=== PATIENT | female | born 1945 | race Caucasian/White ===

== ENCOUNTER 2020-01-04 08:30 | Emergency (ER) | payer OTHER, SELFPAY ==
[2020-01-04 08:44] VITALS: BP 137/70; PULSE 85; RESP 16; TEMP 36.2; O2SAT 97
--- NOTE | 2020-01-04 08:48 | ED.GENADULT ---
HPI - General Adult General Chief complaint: Allergic Reaction Stated complaint: redness ear/swollen jawline Time Seen by Provider: 01/04/20 08:50 Source: patient Mode of arrival: ambulatory Limitations: no limitations History of Present Illness HPI narrative: Jackie Arreola is a 74 yo female who comes to the [facility] with swelling of her mouth tongue and submandibular space as a result of salsa that she ate last night that came from [facility] she states that she had a reaction once before after eating food did not connect with this particular salsa discussed the fact that the allergic reaction will recur or get worse with subsequent exposure Related Data Home Medications Medication Instructions Recorded Confirmed duloxetine [Cymbalta] 30 mg PO DAILY 01/04/20 01/04/20 gemfibrozil [Lopid] 600 mg PO BID 01/04/20 01/04/20 hydrocodone-acetaminophen 01/04/20 levothyroxine 50 mcg PO DAILY 01/04/20 01/04/20 metformin 250 mg PO DAILY 01/04/20 01/04/20 Allergies Allergy/AdvReac Type Severity Reaction Status Date / Time No Known Allergies Allergy Verified 01/04/20 08:51 Review of Systems Review of Systems: Narrative: CONSTITUTIONAL: Denies fever, chills, sweats. EYES: Denies visual changes, redness, discharge. ENT: Denies rhinorrhea, congestion, sore throat, otalgia. Swelling of tongue and submandibular space, no respiratory distress CARDIOVASCULAR: Denies chest pain, palpitations, edema. RESPIRATORY: Denies dyspnea, wheezing, cough GASTROINTESTINAL: Denies abdominal pain, nausea, vomiting, diarrhea. GENITOURINARY: Denies dysuria, hematuria, abnormal discharge SKIN: Denies rash or itching. NEUROLOGIC: Denies numbness, or focal weakness. PSYCHIATRIC: Denies anxiety or depression. [facility] Family History Family History Father Acute myocardial infarction, Onset Age: 65 Patient's father is Mother Patient's mother is Social History Social History Smoking status: Never smoker Alcohol intake: never Gender identity (if verbalized by the patient): Female Comments At time of signature, I agree with nursing past medical, surgical, social and family history. There is no relevant family history pertinent to the presenting complaint. Exam Narrative: Exam Narrative: GENERAL: This is a well-nourished, well-developed patient, in mild distress. HEAD: normocephalic, atraumatic. EYES: Sclera clear/white. Vision is grossly intact. EARS: External ears normal. Hearing grossly intact. NOSE: External nose normal without nasal discharge, nares without redness, no rhinorrhea. THROAT: Mucous membranes moist, posterior pharynx claer but swelling of tongue and submandibular space. No respiratory distess- able to talk some, normal respiratory rate NECK: Neck supple,edema, non tender CARDIOVASCULAR: Regular rate and rhythm without murmurs, gallops, or rubs. RESPIRATORY: Clear to auscultation. Breath sounds equal bilaterally. No wheezes, rales, or rhonchi. GASTROINTESTINAL: Abdomen soft, SKIN: warm, intact with no suspicious lesions or rash, good texture and turgor. NEURO: awake, alert, and oriented to person, place and time. There were no obvious focal neurologic abnormalities. Steady gait EXTREMITIES: Normal range of motion. BACK: Nontender without deformity Course Course Emergency Course: Given Solu-Medrol 125 milligrams, Pepcid 20 mg, Benadryl 25 mg-patient observed for half hour Pt is improvong with meds- able to speak more cleraly. Will hold another half hour and then discharge Vital Signs Vital signs: Vital Signs Temperature 97.1 F L 01/04/20 08:44 Pulse Rate 85 01/04/20 08:44 Respiratory Rate 16 01/04/20 08:44 Blood Pressure 137/70 01/04/20 08:44 Pulse Oximetry 97 01/04/20 08:44 Temperature 97.1 F L 01/04/20 08:44 Pulse Rate 85 01/04/20 08:44 Respirat
--- NOTE | 2020-01-04 09:10 | PC.NURSE ---
0856- Pt was given Solu-Medrol 125 and Pepcid 20mg Verified by STAFF SOFTWARE ENGINEER Karne Would not scan said not ordered vivek though valid order existed.
--- NOTE | 2020-01-04 12:04 | PC.NURSE ---
0926- Checked in on patient, she stated she is started to feel better, speech is improving. No further complaints at this time.
--- NOTE | 2020-01-04 12:05 | PC.NURSE ---
0953- checked in on patient, pt stated she is feeling even better, again speech is improving, pt able to swallow benadryl without difficulty. Pt deny SOB or CP at this time.
== END 2020-01-04 10:16 | disposition home or self-care (01) ==
PROVIDERS: Emergency Provider Nurse Practitioner
DX: T78.40XA Allergy, unspecified, initial encounter (principal)
CPT/HCPCS: 96372; 99214; A9270; G0463; J2930

== ENCOUNTER 2020-03-05 14:19 | Emergency (ER) | payer OTHER, SELFPAY ==
[2020-03-05 14:29] VITALS: BP 98/63; PULSE 100; RESP 20; TEMP 36.7; O2SAT 95
--- NOTE | 2020-03-05 14:30 | ED.ALLEREA ---
HPI - Allergic Reaction General Chief complaint: Allergic Reaction Stated complaint: facial, tongue swelling Time Seen by Provider: 03/05/20 14:23 History of Present Illness HPI narrative: The patient presents with her daughter for facial swelling. She had just started a new medicine. Her PCP had given her Bentyl for her diarrhea 4 days. Both of her lower cheeks and her lip are swollen. It is mild but compared to her recent photo it is noticeable. She does not complain of any itching. She does have a little bit of a headache MD complaint: allergic reaction and facial swelling Onset (ago): minute(s) Exposure: medication Symptoms: facial swelling and lip swelling Severity: mild Treatment prior to arrival: none Previous Allergic Reaction History: angioedema Related Data Home Medications Medication Instructions Recorded Confirmed duloxetine [Cymbalta] 30 mg PO DAILY 01/04/20 01/04/20 gemfibrozil [Lopid] 600 mg PO BID 01/04/20 01/04/20 hydrocodone-acetaminophen 01/04/20 levothyroxine 50 mcg PO DAILY 01/04/20 01/04/20 metformin 250 mg PO DAILY 01/04/20 01/04/20 Allergies Allergy/AdvReac Type Severity Reaction Status Date / Time No Known Allergies Allergy Verified 01/04/20 08:51 Review of Systems Review of Systems: Narrative: CONSTITUTIONAL: Denies fever, chills, or sweats. EYES: Denies visual changes, redness, or discharge. ENT: Denies rhinorrhea, congestion, sore throat, or otalgia. CARDIOVASCULAR: Denies chest pain, palpitations, or edema. RESPIRATORY: Denies cough or dyspnea. GASTROINTESTINAL: Denies abdominal pain, nausea, vomiting, or diarrhea. GENITOURINARY: Denies dysuria or hematuria. SKIN: Denies rash or itching. MUSCULOSKELETAL: Denies back pain, joint pain, or myalgia. NEUROLOGIC: Denies headache, numbness, or weakness. [facility] Social History Social History Smoking status: Never smoker Alcohol intake: never Gender identity (if verbalized by the patient): Female Exam Narrative: Exam Narrative: GENERAL: Well-appearing, well-nourished, and in no acute distress. HEAD: Normocephalic, atraumatic. Mild swelling of the lower cheeks and lips. EYES: PERRLA and EOMI. ENT: Nares clear, no rhinorrhea or epistaxis. Mucous membranes moist. No swelling of the tongue NECK: Supple. CHEST: Clear to auscultation. No respiratory distress. HEART: Regular rate and rhythm. No murmur heard. Normal peripheral pulses. ABDOMEN: Soft, nontender, nondistended, normal active bowel sounds. EXTREMITIES: Normal range of motion. No edema. SKIN: Warm, dry, no rash. NEURO: No focal deficits. Alert and oriented x3. PSYCH: Anxious. Course Reevaluation(s) Reevaluation #1: Went into check on her at 3 PM and she is feeling better and the swelling has already decreased. She and her daughter are ready to leave. Date: 03/05/20 Time: 15:04 Vital Signs Vital signs: Vital Signs Temperature 98.0 F 03/05/20 14:29 Pulse Rate 100 03/05/20 14:29 Respiratory Rate 20 03/05/20 14:29 Blood Pressure 98/63 L 03/05/20 14:29 Pulse Oximetry 95 03/05/20 14:29 Temperature 98.0 F 03/05/20 14:29 Pulse Rate 100 03/05/20 14:29 Respiratory Rate 20 03/05/20 14:29 Blood Pressure 98/63 L 03/05/20 14:29 Pulse Oximetry 95 03/05/20 14:29 MDM - Allergic Reaction Differential Diagnosis Differential diagnosis: Likely allergic reaction and angioedema Medical Records Attestation: I reviewed the patient's medical records. Discharge Plan Discharge Clinical Impression: Angioedema Qualifiers: Encounter type: initial encounter Qualified Code(s): T78.3XXA - Angioneurotic edema, initial encounter Headache Qualifiers: Headache type: unspecified Headache chronicity pattern: unspecified pattern Intractability: not intractable Qualified Code(s): R51 - Headache Patient Disposition: Home, Self-Care Condition: Improved Instructions: Angioedema (ED) Additiona
[2020-03-05] MEDS: FAMOTIDINE 20 MG/2 ML VIAL IV PUSH (14:36)
[2020-03-05] MEDS: methylPREDNISolone SOD SUCC 125 MG VIAL IV PUSH (14:36)
[2020-03-05] MEDS: diphenhydrAMINE HCl INJ 50 MG/ML VIAL 25 MG IV PUSH (14:36)
[2020-03-05] MEDS: SODIUM CHLORIDE 0.9% IV 50 ML 100 ML (14:37)
[2020-03-05 15:27] VITALS: BP 98/63; PULSE 74; RESP 14; O2SAT 97
--- NOTE | 2020-03-11 10:08 | PC.NURSE ---
LATE ENTRY This note is being entered to document information to the patient's record. The following information was omitted on [03/05/20], by [isabel cody]. ns start 1437 end 3839
== END 2020-03-05 16:00 | disposition home or self-care (01) ==
LOC: ANHED 14:41
PROVIDERS: Emergency Provider Emergency Medicine
DX: T78.3XXA Angioneurotic edema, initial encounter (principal); R51 Headache
CPT/HCPCS: 96374; 96375; 99284; J1200; J2930

== ENCOUNTER → 2020-06-08 13:23 | Outpatient (CLI) | payer OTHER, SELFPAY ==
--- NOTE | ~2020-06-08 | MM_ITS ---
EXAMINATION: MM screening [facility] BI w sergei HISTORY: Screening mammogram TECHNIQUE: Craniocaudal and mediolateral oblique 3-D tomosynthesis images were obtained and synthetic 2-D images were generated. CAD analysis was submitted and interpreted. COMPARISON: 11/15/2018, 06/09/2017, 05/12/2015 BREAST PARENCHYMAL COMPOSITION: The breasts are heterogeneously dense, which may obscure small masses . FINDINGS: Scattered benign-appearing calcifications are present. There is no evidence of suspicious m ass, calcification, or architectural distortion to suggest malignancy in either breast. There has bee n no suspicious interval change. IMPRESSION: 1. No mammographic evidence of malignancy. 2. Recommend routine screening mammography in one year. BI-RADS Category 2: Benign finding(s). Reviewed, dictated and finalized at location A.
== END ==
PROVIDERS: Visit Provider Nurse Practitioner Obstetrics & Gynecology
DX: Z12.31 Encounter for screening mammogram for malignant neoplasm of breast (principal)
CPT/HCPCS: 77063; 77067

== ENCOUNTER 2020-12-24 08:58 | Emergency (ER) | payer OTHER, SELFPAY ==
[2020-12-24] VITALS (15 sets, daily range): BP systolic 108–123; BP diastolic 56–82; PULSE 79–91; RESP 12–20; TEMP 36.7; O2SAT 95–100
--- NOTE | 2020-12-24 09:52 | ED.ALLEREA ---
HPI - Allergic Reaction General Chief complaint: Allergic Reaction Stated complaint: left facial swelling Time Seen by Provider: 12/24/20 09:10 Source: patient Mode of arrival: ambulatory Limitations: no limitations History of Present Illness HPI narrative: Patient is a 75 year old female who presents with swelling to left face and lower lip. She reports this has happened multiple times in the past. She reports having using Epi pen x 2 and Benadryl 50mg prior to arrival in the ED. Patient is maintaining secretions and denies difficulty breathing at this time. She reports swelling of tongue and airway in the past. She denies the use of new medications or new foods. Patient does take DEANDRA inhibitor. MD complaint: facial swelling Related Data Home Medications Medication Instructions Recorded Confirmed gemfibrozil [Lopid] 600 mg PO BID 01/04/20 01/04/20 hydrocodone-acetaminophen 01/04/20 levothyroxine 50 mcg PO DAILY 01/04/20 01/04/20 amlodipine-benazepril 1 cap PO DAILY 12/24/20 aspirin 81 mg PO DAILY 12/24/20 duloxetine 30 mg PO DAILY 12/24/20 hydrochlorothiazide 25 mg PO DAILY 12/24/20 oxybutynin chloride 15 mg PO DAILY 12/24/20 pantoprazole 40 mg PO QAM 12/24/20 Allergies Allergy/AdvReac Type Severity Reaction Status Date / Time No Known Allergies Allergy Verified 12/24/20 09:10 Review of Systems Review of Systems: Narrative: CONSTITUTIONAL: Denies fever, chills, or sweats. EYES: Denies visual changes, redness, or discharge. ENT: Denies rhinorrhea, congestion, sore throat, or otalgia. CARDIOVASCULAR: Denies chest pain, palpitations, or edema. RESPIRATORY: Denies cough or dyspnea. GASTROINTESTINAL: Denies abdominal pain, nausea, vomiting, or diarrhea. GENITOURINARY: Denies dysuria or hematuria. SKIN: Swelling of left face and lower lip MUSCULOSKELETAL: Denies back pain, joint pain, or myalgia. NEUROLOGIC: Denies headache, numbness, dizziness, or weakness. PSYCHIATRIC: Denies anxiety or depression. [facility] Past Medical History Medical History (Updated 12/24/20 @ 12:26 by KIRSTIE Milton) Angioedema Depression Diabetes High cholesterol Family History Family History Father Acute myocardial infarction, Onset Age: 65 Patient's father is Mother Patient's mother is Social History Social History (Updated 12/24/20 @ 09:56 by KIRSTIE Milton) Smoking status: Never smoker Alcohol intake: never Substance use: never Living arrangements: with family Gender identity (if verbalized by the patient): Female Comments At the time of signature, I have reviewed and agree with nursing past medical, surgical, social, and family history unless otherwise noted. Please see nursing chart for further information. There is no relevant family history pertinent to the presenting complaint. Exam Narrative: Exam Narrative: GENERAL: Well-appearing, well-nourished, and in no acute distress. HEAD: Normocephalic, atraumatic. EYES: EOMI. No redness or drainage. Conjunctiva are normal. ENT: Mucous membranes pink and moist. Nares clear. Throat normal. Uvula midline. NECK: AROM. Supple. No lymphadenopathy. CHEST: No respiratory distress. Clear to auscultation. HEART: Regular rate and rhythm. No murmur appreciated. Normal peripheral pulses. GI: Soft, nontender without rebound, or guarding. No distention. EXTREMITIES: Normal range of motion. SKIN: Angioedema to left face and lower lip. NEURO: No focal deficits. Alert and oriented x3. Gait steady. PSYCH: Normal affect. No signs of depression or anxiety. Course Vital Signs Vital signs: Vital Signs Temperature 36.7 C 12/24/20 09:04 Pulse Rate 85 12/24/20 09:04 Respiratory Rate 18 12/24/20 09:04 Blood Pressure 120/82 12/24/20 09:04 Pulse Oximetry 100 12/24/20 09:04 Temperature 36.7 C 12/24/20 09:04 Pulse Rate 81 12/24/20 12:
[2020-12-24] MEDS: methylPREDNISolone SOD SUCC 125 MG VIAL IV PUSH (10:01)
[2020-12-24] MEDS: SODIUM CHLORIDE 0.9% IV 1,000 ML 999 ML IV CONT (10:01)
[2020-12-24] MEDS: FAMOTIDINE 20 MG/2 ML VIAL IV PUSH (10:01)
[2020-12-24 10:16] LABS: Alanine Aminotransferase 9 U/L (4-35); Albumin Level 4.5 g/dL (3.5-5.1); Alkaline Phosphatase 69 U/L (38-126); Anion Gap 10 mmol/L (8-16); Aspartate Amino Transferase 22 U/L (14-36); Bilirubin,Total 0.3 mg/dL (0.2-1.3); Blood Urea Nitrogen 21 mg/dL (7-17); Calcium 11.9 mg/dL (8.4-10.2); Carbon Dioxide 25 mmol/L (22-30); Chloride 98 mmol/L (98-107); Estimated CRCL calculation 45 ml/min; Estimated Glomerular Filt Rate > 60; Glucose 106 mg/dL (65-105); Potassium 3.9 mmol/L (3.4-5.0); Sodium 133 mmol/L (137-145)
[2020-12-24 10:26] LABS: Basophils Percent Auto 0.3 % (0.2-1.2); Eosinophils Absolute Auto 0.4 K/mm3 (0-0.3); Eosinophils Percent Auto 3.1 % (0-4.4); Hematocrit 29.3 % (37.0-47.0); Hemoglobin 9.7 g/dL (12.0-15.0); Immature Granulocyte Absolute 0.04 K/mm3 (0.00-0.031); Immature Granulocyte Percent A 0.3 % (0-0.5); Lymphocytes Absolute Auto 3.26 K/mm3 (0.9-3.2); Lymphocytes Percent Auto 28.4 % (18.3-44.2); Mean Corpuscular HGB Conc 33.1 g/dl (32-36); Mean Corpuscular Hemoglobin 30.5 pg (26-34); Mean Corpuscular Volume 92.1 fl (80-100); Mean Platelet Volume 10.8 fl (7.4-10.4); Monocytes Absolute Auto 1.5 K/mm3 (0.1-0.6); Monocytes Percent Auto 13.2 % (2.6-8.5); Neutrophils Absolute Auto 6.3 K/mm3 (1.3-6.7); Neutrophils Percent Auto 54.7 % (45.5-73.1); Platelet Count Result 348 k/mm3 (150-375); Red Blood Count 3.18 M/mm3 (4.2-5.4); Red Cell Distribution Width 14.1 % (11.5-14.5); White Blood Count 11.5 K/mm3 (4.5-10.0)
== END 2020-12-24 12:41 | disposition home or self-care (01) ==
PROVIDERS: Emergency Provider Nurse Practitioner; PCP Family Medicine
DX: T78.3XXA Angioneurotic edema, initial encounter (principal); E11.9 Type 2 diabetes mellitus without complications; E78.00 Pure hypercholesterolemia, unspecified; Z79.82 Long term (current) use of aspirin
CPT/HCPCS: 36415; 80053; 85025; 96361; 96374; 96375; 99284; J2930; J7030

== ENCOUNTER → 2021-12-09 14:51 | Outpatient (CLI) | payer OTHER, SELFPAY ==
--- NOTE | ~2021-12-09 | DEXA_ITS ---
Bone Density Report Name: MARCIA RENDON Age: 76 Sex: Female Ethnicity: White Date of : 1945 Indication: postmenopausal; screening for osteoporosis; height loss; hysterectomy; Referring Provider: Ashley, Magdalene Thomas Study: Bone densitometry was performed. Exam Date: December 09, 2021 Accession number: [id number] Bone Density: Region BMD T-score Z-score Classification Femoral Neck (Left) 0.895 0.4 2.6 Normal Total Hip (Left) 1.048 0.9 2.7 Normal Femoral Neck (Right) 0.924 0.7 2.8 Normal Total Hip (Right) 1.057 0.9 2.8 Normal Total Hip Mean 1.053 0.9 2.8 Normal World Health Organization criteria for BMD impression classify patients as: Normal (T-score at or above -1.0), Osteopenia (T-score between -1.0 and -2.5), or Osteoporosis (T-score at or below -2.5). 10-year Fracture Risk: FRAX not reported because: All T-scores for Spine Total, Hip Total, Femoral Neck at or above -1.0 Previous Exams: Region Exam Age BMD T-score BMD Change BMD Change Date g/cm2 vs Baseline vs Previous Total Hip(Left) 12/09/2021 76 1.048 0.9 -0.047* -0.033* 07/08/2019 74 1.081 1.1 -0.014 -0.014 06/09/2017 72 1.095 1.3 Total Hip(Right) 12/09/2021 76 1.057 0.9 -0.035* 0.031* 07/08/2019 74 1.026 0.7 -0.065* -0.065* 06/09/2017 72 1.091 1.2 *Denotes significance at 95% confidence level, LSC for Total Hip = 0.027 g/cm2 Clinical Information Provided by Patient: Has used the following medications: Vitamin D, Calcium Has the following medical conditions: Hysterectomy Patient maximum height was 62 Menopause Age: 49 Does not regularly consume dairy products Drinks caffeinated beverages Onset of menses at age 12 Number of children 4 Impression: The patient has normal bone mass. The BMD for the Total Hip(Left) decreased, changing by -0.033 since the last DXA exam. Discussion: LOW RISK OF FRACTURE; BONE DENSITY IS WELL ABOVE THE MINIMUM DESIRABLE LEVEL AND ABOVE AVERAGE FOR AGE AND SEX AT ALL SKELETAL SITES TESTED. This person's bone density is above expected limits for age and sex. This is rarely clinically significant, but should be pursued if there are significant musculoskeletal complaints. The patient should follow a healthful lifestyle (good nutrition with adequate calcium and vitamin D, and appropriate weight-bearing exercise). Follow-Up: Consider repeating this study in 3 to 4 years to reassess this patient's status, or so
--- NOTE | ~2021-12-09 | MM_ITS ---
EXAMINATION: MM screening [facility] BI w sergei HISTORY: Screening TECHNIQUE: Craniocaudal and mediolateral oblique 3-D tomosynthesis images were obtained and synthetic 2-D images were generated. CAD analysis was submitted and interpreted. COMPARISON: No prior mammogram is available for comparison at this institution. BREAST PARENCHYMAL COMPOSITION: The breasts are heterogeneously dense, which may obscure small masses . FINDINGS: There is no evidence of suspicious mass, calcification, or architectural distortion to sugg est malignancy in either breast. There has been no suspicious interval change. IMPRESSION: 1. No mammographic evidence of malignancy. 2. Recommend routine screening mammography in one year. BI-RADS Category 1: Negative Reviewed, dictated and finalized at location A.
== END ==
PROVIDERS: PCP Family Medicine; Visit Provider Nurse Practitioner Obstetrics & Gynecology
DX: Z12.31 Encounter for screening mammogram for malignant neoplasm of breast (principal); Z78.0 Asymptomatic menopausal state
CPT/HCPCS: 77063; 77067; 77080

== ENCOUNTER → 2023-02-16 14:43 | Outpatient (CLI) | payer OTHER, SELFPAY ==
--- NOTE | ~2023-02-16 | MM_ITS ---
EXAMINATION: MM screening [facility] BI w sergei HISTORY: Screening mammogram TECHNIQUE: Craniocaudal and mediolateral oblique 3-D tomosynthesis images were obtained and synthetic 2-D images were generated. CAD analysis was submitted and interpreted. COMPARISON: 12/09/2021, 06/08/2020, 11/15/2018 BREAST PARENCHYMAL COMPOSITION: The breasts are heterogeneously dense, which may obscure small masses . FINDINGS: No suspicious mass, calcification, or architectural distortion are identified in either román ast to suggest malignancy. There has been no suspicious interval change. IMPRESSION: 1. No mammographic evidence of malignancy. 2. Recommend routine screening mammography in one year. BI-RADS Category 1: Negative Reviewed, dictated and finalized at location A.
== END ==
PROVIDERS: PCP Nurse Practitioner Obstetrics & Gynecology; Visit Provider Nurse Practitioner Obstetrics & Gynecology
DX: Z12.31 Encounter for screening mammogram for malignant neoplasm of breast (principal)
CPT/HCPCS: 77063; 77067

== ENCOUNTER 2023-12-24 12:55 | Emergency (ER) | payer OTHER, SELFPAY ==
--- NOTE | 2023-12-24 14:03 | ED.GENADULT ---
HPI - General Adult General Chief complaint: Urogenital-Female Stated complaint: uti symptoms Source: patient and family Mode of arrival: ambulatory Limitations: no limitations History of Present Illness HPI narrative: Patient presents for evaluation of several symptoms. She is here in the company of her who helps provide me with some of the history. Initially was told that patient came in today for urinary symptoms, specifically a dysuria and urinary frequency. states she has had symptoms on and off for about a month. She reports some suprapubic pressure and has chronic low back pain and is unable to differentiate whether she has any new low back pain outside of her chronic symptoms. She denies any fever, chills, nausea, vomiting. indicates she has been slurring her words for approximately 1 month and has fallen several times lately. He states last week she fell in the yard several times. Both the patient and her contradict himself several times throughout the course of my interview which makes obtaining a thorough an accurate history difficult. According the patient she has not have diabetes or hyperlipidemia. Upon review of medication list in her possession she takes medication for both conditions as well as for high blood pressure. states that patient has been acting more confused. Her baseline orientation status is oriented to person place and time. states she has been tripping over her feet and informed nursing staff here that her right side has been the problematic side when ambulating. Related Data Home Medications Medication Instructions Recorded Confirmed gemfibrozil 600 mg tablet (Lopid) 600 mg PO BID 01/04/20 12/24/23 hydrocodone 5 mg-acetaminophen 325 1 tablet PO TID 01/04/20 12/24/23 mg tablet levothyroxine 50 mcg tablet 50 mcg PO DAILY 01/04/20 12/24/23 amlodipine 10 mg-benazepril 20 mg 1 cap PO DAILY 12/24/20 12/24/23 capsule aspirin 81 mg tablet 81 mg PO DAILY 12/24/20 12/24/23 duloxetine 30 mg capsule,delayed 30 mg PO DAILY 12/24/20 12/24/23 release hydrochlorothiazide 25 mg tablet 25 mg PO DAILY 12/24/20 12/24/23 oxybutynin chloride 15 mg 15 mg PO DAILY 12/24/20 12/24/23 tablet,extended release 24 hr pantoprazole 40 mg tablet,delayed 40 mg PO QAM 12/24/20 12/24/23 release Allergies Allergy/AdvReac Type Severity Reaction Status Date / Time No Known Allergies Allergy Verified 12/24/23 13:02 Review of Systems Review of Systems: CONSTITUTIONAL: Denies fever, chills, or sweats. EYES: Denies visual changes, redness, or discharge. ENT: Denies rhinorrhea, congestion, sore throat, or otalgia. CARDIOVASCULAR: Denies chest pain, palpitations, or edema. RESPIRATORY: Denies cough or dyspnea. GASTROINTESTINAL: Denies abdominal pain outside of suprapubic pain. Denies nausea, vomiting, or diarrhea. GENITOURINARY: Reports suprapubic pain, urinary frequency and dysuria SKIN: Denies rash or itching. MUSCULOSKELETAL: Reports chronic low back pain NEUROLOGIC: Reports unsteady gait with several falls recently. Reports confusion and slurred speech. Denies headache, numbness, dizziness, or weakness. PSYCHIATRIC: Denies anxiety or depression. [facility] Past Medical History Medical History Angioedema Depression Diabetes High cholesterol Hypertension Surgical History Surgical History (Updated 12/24/23 @ 14:14 by KIRSTIE Conner, ) Surgical history unknown Family History Family History Father Acute myocardial infarction, Onset Age: 65 Patient's father is Mother Patient's mother is Social History Social History Smoking status: Never smoker Alcohol intake: never Substance use: never Living arrangements: with
== END 2023-12-24 13:50 | disposition short-term general hospital (02) ==
PROVIDERS: Emergency Provider Nurse Practitioner
DX: R41.0 Disorientation, unspecified (principal); R35.0 Frequency of micturition; E11.9 Type 2 diabetes mellitus without complications; E78.00 Pure hypercholesterolemia, unspecified; I10 Essential (primary) hypertension; E78.5 Hyperlipidemia, unspecified; Z79.82 Long term (current) use of aspirin
CPT/HCPCS: 81003; 99212; G0463

== ENCOUNTER 2023-12-24 14:08 | Inpatient (IN) | payer OTHER, SELFPAY ==
[2023-12-24] VITALS (9 sets, daily range): BP systolic 131–138; BP diastolic 61–82; PULSE 67–76; RESP 16–20; TEMP 36.3–36.6; O2SAT 97–100; BMI 24.7
--- NOTE | ~2023-12-24 | MR_ITS ---
EXAMINATION: MR brain/brain stem wo/w con DATE: 12/25/2023 13:51 INDICATION: Stroke symptoms. TECHNIQUE: Magnetic resonance imaging (MRI) of the brain and brainstem was performed without and with 12 mL MultiHance intravenous contrast. COMPARISON: Brain MRI 07/04/2012, head CT 12/24/2023 FINDINGS: There are scattered areas of nonspecific increased T2-weighted signal intensity in the cere bral white matter. There is an old infarct in the left basal ganglia. There is no intracranial hemorr tova, acute infarction, or abnormal intracranial mass lesion. The ventricles are normal in size. The paranasal sinuses are clear. There are likely changes of ocular lens replacement surgeries. The masto id air cells are normal. IMPRESSION: 1. 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 2. Moderate nonspecific cerebral white matter disease, which likely represents chronic small vessel i schemic disease. Reviewed, dictated and finalized at location A. IMPRESSION: 1. 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 2. Moderate nonspecific cerebral white matter disease, which likely represents chronic small vessel ischemic disease.
--- NOTE | ~2023-12-24 | XR_ITS ---
EXAMINATION: XR chest 2V Exam Date/Time: 12/25/2023 18:35 CDT HISTORY: confusion Comparison: 10/03/2017. RESULT: Lines, tubes, and devices: Partially visualized thoracolumbar fusion hardware. Vertebroplasty cement at multiple thoracic levels. Interbody devices at multiple thoracic/lumbar levels. Lungs and pleura: Lordotic positioning. Emphysematous/senescent change. No focal consolidation, pleu ral effusion, or pneumothorax. Cardiomediastinal silhouette: Stable. Likely small hiatal hernia. Other: No acute osseous or upper abdominal finding. IMPRESSION: No acute cardiopulmonary process. Reviewed, dictated and finalized at location K.
--- NOTE | ~2023-12-24 | CT_ITS ---
EXAMINATION: CT brain wo con DATE: 12/24/2023 15:26 INDICATION: Confusion. Frequent falls. TECHNIQUE: Computed tomography (CT) of the head was performed without intravenous contrast. The mA wa s adjusted according to patient size. Iterative reconstruction technique was employed. The dose-lengt h product was 605.33 mGy-cm. COMPARISON: Head CT 07/03/2012 FINDINGS: There are scattered areas of low attenuation in the cerebral white matter. There is no intr acranial hemorrhage, acute infarction, or abnormal intracranial mass lesion. There are old infarcts i n the left basal ganglia. The ventricles are normal in size. The paranasal sinuses are clear. There a re likely changes of ocular lens replacement surgeries. The mastoid air cells are normal. IMPRESSION: 1. 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 2. Moderate nonspecific cerebral white matter disease, which likely represents chronic small vessel i schemic disease. Reviewed, dictated and finalized at location E. IMPRESSION: 1. 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 2. Moderate nonspecific cerebral white matter disease, which likely represents chronic small vessel ischemic disease.
--- NOTE | ~2023-12-24 | CT_ITS ---
EXAMINATION: CTA brain carotid DATE: 12/24/2023 18:41 INDICATION: Seizure. TECHNIQUE: Computed tomographic angiography (CTA) of the head was performed with 100 mL Omnipaque-350 intravenous contrast. CTA of the neck was performed with intravenous contrast. Automated exposure co ntrol and iterative reconstruction technique were employed. The dose-length product was 956.90 mGy-cm . Maximum intensity projection and volume rendered 3D-reconstructions were created by the yoonew t on a separate workstation. COMPARISON: Head CT 12/24/2023 FINDINGS: HEAD CTA: There are scattered areas of low attenuation in the cerebral white matter. There is no intr acranial hemorrhage, acute infarction, or abnormal intracranial mass lesion. There are old infarcts i n the left basal ganglia. The ventricles are normal in size. The paranasal sinuses are clear. There a re likely changes of ocular lens replacement surgeries. The mastoid air cells are normal. The vertebr al arteries are codominant. There is no significant stenosis of basilar artery or the posterior cereb ral arteries. There is no significant stenosis of the intracranial internal carotid arteries or anter ior or middle cerebral arteries. Anterior communicating artery is normal. Posterior communicating art eries are not identified. There is no aneurysm. NECK CTA: There is mild scarring at the lung apices. Calcified mediastinal lymph nodes are consistent with old granulomatous disease. There is no significant stenosis of the vertebral arteries. There is mild plaque in the proximal internal carotid arteries. There is 0% stenosis of the proximal right in ternal carotid artery relative to normal distal artery lumen diameter (NASCET criteria). There is 0% stenosis of the proximal left internal carotid artery relative to normal distal artery lumen diameter . There is severe cervical spondylosis. IMPRESSION: 1. 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 2. Moderate nonspecific cerebral white matter disease, which likely represents chronic small vessel i schemic disease. 3. No aneurysm or significant intracranial arterial stenosis. 4. 0% stenosis of the proximal internal carotid arteries relative to normal distal artery lumen diame ters (NASCET criteria). Reviewed, dictated and finalized at location E. IMPRESSION: 1. 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 2. Moderate nonspecific cerebral white matter disease, which likely represents chronic small vessel ischemic disease. 3. No aneurysm or significant intracranial arterial stenosis. 4. 0% stenosis of the proximal internal carotid arteries relative to normal dis jewel artery lumen diameters (NASCET criteria).
--- NOTE | 2023-12-24 14:13 | ECG_ITS ---
SEE SCANNED COPY FOR CONFIRMED REPORT MTDD
--- NOTE | 2023-12-24 14:14 | ED.AMS ---
HPI - Altered Mental Status General Chief Complaint: Altered Mental Status Stated Complaint: AMS, frequent falls Time Seen by Provider: 12/24/23 14:12 History of Present Illness HPI narrative: Patient is a 78 year old female with history of depression, DM, HTN here with progressive symptoms over the last 1 month. Patient and are both poor historians and timeline is difficult to discern. notes that over the last 2-4 weeks he believes she has started having increasing episodes of confusion. She has also been experiencing increased frequency of falls. Patient's states falls have happened both in the house and outside, denies witnessing the falls. Patient is unsure of what causes the falls, unsure if she has had head trauma, does note she scraped her right forearm during one of the falls. Over the last 1 week, patient has had worsened difficulty walking due to weakness in her right leg. describes it as pain, patient describes it as weakness. She denies any numbness. She denies any weakness or numbness in her other extremities or face. She does however note that she seems to be more slumped over and feels like she is falling forward more often. No history of stroke. does note she has been getting up 4 + times a night recently and is concerned she may have a UTI. He does not believe she has started any new medications in the last month. Related Data Home Medications Medication Instructions Recorded Confirmed gemfibrozil 600 mg tablet (Lopid) 600 mg PO BID 01/04/20 12/24/23 hydrocodone 5 mg-acetaminophen 325 1 tablet PO TID 01/04/20 12/24/23 mg tablet levothyroxine 50 mcg tablet 50 mcg PO DAILY 01/04/20 12/24/23 amlodipine 10 mg-benazepril 20 mg 1 cap PO DAILY 12/24/20 12/24/23 capsule aspirin 81 mg tablet 81 mg PO DAILY 12/24/20 12/24/23 duloxetine 30 mg capsule,delayed 30 mg PO DAILY 12/24/20 12/24/23 release hydrochlorothiazide 25 mg tablet 25 mg PO DAILY 12/24/20 12/24/23 oxybutynin chloride 15 mg 15 mg PO DAILY 12/24/20 12/24/23 tablet,extended release 24 hr pantoprazole 40 mg tablet,delayed 40 mg PO QAM 12/24/20 12/24/23 release Allergies Allergy/AdvReac Type Severity Reaction Status Date / Time No Known Allergies Allergy Verified 12/24/23 13:02 Review of Systems Review of Systems: All systems reviewed & are unremarkable except as noted in HPI and below PMFSH Past Medical History Medical History Angioedema Depression Diabetes High cholesterol Hypertension Surgical History Surgical History (Updated 12/24/23 @ 14:14 by KIRSTIE Conner, ) Surgical history unknown Family History Family History Father Acute myocardial infarction, Onset Age: 65 Patient's father is Mother Patient's mother is Social History Social History Smoking status: Never smoker Alcohol intake: never Substance use: never Living arrangements: with family Gender identity (if verbalized by the patient): Female Exam Narrative: GENERAL: Well-appearing, well-nourished, and in no acute distress. HEAD: Normocephalic, atraumatic. EYES: PERRLA and EOMI. ENT: Nares clear. Mucous membranes moist. NECK: Supple. CHEST: Clear to auscultation. No respiratory distress. HEART: Regular rate and rhythm. Normal peripheral pulses. ABDOMEN: Soft, nontender, nondistended. EXTREMITIES: Normal range of motion. No edema. SKIN: Warm, dry, no rash. NEURO: Alert and oriented x3. No upper extremity drift or numbness bilaterally. No drift in LLE, mild drift in RLE. No facial droop. PSYCH: Normal mood and affect. Course Course Emergency Course: Chart review performed. Patient appears to have been at one of our affiliated urgent cares prior to presentation here. Their no
[2023-12-24 14:45] LABS: Basophils Percent Auto 0.4 % (0.2-1.2); Eosinophils Absolute Auto 0.1 K/mm3 (0-0.3); Hemoglobin 13.8 g/dL (12.0-15.0); Immature Granulocyte Absolute 0.01 K/mm3 (0.00-0.031); Immature Granulocyte Percent A 0.1 % (0-0.5); Lymphocytes Absolute Auto 2.07 K/mm3 (0.9-3.2); Mean Corpuscular HGB Conc 36.3 g/dl (32-36); Mean Corpuscular Hemoglobin 30.7 pg (26-34); Mean Corpuscular Volume 84.4 fl (80-100); Mean Platelet Volume 10.1 fl (7.4-10.4); Monocytes Percent Auto 13.9 % (2.6-8.5); Neutrophils Percent Auto 55.6 % (45.5-73.1); Platelet Count Result 383 k/mm3 (150-375); Red Cell Distribution Width 13.3 % (11.5-14.5); White Blood Count 7.1 K/mm3 (4.5-10.0)
[2023-12-24 14:55] LABS: Lactic Acid Reflex 1.2 mmol/L (0.7-2.0)
[2023-12-24 15:02] LABS: Alanine Aminotransferase 15 U/L (6-35); Albumin Level 5.2 g/dL (3.5-5.1); Alkaline Phosphatase 64 U/L (38-126); Anion Gap 16 mmol/L (4-12); Aspartate Amino Transferase 36 U/L (14-36); Bilirubin,Total 0.9 mg/dL (0.2-1.3); Blood Urea Nitrogen 15 mg/dL (7-17); CRP 0.5 mg/dL (<1.0); Calcium 11.5 mg/dL (8.4-10.2); Carbon Dioxide 22 mmol/L (22-30); Chloride 94 mmol/L (98-107); Estimated CRCL calculation 45 ml/min; Estimated Glomerular Filt Rate > 60; Glucose 106 mg/dL (65-110); Potassium 2.7 mmol/L (3.4-5.0); Sodium 132 mmol/L (137-145)
[2023-12-24 15:03] LABS: INR 1.1; Prothrombin Time 14.3 Seconds (11.1-14.7)
[2023-12-24 15:04] LABS: Partial Thromboplastin Time 32.1 Seconds (22.3-36.8)
[2023-12-24 15:09] LABS: Troponin I 0.041 ng/mL (0.000-0.034)
[2023-12-24 16:16] LABS: Appearance Urine Cloudy (Clear); Bacteria Urine None Seen /hpf; Bilirubin Urine Negative (Negative); Blood Urine Negative (Negative); Color Urine Yellow (Yellow); Glucose Urine UA Negative (Negative); Ketones Urine Negative (Negative); Leukocyte Esterase Ur Trace LEU/UL (Negative); Nitrate Urine Negative (Negative); Non Pathogenic Casts 0-2; Protein Urine 1+ mg/dL (Negative); RBC Urine 0-2 /hpf (0-2); Specific Grav Ur 1.015 (1.001-1.035); Squamous Epithelial Cell Urine Few /hpf (Few); WBC Urine 0-5 /hpf (0-3); pH Urine 6.5 (5.0-9.0)
[2023-12-24] MEDS: POTASSIUM BICARBONATE 25 MEQ TABEF 50 MEQ PO (16:23)
[2023-12-24 16:28] LABS: Add Urine Microscopic? YES
[2023-12-24 20:09] LABS: Troponin I 0.046 ng/mL (0.000-0.034)
--- NOTE | 2023-12-24 20:44 | PM.IMHP ---
H&P: HPI History of Present Illness Date/Time: 12/24/23 21:30 Chief Complaint: Confusion and falls. Narrative: This is a very pleasant 78-year-old female with hypertension, dyslipidemia, chronic back pain, peripheral neuropathy, hypothyroidism, and gastroesophageal reflux disease who presented to the emergency department from urgent care for evaluation of confusion and falls. The patient provides the following history. Her has been worried about her for several weeks. She has been a bit confused at times (no examples were provided however and she is noted to be on donepezil at home) and the last week or so she has been intermittently slurring her speech. She has had several falls as well and he encouraged her to go to Urgent Care today to get checked for urinary tract infection to see if that was perhaps the reason that she was acting differently. Her UA was reportedly unremarkable and she was encouraged to come to the emergency department for further evaluation. The patient herself has no current complaints but she does admit that her balance has not been great for several weeks. She has noticed that the right leg in particular has seemed to be giving her trouble however she cannot tell me exactly what that means and she denies overt weakness in that leg. Regarding the falls, she tells me that last week she was outside playing with her great grandson and the next thing she knew she was falling forward onto the concrete patio. She does not recall antecedent symptoms prior to that episode. She does not know and what caused her to fall however. Luckily she was able to catch herself by landing on her forearms and there was no head trauma or loss of consciousness. She denies current vertigo, headache, neck ache, visual changes, facial droop, difficulties swallowing, current speech disturbances, focal weakness, and paresthesias. She also denies chest pain, pleuritic pain, sensations of racing heart, palpitations, and shortness of breath. She has not had any recent cold or flu symptoms. She denies recent change in her current medications or addition of new medications. She denies alcohol and illicit drug abuse. In the ED: She was afebrile on arrival with stable vital signs. CBC was unremarkable. Labs were significant for a sodium of 132, potassium 2.7, chloride 94, BUN 15, creatinine 0.70, calcium 11.5, troponin 0.041. Brain CT showed old infarcts in the left basal ganglia. CTA of the head and neck did not show any significant stenosis or aneurysm. She was given 50 mEq potassium bicarbonate and she is being admitted in this setting for further evaluation. Review of Systems Review of Systems: 12 systems were reviewed and are negative except for as per HPI. FOR[facility], LATER [facility] Past Medical History Medical History (Updated 12/24/23 @ 23:20 by Dorina Barry PA-C) Angioedema Chronic pain syndrome Depression Diabetes No longer on medication. Dyslipidemia Hypertension Insomnia Peripheral neuropathy Surgical History Surgical History (Updated 12/24/23 @ 23:09 by Dorina Barry PA-C) History of cataract extraction History of spinal surgery For scoliosis Family History Family History Father Acute myocardial infarction, Onset Age: 65 Patient's father is Mother Patient's mother is Other Leukemia Social History Social History (Updated 12/24/23 @ 23:10 by Dorina Barry PA-C) Social History: Surrogate medical decision maker: Иван Arreola, spouse. Code status: Full code. Smoking status: Never smoker Alcohol intake: former Substance use: never Substance use type: does not use Do You Feel Safe in your Home?: Yes Lack of Transportation: No Lack of Food: Never True Current Housing: I Have Housing Concerned About Future Housing: No Difficulty Paying Gas/Electric Bills: No Difficulty Paying for Meds: No Current
[2023-12-24 20:45] LABS: Magnesium 1.8 mg/dL (1.6-2.3)
[2023-12-24 21:07] LABS: Anion Gap 14 mmol/L (4-12); Blood Urea Nitrogen 13 mg/dL (7-17); Calcium 10.9 mg/dL (8.4-10.2); Carbon Dioxide 24 mmol/L (22-30); Chloride 93 mmol/L (98-107); Estimated CRCL calculation 52 ml/min; Estimated Glomerular Filt Rate > 60; Glucose 98 mg/dL (65-110); Potassium 3.1 mmol/L (3.4-5.0); Sodium 131 mmol/L (137-145)
[2023-12-24] MEDS: DULoxetine HCL 30 MG CAPSULE.DR PO (21:59)
[2023-12-24] MEDS: DONEPEZIL HCL 10 MG TABLET PO (21:59)
[2023-12-24] MEDS: busPIRone HCL 5 MG TABLET PO (21:59)
[2023-12-24] MEDS: GABAPENTIN 300 MG CAPSULE 900 MG PO (22:00)
[2023-12-24] MEDS: HYDROcodone/acetaminophen (*CRX) 5-325 MG TABLET 1 TAB PO (22:00)
[2023-12-24] MEDS: ZOLPIDEM TARTRATE (*CRX) 5 MG TABLET PO (22:20)
[2023-12-25] VITALS (17 sets, daily range): BP systolic 95–123; BP diastolic 54–63; PULSE 67–98; RESP 12–18; TEMP 36.3–37.1; O2SAT 95–100
[2023-12-25] MEDS: POTASSIUM CHLORIDE 20 MEQ ER TABLET 40 MEQ PO (01:22)
[2023-12-25] MEDS: SODIUM CHLORIDE 0.9% IV 1,000 ML 100 ML IV CONT (01:23)
[2023-12-25 04:55] LABS: Hematocrit 34.7 % (37.0-47.0); Hemoglobin 12.1 g/dL (12.0-15.0); Mean Corpuscular HGB Conc 34.9 g/dl (32-36); Mean Corpuscular Volume 86.1 fl (80-100); Mean Platelet Volume 10.5 fl (7.4-10.4); Platelet Count Result 373 k/mm3 (150-375); Red Blood Count 4.03 M/mm3 (4.2-5.4); Red Cell Distribution Width 13.3 % (11.5-14.5); White Blood Count 6.2 K/mm3 (4.5-10.0)
[2023-12-25 05:15] LABS: Anion Gap 10 mmol/L (4-12); Blood Urea Nitrogen 11 mg/dL (7-17); Carbon Dioxide 22 mmol/L (22-30); Chloride 100 mmol/L (98-107); Cholesterol 188 mg/dL (0-200); Estimated CRCL calculation 52 ml/min; Estimated Glomerular Filt Rate > 60; Glucose 94 mg/dL (65-110); HDL Direct 93 mg/dL; Magnesium 1.9 mg/dL (1.6-2.3); Potassium 2.7 mmol/L (3.4-5.0); Sodium 132 mmol/L (137-145); Triglycerides 78 mg/dL (<150)
[2023-12-25 05:22] LABS: LDL Cholesterol Direct 69 mg/dL
[2023-12-25 05:52] LABS: Thyroid Stimulating Hormone Reflex 0.045 uIU/mL (0.465-4.68)
[2023-12-25] MEDS: POTASSIUM CHLORIDE INJ 40 MEQ in SODIUM CHLORIDE 0.9% IV 500 ML 130 MEQ IVPB (05:59)
[2023-12-25] MEDS: LEVOTHYROXINE SODIUM 50 MCG TABLET PO (06:02)
[2023-12-25] MEDS: gemfibroziL 600 MG TABLET PO ×2 (06:02→17:31)
[2023-12-25 06:19] LABS: Free T4 Free Thyroxine Reflex 1.72 ng/dL (0.78-2.19)
--- NOTE | 2023-12-25 08:13 | PC.NURSE ---
This RN found the patients potassium infusion running into the floor. The IV line was never connected to the patient. Notified Dr. Morejon. Orders to give the rest of the bag, and order another 20mEq IV and check potassium level one hour after infusion.
[2023-12-25] MEDS: MAGNESIUM SULF 2 GM/WATER 50ML 2 GM/50 ML BAG IVPB (09:31)
[2023-12-25] MEDS: GABAPENTIN 300 MG CAPSULE 900 MG PO ×4 (09:39→20:44)
[2023-12-25] MEDS: PANTOPRAZOLE 40 MG TABLET PO (09:39)
[2023-12-25] MEDS: DULoxetine HCL 60 MG CAPSULE.DR PO (09:39)
[2023-12-25] MEDS: amLODIPine BESYLATE 5 MG TABLET PO (09:39)
[2023-12-25] MEDS: busPIRone HCL 5 MG TABLET PO ×3 (09:39→17:31)
[2023-12-25] MEDS: oxyBUTYnin CHLORIDE XL 5 MG TAB.ER.24 15 MG PO (09:40)
[2023-12-25] MEDS: KCL 20 MEQ/SW 100 ML 100 ML 50 MEQ IVPB (10:07)
--- NOTE | 2023-12-25 10:23 | PCPTNOTE ---
attempted PT eval, per RN and tech pt has low BP and very wobbly with standing up, last recorded BP with standing 95/55, per RN pt is getting potassium currently, will follow
--- NOTE | 2023-12-25 13:51 | PCPTNOTE ---
attempted PT eval, pt out of room at MRI, will follow
[2023-12-25 14:26] LABS: Potassium 3.7 mmol/L (3.4-5.0)
[2023-12-25 16:24] LABS: Total Triiodothyronine (T3) 0.87 NG/ML (0.97-1.69)
--- NOTE | 2023-12-25 17:17 | PM.IMPN ---
Progress Note: A&P Assessment and Plan (1) Elevated troponin: Code(s): R79.89 - Other specified abnormal findings of blood chemistry Status: Acute Assessment and Plan: The patient presented to the emergency department for evaluation of confusion and falls. Troponin elevated to 0.046 and flat. No complaints of chest pain. EKG showing normal sinus with moderate T wave changes in lateral leads. Echo showing LVH with hyperdynamic systolic fxn and Grade I diastolic dysfunction and moderate biatrial dilation. Etiology unclear. BP stable here but consider HoTN at home resulting in the fall that could explain mildly elevated Troponin Repeat Trop (3rd set) and check CXR (2) Neurological symptoms: Code(s): R29.90 - Unspecified symptoms and signs involving the nervous system Status: Acute Assessment and Plan: Patient with confusion and fall. She is having frequent falls and noted to be confused at times per family. 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 CTA head/Neck showing no acute findings or concerning stenosis. Brain MRI showing similar findings. Suspect she has underlying dementia (already on donepezil) made worse with chronic narcotic use, Ambien use and excessive free water fluid intake (that may be causing electrolyte changes and resulting in poor oral intake). Peripheral Neuropathy may be affecting her balance. Also on Butalbital with codeine that could be contributing to her symptoms. Also on a diet for unclear reasons She is also up voiding at night frequently due to the excessive water intake which can lead to poor sleep hygiene and more confusion during the day. TSH noted and only slightly low and with normal FT4. Continue levopthyroxine. Continue donepezil. Stop Ambien. Limit [place] and Butalbital use. Instructed patient and family to limit free water intake, no drinking fluids after 4pm and sleep in bed with quiet environment. Start PT/OT. Continue fall precautions. (3) Electrolyte abnormality: Code(s): E87.8 - Other disorders of electrolyte and fluid balance, not elsewhere classified Status: Acute Assessment and Plan: Patient with several electrolyte abnormalities including hyponatremia, hypokalemia, and hypercalcemia. May very well be related to HCTZ which was held. Consider related to excessive free water. Potassium low again this morning and replacement ordered. Sodium about the same. Calcium mildly elevated and felt related to HCTZ or hyperparathyroid disease. Better after IV fluids. (4) Frequent falls: Code(s): R29.6 - Repeated falls Status: Acute Assessment and Plan: As above (5) Chronic pain syndrome: Code(s): G89.4 - Chronic pain syndrome Status: Acute Assessment and Plan: As above. Limit narcotics (6) Insomnia: Code(s): G47.00 - Insomnia, unspecified Status: Acute Assessment and Plan: As above. Stop ambien. Use melatonin. (7) Peripheral neuropathy: Code(s): G62.9 - Polyneuropathy, unspecified Status: Acute Assessment and Plan: On an exceedingly high still of Gabapentin (3600mg) which could be potentiated by the narcotics and/or renal disease. CrCl 52 with recommendations of not to exceed 1800mg/day for CrCl 50-79. Contributing to her underlying problems with confusion, amnesia, depression and abnormal gait. Reduce Gabapentin to 900mg Q8hr then reduce further to 600mg Q8hr at discharge. (8) Hypertension: Code(s): I10 - Essential (primary) hypertension Status: Acute Assessment and Plan: Patient's blood pressure was reviewed on 12/24 Blood pressure low at times. Falls related to HoTN? Will hold Norvasc Plan DVT Prophylaxis - SCDs Code status - full Subjective Date/time seen: 12/25/23 17:17 Interval history: 78yo female with HTN, dyslipidemia, chronic back pain
--- NOTE | 2023-12-25 18:11 | WPDNEURCNPN ---
Assessment and Plan Assessment and plan (1) MCI (mild cognitive impairment): Code(s): G31.84 - Mild cognitive impairment of uncertain or unknown etiology Status: Acute (2) Peripheral neuropathy: Code(s): G62.9 - Polyneuropathy, unspecified Status: Acute (3) Ataxia: Code(s): R27.0 - Ataxia, unspecified Status: Acute (4) Chronic pain syndrome: Code(s): G89.4 - Chronic pain syndrome Status: Acute (5) Status post lumbar spine surgery for decompression of spinal cord: Code(s): Z98.890 - Other specified postprocedural states Status: Acute Plan The patient is being treated for possible urinary tract infection at this time. She has history of chronic lower back pain and has had a surgery on the same the past year. She will require further evaluation from neurology point of view with attention to the balance and memory since the single exam not considered conclusive and a for any definitive decision making. I spoke to the patient and his sister about it. Of the glad to see her in my office with the results of these. In the meanwhile take liberty to order serum B12 and folic acid level and thyroid function test and vitamin-D levels under summary done. Physical therapy can assist to help with gait strengthening. Consult date: 12/25/23 Time Seen: 10:30 Reason for consult: change in mental status and imbalance HPI: Jackie Arreola is a 78 year old female who presented emergency room with change in mental status and tendency to fall. According to her sister who was present at time of the evaluation as he has been having this problem on and off for while but to the of the change in mental status and also she appears somewhat confused and had a fall. She has history of chronic pain. She attributes this to having neuropathy. See has been diagnosed to have diabetes mellitus at 1 point but the patient has a labral explanation because she does not think that she has diabetes. Sees worried that she may have had a stroke since having difficulty with balance and CT scan of the brain and CT angiogram of the brain number performed did not show any large vessel occlusion. There is a old infarct in the left basal ganglia region. MRI of the brain was performed also shows moderate degree of white matter changes and old infarct in the left basal ganglia region. No additional new findings have been noted. Patient has not had any episodes of unresponsiveness while in the hospital. It was noted that she had some electrolyte abnormality tab being attended to by the hospitalist group. Review of Systems Review of Systems: All systems reviewed & are unremarkable except as noted in HPI and below Constitutional: Constitutional: Denies chills, Denies fever(s) and Denies weight loss Eyes: Eyes: Denies diplopia and Denies loss of vision ENT: Denies dizziness, Denies hearing loss and Denies tinnitus Cardiovascular: Cardiovascular: Denies chest pain, Denies syncope and Denies dyspnea Respiratory: Respiratory: Denies cough, Denies dyspnea and Denies wheezing Gastrointestinal: Gastrointestinal: Denies abdominal pain, Denies change in bowel habits and Denies vomiting Genitourinary: Genitourinary: Denies urinary incontinence Musculoskeletal: Comments: History of surgeon the lumbar spine. Patient has chronic pain in the lower back she also has pain in both feet the neuropathy. Integumentary/Breasts: Skin/Breast: Denies new lesions and Denies rash Neurologic: Reports as per HPI, Denies dizziness, Denies syncope and Denies loss of vision Comments: No history of vertigo Psychiatric: Psychiatric: Denies anxiety and Denies depression Comments: her sister think that she is having some issue with memory Hematologic/Lymphatic: Hematologic/Lymphatic: Denies easy bleeding and Denies easy bruising Allergic/Immunologic: Allergic/Immunologic: Denies no additional allergic/immunologic c
[2023-12-25] MEDS: DULoxetine HCL 30 MG CAPSULE.DR PO (20:43)
[2023-12-25] MEDS: MELATONIN 5 MG TABLET PO (20:44)
[2023-12-25] MEDS: ASPIRIN 81 MG ENTERIC TABLET PO (20:44)
[2023-12-25] MEDS: DONEPEZIL HCL 10 MG TABLET PO (20:47)
[2023-12-25 21:41] LABS: Vitamin D 25 Hydroxy 42.9 ng/mL
[2023-12-25 22:25] LABS: Folic Acid > 20.0 ng/mL (2.76->20)
--- NOTE | 2023-12-25 23:20 | ECHO_ITS ---
Patient Info Name: Jackie Arreola Age: 78 years : 1945 Gender: Female Ht: 62 in Wt: 135 lbs BSA: 1.65 m2 HR: 72 bpm BP: 112 / 56 mmHg Heart Rhythm: Sinus Rhythm Technical Quality: Fair Exam Date: 12/25/2023 8:40 AM Exam Location: Echo Lab Patient Status: Inpatient Admit Date: 12/24/2023 Staff Ordering Physician: Dorina Barry PA-C Senior Solutions Architect: Dominique Koenig RDCS Attending Provider: Tania Mcgee MD Referring Physician: Jhonny GALLEGOS; Exam Type: CA echo doppler color flow Study Info Indications - hypertension - elevated troponin Complete two-dimensional, color flow and Doppler transthoracic echocardiogram is performed. Summary 1. Complete two-dimensional, color flow and Doppler transthoracic echocardiogram is performed. 2. Left ventricular hypertrophy with hyperdynamic systolic function and grade 1 diastolic noncompliance. 3. Moderate biatrial dilation. 4. Calcified mitral valve annulus. 5. Trivial aortic, pulmonic and tricuspid regurgitation. Left Ventricle Left ventricular chamber dimension is normal. Left ventricular systolic function is hyperdynamic, estimated at >70%. The left ventricular diastolic function is grade I diastolic dysfunction. Right Ventricle Right ventricular chamber dimension is normal. Left Atria Left atrial chamber dimension is moderately enlarged. Right Atria Right atrial chamber dimension is moderately enlarged. Aortic Valve The aortic valve is trileaflet. There is trace aortic valve regurgitation. Pulmonic Valve The pulmonic valve is normal. There is trace pulmonic regurgitation. Mitral Valve The mitral valve has normal leaflets. The mitral valve annulus is severely calcified. Tricuspid Valve The tricuspid valve leaflets are normal. There is trace tricuspid valve regurgitation. Pericardium/Pleural The pericardium appears normal. Aorta The aortic root size at the sinus of Valsalva is normal. Report Signatures
[2023-12-26] VITALS (10 sets, daily range): BP systolic 109–127; BP diastolic 50–95; PULSE 62–83; RESP 16; TEMP 36.2–36.7; O2SAT 97–100
[2023-12-26 04:36] LABS: Basophils Absolute Auto 0.1 K/mm3 (0.0-0.1); Basophils Percent Auto 0.8 % (0.2-1.2); Eosinophils Absolute Auto 0.2 K/mm3 (0-0.3); Eosinophils Percent Auto 3.1 % (0-4.4); Hematocrit 34.7 % (37.0-47.0); Hemoglobin 12.4 g/dL (12.0-15.0); Immature Granulocyte Absolute 0.03 K/mm3 (0.00-0.031); Immature Granulocyte Percent A 0.5 % (0-0.5); Lymphocytes Absolute Auto 2.22 K/mm3 (0.9-3.2); Lymphocytes Percent Auto 34.6 % (18.3-44.2); Mean Corpuscular HGB Conc 35.7 g/dl (32-36); Mean Corpuscular Hemoglobin 30.9 pg (26-34); Mean Corpuscular Volume 86.5 fl (80-100); Monocytes Percent Auto 14.8 % (2.6-8.5); Neutrophils Percent Auto 46.2 % (45.5-73.1); Platelet Count Result 364 k/mm3 (150-375); Red Blood Count 4.01 M/mm3 (4.2-5.4); Red Cell Distribution Width 13.9 % (11.5-14.5); White Blood Count 6.4 K/mm3 (4.5-10.0)
[2023-12-26 04:51] LABS: Albumin Level 4.2 g/dL (3.5-5.1); Anion Gap 10 mmol/L (4-12); Blood Urea Nitrogen 7 mg/dL (7-17); Calcium 9.4 mg/dL (8.4-10.2); Carbon Dioxide 20 mmol/L (22-30); Chloride 105 mmol/L (98-107); Estimated CRCL calculation 74 ml/min; Estimated Glomerular Filt Rate > 60; Glucose 91 mg/dL (65-110); Magnesium 1.9 mg/dL (1.6-2.3); Phosphorus 2.1 mg/dL (2.5-4.5); Sodium 135 mmol/L (137-145)
[2023-12-26 05:00] LABS: Parathyroid Intact 12.5 pg/mL (7.5-53.5)
[2023-12-26 05:07] LABS: Troponin I 0.035 ng/mL (0.000-0.034)
[2023-12-26] MEDS: gemfibroziL 600 MG TABLET PO (06:00)
[2023-12-26] MEDS: LEVOTHYROXINE SODIUM 50 MCG TABLET PO (06:01)
[2023-12-26] MEDS: GABAPENTIN 300 MG CAPSULE 900 MG PO (06:01)
[2023-12-26] MEDS: PANTOPRAZOLE 40 MG TABLET PO (09:39)
[2023-12-26] MEDS: oxyBUTYnin CHLORIDE XL 5 MG TAB.ER.24 15 MG PO (09:39)
[2023-12-26] MEDS: busPIRone HCL 5 MG TABLET PO ×2 (09:39→12:43)
[2023-12-26] MEDS: DULoxetine HCL 60 MG CAPSULE.DR PO (09:40)
--- NOTE | 2023-12-26 12:39 | PM.DS ---
DS: Admitting Diagnosis Discharge Date 12/26/2023 Admitting Diagnosis Confusion and falls. DS: Discharge Diagnosis Discharge Diagnosis (1) Elevated troponin: Code(s): R79.89 - Other specified abnormal findings of blood chemistry Status: Acute Assessment and Plan: The patient presented to the emergency department for evaluation of confusion and falls. Troponin elevated to 0.046 and flat. No complaints of chest pain. EKG showing normal sinus with moderate T wave changes in lateral leads. Echo showing LVH with hyperdynamic systolic fxn and Grade I diastolic dysfunction and moderate biatrial dilation. Etiology unclear. BP stable here but consider HoTN at home resulting in the fall that could explain mildly elevated Troponin Pt ok for DC (2) Neurological symptoms: Code(s): R29.90 - Unspecified symptoms and signs involving the nervous system Status: Acute Assessment and Plan: Patient with confusion and fall. She is having frequent falls and noted to be confused at times per family. 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 CTA head/Neck showing no acute findings or concerning stenosis. Brain MRI showing similar findings. Suspect she has underlying dementia (already on donepezil) made worse with chronic narcotic use, Ambien use and excessive free water fluid intake (that may be causing electrolyte changes and resulting in poor oral intake). Peripheral Neuropathy may be affecting her balance. Also on Butalbital with codeine that could be contributing to her symptoms. Also on a diet for unclear reasons She is also up voiding at night frequently due to the excessive water intake which can lead to poor sleep hygiene and more confusion during the day. TSH noted and only slightly low and with normal FT4. Continue levopthyroxine. Continue donepezil. Stop Ambien. Limit [place] and Butalbital use. Instructed patient and family to limit free water intake, no drinking fluids after 4pm and sleep in bed with quiet environment. Start PT/OT. Continue fall precautions. (3) Electrolyte abnormality: Code(s): E87.8 - Other disorders of electrolyte and fluid balance, not elsewhere classified Status: Acute Assessment and Plan: Patient with several electrolyte abnormalities including hyponatremia, hypokalemia, and hypercalcemia. May very well be related to HCTZ which was held. Consider related to excessive free water. Potassium low again this morning and replacement ordered. Sodium about the same. Calcium mildly elevated and felt related to HCTZ or hyperparathyroid disease. Better after IV fluids. (4) Frequent falls: Code(s): R29.6 - Repeated falls Status: Acute Assessment and Plan: As above (5) Chronic pain syndrome: Code(s): G89.4 - Chronic pain syndrome Status: Acute Assessment and Plan: As above. Limit narcotics (6) Insomnia: Code(s): G47.00 - Insomnia, unspecified Status: Acute Assessment and Plan: As above. Stop ambien. Use melatonin. (7) Peripheral neuropathy: Code(s): G62.9 - Polyneuropathy, unspecified Status: Acute Assessment and Plan: On an exceedingly high still of Gabapentin (3600mg) which could be potentiated by the narcotics and/or renal disease. CrCl 52 with recommendations of not to exceed 1800mg/day for CrCl 50-79. Contributing to her underlying problems with confusion, amnesia, depression and abnormal gait. Reduce Gabapentin to 900mg Q8hr then reduce further to 600mg Q8hr at discharge. (8) Hypertension: Code(s): I10 - Essential (primary) hypertension Status: Acute Assessment and Plan: Patient's blood pressure was reviewed on 12/24 Blood pressure low at times. Falls related to HoTN? DS: Summary Hospital Course Hospital Course: 78-year-old female with hypertension, dyslipidemia, chronic back pa
== END 2023-12-26 14:25 | disposition home or self-care (01) | DRG 74 ==
LOC: ANHED 17:50 → ANHIMU 18:48
PROVIDERS: Internal Medicine; Physician Assistant; Psychiatry & Neurology Neurology; Admitting Provider General Practice; Emergency Provider Student in an Organized Health Care Education/Training Program; Visit Provider Family Medicine
DX: G62.9 Polyneuropathy, unspecified (principal); E87.1 Hypo-osmolality and hyponatremia; I95.9 Hypotension, unspecified; R41.0 Disorientation, unspecified; R47.81 Slurred speech; E87.6 Hypokalemia; E78.5 Hyperlipidemia, unspecified; E03.9 Hypothyroidism, unspecified; F32.A Depression, unspecified; G47.00 Insomnia, unspecified; G89.29 Other chronic pain; I10 Essential (primary) hypertension; K21.9 Gastro-esophageal reflux disease without esophagitis; M54.9 Dorsalgia, unspecified; R29.6 Repeated falls; R79.89 Other specified abnormal findings of blood chemistry; Z86.73 Personal history of transient ischemic attack (TIA), and cerebral infarction without residual deficits; Z98.49 Cataract extraction status, unspecified eye; Z79.82 Long term (current) use of aspirin
CPT/HCPCS: 36415; 70450; 70496; 70498; 70553; 71046; 80048; 80053; 80061; 80069; 81001; 81003; 82306; 82607; 82746; 83605; 83735; 83970; 84132; 84439; 84443; 84480; 84484; 85025; 85027; 85610; 85730; 86140; 87040; 93005; 93306; 97161; 97166; 99212; 99285; A9270; A9577; G0463; J3475; J3480; J7030; J7040; Q9967

== ENCOUNTER 2024-04-05 13:13 | Outpatient (CLI) | payer OTHER, SELFPAY ==
--- NOTE | ~2024-04-05 | MM_ITS ---
EXAMINATION: MM screening pilo BI w sergei HISTORY: Screening TECHNIQUE: Craniocaudal and mediolateral oblique 3-D tomosynthesis images were obtained and synthetic 2-D images were generated. CAD analysis was submitted and interpreted. COMPARISON: Comparison to multiple prior studies sequentially, with oldest reviewed study dated 05/12/2015. BREAST PARENCHYMAL COMPOSITION: Dense: The breasts are heterogeneously dense, which may obscure small masses FINDINGS: There is no evidence of suspicious mass, calcification, or architectural distortion to sugg est malignancy in either breast. There has been no suspicious interval change. IMPRESSION: 1. No mammographic evidence of malignancy. 2. Recommend routine screening mammography in one year. BI-RADS Category 1: Negative Reviewed, dictated and finalized at location B.
== END 2024-04-05 13:14 ==
PROVIDERS: PCP Family Medicine; Visit Provider Obstetrics & Gynecology
DX: Z12.31 Encounter for screening mammogram for malignant neoplasm of breast (principal)
CPT/HCPCS: 77063; 77067

== ENCOUNTER 2025-04-19 11:40 | Inpatient (IN) | payer OTHER, SELFPAY ==
--- OUTSIDE RECORDS SUMMARY | 2015-09-25 03:00 | XMS_ITS | Continuity of Care Document ---
Author Organization [facility] Address [address] [place] [address] [address] [place] [address] Phone Care Team Providers Care Small Business Sales Representative Name Role Phone Rajan MS, OTR/L, Richa GLASS Unavailable Unavailable Procedures Procedure Date OT EVALUATION THERAPEUTIC EXERCISES Forearm Advance Directives Directive Yes / No Effective Date File Name No Information Encounters Encounter Description Practice Location Reason(s) For Visit Diagnoses Date Provider Providers Copied on Encounter [facility], [address] [place], [place] [address], [place], [place], [id number], [place] tel:[phone] [place] Stiffness of left hand, not elsewhere classifiedStiff ness of left wrist, not elsewhere classifiedUnsp fx navicular bone of left wrist, subs for fx w nonunion [address] [address] [facility], [address], [place], [address], [place]. tel:[phone] Family History Family Member Type Diagnosis Age At Onset No Information Payers Payer name Insurance type Covered green party ID Authoriza tion(s) [employer] CI [id number] Social History Type Description Quantity Date Captured Comments Sex Female Smoking Status No Information Chief Complaint And Reason For Visit No Information Reason For Referral Reason For Referral No Information History Of Present Illness Encounter Date Complaint History Of Prese nt Illness No Information Functional Status Date Functional Assessmen t No Information Instructions Date Instruction Additional Infor mation No Information Assessments Type Assessment Date No Information Patient Care Teams Name Effective Dates (start - stop) Status Members No Information
--- OUTSIDE RECORDS SUMMARY | 2025-04-18 04:21 | XMS_ITS | Continuity of Care Document ---
Author Organization [facility] Address [address] [place] [address] Phone Care Team Providers Care Biological Sciences Professor Name Role Phone AkirabeataBryn Gallardo DO Unavailable Unava ilable Allergies, Adverse Reactions, Alerts Substance Reaction Status Criticality terbinafine Skin rash Active No Information DEANDRA Inhibitors Angioedema Active No Informatio n dicyclomine AnaphylaxisAngioedema Active No Inf ormation atorvastatin MSkel Active No Information Medications Medication Instructions Dosage Effective Dates (start - stop) Status Comments zolpidem 5 mg tablet take 1 tablet by oral route every day at bedtime 5 MG - Active g47.00, renew when eligible hydrocodone 7.5 mg-acetaminophen 325 mg tablet take 1 tablet by oral route every 6 hours as needed for pain 1.00 tablet - Active M54.50, refill when eligible hydrochlorothiazide 25 mg tablet TAKE 1 TABLET BY MOUTH EVERY DAY - Active OXYBUTYNIN CL ER 10 MG TABLET TAKE 1 TABLET BY MOUTH EVERY DAY - Active CELECOXIB 100 MG CAPSULE TAKE 1 CAPSULE BY MOUTH TWICE A DAY - Active BUSPIRONE HCL 10 MG TABLET TAKE 1 TABLET BY MOUTH THREE TIMES A DAY - Active GEMFIBROZIL 600 MG TABLET TAKE 1 TABLET BY MOUTH TWICE A DAY 30 MINUTES BEFORE MORNING AND EVENING MEAL - Active PANTOPRAZOLE SOD DR 40 MG TAB TAKE 1 TABLET BY MOUTH EVERY DAY - Active duloxetine 60 mg capsule,delayed release TAKE 1 CAPSULE BY MOUTH EVERY DAY - Active duloxetine 30 mg capsule,delayed release TAKE ONE CAPSULE BY MOUTH ONCE DAILY -- TAKE WITH 60MG DOSE FOR A TOTAL OF 90MG - Active DONEPEZIL HCL 10 MG TABLET TAKE 1 TABLET BY MOUTH EVERY DAY IN THE EVENING - Active FLUTICASONE PROP 50 MCG SPRAY SPRAY 2 SPRAYS INTO EACH NOSTRIL EVERY DAY - Active AMLODIPINE BESYLATE 5 MG TAB TAKE 1 TABLET BY MOUTH EVERY DAY - Active gabapentin 600 mg tablet take 1 tablet b y oral route 4 times every day 600 MG - Active LEVOTHYROXINE 50 MCG TABLET TAKE 1 TABLET BY MOUTH EVERY DAY - Active nystatin 100,000 unit/gram topical powder APPLY TO AFFECTED AREA TWICE A DAY - Active Calcium 500 500 mg calcium (1,250 mg) chewable tablet Take 1 tablet by oral route daily - Active butalbital-acetaminophen -caffeine 50 mg-325 mg-40 mg tablet take 1 tablet by oral route every 4 hours as needed not to exceed 6 tablets per 24hrs - Active EPINEPHRINE 0.3 MG AUTO-INJECT INJECT 0.3 ML INTRAMUSCULARLY ONCE NEEDED FOR ANAPHYLAXIS - Active iron 325 mg (65 mg iron) tablet take 1 tablet by oral route every day 325 MG - Active Os-Wilver 500 + D3 500 mg (1,250 mg)-600 unit tablet take as directed - Active Vitamin D3 1,000 unit tablet take 1 by Oral route QD 1 - Active Glucosamine Chondroitin Maximum Strength 500 mg-400 mg capsule taking equivalent of 3 per day. - Active ESTRACE 0.01% APPLICS 1 DIRECTE - A ctive ADULT LOW STRENGTH 81MG TABS 2 QD-daily - Active krill oil 500 mg capsule Take one capsul e daily - Active Procedures Procedure Date FALL RISK ASSESSMENT DOC'D PRES/ABSN URINE INCON ASSESS MED LIST DOCD IN RCRD ROUTINE VENIPUNCTURE [place] OFFICE [id number] BODY MASS INDEX DOCD SYST BP LT 130 MM HG DIAST BP < 80 MM HG COMPREHEN METABOLIC PANEL [facility] HEMOGLOBIN A1C HGA1C, GLYCO PARATHYROID HORMONE (PTH) THYROID STIMULATION HORMONE(TSH) 2024 VITAMIN D, 25-HYDROXY CBC, INC PLATELETS AND DIFFERENTIAL COMPREHEN METABOLIC PANEL CMP HEMOGLOBIN A1C HGA1C, GLYCO LIPID PANEL THYROID STIMULATION HORMONE(TSH) 2024 VITAMIN B12 (SERUM) ROUTINE VENIPUNCTURE IL OFFICE [id number] BODY MASS INDEX DOCD SYST BP LT 130 MM HG DIAST BP < 80 MM HG Removal Impacted Cerumen Irrigation/Lava ge, Unilateral CBC, INC PLATELETS AND DIFFERENTIAL COMPREHEN METABOLIC PANEL [facility] 4 THYROID STIMULATION HORMONE(TSH) 2023 Pt inelig neg scrn depres ROUTINE VENIPUNCTURE IL Admin influenza virus vac FLU VACC PRSV FREE INC ANTIG REMOVAL IMPACTED CERUMEN REQUIRING INSTR UMENTATION OFFICE [id number] BODY MASS INDEX DOCD SYST BP LT 130 MM HG DIAST BP < 80 MM HG CBC, INC PLATELETS AND DIFFERENTIAL COMPREHEN METABOLIC PANEL [facility] HEMOGLOBIN A1C HGA1C, GLYCO LIPID PANEL MICROALBUMIN, QN (URINE) CREATININE, (U-R) THYROID STIMULATION HORMONE(TSH) 2023 FREE T4 (FT4) ROUTINE VENIPUNCTURE [place] OFFICE [id number] Visit Complexity Inherent To E/M 2023 BODY MASS INDEX DOCD SYST BP LT 130 MM HG DIAST BP < 80 MM HG BASIC METABOLIC PANEL(BMP) ROUTINE VENIPUNCTURE IL BASIC METABOLIC PANEL(BMP) HEMOGLOBIN A1C HGA1C, GLYCO FALL RISK ASSESSMENT DOC'D PRES/ABSN URINE INCON ASSESS DSCHRG MED/CURRENT MED MERGE ROUTINE VENIPUNCTURE IL Transitional Care- First 7 Days Of Disch arge BODY MASS INDEX DOCD SYST BP LT 130 MM HG DIAST BP < 80 MM HG DSCHRG MED/CURRENT MED MERGE COMPREHEN METABOLIC PANEL CMP 4 ROUTINE VENIPUNCTURE IL CBC, INC PLATELETS AND DIFFERENTIAL COMPREHEN METABOLIC PANEL [facility] 3 PARATHYROID HORMONE (PTH) THYROID STIMULATION HORMONE(TSH) 2022 VITAMIN D, 25-HYDROXY PNEUMOVAX ADM MEDICARE Pneumococcal Conjugate Vaccine (PCV20) D ROUTINE VENIPUNCTURE [place] OFFICE [id number] BODY MASS INDEX DOCD SYST BP LT 130 MM HG DIAST BP < 80 MM HG DEPO-MEDROL 80MG THERAPEUTIC, PROPHYLACTIC OR DIAG INJ IN TRA-MUSCLR/SQ COVID-19, Amplified Probe Technique OFFICE [id number] BODY MASS INDEX DOCD SYST BP LT 130 MM HG DIAST BP < 80 MM HG FLU VACC PRSV FREE INC ANTIG Admin influenza virus vac CBC, INC PLATELETS AND DIFFERENTIAL COMPREHEN METABOLIC PANEL CMP 3 HEMOGLOBIN A1C HGA1C, GLYCO THYROID STIMULATION HORMONE(TSH) 2022 VITAMIN B12 (SERUM) Pt inelig neg scrn depres ROUTINE VENIPUNCTURE IL OFFICE [id number] BODY MASS INDEX DOCD SYST BP LT 130 MM HG DIAST BP < 80 MM HG CBC, INC PLATELETS AND DIFFERENTIAL COMPREHEN METABOLIC PANEL CMP 3 HEMOGLOBIN A1C HGA1C, GLYCO LIPID PANEL MICROALBUMIN, QN (URINE) CREATININE, (U-R) THYROID STIMULATION HORMONE(TSH) 2022 FALL RISK ASSESSMENT DOC'D PRES/ABSN URINE INCON ASSESS ROUTINE VENIPUNCTURE IL OFFICE [id number] BODY MASS INDEX DOCD SYST BP GE 130 - 139MM HG DIAST BP < 80 MM HG AMYLASE CBC, INC PLATELETS AND DIFFERENTIAL COMPREHEN METABOLIC PANEL CMP 2 HEMOGLOBIN A1C HGA1C, GLYCO LIPASE THYROID STIMULATION HORMONE(TSH) 2021 VITAMIN B12 (SERUM) ROUTINE VENIPUNCTURE OFFICE [id number] BODY MASS INDEX DOCD SYST BP LT 130 MM HG DIAST BP < 80 MM HG CBC, INC PLATELETS AND DIFFERENTIAL COMPREHEN METABOLIC PANEL CMP 2 FERRITIN LEVEL IRON (FE), TOTAL TIBC, & % SATURATION THYROID STIMULATION HORMONE(TSH) 2021 ROUTINE VENIPUNCTURE OFFICE [id number] BODY MASS INDEX DOCD SYST BP LT 130 MM HG DIAST BP < 80 MM HG Pt inelig neg scrn depres COMPREHEN METABOLIC PANEL CMP HEMOGLOBIN A1C HGA1C, GLYCO LIPID PANEL MICROALBUMIN, QN (URINE) CREATININE, (U-R) THYROID STIMULATION HORMONE(TSH) 2021 ROUTINE VENIPUNCTURE OFFICE [id number] BODY MASS INDEX DOCD SYST BP LT 130 MM HG DIAST BP < 80 MM HG FALL RISK ASSESSMENT DOC'D PRES/ABSN URINE INCON ASSESS C-REACTIVE PROTEIN (CRP) CBC, INC PLATELETS AND DIFFERENTIAL COMPREHEN METABOLIC PANEL CMP 1 HEMOGLOBIN A1C HGA1C, GLYCO ROUTINE VENIPUNCTURE OFFICE [id number]-[id number]-[id number] BODY MASS INDEX DOCD SYST BP GE 130 - 139MM HG DIAST BP < 80 MM HG CBC, INC PLATELETS AND DIFFERENTIAL FERRITIN LEVEL IRON (FE), TOTAL TIBC, & % SATURATION ROUTINE VENIPUNCTURE Admin influenza virus vac FLU VACC PRSV FREE INC ANTIG CBC, INC PLATELETS AND DIFFERENTIAL COMPREHEN METABOLIC PANEL CMP 1 FERRITIN LEVEL HEMOGLOBIN A1C HGA1C, GLYCO IRON (FE), TOTAL TIBC, & % SATURATION THYROID STIMULATION HORMONE(TSH) 2020 ROUTINE VENIPUNCTURE OFFICE [id number] BODY MASS INDEX DOCD SYST BP LT 130 MM HG DIAST BP < 80 MM HG OFFICE [id number] BODY MASS INDEX DOCD SYST BP LT 130 MM HG DIAST BP < 80 MM HG Pt inelig neg scrn depres COMPREHEN METABOLIC PANEL [facility] HEMOGLOBIN A1C HGA1C, GLYCO MICROALBUMIN, QN (URINE) CREATININE, (U-R) THYROID STIMULATION HORMONE(TSH) 2020 ROUTINE VENIPUNCTURE OFFICE [id number] BODY MASS INDEX DOCD SYST BP LT 130 MM HG DIAST BP < 80 MM HG BASIC METABOLIC PANEL(BMP) PARATHYROID HORMONE (PTH) VITAMIN D, 25-HYDROXY ROUTINE VENIPUNCTURE FALL RISK ASSESSMENT DOC'D PRES/ABSN URINE INCON ASSESS COMPREHEN METABOLIC PANEL [facility] 0 HEMOGLOBIN A1C HGA1C, GLYCO LIPID PANEL THYROID STIMULATION HORMONE(TSH) 2019 ROUTINE VENIPUNCTURE OFFICE [id number] BODY MASS INDEX DOCD SYST BP LT 130 MM HG DIAST BP < 80 MM HG CBC, INC PLATELETS AND DIFFERENTIAL ROUTINE VENIPUNCTURE CBC, INC PLATELETS AND DIFFERENTIAL COMPREHEN METABOLIC PANEL CMP 0 THYROID STIMULATION HORMONE(TSH) 2019 ROUTINE VENIPUNCTURE OFFICE [id number] Pt inelig neg scrn depres Brief Emotional/Behavioral A ssessment, With Scoring/Doct, Per Stndrd Instrument OFFICE [id number] BODY MASS INDEX DOCD SYST BP LT 130 MM HG DIAST BP < 80 MM HG CBC, INC PLATELETS AND DIFFERENTIAL COMPREHEN METABOLIC PANEL [facility] 9 HEMOGLOBIN A1C HGA1C, GLYCO THYROID STIMULATION HORMONE(TSH) 2018 URINALYSIS, REFLEX (UA) ROUTINE VENIPUNCTURE OFFICE [id number] BODY MASS INDEX DOCD SYST BP LT 130 MM HG DIAST BP < 80 MM HG Kept Appointment No Charge Encounter Apr URINALYSIS, REFLEX (UA) CBC, INC PLATELETS AND DIFFERENTIAL COMPREHEN METABOLIC PANEL [facility] 9 HEMOGLOBIN A1C HGA1C, GLYCO THYROID STIMULATION HORMONE(TSH) 2018 ROUTINE VENIPUNCTURE OFFICE [id number] BODY MASS INDEX DOCD SYST BP LT 130 MM HG DIAST BP < 80 MM HG IMMUN ADMIN (INC PERCUTANEOUS) SINGLE, F IRST INJ MMR IMMUNIZATION ROUTINE VENIPUNCTURE Advance Directives Directive Yes / No Effective Date File Name Life Support Not Answered N/A N/A Intubation Not Answered N/A N/A Antibiotics Not Answered N/A N/A IV Fluid Support Not Answered N/A N/A Tube Feed Not Answered N/A N/A Other Directive N/A N/A WARNING:The information contained in this section is historical and is provided for information only and does not constitute a legal document or any assurance that the information is still accurate. Please verify the information with the cano of the legal document before using it for clinical purposes. Encounters Encounter Description Practice Location Reason(s) For Visit Diagnoses Date Provider Providers Copied on Encounter [facility], [address], [place], [place], [id number] , [place] tel:[phone] [facility] No Information 0 5 Ernie amy Clemente. [facility] [place], [place], [id number], [place]. tel: [phone] [facility], [address], [place], [place], [address] , [place] tel: [phone] [facility] No Information 5 Ernie reyes Bryn. [address] [place], [place], [id number], [place]. tel: [phone] [facility], [address], [place], [place], [address] , [place] tel: [phone] [facility] No Information 5 Ernie reyes Bryn. [facility] [place], [id number], [place]. tel: [phone] [facility], [address], [place], [place], [address] , [place] tel: [phone] [facility] No Information 5 Ernie amy Clemente. [address] [place] [address], [id number], [place]. tel: [phone] [facility], [address], [place], [place], [address] , [place] tel: [phone] [facility] No Information 5 Sujit Herndon. [address] [place], [place], [id number], [place]. tel: [phone] [facility], [address], [place], [place], [address] , [place] tel: [phone] [facility] No Information 5 Ernie Clemente. [address] [place] [address], [id number], [place]. tel: [phone] [facility], [address], [place], [place], [address] , [place] tel: [phone] [facility] No Information Jan-3 0- 5 Merline Pang. [address] [place] [address], [address], [place]. tel:[phone] OFFICE VHNHE-WJZ-LRY JOSE [facility], [address], [place], [place], [address] , tel: [phone] [facility] 4 month F/U (chief complaint)Chr onic Conditions (chief complaint) Body mass index [BMI] 27.0-27.9, adultType 2 diabetes mellitus with diabetic polyneuropat hyHypothyroi dism, unspecifiedO ther intervertebr al disc displacement , lumbar regionEssent ial (primary) hypertension Pulmonary hypertension , unspecifiedA ge-related cognitive declineHyper calcemiaInso mnia, unspecified Gerard-0 9- 5 Ernie Clemente. [address] [place] [address], [id number], [place]. tel:[phone] Referring Provider: Bryn villafana, [address] [place] [address], [address] . tel:[phone] [facility], [address], [place], [place], [address] , [place] tel: [phone] [facility] No Information Jan-0 - 5 Michael Ortiz. [address] [address], [place], [place], [address], . tel:[phone] Referring Provider: Bryn villafana, [address] [place] [address], [address] . tel:[phone] [facility], [address], [place], [place], [address] , [place] tel: [phone] [facility] No Information Jan-0 2-202 5 Sujit Herndon. [address] [place] [address], [id number], [place]. tel:[phone] [facility], [address], [place], [place], [address] , [place] tel: [phone] [facility] No Information 0 8- 5 Ernie Clemente. [address] [place] [address], [id number], [place]. tel:[phone] [facility], [address], [place], [place], [address] , [place] tel: [phone] [facility] No Information Nov-0 8- 5 Sujit Herndon. [address] [place] [address], [id number], [place]. tel:[phone] [facility], [address], [place], [place], [address] , [place] tel: [phone] [facility] No Information 0- 5 Ernie Clemente. [address] [place] [address], [id number], [place]. tel:[phone] [facility], [address], [place], [place], [address] , [place] tel: [phone] [facility] No Information 0 - 5 Merline Pang. [address] [place] [address], [address], . tel: [phone] [facility], [address], [place], [place], [address] , [place] tel: [phone] [facility] No Information 0- 5 Michael Ortiz. [address], [id number], [place]. tel:[phone] Referring Provider: Bryn villafana, [address] [place] [address], [address] . tel:[phone] OFFICE GKQMR-NNW-TVN JOSE [facility], [address], [place], [place], [address] , [place] tel: [phone] [facility] 4 month F/U (chief complaint)Chr onic Conditions (chief complaint) Body mass index [BMI] 24.0-24.9, adultType 2 diabetes mellitus with diabetic polyneuropat hyHypothyroi dism, unspecifiedO ther intervertebr al disc displacement , lumbar regionHyperl ipidemia, unspecifiedE ssential (primary) hypertension Pulmonary hypertension , unspecifiedC erebrovascul ar disease, unspecifiedM yalgia, unspecified siteOther symptoms and signs involving cognitive functions and awareness 5 Ernie Clemente. [address] [place] [address], [id number], [place]. tel:[phone] Referring Provider: Bryn villafana, [address] [place] [address], [address] . tel:[phone] [facility], [address], [place], [place], [address] , tel: [phone] [facility] No Information 4 Ernie Clemente. [address] [place] [address], [id number], [place]. tel:[phone] [facility], [address], [place], [place], [address] , [place] tel: [phone] [facility] ear wash (chief complaint) Impacted cerumen, right ear 4 Ernie Clemente. [address] [place] [address], [id number], [place]. tel:[phone] Referring Provider: Bryn villafana, [address] [place] [address], [address] . tel:[phone] [facility], [address], [place], [place], [address] , [place] tel: [phone] [facility] No Information 4 Michael Ortiz. [address] [facility], [address], [id number], [place]. tel:[phone] Referring Provider: Bryn villafana, [address] [place] [address], [address] . tel:[phone] OFFICE [id number]-BHZ-MLD JOSE [facility], [address], [place], [place], [address] , [place] tel: [phone] [facility] 3 month F/U (chief complaint)Chr onic Conditions (chief complaint) Body mass index [BMI] 23.0-23.9, adultType 2 diabetes mellitus with diabetic polyneuropat hyHypothyroi dism, unspecifiedO ther intervertebr al disc displacement , lumbar regionHyperl ipidemia, unspecifiedE ssential (primary) hypertension Gastro-esoph ageal reflux disease without esophagitisE ncounter for immunization Impacted cerumen of right ear 4 Ernie Clemente. [address] [place] [address], [id number], [place]. tel:[phone] Referring Provider: Bryn villafana, [address] [place] [address], [address] . tel:[phone] [facility], [address], [place], [place], [address] , [place] tel: [phone] [facility] Encounter for screening mammogram for malignant neoplasm of breast 4 Ernie Clemente. [address] [place] [address], [id number], [place]. 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 [address] [facility], [address], [id number], . tel:[phone] Referring Provider: Bryn villafana, [address] [place] [address], [address] . tel:[phone] OFFICE LMSSH-HUB-LNG JOSE [facility], [address], [place], [place], [address] , tel: [phone] [facility] Brandi 2 month F/U (chief complaint)Chr onic Conditions (chief complaint)chr onic conditions (chief complaint) Body mass index [BMI] 24.0-24.9, adultType 2 diabetes mellitus with diabetic polyneuropat hyOther intervertebr al disc degeneration , lumbar regionHypoth yroidism, unspecifiedO ther symptoms and signs involving cognitive functions and awarenessEss ential (primary) hypertension Hyperlipidem ia, unspecifiedP ulmonary hypertension , unspecifiedM yalgia, unspecified siteEncounte r for immunization 4 Ernie Clemente. [address] [place] [address], [id number], [place]. [phone] Referring Provider: Bryn villafana, [address] [place] [address], [address] . tel:[phone] [facility], [address], [place], [place], [address] , [place] tel: [phone] [facility] No Information 4 Michael Ortiz. [address] [place] [address], [id number], . tel:[phone] Referring Provider: Bryn villafana, [address] [place] [address], [address] . tel:[phone] [facility], [address], [place], [place], [address] , [facility]: [phone] [facility] 4 Ernie Clemente. [address] [place] [address], [id number], [place]. tel:[phone] Referring Provider: Bryn villafana, [address] [place] [address], [address] . tel:[phone] [facility] [address], [place], [place], [address] , tel: [phone] [facility] No Information 4 Michael Gallegosn. [address] [address], [place], [place], [address], . tel:[phone] Referring Provider: Bird Rick, [address] [place] [address], [address]. tel:[phone] Transitional Care- First 7 Days Of Discharge [facility], [address], [place], [place], [address] , tel: [phone] [facility] Follow-Up (chief complaint)Chr onic Conditions (chief complaint)chr onic conditions (chief complaint) Other symptoms and signs involving cognitive functions and awarenessCer ebrovascular disease, unspecifiedP ersonal history of transient ischemic attack (TIA), and cerebral infarction without residual deficitsType 2 diabetes mellitus with diabetic polyneuropat hyEssential (primary) hypertension Other intervertebr al disc degeneration , lumbar regionHypoth yroidism, unspecifiedH istory of fallBody mass index [BMI] 25.0-25.9, adultHypokal emia 4 Merline Pang. [address] [place] [address], [address], [place]. tel:[phone] Referring Provider: Bryn villafana, [address] [place] [address], [address] . tel:[phone] [facility], [address], [place], [place], [address] , [place] tel: [phone] [facility] No Information 4 Ernie Clemente. [address] [place] [address], [id number], [place]. [phone] Referring Provider: Bryn villafana, [address] [place] [address], [place], [address] . [phone] [facility], [address], [place], [place], [address] , [place] tel: [phone] [facility] No Information 4 Michael Angel. [address] [place] [address], [id number], [place]. tel:[phone] Referring Provider: Bryn villafana, [address] [place] [address], [place], [address] . tel:[phone] [facility], [address], [place], [place], [address] , [place] tel: [phone] [facility] [place] Hypothyroidi sm, unspecifiedT ype 2 diabetes mellitus with diabetic polyneuropat hyRadiculopa thy, lumbar region 4 Ernie Clemente. [address] [place] [address], [id number], [place]. tel:[phone] Referring Provider: Bryn villafana, [address] [place] [address], [address] . [phone] [facility], [address], [place], [place], [address] , [place] tel: [phone] [facility] No Information 3 Michael Angel. [address], [id number], [place]. tel:[phone] Referring Provider: Bryn villafana, [address] [place] [address], [address] . tel:[phone] OFFICE AIVBO-NVU-SAL JOSE [facility], [address], [place], [place], [address] , [place] tel: [phone] [facility] 4 month F/U (chief complaint)Chr onic Conditions (chief complaint) Hypothyroidi sm, unspecifiedR adiculopathy , lumbar regionType 2 diabetes mellitus with diabetic polyneuropat hyPneumonia of right lower lobe due to infectious organismHype rcalcemiaBod y mass index [BMI] 26.0-26.9, adult 3 Ernie Clemente. [address] [place] [address], [id number], [place]. tel:[phone] Referring Provider: Bryn villafana, [address] [place] [address], [address] . tel:[phone] [facility], [address], [place], [place], [address] , tel: [phone] [facility] Cough, unspecified type 3 Ernie Clemente. [address] [place] [address], [id number], [place]. tel:[phone] OFFICE CKHEB-FXS-HMJ ANDED [facility], [address], [place], [place], [address] , tel:[phone] [facility] acute visit (chief complaint) Body mass index [BMI] 27.0-27.9, adultAcute bronchitis, unspecified organismAcut e URI 3 Ernie Clemente. [address] [place] [address], [id number], [place]. tel:[phone] Referring Provider: Bryn villafana, [address] [place] [address], [address] . tel:[phone] [facility], [address], [place], [place], [address] , tel:[phone] [facility] No Information 3 Ernie Clemente. [address] [place] [address], [id number], [place]. tel:[phone] [facility], [address], [place], [place], [address] , [place] tel: [phone] [facility] No Information 3 Ernie Clemente. [address] [place] [address], [id number], [place]. tel: [phone] [facility], [address], [place], [place], [address] , [place] tel: [phone] [facility] Encounter for immunization 3 Ernie Clemente. [address] [place] [address], [id number], [place]. tel: [phone] Referring Provider: Bryn villafana, [address] [place] [address], [address] . tel:[phone] [facility], [address], [place], [place], [address] , [place] tel: [phone] [facility] Onychomycosi s of toenail 3 Ernie Clemente. [address] [place] [address], [id number], [place]. tel: [phone] [facility], [address], [place], [place], [address] , [place] tel: [phone] [facility] No Information 3 Ernie Clemente. [address] [place] [address], [id number], [place]. tel: [phone] [facility], [address], [place], [place], [address] , [place] tel: [phone] [facility] No Information 3 Michael Ortiz. [address], [id number], [place]. [phone] Referring Provider: Bryn villafana, [address] [place] [address], [address] . tel:[phone] [facility], [address], [place], [place], [address] , [place] tel: [phone] [facility] Patient encounter (chief complaint)Chr onic Conditions (chief complaint) Body mass index [BMI] 27.0-27.9, adultType 2 diabetes mellitus with diabetic polyneuropat hyHypothyroi dism, unspecifiedG eneralized anxiety disorderEsse ntial (primary) hypertension Radiculopath y, lumbar regionOnycho mycosis of toenail 3 Ernie Clemente. [address] [place] [address], [id number], [place]. tel:[phone] Referring Provider: Bryn villafana, [address] [place] [address], [address] . tel:[phone] [facility], [address], [place], [place], [address] , [place] tel: [phone] [facility] No Information 3 Ernie Clemente. [address] [place] [address], [id number], [place]. tel:[phone] [facility], [address], [place], [place], [address] , [place] tel: [phone] [facility] No Information 3 Michael Angel. [address], [id number], [place]. tel:[phone] Referring Provider: Bryn villafana, [address] [place] [address], [address] . 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 [address] [place] [address], [id number], [place]. tel:[phone] Referring Provider: Bryn villafana, [address] [place] [address], [address] . tel:[phone] OFFICE CHMCP-YBE-TOJ JOSE [facility], [address], [place], [place], [address] , tel: [phone] [facility] Patient encounter (chief complaint)oth er (chief complaint)Chr onic Conditions (chief complaint) Body mass index [BMI] 25.0-25.9, adultHypothy roidism, unspecifiedO ther intervertebr al disc degeneration , lumbar regionEssent ial (primary) hypertension Type 2 diabetes mellitus with diabetic polyneuropat hyArthrodesi s statusExcess aman gasPruritus 2 Ernie Clemente. [address] [place] [address], [id number], [place]. tel:[phone] Referring Provider: Bryn villafana, [address] [place] [address], [address] . tel:[phone] [facility], [address], [place], [place], [address] , tel:[phone] [facility] No Information 2 Ernie Clemente. [address] [place] [address], [id number], [place]. tel:[phone] [facility], [address], [place], [place], [address] , tel:[phone] [facility] No Information 2 Ernie Clemente. [address] [place] [address], [id number], . tel:[phone] OFFICE QFVVI-FZH-DRH [facility], [address], [place], [place], [address] , [place] tel:[phone] [facility] 4 month F/U (chief complaint)oth er (chief complaint)Chr onic Conditions (chief complaint) Body mass index [BMI] 26.0-26.9, adultEssenti al (primary) hypertension Hypothyroidi sm, unspecifiedM igraine, unspecified, not intractable, without status migrainosusG bahman-esopha geal reflux disease without esophagitisP ulmonary hypertension , unspecifiedH istory of anemiaOther intervertebr al disc degeneration , lumbar region 2 Ernie Clemente. [address] [place] [address], [place], [place], [id number], [place]. tel:[phone] Referring Provider: Bryn villafana, [address] [place] [address], [place], [address] . tel:[phone] OFFICE THYWH-KUC-DKL [facility], [address], [place], [place], [address] , [place] tel:[phone] [facility] 4 month F/U (chief complaint)oth er (chief complaint)Chr onic Conditions (chief complaint) Body mass index [BMI] 26.0-26.9, adultOther intervertebr al disc degeneration , lumbar regionType 2 diabetes mellitus with diabetic polyneuropat hyHypothyroi dism, unspecifiedE ssential (primary) hypertension Scoliosis, unspecifiedP olyosteoarth ritis, unspecifiedH yperlipidemi a, unspecified Nov- 2 Ernie Clemente. [address] [place] [address], [id number], . tel:[phone] Referring Provider: Bryn villafana, [address] [place] [address], [address] . tel:[phone] OFFICE SKVPQ-LYJ-OFT JOSE [facility], [address], [place], [place], [address] , tel: [phone] [facility] Essential hypertension (chief complaint)Rad iculopathy, lumbar region (chief complaint)oth er (chief complaint)Chr onic Conditions (chief complaint) Body mass index [BMI] 25.0-25.9, adultType 2 diabetes mellitus with diabetic polyneuropat hyHypothyroi dism, unspecifiedE ssential (primary) hypertension Other intervertebr al disc degeneration , lumbar regionGenera lized anxiety disorderWeig ht loss, unintentiona lTremor Dec- 1 Ernie Clemente. [address] [place] [address], [id number], . tel:[phone] Referring Provider: Bryn villafana, [address] [place] [address], [place], [address] . tel:[phone] [facility], [address], [place], [place], [address] , [place] tel: [phone] [facility] Hypothyroidi sm, unspecifiedE ssential (primary) hypertension History of anemiaType 2 diabetes mellitus with diabetic polyneuropat hy Apr- 1 Ernie Clemente. [address] [place] [address], [id number], [place]. tel:[phone] Referring Provider: Bryn villafana, [address] [place] [address], [place], [address] . tel:[phone] OFFICE KGUIH-KBX-GVI [facility], [address], [place], [place], [address] , [place] tel: [phone] [facility] Essential hypertension (chief complaint)Ang ioedema (chief complaint)Typ e 2 diabetes (chief complaint)oth er (chief complaint)Chr onic Conditions (chief complaint) Body mass index (BMI) 27.0-27.9, adultEssenti al (primary) hypertension Type 2 diabetes mellitus with diabetic polyneuropat hyHypothyroi dism, unspecifiedP olyosteoarth ritis, unspecifiedR adiculopathy , lumbar regionHistor y of anemia 1 Ernie Clemente. [address] [place] [address], [id number], [place]. tel:[phone] Referring Provider: Bryn villafana, [address] [place] [address], [address] . tel:[phone] OFFICE OHPPZ-VSF-LKA JOSE [facility], [address], [place], [place], [address] , [place] tel: [phone] [facility] facial swelling (chief complaint)Chr onic Conditions (chief complaint) Type 2 diabetes mellitus with diabetic polyneuropat hyEssential (primary) hypertension Scoliosis, unspecifiedH istory of angioedemaBo dy mass index (BMI) 28.0-28.9, adultFacial swelling 1 Merline Pang. [address] [place] [address], [address], [place]. tel:[phone] Referring Provider: Bryn villafana, [address] [place] [address], [address] . tel:[phone] [facility], [address], [place], [place], [address] , [place] tel: [phone] [facility] No Information 1 Ernie Clemente. [address] [place] [address], [id number], [place]. tel:[phone] OFFICE WTMXA-VTN-XAP [facility], [address], [place], [place], [address] , tel: [phone] [facility] Essential hypertension (chief complaint)Int ervertebral disc degeneration, lumbar region (chief complaint)oth er (chief complaint)Chr onic Conditions (chief complaint) Body mass index (BMI) 28.0-28.9, adultType 2 diabetes mellitus with diabetic polyneuropat hyOther intervertebr al disc degeneration , lumbar regionHypoth yroidism, unspecifiedE ssential (primary) hypertension Scoliosis, unspecifiedH yperlipidemi a, unspecifiedG eneralized anxiety disorderOver active bladderGastr o-esophageal reflux disease without esophagitis Nov- 1 Ernie Clemente. [address] [place] [address], [id number], [place]. tel:[phone] Referring Provider: Bryn villafana, [address] [place] [address], [address] . tel:[phone] [facility], [address], [place], [place], [address] , tel: [phone] [facility] No Information 1 Ernie Clemente. [address] [place] [address], [id number], [place]. tel:[phone] [facility], [address], [place], [place], [address] , tel: [phone] [facility] Hypothyroidi sm, unspecifiedH yperlipidemi a, unspecifiedT ype 2 diabetes mellitus with diabetic polyneuropat hy Oct 0 Ernie Clemente. [address] [place] [address], [id number], [place]. tel:[phone] Referring Provider: Bryn villafana, [address] [place] [address], [address] . tel:[phone] OFFICE TLIVV-JGE-XKP JOSE [facility], [address], [place], [place], [address] , [place] tel: [phone] [facility] DM/HTN (chief complaint)Chr onic Conditions (chief complaint) Body mass index (BMI) 27.0-27.9, adultEssenti al (primary) hypertension Other intervertebr al disc degeneration , lumbar regionArthro desis statusType 2 diabetes mellitus with diabetic polyneuropat hyHyperlipid emia, unspecifiedH ypothyroidis m, unspecifiedM yalgia, unspecified siteGastro-e sophageal reflux disease without esophagitis 0 Ernie Clemente. [address] [place] [address], [place], [place], [id number], [place]. tel:[phone] Referring Provider: Bryn villafana, [address] [place] [address], [place], [address] . tel:[phone] [facility], [address], [place], [place], [address] , tel: [phone] [facility] Arthrodesis status 0 Ernie Clemente. [address] [place] [address], [place], [place], [id number], [place]. tel:[phone] Referring Provider: Bryn villafana, [address] [place] [address], [place], [address] . tel:[phone] [facility], [address], [place], [place], [address] , tel: [phone] [facility] Essential (primary) hypertension Type 2 diabetes mellitus with diabetic polyneuropat hyHypothyroi dism, unspecified 0 Ernie Clemente. [address] [place] [address], [id number], [place]. tel:[phone] Referring Provider: Bryn villafana, [address] [place] [address], [place], [address] . tel:[phone] [facility], [address], [place], [place], [address] , tel: [phone] [facility] Arthrodesis status 0 Ernie Clemente. [address] [place] [address], [id number], [place]. tel:[phone] OFFICE FSHXD-LRW-ZIS [facility], [address], [place], [place], [address] , tel: [phone] [facility] Telehealth (chief complaint)Chr onic Conditions (chief complaint) Scoliosis, unspecifiedO veractive bladderGener alized anxiety disorderEsse ntial (primary) hypertension Arthrodesis status 0 Ernie Clemente. [address] [place] [address], [id number], [place]. [phone] Referring Provider: Bryn villafana, [address] [place] [address], [address] . tel:[phone] [facility], [address], [place], [place], [address] , tel: [phone] [facility] Essential (primary) hypertension 0 Ernie Clemente. [address] [place] [address], [id number], [place]. tel:[phone] OFFICE UKVLA-VDH-AKG [facility], [address], [place], [place], [address] , tel: [phone] [facility] 5 week (chief complaint)Chr onic Conditions (chief complaint) Scoliosis, unspecifiedR adiculopathy , lumbar regionOther intervertebr al disc degeneration , lumbar regionOverac tive bladderGener alized anxiety disorderBody mass index (BMI) 22.0-22.9, adult Jp- 0 Ernie Clemente. [address] [place] [address], [id number], [place]. tel:[phone] Referring Provider: Bryn villafana, [address] [place] [address], [address] . tel:[phone] OFFICE NKFOD-RKU-JYL JOSE [facility], [address], [place], [place], [address] , tel: [phone] [facility] 4 month (chief complaint)Chr onic Conditions (chief complaint) Hyperlipidem ia, unspecifiedU nspecified abnormalitie s of gait and mobilityScol iosis, unspecifiedE ssential (primary) hypertension Hypothyroidi sm, unspecifiedT ype 2 diabetes mellitus with diabetic polyneuropat hyOther intervertebr al disc degeneration , lumbar regionGenera lized anxiety disorder Dec-0 4 9 Ernie Clemente. [address] [place] [address], [id number], . tel:[phone] Referring Provider: Bryn villafana, [address] [place] [address], [address] . tel:[phone] [facility], [address], [place], [place], [address] , tel: [phone] [facility] No Information Sep-3 0- 9 Ernie Clemente. [address] [place] [address], [id number], . [phone] Referring Provider: Bryn villafana, [address] [place] [address], [address] . tel:[phone] [facility], [address], [place], [place], [address] , tel: [phone] Administrati on Other intervertebr al disc degeneration , lumbar regionScolio sis, unspecified Sep-1 3- 9 Ernie Clemente. [address] [place] [address], [id number], [place]. tel:[phone] [facility], [address], [place], [place], [address] , tel: [phone] [facility] Overactive bladder Sep-0 4-201 9 Ernie Clemente. [address] [place] [address], [id number], [place]. tel:[phone] Referring Provider: Bryn villafana, [address] [place] [address], [address] . tel:[phone] OFFICE CZXFZ-HJL-MHJ JOSE [facility], [address], [place], [place], [address] , tel: [phone] [facility] 6 month (chief complaint)Chr onic Conditions (chief complaint) Body mass index (BMI) 21.0-21.9, adultEssenti al (primary) hypertension Gastro-esoph ageal reflux disease without esophagitisA rthrodesis statusOther intervertebr al disc degeneration , lumbar regionUnspec ified abnormalitie s of gait and mobilityScol iosis, unspecifiedH yperlipidemi a, unspecifiedH ypothyroidis m, unspecifiedO veractive bladder 9 Ernie Clemente. [address] [place] [address], [id number], [place]. tel:[phone] Referring Provider: Bryn villafana, [address] [place] [address], [address] . tel:[phone] [facility], [address], [place], [place], [address] , tel: [phone] [facility] Levoscoliosi s 9 Ernie Clemente. [address] [place] [address], [id number], [place]. tel:[phone] [facility], [address], [place], [place], [address] , [place] tel: [phone] [facility] Female climacteric state 9 Ernie Clemente. [address] [place] [address], [id number], [place]. tel:[phone] [facility], [address], [place], [place], [address] , tel: [phone] [facility] Injection (chief complaint) No Information 9 Priscila Cho. [address] [facility] [address], [place], [place], [id number], [place]. tel:[phone] Referring Provider: Marquis Francois, [address] [facility] [address], [place], [address] . tel:[phone] [facility], [address], [place], [place], [address] , [place] tel: [phone] [facility] Type 2 diabetes mellitus with diabetic polyneuropat hy 9 Ernie Clemente. [address] [place] [address], [id number], [place]. tel:[phone] [facility], [address], [place], [place], [address] , [place] tel: [phone] [facility] Measles, mumps, rubella (MMR) vaccination status unknown 9 Ernie Clemente. [address] [place] [address], [id number], [place]. tel:[phone] Referring Provider: Bryn villafana, [address] [place] [address], [address] . tel:[phone] [facility], [address], [place], [place], [address] , [place] tel: [phone] [facility] Levoscoliosi s 9 Ernie Clemente. [address] [place] [address], [id number], [place]. tel:[phone] [facility], [address], [place], [place], [address] , [place] tel: [phone] [facility] No Information 9 Ernie Clemente. [address] [place] [address], [id number], [place]. tel:[phone] Referring Provider: Bryn villafana, [address] [place] [address], [place], [address] . tel:[phone] [facility], [address], [place], [place], [address] , tel: [phone] [facility] Follow up (chief complaint) Levoscoliosi sArthrodesis statusMeasle s, mumps, rubella (MMR) vaccination status unknown 9 Ernie Clemente. [address] [place] [address], [id number], [place]. tel:[phone] Referring Provider: Bryn villafana, [address] [place] [address], [address] . tel:[phone] [facility], [address], [place], [place], [address] , tel: [phone] [facility] Levoscoliosi s Mar-0 9 Ernie Clemente. [address] [place] [address], [id number], [place]. tel: [phone] [facility], [address], [place], [place], [address] , tel: [phone] [facility] Hypothyroidi sm, unspecifiedP olyosteoarth ritis, unspecifiedG bahman-esopha geal reflux disease without esophagitisA rthrodesis statusEssent ial (primary) hypertension Type 2 diabetes mellitus with diabetic polyneuropat hyLevoscolio sisPelvis tilted 9 Ernie Clemente. [address] [place] [address], [id number], [place]. tel:[phone] Referring Provider: Bryn villafana, [address] [place] [address], [address] . tel:[phone] [facility], [address], [place], [place], [address] , [place] tel: [phone] [facility] Essential (primary) hypertension 9 Ernie Clemente. [address] [place], [id number], [place]. tel:[phone] [facility], [address], [place], [place], [address] , tel: [phone] [facility] Type 2 diabetes mellitus with diabetic neuropathy, unspecifiedH yperlipidemi a, unspecifiedE ssential (primary) hypertension History of migraineMyal giaChronic bilateral low back pain without sciaticaPrim cheli hypothyroidi smGastroesop hageal reflux disease without esophagitisC ognitive changesSecun dum ASDDizziness 8 Jonah Palacios. [address] [employer] , [address], [place], [place], [address]. tel:[phone] Referring Provider: Philip Mckenzie, [address], [place], [address] . tel:[phone] [facility] [address], [place], [place], [address] , tel: [phone] [facility] Dizziness 8 Jonah Palacios. [address] , [address], [place], [place], [address]. tel:[phone] Referring Provider: Philip Mckenzie, [address], [place], [address] . tel:[phone] [facility], [address], [place], [place], [address] , tel: [phone] [facility] Hyperlipidem ia, unspecifiedE ssential (primary) hypertension Type 2 diabetes mellitus with diabetic neuropathy, unspecifiedH istory of migraineChro ishaan bilateral low back pain without sciaticaPrim cheli hypothyroidi smSecundum ASDGastroeso phageal reflux disease without esophagitisC ognitive changesDizzi nessMyalgia 8 Jonah Palacios. [address], [address], [place], [place], [address]. tel:[phone] Referring Provider: Philip Mckenzie, [address], [place], [address] . tel:[phone] [facility], [address], [place], [place], [address] , tel: [phone] [facility] No Information Jonah Palacios. [address], [place], [place], [address]. tel:[phone] [facility], [address], [place], [place], [address] , tel: [phone] [facility] Diabetic polyneuropat hy associated with type 2 diabetes mellitusChro ishaan bilateral low back pain without sciaticaPrim cheli hypothyroidi smSecundum ASDSecondary pulmonary hypertension Gastroesopha geal reflux disease without esophagitisH yperlipidemi a, unspecifiedC ognitive changesEssen tial (primary) hypertension Jonah Palacios. [address], [place], [place], [address]. tel:[phone] Referring Provider: Philip Mckenzie, [address] [facility] [address], [place], [address] . tel:[phone] [facility] [address], [place], [place], [address] , tel: [phone] [facility] Hyperlipidem ia, unspecifiedT ype 2 diabetes mellitus with diabetic neuropathy, unspecifiedE ssential (primary) hypertension Primary hypothyroidi smSecundum ASDSecondary pulmonary hypertension Gastroesopha geal reflux disease without esophagitisC ognitive changesHisto ry of migraineChro ishaan right-sided low back pain with right-sided sciaticaOthe r chronic pain Jonah Palacios. [address], [place], [place], [address]. tel:[phone] Referring Provider: Philip Mckenzie, [address], [place], [address] . tel:[phone] [facility], [address], [place], [place], [address] , [place] tel: [phone] [facility] Cataracts, bilateralPul monary hypertension 6 Jonah Palacios. [address] [facility] [place], [address], [place], [place], [address]. tel:[phone] [facility], [address], [place], [place], [address] , [place] tel: [phone] [facility] No Information 6 Jonah Palacios. [address] [facility] [place], [address], [place], [place], [address]. tel:[phone] Referring Provider: Philip Mckenzie, [address] [facility] [place] [address], [place], [address] . tel:[phone] [facility], [address], [place], [place], [address] , [place] tel: [phone] [facility] Hyperlipidem ia, unspecifiedP rimary hypothyroidi smMigraine, unspecified, not intractable, without status migrainosusS ecundum ASDGastro-es ophageal reflux disease without esophagitisP ulmonary hypertension Other specified mental disorders due to known physiologica l conditionTyp e 2 diabetes mellitus with diabetic neuropathy, unspecifiedD iabetic polyneuropat hy associated with type 2 diabetes mellitusOver active bladderEssen tial (primary) hypertension Chronic bilateral low back pain without sciaticaOthe r chronic pain 6 Jonah Palacios. [address] [facility] [place], [address], [place], [place], [address]. tel:[phone] Referring Provider: Philip Mckenzie, [address] [facility] [place] [address], [place], [address] . 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 [address] , [address], [place], [place], [address]. 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 [address] [facility] [place] Health, [address], [place], [place], [address]. tel:[phone] [employer] [facility] [address], [place], [place], [address] , [place] tel: [phone] [facility] Hyperlipidem ia, unspecifiedT ype 2 diabetes mellitus with diabetic neuropathy, unspecifiedD iabetes mellitus due to underlying condition with diabetic neuropathy, unspecifiedO ther specified mental disorders due to known physiologica l conditionGas tro-esophage al reflux disease without esophagitisM igraine, unspecified, not intractable, without status migrainosusS ecundum ASDPulmonary hypertension 6 Mckenzie Philip. [address] , [address], [place], [place], [address]. tel:[phone] Referring Provider: Philip Mckenzie, [address] [facility] [address], [place], [address] . tel:[phone] [employer] [facility] [address], [place], [place], [address] , [place] tel: [phone] [facility] Encounter for immunization 5 Jonah Palacios. [address] [facility], [address], [place], [place], [address]. tel:[phone] Referring Provider: Philip Mckenzie, [address] [facility] [address], [place], [address] . tel:[phone] [employer] [facility] [address], [place], [address] , tel: [phone] [facility] No Information 5 Jonah Palacios. [address] [facility] [place], [address], [place], [place], [address]. tel:[phone] Referring Provider: Philip Mckenzie, [address] [facility] [place] [address], [place], [address] . tel:[phone] [facility], [address], [place], [place], [address] , tel: [phone] [facility] No Information May-0 4 Jonah Palacios. [address] [facility] [place], [address], [place], [address]. tel:[phone] Referring Provider: Philip Mckenzie, [address] [facility] [place] [address], [address] . tel:[phone] [facility] [address], [place], [place], [address] , tel: [phone] [facility] History of electrolyte imbalance Nov-0 3 4 Jonah Palacios. [address] [facility] [place], [address], [place], [address]. tel:[phone] Referring Provider: Philip Mckenzie, [address] [facility] [place] [address], [place], [address] . tel:[phone] [facility] [address], [place], [place], [address] , tel: [phone] [facility] History of fall/At Risk For Falling 4 Jonah Palacios. [address] [facility] [place], [address], [place], [address]. tel:[phone] Referring Provider: Philip Mckenzie, [address] [facility] [place] [address], [place], [address] . tel:[phone] [facility] [address], [place], [place], [address] , tel: [phone] [facility] No Information 3 Jonah Palacios. [address] [facility] [place], [address], [place], [place], [address]. tel:[phone] Referring Provider: Philip Mckenzie, [address] [facility] [address], [place], [address] . tel:[phone] [facility], [address], [place], [place], [address] , tel: [phone] [facility] Need for prophylactic vaccination and inoculation against streptococcu s pneumoniae [pneumococcu s] 3 Jonah Palacios. [address] [facility] [place], [address], [place], [place], [address]. tel:[phone] Referring Provider: Philip Mckenzie, [address] [facility] [place] [address] [place] [address], [address] . tel:[phone] [facility] [address], [place], [place], [address] , tel: [phone] [facility] Special screening for malignant neoplasm of colon 2 Jonah Palacios. [address] [facility] [place], [address], [place], [address]. tel:[phone] Referring Provider: Philip Mckenzie, [address] [facility] [place] [address], [address] . tel:[phone] [facility] [address], [place], [place], [address] , tel: [phone] [facility] NEED FOR PROPHYLACTIC VACCINATION AND INOCULATION, INFLUENZA 1 Jonah Palacios. [address] [facility] [place], [address], [place], [address]. tel:[phone] Referring Provider: Philip Mckenzie, [address] [facility] [place] [address], [place], [address] . tel:[phone] [facility], [address], [place], [place], [address] , tel: [phone] Conversion Department No Information 1 Conversion Doctor. [address] [facility], [place], [address], [place]. [facility], [address], [place], [place], [address] , tel: [phone] [facility] VACCINATION FOR DTP-DTAP 201 1 Mckenzie Philip. [address], [address], [place], [place], [address]. tel:[phone] [facility], [address], [place], [place], [address] , tel: [phone] [facility] LONG-TERM USE MEDS NEC 0 Mckenzie Philip. [address], [address], [place], [place], [address]. tel:[phone] [facility], [address], [place], [place], [address] , tel: [phone] [facility] No Information 5 Mckenzie Philip. [address], [address], [place], [place], [address]. tel:[phone] Family History Family Member Type Diagnosis Age At Onset Sister Problem (finding) Mother Problem (finding) Father Problem (finding) Sister Problem (finding) Over dose on Diltiazem (Cause Of ) Mother Problem (finding) TRUCK ACCIDENT (Cause O f ) Father Problem (finding) Myocardial infarction ( Cause Of ) Immunizations Vaccine Date Status Comments Fluzone High-Dose Trivalent, preservative free administered Source: New Immuniza tion Record Pneumococcal conjugate PCV20 administered Source: New Immunization Record respiratory syncytial virus immune globulin, intravenous administered Note: [facility] ; Source: Other Provider Fluzone High-Dose, high dose , preservative free administered Source: New Immuniza tion Record Fluzone Quad, split virus, 0.5mL dosage administered Note: [facility] ; Source: Other Provider Moderna (Bivalent Booster) COVID Vac, 50mgc/0.5 mL, 18+ years administered Note: [facility] ; Source: Other Provider J&J COVID/Adenovirus Vaccine [id number] viral particles/0.5mL administered Note: [employer] [facility] ; Source: Other Registry Fluzone High-Dose, high dose , preservative free administered Source: New Immuniza tion Record J&J COVID/Adenovirus Vaccine [id number] viral particles/0.5mL administered Note: [facility] ; Source: Other Registry Fluzone High-Dose, high dose , preservative free administered Note: [facility] ; Source: Other Provider MMR administered Source: New Imm unization Record MMR administered Source: New Imm unization Record SHINGRIX (Zoster vaccine recombinant, adjuvanted) administered [facility] [place] ; Source: Other Provider SHINGRIX (Zoster vaccine recombinant, adjuvanted) administered Source: Other P rovider Fluzone High-Dose, high dose , preservative free administered Source: Other Provid er Fluzone High-Dose , high dose, preservative free administered Note: Justin navarro ; Source: Other Provider influenza, injectable, quadrivalent, (3 years or older) administered Source: New Immuniza tion Record influenza, injectable, quadrivalent, (3 years or older) administered Source: New Immuniza tion Record Pneumococcal conjugate PCV 13 administere d Source: New Immunization Record Influenza, injectable, quadrivalent, preservative free, 3 yrs or older administered Source: New Immuniz ation Record Fluzone administered Source: New Imm unization Record Pneumo (2 yrs or older) (PPV23) administered Source: New Immuniza tion Record Flu (split) (3 yrs or older) administered Source: New Immunization Record 43321 - Tetanus_Diptheria_Pertussis_Td ap administered Source: Source Unspe cified 81084 - Influenza administered Source: So urce Unspecified INFLUENZA A (H1N1) VACCINE, ANY ROUTE OF ADMIN administered Source: Source Catarino torres 36375 - Influenza administered Source: So urce Unspecified Zoster administered Source: Other Martha cain 44639 - Influenza administered Source: So urce Unspecified 82095 - TD administered Source: Source Unspecified Payers Payer name Insurance type Covered alliance party ID Authoriza tion(s) [employer] MB [id number] [employer] MB [id number] [employer] MB [id number] [employer] MB [id number] [employer] MB [id number] [employer] MB [id number] [employer] MB [id number] [employer] MB [id number] [employer] MB [id number] [place] [id number] MED[employer] [place] [id number] [place] [id number] [employer] [facility]CR [facility] [id number] Social History Type Description Quantity Date Captured Comments Alcohol Use Details Unknown Caffeine Use Details Unknown Tobacco Use Status No Information Smoking Status No Information Sex Female Chief Complaint And Reason For Visit No Information Reason For Referral Reason For Referral No Information Plan Of Treatment Date Type Action Status Goal Dietary manageme nt education, guidance, and counseling completed Goal Dietary manageme nt education, guidance, and counseling completed Goal Dietary manageme nt education, guidance, and counseling completed Goal Dietary manageme nt education, guidance, and counseling completed Goal Dietary manageme nt education, guidance, and counseling completed Goal Dietary manageme nt education, guidance, and counseling completed Goal Dietary manageme nt education, guidance, and counseling completed Goal Dietary manageme nt education, guidance, and counseling completed Goal Dietary manageme nt education, guidance, and counseling completed Goal Dietary manageme nt education, guidance, and counseling completed Goal Dietary manageme nt education, guidance, and counseling completed Goal Dietary manageme nt education, guidance, and counseling completed Goal Dietary manageme nt education, guidance, and counseling completed Goal Dietary manageme nt education, guidance, and counseling completed Goal Dietary manageme nt education, guidance, and counseling completed Goal Dietary manageme nt education, guidance, and counseling completed Goal Dietary manageme nt education, guidance, and counseling completed Goal Dietary manageme nt education, guidance, and counseling completed Referral Referred To: [address] [place], [phone] Ordered: SCREENING MAMMOGRAM (CAD) Appointment date/timeframe: 07/05/2024 ordered Referral Referred To: Dr. Ashu Rosales Ordered: Referrals: Neurology. Dr. Ashu Rosales. Evaluation/diagnostic/treatment - Level 3 Appointment date/timeframe: 12/11/2024 ordered Referral Referred To: Physical Therapy Ordered: Referrals: Physical Therapy. Location: [facility]. Evaluation/diagnostic/treatment - Level 3 ordered Referral Referred To: [address] [place], [place], [phone] Ordered: Chest Xray, 2 Views ordered Referral Ordered: Chest x-ray, PA and lateral Bilateral chest ordered Referral Referred To: Santy Sepulveda DPM [address] [facility] [address] [place], [phone] Ordered: Referrals: Podiatry. Santy Sepulveda DPM Evaluation/diagnostic/treatment - Level 3 ordered Referral Referred To: Qasim Low [address] [place], [place], [phone] Ordered: Referrals: Pain Medicine. Hugh. Devante Evaluation/diagnostic/treatment - Level 3 ordered Referral Referred To: Qasim Low [address] [place], [place], [phone] Ordered: Referrals: Pain Management. Qasim Low. Evaluation/diagnostic/treatment - Level 3 ordered Referral Referred To: Jose Dunn MD Ordered: Referrals: Obstetrics/Gynecology. Jose Dunn MD. Evaluation/diagnostic/treatment - Level 3 ordered Referral Referred To: Kali Boyle [address] [place], [place], [phone] Ordered: Referrals: Neurosurgery. Kali Boyle. Evaluation/diagnostic/treatment - Level 3 ordered Referral Referred To: [address] [place] [address]
[address] [place], [phone] Ordered: MRI of lumbar spine without contrast ordered Appointment Jackie Arreola BOOKED Appointment Jackie Arreola BOOKED History Of Present Illness Encounter Date Complaint History Of Prese nt Illness 4 month F/U -Type 2 diabetes Neuropathy well controlled with gabapentinDenies side effects but would like to discuss the medication-Intervertebral disc displacement, lumbar regionRelief with hydrocodone/APAP-Pulmonary hypertensionHome BP well controlledDenies chest pain, shortness of breath, palpitationsIncreased fatigue -Left knee painInjured 3 days ago, unsure if she pulled a muscleSwelling Referral request:Ophthalmology, Dr. Veto Bateman - [place] [facility] 01/28/25Metrics:DEXA - Pt concerned she may not be able to have scan performed due to metal in backIf able to, prefers [facility] Past appt:Podiatry - 12/16/24Ophthalmology - Every 4 months Future appt:Ophthalmology - 01/28/25Mammogram - ardiology, Dr. Gennaro Juarez - 03/11/25Advance directive: Completed, will bring at next OV Chronic Conditions *See Chronic Conditions HPI 4 month F/U -Intervertebral disc displacement, lumbar regionControlled with hydrocodone/APAP-Medication managementPt was told by neurologist Dr. Rosales that duloxetine can cause cancer. Pt is still taking med. Prescribed venlafaxine 75mg, 1 capsule every morning by neuro. Pt has not started this med. Wants to discuss gabapentin and neuropathy of feet.Pt states she is on a new eye drop, does not recall name Past appt:Eye exam - 07/25/24Neurology, Dr. Rosales - 06/2024, faxed record requestGYN - 06/11/24Future appt:Podiatry, Dr. Blandon - 09/23/24 Pt unsure if referral is neededCardiology, Dr. Abdi - 12/04Addeana directive: Living will complete, will bring copy. Chronic Conditions *See Chronic Conditions HPI ear wash Assessed pt's ea rs.Lt ear canal was clear. No irritation, impacted cerumen, blood noticed.Rt ear canal had impacted cerumen and dry skin flaking. pt states she has been using ear wax softener drops since her last appt on her right ear.Cerumen impaction completely removed using irrigation technique. Patient reported significant improvement in hearing. patient tolerated procedure well Chronic Conditions *See Chronic Conditions HPI 3 month F/U -Intervertebral disc degenerationRelief with hydrocodone/APAP -Essential hypertensionHome BP well controlledDenies chest pain, shortness of breath, dizziness, lightheadedness, edema or palpitations -Difficulty hearing, right earRequests ears examined for impacted cerumen Past appt:Podiatry - 04/24/24Mammogram - 04/08/24Eye exam - February or [facility] - 12/01/23Future appt:Cardiology, Dr. Conrado Abdi - deana directive: Completed, will bring copy.Agreeable to high dose flu vaccine. Chronic Conditions *See Chronic Conditions HPI chronic conditions *See Chronic Conditions HPI 2 month F/U -Cerebrovascular diseaseTakes meds as directed and had appt. with neurohas been decreasing sedating medications with some improvement-Right foot pain x3 months Tenderness of heel Has treated with topical solutions with no relief received a gel insert from podiatry which has helped significantlyPast appt:Labs - 02/14/24Podiatry, Dr. Sepulveda - 02/14/24[facility] - 01/10/24Future appt:Podiatry - 05/2024Nemarcelino Rosales - dvance directive: Completed, will bring copy.Order management:Neuro, Dr. Rosales - ordered 01/02/24 for cerebrovascular disease. Had appt 2-3 weeks ago. Nerve conduction test ordered at [facility].[id number] administered 08/09/23. chronic conditions *See Chronic Conditions HPI Hospital Follow-Up The patient w as seen today for a hospital follow-up visit, after being discharged on 12/26/2023. Details regarding this most recent admission include: Patient is here with José Miguel. She was admitted to [facility] on December 23 presenting with confusion and falls. She was noted to have an elevated troponin however her EKG showed no normal sinus rhythm. [place] that hypotension at home resulting in the fall explained troponin. She had no chest pain during hospitalizationShe had imaging of her brain showing moderate nonspecific cerebral white matter disease as well as previous infarcts of the left basal ganglia. No acute process.She had electrolyte imbalances consisting of hyponatremia, hypercalcemia and hypokalemia. She was given a liter of normal saline which improved. They did hold her hydrochlorothiazide but did not discontinue it at discharge.Due to the frequent falls they adjusted medications. They recommended stopping Ambien which she takes for insomnia and suggested lowering her gabapentin from 3600 mg daily to 1800 mg a day. (900mg four times a day was still on DC paperwork)She does have chronic pain due to degenerative disc disease of the lumbar spine. They advised her limiting hydrocodone.Unclear whether she could have underlying dementia. She has been taking donepezil for over 10 years. Will follow with neurology outpatient. They did check serum B12, folic acid level and TSH which were normal. She is discharged home on December 26.Since going home she is doing ok. Mobility back to baseline but she does have BLE weakness and slow gait. They are agreeable to PT. No other home health needs identified. Chronic Conditions *See Chronic Conditions HPI 4 month F/U -Essential hyper tensionHome BP, oxygen saturation and pulse has been well controlled.Denies dizziness, lightheadedness, edema or palpitations.States she has some difficulty breathing still since diagnosed with pneumonia. Denies chills, fevers. Past appt: chest x-ray - 07/18/23Future appt:Cardiology, Dr. Shields - every 6 monthsAgreeable to [id number]. Chronic Conditions *See Chronic Conditions HPI acute visit Chief complaint: URI/viral illness. Symptoms started 4 days ago; occur constantly; are worsening. This is a new onset problem. Context notable for ill contact at home. Associated symptoms include cough, fatigue, hoarseness, chills, congestion and body aches. Pertinent negatives include fever.Pt states that hoarseness of voice started 07/06. SOB with O2 stats ranging in between 99-90 Noticed that she is spitting up some yellow film with difficulty breathing. Uses Nyquil and cold tablet Does not have at home covid test, unsure if she has been exposed to COVID.States that grandson had a viral infection and believes that he has passed it alongSpouse had same feeling about 1 month ago and believes that he is getting it back.COVID was negative today Patient encounter Chief complain t: 4 month F/U.-Essential hypertensionOccasionally checks BPDenies chest pain, shortness of breath, dizziness, lightheadedness, palpitations, edema Echo 02/02/23-AnxietyIncreases intermittently Denies changes in sleep habits or appetiteTakes buspirone TID Requests toenails examined for discolorationTreated with vinegar/water, Epson salt, peroxide With some improvementA friend recommended trying after benefit and, patient would like to try thisPatient denies any pain or acute infections, would like to start this due to appearanceFuture appt:Cardiology Dr. Shields - 11/27/23 Chronic Conditions *See Chronic Conditions HPI Patient encounter Chief complain t: 4 month F/U.-Essential hypertensionOV with flattening press operator Dr. Shields 11/16/22Echo scheduled02/02/23Home BP well controlledDenies chest pain, shortness of breath or edemaDizziness with standing too fast-Toenail fungus, bilateral x1 yearHas tried homeopathic remedies with no reliefsome nails getting thicker and more difficult to cut at home Chronic Conditions *See Chronic Conditions HPI Patient encounter Chief complain t: 4 month F/U chronic conditions.-Essential hypertensionHome BP well controlled.Denies chest pain, shortness of breath, dizziness, lightheadedness or edema.-GERDExcess gas. Stopped taking probiotics since there was no improvementno specific triggers, all foods cause this-Right shoulder pain radiating to neck x3 weeksMoved heavy boxes in basement. -Pruritis of right side of face x2 weeksDenies rash, blisters, or pain other Pt will make an appt. with Dr. Alatorre [facility]. Chronic Conditions *See Chronic Conditions HPI 4 month F/U -Essential hyper tensionHome BP well controlledDenies chest pain, SOBDizziness, light headedness with sudden position change States she stays well hydrated Denies falls Has been told by blood donation sites that her iron levels too low, would like to have these checked other Chronic Conditions *See Chronic Conditions HPI 4 month F/U -Type 2 diabetes Walking for exercise-Essential hypertensionHome BP well controlledDenies chest pain, dyspnea, dizziness, light headedness -Generalized anxiety disorderWell controlled with medication Back surgeon [place] Dr[facility] 1-2 years ago other Would like to kn ow if she is due for a colorectal screening. J&J 08/2021 [facility] Chronic Conditions *See Chronic Conditions [facility] Essential hypertension Home BP 1 30-140/70sDenies chest pain, shortness of breathPositive for dizziness, lightheadedness with standing Chronic Conditions *See Chronic Conditions [facility] other Cold intolerance , shakiness, increased anxiety x1 monthhaving some occasional mood swings, crying easilyTaking buspirone three times a day and does feel that this helps and can feel when it is wearing offOccasional decreased appetite and has lost weightdiscussed that this could be related to electrolytes2 falls in the past 12 monthsBruising Dizziness, light headedness with standing J&J booster 07/18/21 [facility] Dec-27-2021 Radiculopathy, lumbar region Wel l controlled with hydrocodone Chronic Conditions *See Chronic Conditions HPI Angioedema Swelling in lowe r extremitiesDenies shortness of breath Type 2 diabetes Walks on a regul ar basis for exerciseHas been eating more salads other Had blood drive at [facility] 2[facility]3 weeks ago and was notified her iron was lowOccasional increase in fatigueWill receive seasonal flu shot. Essential hypertension Home BP w jerman controlledDenies dizziness, light headedness Chronic Conditions *See Chronic Conditions HPI facial swelling patient is here with her José Miguel for emergency room follow-up. She woke up at 5:30 yesterday morning with lips and facial swelling. She went to [facility]. Her tongue did not swell. She has had angioedema before. She thinks 5 times.She did require 2 epi-pens and took benadryl prior to arrival to ER. The day prior she cannot recall eating anything out of the ordinary or any new exposure. She has no food allergies or any other kind of allergies.we do not have the emergency room records at this point but the patient states that she did receive IV steroids and has been taking Benadryl. She feels better today. She has been taking a medrol hua. her face still has residual swelling that it is getting better. Her lips are still slightly swollen but that too is also improving. he denies any difficulty breathing or wheezing. She was taken off of the benazepril and the deandra inhibitors were added to her allergy list. Essential hypertension Home BP w jerman controlledDenies dizziness or light headedness other J&J 3/8 [facility] [place]villeChills and vomiting after vaccine lasted for 20minShingrix x2, [place] 2 yrs agoFasting for labs. Intervertebral disc degeneration, lumbar region Improved, controlled with hydrocodoneNarcotic contract signed today Chronic Conditions *See Chronic Conditions HPI Chronic Conditions *See Chronic Conditions HPI DM/HTN Associated sympt oms include weight gain. Pertinent negatives include fatigue. Additional information: Last A1C: 5.3 (07/17/19). Monitors salt intake. Does not check BP.. Telehealth This visit was c ompleted via [facility] Telehealth visit due to the restrictions of the COVID-19 pandemic. All issues as below were discussed and addressed but no physical exam was performed. If it was felt that the patient should be evaluated in clinic then they were directed there. The patient verbally consented to visit.Spent 10 minutes with pt face to face and more that 50% of this time was spent in counseling and coordination of care.Spent 10 minutes in chart review. Chronic Conditions *See Chronic Conditions HPI Chronic Conditions *See Chronic Conditions [facility] 5 week Here for a follo w up from increasing anxiety medication. Patient wondering if she can get her oxybutynin increased. States the buspirone and cymbalta are working well. 4 month Anxiety increasi ng Emotional Neuropathy getting worst and back painAppetite decreasing Weight lossHusband states he sees a lot of changes in the past six months Chronic Conditions *See Chronic Conditions HPI Chronic Conditions *See Chronic Conditions HPI 6 month needs as signatu re for a parking permit Injection Pt came into the office today for a MMR Vaccine. L upper arm. Pt tolerated well. Follow up Discuss back sym ptomspt has a history of laminectomy and fusion in the past. over the last year she has had a grandchild that she was carrying a lot and states that this made her spine curve. we ordered Xr in the past which showed 15 deg thoracic levoscoliosis and 26 deg lumbar dextroscoliosis and advanced OA changes above and below the fusion at L4/5. there is also retrolisthesis above the fusion and anterolisthesis below. patient had seen Dr. Sharp in the past. Patient came in to discuss MRI as I wanted to know where to get MRI scan done. she has had worsening pain in the back with some leg weakness but no incontinence or saddle paraesthesias. Functional Status Date Functional Assessmen t No Information Instructions Date Instruction Additional Infor lola Please try to avoid television a t night Related to Insomnia, unspecified Please work on a hea rt healthy, balanced diet and regular physical activity Related to Body mass index [BMI] 27.0-27.9, adult Follow-up with [facility] as scheduled. Continue to monitor legs for swelling Related to Pulmonary hypertension, unspecified We will recheck labs today including A1c and kidney function. Continue all medications as prescribed.Follow-up in 4 months, sooner if needed Related to Type 2 diabetes mellitus with diabetic polyneuropathy Your blood pressure is well controlled. Please monitor your blood pressure at home at least once a week or anytime you are feeling dizzy or light headed. Continue the same medications at this time. Related to Essential (primary) hypertension Continue pain medications as pre scribed Related to Other intervertebral disc displacement, lumbar region At this time I will continue your current dose of levothyroxine and will check your thyroid levels. Related to Hypothyroidism, unspecified Will recheck labs today Related to Hypercalcemia Please continue curr ent medications.1. Healthy Lifestyle Choices: Please try to maintain a healthy lifestyle by engaging in regular physical exercise, following a balanced diet rich in fruits, vegetables, whole grains, and lean proteins, and getting an adequate amount of sleep.2. Mental Stimulation: Participate in mentally stimulating activities such as reading, puzzles, learning a new skill or hobby, or playing brain games to keep the brain active and challenged.3. Social Engagement: Please stay socially engaged by maintaining relationships with friends and family, participating in social activities, and joining community groups or clubs.4. Stay Mentally Active: Find activities that continue learning and challenging their brain by taking up new hobbies, learning new skills, or engaging in activities that require mental stimulation.5. Manage Stress: Find healthy ways to manage stress, such as mindfulness practices, meditation, yoga, or deep breathing exercises. Related to Age-related cognitive decline Dietary management e ducation, guidance, and counseling Related to Body mass index (BMI) 27.0-27.9, adult Giving encouragement to exercise Related to Body mass index (BMI) 27.0-27.9, adult Continue aspirin for secondary prevention Related to Cerebrovascular disease, unspecified At this time we will continue current medications Related to Other symptoms and signs involving cognitive functions and awareness Please continue curr ent medications.1. Healthy Lifestyle Choices: Please try to maintain a healthy lifestyle by engaging in regular physical exercise, following a balanced diet rich in fruits, vegetables, whole grains, and lean proteins, and getting an adequate amount of sleep.2. Mental Stimulation: Participate in mentally stimulating activities such as reading, puzzles, learning a new skill or hobby, or playing brain games to keep the brain active and challenged.3. Social Engagement: Please stay socially engaged by maintaining relationships with friends and family, participating in social activities, and joining community groups or clubs.4. Stay Mentally Active: Find activities that continue learning and challenging their brain by taking up new hobbies, learning new skills, or engaging in activities that require mental stimulation.5. Manage Stress: Find healthy ways to manage stress, such as mindfulness practices, meditation, yoga, or deep breathing exercises. Related to Body mass index [BMI] 24.0-24.9, adult Continue current med ications and follow-up with cardiology as scheduled Related to Pulmonary hypertension, unspecified Continue to avoid statin Related to Myalgia, unspecified site We will increase hyd rocodone to 7.5 mg 4 times a day Related to Other intervertebral disc displacement, lumbar region At this time I will continue your current dose of levothyroxine and will check your thyroid levels. Related to Hypothyroidism, unspecified Your blood pressure is well controlled. Please monitor your blood pressure at home at least once a week or anytime you are feeling dizzy or light headed. Continue the same medications at this time. Related to Essential (primary) hypertension Please take all medi cations as prescribed. We will check liver function & lipid panel today. Please call if you develop myalgias. Related to Hyperlipidemia, unspecified Will check labs toda y. I would like you to try taking gabapentin 600 mg 4 times a day to see if this helps your neuropathy. Will continue duloxetine and work on obtaining records from Dr. Nemani.Follow-up in 4 months, sooner if needed Related to Type 2 diabetes mellitus with diabetic polyneuropathy Urinary Incontinence Giving encouragement to exercise Related to Body mass index (BMI) 24.0-24.9, adult Fall Risk Prevention Dietary management e ducation, guidance, and counseling Related to Body mass index (BMI) 24.0-24.9, adult Continue pantoprazole Related to Gastro-esophageal reflux disease without esophagitis Your blood pressure is well controlled. Please monitor your blood pressure at home at least once a week or anytime you are feeling dizzy or light headed. Continue the same medications at this time. Related to Essential (primary) hypertension Will continue current pain medic ations Related to Other intervertebral disc displacement, lumbar region Please continue curr ent medications.1. Healthy Lifestyle Choices: Please try to maintain a healthy lifestyle by engaging in regular physical exercise, following a balanced diet rich in fruits, vegetables, whole grains, and lean proteins, and getting an adequate amount of sleep.2. Mental Stimulation: Participate in mentally stimulating activities such as reading, puzzles, learning a new skill or hobby, or playing brain games to keep the brain active and challenged.3. Social Engagement: Please stay socially engaged by maintaining relationships with friends and family, participating in social activities, and joining community groups or clubs.4. Stay Mentally Active: Find activities that continue learning and challenging their brain by taking up new hobbies, learning new skills, or engaging in activities that require mental stimulation.5. Manage Stress: Find healthy ways to manage stress, such as mindfulness practices, meditation, yoga, or deep breathing exercises. Related to Body mass index [BMI] 23.0-23.9, adult High-dose flu shot today Related to Encounter for immunization Cholesterols been we ll-controlled we will continue current medications and check liver function today Related to Hyperlipidemia, unspecified At this time, we dhruv l attempt and ear cleaning. If this is unsuccessful, we will likely have you start an ear wax softener and come back in one to two weeks. If we are unable to remove the wax at that time, we may have you see an ENT. Related to Impacted cerumen of right ear At this time I will continue your current dose of levothyroxine and will check your thyroid levels. Related to Hypothyroidism, unspecified Diabetes has been we ll-controlled we will continue current medications and check electrolytes and kidney function today.Follow-up in 4 months, sooner if needed Related to Type 2 diabetes mellitus with diabetic polyneuropathy Giving encouragement to exercise Related to Body mass index (BMI) 23.0-23.9, adult Dietary management e ducation, guidance, and counseling Related to Body mass index (BMI) 23.0-23.9, adult Will continue to alma delia id statins due to increased muscle pains Related to Myalgia, unspecified site Will continue gemfib rozil and check cholesterol and liver function Related to Hyperlipidemia, unspecified Please work on regul ar physical activity, well rounded diet, regular sleep schedules and routines and try to socialize as much as safely possible. Related to Body mass index [BMI] 24.0-24.9, adult Continue current med ications and follow-up with neurology as scheduled Related to Other symptoms and signs involving cognitive functions and awareness Your blood pressure is well controlled. Please monitor your blood pressure at home at least once a week or anytime you are feeling dizzy or light headed. Continue the same medications at this time. Related to Essential (primary) hypertension Your goal is to chec k your weight daily and to avoid salty, fried, or processed foods. If your weight increases by 1-2 lbs in 24 hours or 3-5 lbs in 5 days, call the office. Monitor your legs for swelling and keep an eye on your breathing, if there are changes call the office. Related to Pulmonary hypertension, unspecified At this time I will continue your current dose of levothyroxine and will check your thyroid levels. Related to Hypothyroidism, unspecified Continue current susan n medications as prescribed Related to Other intervertebral disc degeneration, lumbar region Will continue curren t medications and we will continue to work on slowly decreasing gabapentin. Follow-up with neurology as scheduled. Follow-up with podiatry as scheduled.Follow-up with me in approximately 2 months, sooner if needed Related to Type 2 diabetes mellitus with diabetic polyneuropathy [id number] today Related to Encou nter for immunization Dietary management e ducation, guidance, and counseling Related to Body mass index (BMI) 24.0-24.9, adult Fall Risk Prevention Urinary Incontinence Giving encouragement to exercise Related to Body mass index (BMI) 24.0-24.9, adult We will keep the hyd rocodone at the same dose at this time.I would like you to get some physical therapy to strengthen your legs. Related to Other intervertebral disc degeneration, lumbar region As above. I will ref er you to physical therapy to strengthen your legs and to help with your walking. Related to History of fall Your thyroid level w as normal in the hospital. Related to Hypothyroidism, unspecified We will check your p otassium level today.Call with any questions or concernsBMP A1c todayReturn in [address] Gallardo Related to Hypokalemia We will check A1c to day with your lab work. Related to Type 2 diabetes mellitus with diabetic polyneuropathy Blood pressure stabl e on current medication. Related to Essential (primary) hypertension As above Related to Perso nal history of transient ischemic attack (TIA), and cerebral infarction without residual deficits It appears that you have had a stroke.As above w e will send you to neurology. Continue on baby aspirin. Related to Cerebrovascular disease, unspecified We will send referra l for you to see a neurologist at [facility].Continue on the donepezil. we will lower the ambien. take 1/2 tablet to wean off. Related to Other symptoms and signs involving cognitive functions and awareness Disease process Urinary Incontinence Dietary management e ducation, guidance, and counseling Related to Body mass index (BMI) 25.0-25.9, adult Fall Risk Prevention Giving encouragement to exercise Related to Body mass index (BMI) 25.0-25.9, adult Since you still have some shortness of breath and right sided issues, we will repeat x ray at [facility]. No additional antibiotics at this time.Follow up in 3-4 months, sooner if needed Related to Pneumonia of right lower lobe due to infectious organism your diabetes has be en well controlled and we will continue the same medications at this time. We will check kidney function Related to Type 2 diabetes mellitus with diabetic polyneuropathy At this time I will continue your current dose of levothyroxine and will check your thyroid levels. Related to Hypothyroidism, unspecified You are tolerating m edications without any adverse effects. At this time we will continue current regimen. Related to Radiculopathy, lumbar region Please work on regul ar physical activity, well rounded diet, regular sleep schedules and routines and try to socialize as much as safely possible. Related to Body mass index [BMI] 26.0-26.9, adult We will recheck leve ls today along with blood counts, parathyroid and vitamin D levels Related to Hypercalcemia Please work on regul ar physical activity, well rounded diet, regular sleep schedules and routines and try to socialize as much as safely possible. Related to Body mass index [BMI] 27.0-27.9, adult As above, or sending in antibiotics and you are getting a shot of steroids today.Please let me know later this week how you feel Related to Acute URI Given your symptoms, exposure and negative COVID test I will send out cefdinir, this is a twice a day antibiotic for 7 days. Will also give you a shot of methylprednisolone, this is a steroid which should help your breathing. Continue DayQuil/NyQuil as needed for other symptoms. Related to Acute bronchitis, unspecified organism Giving encouragement to exercise Related to Body mass index (BMI) 27.0-27.9, adult Dietary management e ducation, guidance, and counseling Related to Body mass index (BMI) 27.0-27.9, adult I will send out a 3- month course of terbinafine to see if this helps, we will follow-up at next office visit Related to Onychomycosis of toenail We will check labs t ashlee including B12 level, thyroid function and A1c. Continue current medications and trying to stay active.Continue routine eye exams.Follow-up with me in 4 months, sooner if needed Related to Type 2 diabetes mellitus with diabetic polyneuropathy At this time I will continue your current dose of levothyroxine and will check your thyroid levels. Related to Hypothyroidism, unspecified Your blood pressure is well controlled. Please monitor your blood pressure at home at least once a week or anytime you are feeling dizzy or light headed. Continue the same medications at this time. Related to Essential (primary) hypertension At this time you are doing fairly well on current medications. I would recommend that you continue them as they are prescribed. If you would ever like to meet with a therapist or counselor please let me know, I believe that they would be able to help you better manage daily stressors Related to Generalized anxiety disorder At this time we will continue the same medications at this time. We will check labs for B12 deficiency or thyroid deficiency Related to Radiculopathy, lumbar region Please work on regul ar physical activity, well rounded diet, regular sleep schedules and routines and try to socialize as much as safely possible. Related to Body mass index [BMI] 27.0-27.9, adult Giving encouragement to exercise Related to Body mass index (BMI) 27.0-27.9, adult Dietary management e ducation, guidance, and counseling Related to Body mass index (BMI) 27.0-27.9, adult Fall Risk Prevention Urinary Incontinence Continue pantoprazole Related to Gastro-esophageal reflux disease without esophagitis At this time we will continue the same medications. Please let me know if you notice any worsening depression or anxiety and we could consider seeing a therapist Related to Generalized anxiety disorder Please work on regul ar physical activity, well rounded diet, regular sleep schedules and routines and try to socialize as much as safely possible. 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 You tell me that you are due for an echocardiogram coming up soon Related to Pulmonary hypertension, unspecified Please take all medi cations as prescribed. We will check liver function & lipid panel today. Please call if you develop myalgias. Related to Hyperlipidemia, unspecified At this time we will continue the same medications. I will refer you to a corporate development intern, hopefully closer to home for evaluation of your toes and toenails. We will continue the same medications at this time and today we will check A1c, urine for protein and kidney function.Follow-up in 4 months, sooner if needed Related to Type 2 diabetes mellitus with diabetic polyneuropathy At this time I will continue your current dose of levothyroxine and will check your thyroid levels. Related to Hypothyroidism, unspecified We will continue the same pain medications at this time. I recommend that she try to stay active is much as possible Related to Other intervertebral disc degeneration, lumbar region Your blood pressure is well controlled. Please monitor your blood pressure at home at least once a week or anytime you are feeling dizzy or light headed. Continue the same medications at this time. Related to Essential (primary) hypertension Giving encouragement to exercise Related to Body mass index (BMI) pediatric, less than 5th percentile for age Fall Risk Prevention Dietary management e ducation, guidance, and counseling Related to Body mass index (BMI) pediatric, less than 5th percentile for age Urinary Incontinence Continue using a armand sturizer daily. Dry skin can increase skin irritation and itching during the winter. I will give you some exercises for your shoulder Related to Pruritus Stomach to seeWe dhruv l check labs to assess your pancreas and your there is any abnormality Related to Excessive gas Your blood pressure is well controlled. Please monitor your blood pressure at home at least once a week or anytime you are feeling dizzy or light headed. Continue the same medications at this time. Related to Essential (primary) hypertension Please work on regul ar physical activity, well rounded diet, regular sleep schedules and routines and try to socialize as much as safely possible. Related to Body mass index [BMI] 25.0-25.9, adult Continue current medications for pain Related to Other intervertebral disc degeneration, lumbar region We will check labs f or any acute changes including A1c, kidney function, blood count and B12 levels Related to Type 2 diabetes mellitus with diabetic polyneuropathy Continue hydrocodone as needed R elated to Arthrodesis status At this time I will continue your current dose of levothyroxine and will check your thyroid levels.Follow up in 3-4 months, sooner if needed Related to Hypothyroidism, unspecified Dietary management e ducation, guidance, and counseling Related to Body mass index (BMI) 25.0-25.9, adult Giving encouragement to exercise Related to Body mass index (BMI) 25.0-25.9, adult Please work on regul ar physical activity, well rounded diet, regular sleep schedules and routines and try to socialize as much as safely possible. Related to Body mass index [BMI] 26.0-26.9, adult At this time we will continue current medications. Please follow-up with your flattening press operator as scheduled. Related to Pulmonary hypertension, unspecified We will check blood counts and iron studies Related to History of anemia Continue pantoprazole Related to Gastro-esophageal reflux disease without esophagitis Your blood pressure is well controlled. Please monitor your blood pressure at home at least once a week or anytime you are feeling dizzy or light headed. Continue the same medications at this time.Follow-up in 3-4 months, sooner if needed Related to Essential (primary) hypertension At this time I will continue your current dose of levothyroxine and will check your thyroid levels. Related to Hypothyroidism, unspecified At this time we will continue as needed medication Related to Migraine, unspecified, not intractable, without status migrainosus At this time we will continue as needed hydrocodone Related to Other intervertebral disc degeneration, lumbar region Giving encouragement to exercise Related to Body mass index (BMI) 26.0-26.9, adult Dietary management e ducation, guidance, and counseling Related to Body mass index (BMI) 26.0-26.9, adult Please work on regul ar physical activity, well rounded diet, regular sleep schedules and routines and try to socialize as much as safely possible. Related to Body mass index [BMI] 26.0-26.9, adult At this time, we dhruv l continue the same medications and we will check liver function and cholesterol Related to Hyperlipidemia, unspecified As above, continue s chris medications as prescribed. If you start to have worsening pain or more bad days, I would recommend that we change pain medication Related to Other intervertebral disc degeneration, lumbar region At this time we will continue duloxetine, gabapentin and hydrocodone as needed for pain. Follow-up with surgery as recommended Related to Scoliosis, unspecified Blood pressures well controlled we will continue same medication at this time. Related to Essential (primary) hypertension At this time we will continue levothyroxine 50 mcg. We will check thyroid levels today Related to Hypothyroidism, unspecified We will continue celecoxib Relat ed to Polyosteoarthritis, unspecified At this time we will continue same medications. We will check A1c, kidney function, urine for protein today.Follow-up in 3 to 4 months, sooner if neededStatus: Meeting treatment plan goals. Goals: Your goal is to work on healthy eating habits. Barriers: No barriers to goal achievement have been identified. Related to Type 2 diabetes mellitus with diabetic polyneuropathy Dietary management e ducation, guidance, and counseling Related to Body mass index (BMI) 26.0-26.9, adult Giving encouragement to exercise Related to Body mass index (BMI) 26.0-26.9, adult We will check electrolyte's Rela kait to Tremor At this time we will continue duloxetine and we will increase buspirone to 10mg three times a day. If your sodium comes back lower than usual, we will have to decrease duloxetine. Related to Generalized anxiety disorder Please work on regul ar physical activity, well rounded diet, regular sleep schedules and routines and try to socialize as much as safely possible. Related to Body mass index [BMI] 25.0-25.9, adult we will check labs a nd we will check for inflammation. Related to Weight loss, unintentional You are tolerating m edications without any adverse effects. At this time we will continue current regimen. Related to Other intervertebral disc degeneration, lumbar region Your blood pressure is well controlled. Please monitor your blood pressure at home at least once a week or anytime you are feeling dizzy or light headed. Continue the same medications at this time. Related to Essential (primary) hypertension At this time I will continue your current dose of levothyroxine and will check your thyroid levels. Related to Hypothyroidism, unspecified At this time we will continue medications and we will check A1c, kidney function and blood counts. Follow up in 4 months, sooner if neededStatus: Meeting treatment plan goals. Goals: Your goal is to work on healthy eating habits. Barriers: No barriers to goal achievement have been identified. Related to Type 2 diabetes mellitus with diabetic polyneuropathy Dietary management e ducation, guidance, and counseling Related to Body mass index (BMI) 25.0-25.9, adult Giving encouragement to exercise Related to Body mass index (BMI) 25.0-25.9, adult You can try CBD/THC products at your local dispensary. Related to Radiculopathy, lumbar region We will check labs today Related to History of anemia Please work on a hea rt healthy, balanced diet and regular physical activity Related to Body mass index (BMI) 27.0-27.9, adult Please try to check your sugars at least a few times a week, you may need to check it more if you are taking insulin. We will check A1c today as well as kidney function. Continue all medications at this time, please call if you have any hyper/hypoglycemiaStatus: Meeting treatment plan goals. Goals: Your goal is to manage your medicine. Barriers: No barriers to goal achievement have been identified. Related to Type 2 diabetes mellitus with diabetic polyneuropathy At this time we will continue the same medications. Related to Polyosteoarthritis, unspecified At this time I will continue your current dose of levothyroxine and will check your thyroid levels. Related to Hypothyroidism, unspecified Your blood pressure is well controlled. Please monitor your blood pressure at home at least once a week or anytime you are feeling dizzy or light headed. Continue the same medications at this time. 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 Related to History of angioedema Due to the reoccurre nce of the angioedema I will add that group of medications to your allergy list and will send out amlodipine 5mg.please monitor your blood pressure from home and call if it is running above 140/90 consistentlyalso, call us if it is running on the low end- below 100/50 and you are feeling tired, dizzy, or lightheaded. Related to Essential (primary) hypertension Continue current susan n medications and follow up with surgery as scheduled Related to Scoliosis, unspecified Please continue medi cations at this time Last A1c was 6.0you are on quite a large amount of medication for the neuropathy.At this time I would recommend looking into CBDThere is a place in [place] called [facility] [id number], [place], [place] [address]Ijwvfr: Meeting treatment plan goals. Goals: Your goal is to work on healthy eating habits. Barriers: No barriers to goal achievement have been identified. Related to Type 2 diabetes mellitus with diabetic polyneuropathy Dietary management e ducation, guidance, and counseling Related to Body mass index (BMI) 28.0-28.9, adult Disease process Giving encouragement to exercise Related to Body mass index (BMI) 28.0-28.9, adult At this time we will continue duloxetine at current dose Related to Generalized anxiety disorder Please work on a hea rt healthy, balanced diet and regular physical activity Related to Body mass index (BMI) 28.0-28.9, adult We will continue oxybutynin Rela kait to Overactive bladder Continue pantoprazole Related to Gastro-esophageal reflux disease without esophagitis At this time I will continue your current dose of levothyroxine and will check your thyroid levels. Related to Hypothyroidism, unspecified Continue current susan n medications and follow up with surgery as scheduled Related to Scoliosis, unspecified Please continue medi cations at th is time and we will check urine for protein, A1c and kidney function. Check your blood sugars as neededStatus: Meeting treatment plan goals. Goals: Your goal is to schedule and keep an eye appointment by your next follow-up visit. Barriers: No barriers to goal achievement have been identified.Follow up in 4 months, sooner if needed. Related to Type 2 diabetes mellitus with diabetic polyneuropathy Your blood pressure is well controlled. Please monitor your blood pressure at home at least once a week or anytime you are feeling dizzy or light headed. Continue the same medications at this time. Related to Essential (primary) hypertension We will continue to avoid statins due to muscle cramps Related to Hyperlipidemia, unspecified You are tolerating m edications without any adverse effects. At this time we will continue current regimen. Related to Other intervertebral disc degeneration, lumbar region Giving encouragement to exercise Related to Body mass index (BMI) 28.0-28.9, adult Dietary management e ducation, guidance, and counseling Related to Body mass index (BMI) 28.0-28.9, adult Continue pantoprazole Related to Gastro-esophageal reflux disease without esophagitis please work on heart healthy diet and exercise. Related to Body mass index (BMI) 27.0-27.9, adult as above. Follow up with surgery as needed Related to Arthrodesis status We will check kidney function and A1c. Continue the same medications at this timeStatus: Meeting treatment plan goals. Goals: Your goal is to work on healthy eating habits. Barriers: No barriers to goal achievement have been identified. Related to Type 2 diabetes mellitus with diabetic polyneuropathy Please take all medi cations as prescribed. We will check liver function & lipid panel today. Please call if you develop myalgias. Related to Hyperlipidemia, unspecified At this time I will continue your current dose of levothyroxine and will check your thyroid levels. Related to Hypothyroidism, unspecified At this time we will continue current pain medications. Continue to stay active Related to Other intervertebral disc degeneration, lumbar region we will avoid statins Related to Myalgia, unspecified site Your blood pressure is well controlled. Please monitor your blood pressure at home at least once a week or anytime you are feeling dizzy or light headed. Continue the same medications at this time. Follow up in 6 months, sooner if needed. Please continue to follow COVID precautions including: wearing a mask or face covering in public, washing your hands frequently and remaining socially distant when in public. Please do not go out unless you need to. Related to Essential (primary) hypertension Giving encouragement to exercise Related to Body mass index (BMI) 27.0-27.9, adult Dietary management e ducation, guidance, and counseling Related to Body mass index (BMI) 27.0-27.9, adult Please monitor your blood pressure at home at least once a week or anytime you are feeling dizzy or light headed. Continue the same medications at this time. Related to Essential (primary) hypertension Continue follow up w tito Boyle as scheduled. Related to Arthrodesis status Continue current medications. Re lated to Overactive bladder Continue buspirone and duloxetin e. Related to Generalized anxiety disorder Continue all medicat ions and follow up with Dr Boyle as scheduled. Related to Scoliosis, unspecified Continue working on [employer] y diet Related to Body mass index (BMI) 22.0-22.9, adult At this time we will continue duloxetine and buspirone. Related to Generalized anxiety disorder We will discontinue myrbetriq and will increase oxybutynin to 10mg extended release Related to Overactive bladder We will continue dul oxetine 90mg and gabapentin Related to Radiculopathy, lumbar region We will continue as needed pain medications and chronic pain medications as mentioned above Related to Other intervertebral disc degeneration, lumbar region At this time we will continue follow up with Dr. Boyle. I recommend you make an appointment with your flattening press operator about getting a cardiac clearance for surgery in case this happens next month Related to Scoliosis, unspecified Dietary management e ducation, guidance, and counseling Related to Body mass index (BMI) 22.0-22.9, adult At this time we will increase duloxetine to 90mg daily as well as starting buspirone 5mg 3 times a day and we ill follow up in ~1 month Related to Generalized anxiety disorder We will continue t control and duloxetine and gabapentin Related to Type 2 diabetes mellitus with diabetic polyneuropathy As above, continue f ollow up with neurosurgery Related to Other intervertebral disc degeneration, lumbar region Will continue workin g with pain management Related to Unspecified abnormalities of gait and mobility We will STOP hydrochlorothiazide Related to Essential (primary) hypertension At this time I will continue your current dose of levothyroxine and will check your thyroid levels. Related to Hypothyroidism, unspecified continue follow up w ith neurosurgery and pain management Related to Scoliosis, unspecified Continue gemfibrozil Related to Hyperlipidemia, unspecified Please continue to e at a well rounded cardiac diet Related to Body mass index (BMI) 21.0-21.9, adult at this time we will continue gemfibrozil and check liver function. Related to Hyperlipidemia, unspecified At this time I will continue your current dose of levothyroxine and will check your thyroid levels. Related to Hypothyroidism, unspecified At this time we will continue current medications and we will rule out UTI Related to Overactive bladder Please follow up wit h pain management and continue using brace daily. Related to Scoliosis, unspecified At this time, with m ildly decreased balance, I will order a 4 point cane. Related to Unspecified abnormalities of gait and mobility BP is well controlle d and we ill continue current medications. Related to Essential (primary) hypertension As above Related to Other intervertebral disc degeneration, lumbar region Continue follow up w ith pain management. Related to Arthrodesis status Continue pantoprazole. Related t o Gastro-esophageal reflux disease without esophagitis Dietary management e ducation, guidance, and counseling Related to Body mass index (BMI) 21.0-21.9, adult as above Related to Arthr odesis status At this time we will obtain MRI at [facility] and will then refer you to Dr. Sharp. We will image the lumbar spine as this had the worsening scoliosis and the history of fusion. e will continue hydrocodone and gabapentin. Related to Levoscoliosis Assessments Type Assessment Date No Information Patient Care Teams Name Effective Dates (start - stop) Status Members No Information
[2025-04-19] VITALS (17 sets, daily range): BP systolic 103–167; BP diastolic 52–114; PULSE 58–80; RESP 11–24; TEMP 36.4–36.6; O2SAT 87–100; BMI 21.7
--- NOTE | ~2025-04-19 | CT_ITS ---
EXAMINATION: CT chest abdomen pelvis w con DATE: 04/19/2025 13:28 INDICATION: Hypercalcemia TECHNIQUE: Computed tomography (CT) of the chest, abdomen, and pelvis was performed with 100 mL Omnipaque-350 intravenous contrast. Automated exposure control and iterative reconstruction technique were employed. The dose-length product was 418.96 mGy-cm. COMPARISON: None FINDINGS: CHEST CT: Mild discoid atelectasis and adjacent tree-in-bud opacities in the right middle lobe bladder consistent with endobronchial spread of disease and age- indeterminate bronchiolitis. No pulmonary edema or pleural effusion. A few bilateral calcified pulmonary nodules along with calcified mediastinal and bila teral hilar lymph nodes consistent with old granulomatous disease. Heart size is normal. Atherosclerotic coronary artery calcifications. No pericardial effusion. Thoracic aorta is normal in caliber with no dissection. Moderate-sized sliding- type hiatal hernia. The gas-filled esophagus appears patulous. Thoracic kyphosis with severe spondylosis. Several chronic compression fractures in the mid to lower thoracic spine without vertebroplasty at T8 and with vertebral plasties at T9-T12. Extensive instrumented thoracolumbar posterior spinal fusion with bilateral vertical al and pedicle screw fixation beginning at T9 and extending caudally to S1 with additional bilateral iliac screws. ABDOMEN/PELVIS CT: Evaluation of the abdomen and pelvis particularly in the paraspinal regions is somewhat limited by metallic streak artifact from the instrumented posterior spinal fusion. Liver, gallbladder, pancreas and bilateral adrenal glands are normal. Bilateral renal cysts. Multiple splenic calcifications consistent with old granulomatous disease. No bowel obstruction. Normal appendix. Bladder is normal. The uterus is not identified and has likely been surgically resected. No free intraperitoneal gas or fluid. No pathologically enlarged abdominal or pelvic lymphadenopathy. In addition to the aforementioned thoracolumbar posterior spinal fusion there been prior L1-L5 laminectomies swallows instrumented anterior spinal fusion with interbody bone graft cages at the disc spaces from L1-L2 through L5-S1. IMPRESSION: 1. Mild tree-in-bud opacities in the right middle lobe consistent with age indeterminate bronchiolitis with endobronchial spread of disease. 2. No acute intra-abdominal/pelvic process. 3. Moderate-sized hiatal hernia. 4. Extensive degenerative and postoperative changes in the spine as detailed above. Reviewed, dictated and finalized at location A. IMPRESSION: 1. Mild tree-in-bud opacities in the right middle lobe consistent with age inde terminate bronchiolitis with endobronchial spread of disease. 2. No acute intra-abdominal/pelvic process. 3. Moderate-sized hiatal hernia. 4. Extensive degenerative and postoperative changes in the spine as detailed ab ove.
--- NOTE | ~2025-04-19 | CT_ITS ---
EXAMINATION: CT brain wo con DATE: 04/19/2025 13:29 INDICATION: Altered mental status TECHNIQUE: Computed tomography (CT) of the head was performed without intravenous contrast. Sagittal and coronal reconstructions were performed. The mA was adjusted according to patient size. Iterative reconstruction technique was employed. The dose-length product was 1175.63 mGy-cm. COMPARISON: head CT dated 12/24/2023 and brain MR dated 12/25/2023 FINDINGS: No acute intracranial hemorrhage, acute infarction or abnormal extra axial fluid collection. Small old lacunar infarct at the left basal ganglia. There is moderate scattered white matter hypoattenuation consistent with chronic small vessel ischemic disease. Symmetric prominence of the sulci consistent with mild to moderate age-appropriate diffuse cerebral volume loss. Ventricles are normal and symmetric. No mass/mass effect. Changes of bilateral intraocular lens replacement. The orbits, paranasal sinuses and mastoid air cells are normal. IMPRESSION: 1. Old lacunar infarct at the left basal ganglia. No acute intracranial process. 2. Age-related changes including and mild to moderate diffuse volume loss and moderate scattered white matter hypoattenuation consistent with chronic small vessel ischemic disease. Reviewed, dictated and finalized at location A. IMPRESSION: 1. Old lacunar infarct at the left basal ganglia. No acute intracranial process . 2. Age-related changes including and mild to moderate diffuse volume loss and m oderate scattered white matter hypoattenuation consistent with chronic small ve ssel ischemic disease.
--- NOTE | ~2025-04-19 | XR_ITS ---
Examination: XR chest 1V portable Clinical History: increasing white count, SOB Comparison: 04/19/2025 Technique: Portable AP Findings: Heart size normal. Trace lingular atelectasis persists. No acute bony abnormality. IMPRESSION: 1. No definite change or acute cardiopulmonary findings given portable technique. Reviewed, dictated and finalized at location R. IMPRESSION: 1. No definite change or acute cardiopulmonary findings given portable techniq ue.
--- NOTE | ~2025-04-19 | XR_ITS ---
EXAMINATION: XR chest 1V DATE: 04/19/2025 13:35 INDICATION: Weakness TECHNIQUE: frontal view of the chest was obtained. COMPARISON: Chest radiograph dated 12/25/[address] dated 04/19/2025 FINDINGS: Lungs remain clear with no focal airspace opacities, pulmonary edema, pleural effusion or pneumothorax. Heart size is normal. Extensive instrumented posterior spinal fusion from the lower thoracic spine through the visualized mid lumbar spine and beyond the inferior margin of the field of imaging. There are also interbody bone graft cage discussed with the anterior spinal fusion at a few levels in the upper lumbar spine. Vertebral plasties at a few levels in the lower thoracic spine. Unchanged curvilinear metallic density suggesting a retained needle in the soft tissues posterior to the right scapula is located on CT imaging. Moderate left glenohumeral osteoarthritis. IMPRESSION: 1. No evident acute cardiopulmonary disease. Mild tree-in-bud opacities in the right middle lobe suspicious for some age-indeterminate bronchiolitis seen on immediately prior CT are indiscernible on the plain radiographs. Reviewed, dictated and finalized at location A. IMPRESSION: 1. No evident acute cardiopulmonary disease. Mild tree-in-bud opacities in the right middle lobe suspicious for some age-indeterminate bronchiolitis seen on i mmediately prior CT are indiscernible on the plain radiographs.
--- OUTSIDE RECORDS SUMMARY | 2025-04-19 11:43 | XMS_ITS | Clinical Summary ---
Author Organization [facility] Address [address] [place] [address] Care Team Providers Care Science Interpreter Name Role Phone Bryn Andrade Primary Care Provide r Source Comments [facility],non-owned Affiliates and Associated Physician Practices is amultiple site organization consisting of ambulatory clinics and hospital sitesin [place], [place], [place]. This disclosure is being madepursuant to the Care Everywhere program and may not contain all information available regarding this patient. Last updated 18.[facility] Allergies Active Allergy Reactions Criticality Noted Date Comments Atorvastatin Other,Anaphylaxis High 03/09/2005 Contrast-Iodinated Agents For Ct/Other Other Medium 02/28/2018 Intolerant to several statin drugs due to intolerable myalgias/pain. Medications * Be aware that medications may not be up to date on this document. Alwaysverify current medications with the patient. zolpidem (AMBIEN) 5 MG tablet Take 1 tablet by mouth at bedtime 9 Active donepezil (ARICEPT) 10 MG tablet TAKE ONE TABLET BY MOUTH EVERY EVENING 9 Active DULoxetine (CYMBALTA) 30 MG capsule 90 mg once daily 7 Active gabapentin (NEURONTIN) 600 MG tablet Take 600 mg by mouth 4 times daily 9 Active gemfibrozil (LOPID) 600 MG tablet Take 600 mg by mouth 2 times daily,before breakfast and supper 4 Active pantoprazole EC (PROTONIX) 40 MG tablet Take 40 mg by mouth 2 times daily 9 Active busPIRone (BUSPAR) 5 MG tablet Take 5 mg by mouth 3 times daily 9 Active oxybutynin CR 24hr (DITROPAN-XL) 10 MG tablet 0 Active estrogens, conjugated, (PREMARIN) 0.625 MG/GM vaginal cream Insert 0.5 g into the vagina at bedtime Active cyanocobalamin (VITAMIN B-12) 100 MCG tablet Take 100 mcg by mouth once daily Active vitamin D3 (CHOLECALCIFEROL ) 25 MCG (1000 UNITS) tablet Take by mouth once daily Active Misc Natural Products (GLUCOSAMINE CHOND DOUBLE STR PO) Take by mouth 2 times daily Active aspirin (ASPIRIN) 81 MG chew tablet Take 81 mg by mouth once daily Active loratadine (CLARITIN) 10 MG tabletIndication s:Allergic Upper Respiratory Tract Disorder Take 20 mg by mouth once daily Reasons: Upper Respiratory Tract Allergy Active methocarbamol (ROBAXIN) 500 MG tablet Take 1 tablet by mouth every 6 hours as needed for Muscle Spasms 45 tablet 0 Active HYDROcodone-acet aminophen (NORCO) 5-325 MG tablet Take 2 tablets by mouth every 6 hours as needed for Pain 40 tablet 0 Active levothyroxine (SYNTHROID) 50 MCG tablet Take 50 mcg by mouth once daily 0 Active DULoxetine (CYMBALTA) 60 MG capsule 0 Active famotidine (PEPCID) 40 MG tablet 0 Active hydroCHLOROthiaz radha (HYDRODIURIL) 25 MG tablet 0 Active predniSONE (DELTASONE) 20 MG tablet 0 Active amLODIPine (NORVASC) 5 MG tablet Take 5 mg by mouth once daily 1 Active citalopram (CELEXA) 10 MG/5ML oral solution citalopram 10 mg/5 mL oral solution take 10 milliliter by oral route every day Active estradiol (ESTRACE VAGINAL) 0.1 MG/GM vaginal cream Estrace 0.01% (0.1 mg/gram) vaginal cream Insert by vaginal route. Active metroNIDAZOLE (FLAGYL) 500 MG tablet Flagyl 500 mg tablet Take 1 tablet twice a day by oral route for 7 days. Active Active Problems Problem Noted Date Diagnosed Date Arthritis of lumbosacral spine Lumbosacral spondylosis without myelopathy Scoliosis Immunizations Immunization Administration Dates Next Due INFLUENZA VACCINE 05/31/2019 Family History Relation Name Status Comments Brother Father MO' Mother MVA Sister 1 Sister 2 Social History Tobacco Use Types Packs/Day Years Used Date Smoking Tobacco: Never Smokeless Tobacco: Never Alcohol Use Standard Drinks/Week Comments Yes 2 (1 standard drink = 0.6 oz pur e alcohol) Comments Unknown Sex and Gender Information Value Date Recorded Sex Assigned at Not on file Legal Sex 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 Gender Identity Not on file Sexual Orientation Not on file Last Filed Vital Signs Vital Sign Reading Time Taken Comments Blood Pressure 143/69 02/22/2021 11:26 AM CDT Pulse 69 02/22/2021 11:26 AM CDT Temperature 36.6 C (97.9 F) 02/22/2021 11:26 AM CDT Respiratory Rate 20 02/22/2021 11:26 AM CDT Oxygen Saturation 97% 02/22/2021 11:26 AM CDT Inhaled Oxygen Concentration - - Weight 54.9 kg (121 lb) 02/22/2021 11:26 AM CDT Height 154.9 cm (5' 1) 02/22/2021 11:26 AM CDT Body Mass Index 22.86 02/22/2021 11:26 AM CDT Plan of Treatment Health Maintenance Due Date Last Done Comments BONE DENSITY TESTING 1945 DTAP/TDAP/TD VACCINES (1 - Tdap) 1964 PNEUMOCOCCAL VACCINE 50+ (1 of 1 - PCV) 1995 ZOSTER VACCINE (1 of 2) 1995 Respiratory Syncytial Virus (RSV) Vaccine Pt: or over 60 yrs (1 - 1-dose 75+ series) 2020 DEPRESSION SCREENING 08/14/2024 COVID-19 VACCINE (1 - season) 2025 INFLUENZA VACCINE (#1) 2025 9, 04/17/2018, 05/24/2017, Additional history exists HEPATITIS B VACCINE Aged Out No longe r eligible based on patient's age to complete this topic HIB VACCINE Aged Out No longer eligi ble based on patient's age to complete this topic HPV VACCINE Aged Out No longer eligi ble based on patient's age to complete this topic MENINGOCOCCAL (Group B) VACCINE SHARED DECISION-MAKING Aged Out No longer eligible based on patient's age to complete this topic MENINGOCOCCAL GROUPS A/C/Y/W VACCINE Aged Out No longer eligible based on patient's age to complete this topic Medical Devices Implanted Type Area Spray Foam Installer Device Identifier Shelf Expiration Date Model / Serial / Lot Spcr Spnl [id number] Xlordotic Peek Implanted:Qty: 1 on 10/11/2019 by Kali Boyle MD at [facility] N/A: Spine Medtronic Sofamor Dane[employer] Spine 07/14/2026 [id number] / / [id number] Screw 5.5mm 40mm Ma Spne Solera Cd Hzn Implanted:Qty: 2 on 10/11/2019 by Kali Boyle MD at [facility] N/A: Spine Medtronic Sofamor [employer] Inc [id number] / / Screw 5.5mm 45mm Ma Spne Solera Cd Hzn Implanted:Qty: 1 on 10/11/2019 by Kali Boyle MD at [facility] N/A: Spine Med[employer]onic Sofamor [employer] Inc [id number] / / Screw 6.5mm 45mm Ma Spne Solera Cd Hzn Implanted:Qty: 3 on 10/11/2019 by Kali Boyle MD at [facility] N/A: Spine Med[employer]onic Sofamor [employer] Inc [id number] / / Screw 6.5mm 35mm Ma Spne Solera Cd Hzn Implanted:Qty: 2 on 10/11/2019 by Kali Boyle MD at [facility] N/A: Spine Medtronic Sofamor [employer] Inc [id number] / / Screw 9.5mm 90mm Ma Spne Solera Cd Hzn Implanted:Qty: 2 on 10/11/2019 by Kali Boyle MD at [facility] N/A: Spine Medtronic Sofamor [employer] Inc [id number] / / Screw Set Ti Spnl Brk Off Cd Hzn Nonster Implanted:Qty: 16 on 10/11/2019 by Kali Boyle MD at [facility] N/A: Spine Medtronic Sofamor [employer] Inc [id number] / / Screw Set Ti Rvrs Ang Spne Pdcl Brkof Implanted:Qty: 4 on 10/11/2019 by Kali Boyle MD at [facility] N/A: Spine Medtronic Sofamor [employer] Inc [id number] / / [id number] Implanted:Qty: 2 on 10/11/2019 by Kali Boyle MD at [facility] N/A: Spine [id number] / / [id number] Implanted:Qty: 2 on 10/11/2019 by Kali Boyle MD at [facility] N/A: Spine [id number] / / [id number] Implanted:Qty: 4 on 10/11/2019 by Kali Boyle MD at [facility] N/A: Spine [id number] / / Cmnt Bone Kyphon Xpede Spnl Mxr Implanted:Qty: 2 on 10/11/2019 by Kali Boyle MD at [facility] N/A: Spine [employer] Inc 06/13/2022 [id number] / / [id number] Graft Tissue Drgn + Bvn Clgn Mtrx 3x3in Implanted:Qty: 1 on 10/11/2019 by Kali Boyle MD at [facility] N/A: Spine Integra [employer]iences 07/13/2022 [id number] / / [id number] Slnt Dura Duraseal Pg Trilysine Amine 5 Implanted:Qty: 1 on 10/11/2019 by Kali Boyle MD at [facility] N/A: Spine Integra [employer]iences Adryan [id number] / / Graft Bone Grftn Dbm Plif 10x2.5cm - [id number] Implanted:Qty: 1 on 10/11/2019 by Kali Boyle MD at [facility] N/A: Spine [employer] Inc 07/22/2022 [id number] / [id number] / Spcr Spnl [id number] Elev Xlordotic Peek Implanted:Qty: 1 on 10/11/2019 by Kali Boyle MD at [facility] N/A: Spine Medtronic Sofamor [employer]ane[employer] Spine [id number] / / [id number] Spcr Spnl [id number] Elev Xlordotic Peek Implanted:Qty: 1 on 10/11/2019 by Kali Boyle MD at [facility] N/A: Spine Medtronic Sofamor [employer] Spine 04/26/2027 [id number] / / [id number] Spcr Spnl [id number] Elev Xlordotic Peek Implanted:Qty: 1 on 10/11/2019 by Kali Boyle MD at [facility] N/A: Spine Medtronic Sofamor [employer] Spine 07/31/2027 [id number] / / [id number] Explanted Type Area Spray Foam Installer Device Identifier Shelf Expiration Date Model / Serial / Lot Cmnt Bone Kyphon Xpede Spnl Mxr Explanted:Qty: 1 on 10/11/2019 at [facility] N/A: Spine [employer] Inc CX01B / / [id number] Description:Supply [id number] Explanted:Qty: 1 on 10/11/2019 by Kali Boyle MD at [facility] N/A: Spine [id number] / / Kit Xpndr Kphpk Kphx Srg 15 3 11ga Spne Explanted:Qty: 1 on 10/11/2019 at [facility] N/A: Spine [employer] Inc [id number] / / [id number] Description:Supply Insurance [employer] [facility] Address: [address] [place] [address] Advance Directives * Full Code (Latest Code Status on File) Date Activated Date Inactivated Comments 10/11/2019 6:38 PM 10/22/2019 12:01 PM Care Teams Science Interpreter Relationship Specialty Start Date End Date Bryn Andrade DO [address] [facility] [address] [place] [address] PCP - General Family Medicine 05/17/19
--- OUTSIDE RECORDS SUMMARY | 2025-04-19 11:43 | XMS_ITS | Encounter Summary ---
Author Organization [facility] Address [address] [place] [address] Care Team Providers Care Tank House Operator Name Role Phone Philip Mckenzie MD Primary Care Provider [phone] Bryn Andrade DO Primary Care Prov ider Encounter Details Date Type Department Care Team (Late st Contact Info) Description 10/04/2017 Orders Only [facility] Health Information Management [address] [place] [address] Scanning, Provider Social History Tobacco Use Types Packs/Day Years Used Date Smoking Tobacco: Never Smokeless Tobacco: Never Alcohol Use Standard Drinks/Week Comments No 0 (1 standard drink = 0.6 oz pur e alcohol) Comments Unknown Sex and Gender Information Value Date Recorded Sex Assigned at Not on file 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 Gender Identity Not on file Sexual Orientation Not on file documented as of this encounter Plan of Treatment Not on file documented as of this encounter Procedures Procedure Name Priority Date/Time Associated Diagnosis Comments SCAN - LABS 10/04/2017 SCAN - RADIOLOGY/IMAGING 10/03/2017 documented in this encounter Results * SCAN - LABS (10/04/2017) us Provider Scanning Final Result * SCAN - RADIOLOGY/IMAGING (10/03/2017) Anatomical Region Laterality Modality Other us Provider Scanning Final Result documented in this encounter Visit Diagnoses Not on filedocumented in this encounter Care Teams Tank House Operator Relationship Specialty Start Date End Date Philip Mckenzie MD [address] [place] [address] PCP - General 10/16/12 09/02/18 Bryn Andrade DO [address] [place] [address] PCP - General Family Medicine 09/03/18 documented as of this encounter
--- OUTSIDE RECORDS SUMMARY | 2025-04-19 11:43 | XMS_ITS | Clinical Summary ---
Author Organization [facility] Address [address] [place] [id number] Care Team Providers Care Medical Record Administrator Name Role Phone KatjaGallardo Bryn Primary Care Provide r Social History Tobacco Use Types Packs/Day Years Used Date Smoking Tobacco: Never Assessed Comments Unknown Sex and Gender Information Value Date Recorded Sex Assigned at Not on file Legal Sex Female 7:42 PM CDT Gender Identity Not on file Sexual Orientation Not on file Plan of Treatment Health Maintenance Due Date Last Done Comments Annual Medicare Wellness Visit 2010 Dexa Scan (General) 2010 DTaP, Tdap and Td Vaccines ( 2 - Td or Tdap) 12/20/2020 12/20/2010, 03/19/2003 COVID-19 Vaccine (2024-2 6 season) 2025 06/02/2022, 07/18/2021, 10/19/2020 Pneumococcal Vaccine: 50+ Years Completed 11/05/2014, 04/10/2013 Zoster Vaccines Completed 06/17/2018, 04/17/2018, 11/22/2008 RSV Immunization or 60+ Years Completed 06/06/2023 Meningococcal B Vaccine Aged Out No l onger eligible based on patient's age to complete this topic Meningococcal Vaccine Aged Out No sharon claudia eligible based on patient's age to complete this topic RSV Immunizations Under 20 Months Aged Out No longer eligible b ased on patient's age to complete this topic Insurance [employer] Care Teams Medical Record Administrator Relationship Specialty Start Date End Date Bryn Andrade DO PCP - General FAMILY PRACTICE 11/22/18
--- OUTSIDE RECORDS SUMMARY | 2025-04-19 11:43 | XMS_ITS | Clinical Summary ---
Author Organization [facility] [address] Address [address] [place] [address] Care Team Providers Care Bath Mix Operator Name Role Phone Bryn Andrade DO Primary Care Prov ider Allergies Active Allergy Reactions Criticality Noted Date Comments Jairo Inhibitors Angioedema High 11/16/2022 Dicyclomine Anaphylaxis,Angioede ma High 11/16/2022 Pbegnyp-Blv-Etz Reductase Inhibitors Muscle pain Medium 02/28/2018 Intolerant to several statin drugs due to intolerable myalgias/pain. Medications oxybutynin XL (DITROPAN XL) 15 mg 24 hr tablet take 1 tablet (15MG) by oral route every day 0 10/16/2012 Active gemfibrozil (LOPID) 600 mg tablet take 1 tablet by oral route 2 times every day 30 minutes before morning and evening meal 0 0 11/15/2013 Active HYDROcodone-jairo taminophen (VICODIN) 5-500 mg per tablet take 1 tablet by oral route every 4 - 6 hours as needed for pain 0 0 11/15/[address] (PROTONIX) 40 mg EC tablet take 1 tablet by oral route every day 0 0 11/15/2013 Active aspirin 81 mg tablet take 1 tablet by oral route every day 0 0 11/15/2013 Active zolpidem (AMBIEN) 5 mg tablet take 1 Tablet by oral route every day at bedtime as needed for sleep 0 0 11/15/2013 Active donepezil (ARICEPT) 10 mg tablet take 1 tablet by oral route every day in the evening 0 0 11/15/2013 Active estradiol (ESTRACE) 0.01 % (0.1 mg/gram) vaginal cream insert (1G) by vaginal route every day 0 0 11/15/2013 Active levothyroxine sodium (TIROSINT) 50 mcg capsule take 1 Capsule by oral route every day 0 0 11/22/2016 Active hydroCHLOROthia zide (HYDRODIURIL) 25 mg tablet Take 1 tablet (25 mg total) by mouth daily Active celecoxib (CeleBREX) 100 mg capsule Take 1 capsule (100 mg total) by mouth 2 (two) times a day 10/26/2022 Active amLODIPine (NORVASC) 5 mg tablet Take 1 tablet (5 mg total) by mouth daily 10/28/[address] (CYMBALTA) 60 mg capsule Take 90 mg by mouth daily 10/12/2022 Active krill oil 500 mg capsule Take by mouth Active Active Problems Problem Noted Date Diagnosed Date History of angiotensin conve rting enzyme inhibitor (JAIRO-I) allergy 11/16/2022 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 Statin intolerance 02/28/2018 Persistent ostium secundum 11/22/2016 Overview (01/06/2017): ASD (atrial septal defect), ostium secundum Hypertension associated with type 2 diabetes berenice litus 11/22/2016 Overview (01/06/2017): HTN (hypertension), benign Atrial hypertrophy 11/22/2016 Overview (01/06/2017): Right atrial enlargement Tricuspid valve insufficiency 11/22/2016 Overview (01/06/2017): Tricuspid valve insufficiency, unspecified etiology Pulmonary hypertension 11/22/2016 Overview (01/06/2017): Pulmonary HTN Dyspnea on exertion 11/22/2016 Overview (01/06/2017): MCDANIEL (dyspnea on exertion) Mixed diabetic hyperlipidemi a associated with type 2 diabetes mellitus (CMS/HCC) 11/22/2016 Overview (01/06/2017): DM type 2 with diabetic dyslipidemia Surgical History Surgery Date Site/Laterality Comments OTHER SURGICAL HISTORY ssmall ASD: OTHER SURGICAL HISTORY ccataract removal LUMBAR FUSION lumbar fusion OTHER SURGICAL HISTORY hysterectomy with BSO ACHILLES TENDON SURGERY achilles tendon repair OTHER SURGICAL HISTORY hheel spur Medical History Medical History Date Comments Diabetes mellitus (HCC) diabetes Hypertension Hypertension Hx Other Medical dyslipidemia Hx Other Medical ssmall ASD Hx Other Medical mild pulmonary hypertension Gastroesophageal reflux disease GERD Hx Other Medical hhypothyroidism Family History Medical History Relation Name Comments Heart attack Father 2 Myocardial Infa rction; Cause of : Myocardial Infarction Relation Name Status Comments Father 1 (Age 53) Father 2 Social History Tobacco Use Types Packs/Day Years Used Date Smoking Tobacco: Never Smokeless Tobacco: Never Alcohol Use Standard Drinks/Week Comments No 0 (1 standard drink = 0.6 oz pur e alcohol) Comments Unknown Sex and Gender Information Value Date Recorded Sex Assigned at Not on file Legal Sex Female 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 PM 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 Gender Identity Not on file Sexual Orientation Not on file Obstetrics History Last Filed Vital Signs Vital Sign Reading Time Taken Comments Blood Pressure 122/72 12/01/2023 1:57 PM CDT Pulse 79 12/01/2023 1:57 PM CDT Temperature - - Respiratory Rate 16 03/06/2017 2:09 PM CDT Oxygen Saturation 97% 12/01/2023 1:57 PM CDT Inhaled Oxygen Concentration - - Weight 66.7 kg (147 lb) 12/01/2023 1:57 PM CDT Height 157.5 cm (5' 2) 12/01/2023 1:57 PM CDT Body Mass Index 26.89 12/01/2023 1:57 PM CDT Plan of Treatment Health Maintenance Due Date Last Done Comments Albumin Creatinine Ratio, Urine 1945 Depression Screening 1945 Fall Risk Assessment 1945 Hemoglobin A1C 1945 Osteoporosis Screening-Bone Density Scan 1945 eGFR 1945 Dilated Eye Exam 1945 Foot Exam 1945 Hepatitis B Screening 1963 Well Visit 65+ 2010 Zoster Vaccine (3 of 3) 06/12/2018 04/17/2018, 11/22 DTaP/Tdap/Td Vaccine (2 - Td or Tdap) 12/20/2020 12/20/2010, 03/19/2003 Lipid Panel 11/30/2024 12/01/2023, 11/12, 11/16/2022, Additional history exists Influenza Vaccine (#1) 2025 , 05/31/2019, 05/13/2019, Additional history exists Pneumococcal vaccine 65+ Completed 11/05/2014, 03/15 Procedures Procedure Name Priority Date/Time Associated Diagnosis Comments POCT LIPID PANEL Routine 12/01/2023 1:47 PM CDT Mixed diabetic hyperlipidemia associated with type 2 diabetes mellitus (CMS/HCC) (HCC) from Last 3 Months or Most Recently Relevant to Health Maintenance Results * POCT lipid panel (12/01/2023 1:47 PM CDT) Cholesterol, POC 242 mg/dL Comment:GLU = 108 HDL, POC 76 mg/dL Triglycerides, POC 80 mg/dL LDL Cholesterol POC 149 mg/dL Chol/HDL Ratio, POC 2.0 Non-HDL Cholesterol, POC 165 mg/dL Cholesterol Total, POC 242 mg/dL Capillary blood 12/01/2023 1 :47 PM CDT Thee Shields MD POINT OF CARE TEST ORDER BRIAN Final Result from Last 3 Months or Most Recently Relevant to Health Maintenance Insurance [facility] Care Teams Bath Mix Operator Relationship Specialty Start Date End Date Bryn Andrade DO PCP - General Family Medicine 09/03/18
--- OUTSIDE RECORDS SUMMARY | 2025-04-19 11:43 | XMS_ITS | Encounter Summary ---
Author Organization [facility] Health Address [address] [place] [address] Care Team Providers Care Civil Engineering Specialist Name Role Phone Camron Richard DO Primary Care Provider Bryn Andrade DO Primary Care Provide r Encounter Details Date Type Department Care Team (Late st Contact Info) Description 03/11/2019 [facility] Outpatient Visit [facility] [address] [place] [address] Qasim Low MD [address] [facility] [place] [address] Social History Tobacco Use Types Packs/Day Years Used Date Smoking Tobacco: Never Smokeless Tobacco: Never Alcohol Use Standard Drinks/Week Comments No 0 (1 standard drink = 0.6 oz pur e alcohol) Comments Unknown Sex and Gender Information Value Date Recorded Sex Assigned at Not on file 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
--- OUTSIDE RECORDS SUMMARY | 2025-04-19 11:43 | XMS_ITS | Encounter Summary ---
Author Organization [facility] Address [address] [facility] [facility] [address] [place] [address] Care Team Providers Care Internet Researcher Name Role Phone Philip Mckenzie MD Primary Care Provider [phone] Bryn Andrade DO Primary Care Prov ider Encounter Details Date Type Department Care Team (Late st Contact Info) Description 11/24/2016 Orders Only [facility] ProviderZach MD [address] [place] [id number] Social History Tobacco Use Types Packs/Day Years Used Date Smoking Tobacco: Never Assessed Alcohol Use Standard Drinks/Week Comments No 0 (1 standard drink = 0.6 oz pur e alcohol) Comments Unknown Sex and Gender Information Value Date Recorded Sex Assigned at Not on file 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 Historical Provider [facility] NURIA MONTOYA Final Result documented in this encounter Visit Diagnoses Not on filedocumented in this encounter Care Teams Internet Researcher Relationship Specialty Start Date End Date Philip Mckenzie MD [address] [place] [address] PCP - General 10/16/12 09/02/18 Bryn Andrade DO [address] [place] [address] PCP - General Family Medicine 09/03/18 documented as of this encounter
--- NOTE | 2025-04-19 12:19 | ECG_ITS ---
Test Date: 2025-04-19 12:23:49 Measurements Intervals [place] Rate: 58 P: 24 CO: 217 QRS: -36 QRSD: 106 T: -14 QT: 286 QTc: 282 Interpretive Statements SINUS BRADYCARDIA WITH FIRST DEGREE AV BLOCK MARKED LEFT AXIS DEVIATION [QRS AXIS < -30] POSSIBLE ANTERIOR MYOCARDIAL INFARCTION , PROBABLY OLD [30 ms Q WAVE IN V3/V4, OR R < 0.2 mV IN V4] No previous ECG available for comparison Electronically Signed On 04-19-2025 13:29:29 CDT by Gennaro Juarez M.D.
[2025-04-19 12:42] LABS: Hematocrit 34.9 % (37.0-47.0); Hemoglobin 12.4 g/dL (12.0-15.0); Immature Granulocyte Percent A 0.4 % (0-0.5); Lymphocytes Absolute Auto 1.60 K/mm3 (0.9-3.2); Mean Corpuscular HGB Conc 35.5 g/dl (32-36); Mean Corpuscular Hemoglobin 30.3 pg (26-34); Mean Corpuscular Volume 85.3 fl (80-100); Nucleated Red Blood Cells Absolute Auto 0.000 K/mm3 (0.0-0.012); Nucleated Red Blood Cells Perc 0.0 % (0.0-0.2); Platelet Count Result 305 k/mm3 (150-375); Red Blood Count 4.09 M/mm3 (4.2-5.4); White Blood Count 12.7 K/mm3 (4.5-10.0)
[2025-04-19 12:49] LABS: Add Urine Microscopic? YES; Appearance Urine Clear (Clear); Glucose Urine UA Negative (Negative); Leukocyte Esterase Ur Negative LEU/UL (Negative); Nitrate Urine Negative (Negative); Non Pathogenic Casts 0-2; Specific Grav Ur 1.013 (1.001-1.035)
[2025-04-19 12:56] LABS: Alanine Aminotransferase 17 U/L (6-35); Albumin Level 3.8 g/dL (3.5-5.1); Alkaline Phosphatase 49 U/L (38-126); Anion Gap 6 mmol/L (4-12); Aspartate Amino Transferase 30 U/L (14-36); Bilirubin,Total 0.7 mg/dL (0.2-1.3); Blood Urea Nitrogen 15 mg/dL (7-17); Calcium 13.6 mg/dL (8.4-10.2); Carbon Dioxide 30 mmol/L (22-30); Chloride 92 mmol/L (98-107); Estimated CRCL calculation 43 ml/min; Estimated Glomerular Filt Rate > 60; Glucose 148 mg/dL (65-110); Potassium 2.1 mmol/L (3.4-5.0); Sodium 128 mmol/L (137-145); Total Protein 6.2 g/dL (6.3-8.2)
[2025-04-19 13:18] LABS: Influenza A QL RT-PCR Negative (Negative); Influenza B QL RT-PCR Negative (Negative); SARS-CoV-2 RNA PCR Negative (Negative)
[2025-04-19 13:36] LABS: Magnesium 1.1 mg/dL (1.6-2.3)
[2025-04-19] MEDS: SODIUM CHLORIDE 0.9% IV 1,000 ML 999 ML IV CONT (13:47)
[2025-04-19] MEDS: KCL 20 MEQ/SW 100 ML 100 ML 50 MEQ IVPB (13:47)
[2025-04-19 13:52] LABS: Procalcitonin < 0.0 ng/mL
[2025-04-19 13:52] LABS: Troponin I 0.072 ng/mL (0.000-0.034)
[2025-04-19] MEDS: MAGNESIUM SULF 2 GM/WATER 50ML 2 GM/50 ML BAG IVPB (13:53)
--- NOTE | 2025-04-19 13:54 | ED.GENADULT ---
HPI - General Adult General Chief complaint: Weakness Stated complaint: weakness, ams since Time Seen by Provider: 04/19/25 12:50 History of Present Illness HPI narrative: Patient is a 80-year-old female who presents emergency department chief complaint of generalized weakness and confusion per the family the patient became progressively weaker since Monday patient has had pneumonias before in the past and also had episodes of urinary tract infections they report no trauma reports that currently she is at her baseline neurological status but reports that intermittently she has been confused not able answer questions the way she normally does they report no fever Related Data Home Medications ?Medication ?Instructions ?Recorded ?Confirmed ?Last Taken ?Type gemfibrozil 600 mg tablet (Lopid) 600 mg PO BID 01/04/20 02/07/24 12/24/23 History hydrocodone 5 mg-acetaminophen 325 1 tablet PO QID 01/04/20 02/07/24 12/24/23 History mg tablet levothyroxine 50 mcg tablet 50 mcg PO DAILY 01/04/20 02/07/24 12/24/23 History aspirin 81 mg tablet 81 mg PO HS 12/24/20 02/07/24 12/23/23 History hydrochlorothiazide 25 mg tablet 25 mg PO DAILY 12/24/20 02/07/24 12/24/23 History oxybutynin chloride 15 mg 15 mg PO DAILY 12/24/20 02/07/24 12/24/23 History tablet,extended release 24 hr pantoprazole 40 mg tablet,delayed 40 mg PO QAM 12/24/20 02/07/24 12/24/23 History release amlodipine 5 mg tablet 5 mg PO DAILY 12/24/23 02/07/24 12/24/23 History buspirone 5 mg tablet 5 mg PO TID 12/24/23 02/07/24 12/24/23 History gsoziur-rjxvrydxzd-BVO-caffeine 30 1 cap PO Q4H PRN Migraine Headache 12/24/23 02/07/24 Unknown History mg-50 mg-325 mg-40 mg capsule zolpidem 5 mg tablet (Ambien) 5 mg PO HS 12/24/23 02/07/24 12/23/23 History Allergies Allergy/AdvReac Type Severity Reaction Status Date / Time DEANDRA Inhibitors Allergy Angioedema Verified 08/01/24 12:51 atorvastatin Allergy MSkel Verified 08/01/24 12:51 dicyclomine Allergy Anaphylaxis Verified 08/01/24 12:51 terbinafine AdvReac Rash Verified 08/01/24 12:51 Review of Systems Review of Systems: A 10 system review of systems was completed on the patient and is negative except for what is stated in the HPI. Nursing and ancillary documentation was reviewed. [facility] Past Medical History Medical History Ataxia MCI (mild cognitive impairment) Dyslipidemia Peripheral neuropathy Insomnia Chronic pain syndrome Hypertension Angioedema Depression Diabetes No longer on medication. Surgical History Surgical History Status post lumbar spine surgery for decompression of spinal cord History of cataract extraction History of spinal surgery For scoliosis Family History Family History Father Acute myocardial infarction, Onset Age: 65 Patient's father is Mother Patient's mother is Other Leukemia Social History Social History Social History: Surrogate medical decision maker: Иван Arreola, spouse. Code status: Full code. Smoking status: Never smoker Alcohol intake: former Substance use: never Substance use type: does not use Concerned About Future Housing: Decline to Answer Difficulty Paying Gas/Electric Bills: Decline to Answer Difficulty Paying for Meds: Decline to Answer Currently Unemployed: Decline to Answer Education: Decline to Answer Difficulty w/ Childcare or Family Care: Decline to Answer Living arrangements: with family Spiritual care concerns: No Exam Narrative: GENERAL: Well-appearing, well-nourished, and in no acute distress. HEAD: Normocephalic, atraumatic. EYES: PERRLA and EOMI. ENT: Nares clear, no rhinorrhea or epistaxis. Mucous membranes moist. NECK: Supple. CHEST: Clear to auscultation. No respiratory distress. HEART: Regular rate and rhythm. No murmur heard. Normal peripheral pulses. ABDOMEN: Soft, nontender, nondistended, normal active bowel sounds. EXTREMITIES: Normal range of motion. No edema. SKIN: Warm, dry, no rash. NEURO: No focal deficits. Alert and oriented x3. PSYCH: Normal mood and affect. Course Vital Signs Vital signs: Vital Signs Temperature 36.6 C 04/19/25 11:46 Pulse Rate 80 04/19/25 11:46 Respiratory Rate 16 04/19/25 11:46 Blood Pressure 103/58 L 04/19/25 11:46 Pulse Oximetry 98 04/19/25 11:46 Oxygen Delivery Room Air 04/19/25 11:46 Temperature 36.6 C 04/19/25 11:46 Pulse Rate 80 04/19/25 11:46 Respiratory Rate 16 04/19/25 11:46 Blood Pressure 103/58 L 04/19/25 11:46 Pulse Oximetry 98 04/19/25 11:46 Oxygen Delivery Room Air 04/19/25 11:46 Medical Decision Making MDM Narrative Medical decision making narrative: Differential diagnosis includes infection, electrolyte abnormality, dehydration, Laboratory studies were obtained on the patient which found the patient to be hypokalemic hypomagnesemic and hypercalcemic. Patient received and normal saline bolus of 1 L as she is [address] scan of the chest abdomen pelvis showed no significant abnormality CT scan of the brain showed no evidence of hemorrhage Vital Signs Vital Signs: Vital Signs Temperature 36.6 C 04/19/25 11:46 Pulse Rate 80 04/19/25 11:46 Respiratory Rate 16 04/19/25 11:46 Blood Pressure 103/58 L 04/19/25 11:46 Pulse Oximetry 98 04/19/25 11:46 Oxygen Delivery Room Air 04/19/25 11:46 Temperature 36.6 C 04/19/25 11:46 Pulse Rate 80 04/19/25 11:46 Respiratory Rate 16 04/19/25 11:46 Blood Pressure 103/58 L 04/19/25 11:46 Pulse Oximetry 98 04/19/25 11:46 Oxygen Delivery Room Air 04/19/25 11:46 Lab Data 04/19/25 12:30 04/19/25 12:30 Labs: Lab Results 04/19/25 04/19/25 04/19/25 Range/Units 12:30 12:33 Unknown WBC 12.7 H (4.5-10.0) K/mm3 RBC 4.09 L (4.2-5.4) M/mm3 Hgb 12.4 (12.0-15.0) g/dL Hct 34.9 L (37.0-47.0) % MCV 85.3 (80-100) fl MCH 30.3 (26-34) pg MCHC 35.5 (32-36) g/dl RDW 13.8 (11.5-14.5) % Plt Count 305 (150-375) k/mm3 MPV 10.6 H (7.4-10.4) fl Immature Gran % (Auto) 0.4 (0-0.5) % Neut % (Auto) 76.8 H (45.5-73.1) % Lymph % (Auto) 12.6 L (18.3-44.2) % [place] % (Auto) 9.5 H (2.6-8.5) % Eos % (Auto) 0.5 (0-4.4) % Baso % (Auto) 0.2 (0.2-1.2) % Lymph # (Auto) 1.60 (0.9-3.2) K/mm3 [place] # (Auto) 1.2 H (0.1-0.6) K/mm3 Eos # (Auto) 0.1 (0-0.3) K/mm3 Baso # (Auto) 0.0 (0.0-0.1) K/mm3 Abs Immat Gran (auto) 0.05 H (0.00-0.031) K/mm3 Absolute Neuts (auto) 9.8 H (1.3-6.7) K/mm3 Absolute Nucleated RBC 0.000 (0.0-0.012) K/mm3 Nucleated RBC % 0.0 (0.0-0.2) % Sodium 128 L (137-145) mmol/L Potassium 2.1 L* (3.4-5.0) mmol/L Chloride 92 L (98-107) mmol/L Carbon Dioxide 30 (22-30) mmol/L Anion Gap 6 (4-12) mmol/L BUN 15 D (7-17) mg/dL Creatinine 0.71 (0.7-1.0) mg/dL Estim Creat Clear Calc 43 ml/min Estimated GFR > 60 (59 - ) Glucose 148 H (65-110) mg/dL Calcium 13.6 H* (8.4-10.2) mg/dL Magnesium 1.1 L (1.6-2.3) mg/dL Total Bilirubin 0.7 (0.2-1.3) mg/dL AST 30 (14-36) U/L ALT 17 (6-35) U/L Alkaline Phosphatase 49 (38-126) U/L Troponin I 0.072 H* (0.000-0.034) ng/mL Total Protein 6.2 L (6.3-8.2) g/dL Albumin 3.8 (3.5-5.1) g/dL Procalcitonin < 0.0 ng/mL Urine Color Yellow (Yellow) Urine Appearance Clear (Clear) Urine pH 6.0 (5.0-9.0) Ur Specific Ross[place] 1.013 (1.001-1.035) Urine Protein 2+ H (Negative) mg/dL Urine Glucose (UA) Negative (Negative) mg/dL Urine Ketones Negative (Negative) mg/dL Ur Blood (Man) Negative (Negative) Urine Nitrate Negative (Negative) Urine Bilirubin Negative (Negative) Urine Urobilinogen 0.2 (<2.0) mg/dL Leukocyte Esterase Rfl Negative (Negative) CRAIG/UL Urine RBC 0-2 (0-2) /hpf Urine WBC 0-5 (0-3) /hpf Ur Squamous Epith Cells None seen (Few) /hpf Urine Bacteria None seen /hpf Urine Casts 0-2 Influenza A (RT-PCR) Negative (Negative) Influenza B (RT-PCR) Negative (Negative) SARS-CoV-2 RNA (RT-PCR) Negative (Negative) Discharge Plan Discharge Clinical Impression: Elevated troponin, Acute hypokalemia, Hypomagnesemia, Hypercalcemia Patient Disposition: Still a Patient Condition: Stable Patient Language: German Prescriptions: No Action hydrocodone-acetaminophen 5-325 mg Tablet 1 tablet PO QID gemfibrozil [Lopid] 600 mg Tablet 600 mg PO BID Rx Instructions: before breakfast and before dinner levothyroxine 50 mcg Tablet 50 mcg PO DAILY venlafaxine [Effexor XR] 75 mg capsule,extended release 24hr 75 mg PO QAM Qty: 90 3RF gabapentin [Neurontin] 600 mg tablet 900 mg PO Q8H Qty: 300 3RF oxybutynin chloride 15 mg Tablet Extended Release 24 Hr 15 mg PO DAILY pantoprazole 40 mg Tablet,Delayed Release (Dr/Ec) 40 mg PO QAM aspirin 81 mg Tablet 81 mg PO HS hydrochlorothiazide 25 mg Tablet 25 mg PO DAILY amlodipine 5 mg Tablet 5 mg PO DAILY zolpidem [Ambien] 5 mg Tablet 5 mg PO HS buspirone 5 mg Tablet 5 mg PO TID [id number]-ptjgpbittr-UDL-caff [id number] mg Capsule 1 cap PO Q4H PRN (Reason: Migraine Headache) potassium chloride 20 mEq tablet extended release 20 meq PO DAILY Qty: 10 0RF hydroxyzine HCl 25 mg tablet 25 mg PO TID PRN (Reason: swelling) Qty: 14 0RF Follow-up/Referrals: PHYSICIAN NOT ON STAFF,NONSTAFF [Primary Care Provider]
--- NOTE | 2025-04-19 14:00 | P.HP_ITS ---
H&P: HPI History of Present Illness Date/Time: 04/19/25 14:00 Chief Complaint: Confusion Narrative: 80-year-old female past medical history of dementia, diabetes, hypertension, chronic pain, mild cognitive impairment and peripheral neuropathy brought in by her family for acute confusion and weakness. The family was worried that the patient may have a UTI or pneumonia. Patient denies complaints of shortness of breath, congestion, burning sensation, weakness. Patient has no complaints at this time. Family complains of in acute confusion and weakness. Denies nausea vomiting fever or chills. Lab work shows leukocytosis at 12.7, sodium of 128, potassium of 2.1, chloride of 92, glucose of 148, calcium of 13.6, magnesium of 1.1, troponin of 0.072, UA negative for infection. Head CT with no acute process. CT chest abdomen pelvis show bronchiolitis. Review of Systems Review of Systems: 12 systems were reviewed and are negativ e except for as per HPI. [facility] Past Medical History Medical History Ataxia MCI (mild cognitive impairment) Dyslipidemia Peripheral neuropathy Insomnia Chronic pain syndrome Hypertension Angioedema Depression Diabetes No longer on medication. Surgical History Surgical History Status post lumbar spine surgery for decompression of spinal cord History of cataract extraction History of spinal surgery For scoliosis Family History Family History Father Acute myocardial infarction, Onset Age: 65 Patient's father is Mother Patient's mother is Other Leukemia Social History Social History Social History: Surrogate medical decision maker: Иван Arreola, spouse. Code status: Full code. Smoking status: Never smoker Alcohol intake: never Substance use: never Substance use type: does not use Lack of Transportation: No Lack of Food: Never True Current Housing: I Have Housing Concerned About Future Housing: No Difficulty Paying Gas/Electric Bills: No Difficulty Paying for Meds: No Currently Unemployed: No Education: Decline to Answer Difficulty w/ Childcare or Family Care: No Living arrangements: with family Spiritual care concerns: No Meds Home Medications and Allergies Home Medications ?Medication ?Instructions ?Recorded ?Confirmed ?Type gemfibrozil 600 mg tablet (Lopid) 600 mg PO BID 04/19/25 History hydrocodone 5 mg-acetaminophen 325 1 tablet PO QID PRN pain 01/04/20 04/19/25 History mg tablet levothyroxine 50 mcg tablet 50 mcg PO DAILY 01/04/20 0 04/19/25 History aspirin 81 mg tablet 81 mg PO HS 12/24/20 5 History hydrochlorothiazide 25 mg tablet 25 mg PO DAILY 04/19/25 History pantoprazole 40 mg tablet,delayed 40 mg PO QAM 1 04/19/25 History release amlodipine 5 mg tablet 5 mg PO DAILY 12/24/2304/19 History buspirone 5 mg tablet 10 mg PO TID 12/24/23 History zolpidem 5 mg tablet (Ambien) 5 mg PO HS 12/24/2302/05 History potassium chloride 20 mEq 20 meq PO DAILY #10 tabs 04/19/25 Rx tablet,extended release gabapentin 600 mg tablet 900 mg (1.5 x 600 mg) PO Q8H #300 08/01/24 04/19/25 Rx (Neurontin) tabs kjvlreuzmy-zitpfipvevuzk-jdzejkvz 1 cap PO Q4-6H PRN p ain 04/19/25 04/19/25 History 50 mg-325 mg-40 mg capsule calcium 500 mg (as See Rx Instructions PO DI RECTED 04/19/25 04/19/25 History carbonate)-vitamin D3 15 mcg (600 unit) tablet calcium carbonate (Calcium 500) 500 mg PO DAILY 04/19/25 History celecoxib 100 mg capsule 100 mg PO Q12H 04/19/2502/05 History cholecalciferol (vitamin D3) 25 25 mcg PO DAILY 04/19/25 History mcg (1,000 unit) capsule (Vitamin D3) donepezil 10 mg tablet 10 mg PO QHS 04/19/25 History duloxetine 30 mg capsule,delayed 30 mg PO DAILY 04/19/25 History release duloxetine 60 mg capsule,delayed 60 mg PO DAILY 04/19/25 History release estradiol 0.01% (0.1 mg/gram) 1 appful vaginal DIRE CTED 04/19/25 04/19/25 History vaginal cream (Estrace) ferrous sulfate 325 mg (65 mg 325 mg PO DAILY 04/19/25 04/19/25 History iron) tablet fluticasone propionate 50 1 spray intranasal DAILY 02/0504/19/25 History mcg/actuation nasal spray,suspension jruhbgkasph-stvmfhsvi-kea C-Mn 500 1 cap PO TID 04/19/25 History mg-400 mg capsule (Glucosamine Chondroitin Maximum Strength) krill oil 500 mg capsule 500 mg PO DAILY 04/19/2502/05 History latanoprost 0.005 % eye drops 1 drp EACH EYE QPM 04/1904/19/25 History nystatin 100,000 unit/gram topical 1 applic topical BI D 04/19/25 04/19/25 History powder (Klayesta) oxybutynin chloride 10 mg 10 mg PO DAILY 04/19/2502/05 History tablet,extended release 24 hr Allergies Allergy/AdvReac Type Severity Reaction Status Date / Time DEANDRA Inhibitors Allergy Angioedema Verified 08/01/24 12:51 atorvastatin Allergy MSkel Verified 08/01/24 12:51 dicyclomine Allergy Anaphylaxis Verified 08/01/24 12:51 terbinafine AdvReac Rash Verified 08/01/24 12:51 Vital Signs Vital Signs - 24 hr 04/19/25 11:46 Temperature 98 F Pulse Rate 80 Respiratory Rate 16 Blood Pressure 103/58 L Pulse Oximetry 98 Oxygen Delivery Room Air Exam Narrative: General: well appearing, appears stated age. Heart hearing HEENT: normocephalic, atraumatic. Mucous membranes moist. EOMI, PERRLA, bilateral sclera anicteric, no conjunctival injection. Neck supple without JVD, lymphadenopathy, or bruit. Respiratory: clear to ascultation bilaterally. No rales/rhonic/wheezes. Cardiovascular: Regular rate and rhythm, normal S1-S2 upon ascultation. No murmurs, rubs, or clicks. PMI is nondisplaced, capillary refill less than 3 second. Abdomen: Soft, round, no pulsatile masses, nondistended and nontender. No rebound, no guarding. No CVA tenderness, no hepatosplenomegaly. Bowel sounds present to all four quadrants. No high pitch or tinkling sounds, resonant to percussion. Extremities: No cyanosis, clubbing, or edema present. Pulses are palpable 2/2. Active ROM to all four extremities. Neuro: Alert and orientated x 4. PERRLA. Cranial nerves 2-12 intact without focal deficit. Skin: Warm, dry, and intact, without rash, erythema, or lesion. Psych: pleasant, cooperative, normal speech, normal affect, no hallucinations, no dysarthia H&P: Results Labs Labs: Short CBC 04/19/25 Range/Units 12:30 WBC 12.7 H (4.5-10.0) K/mm3 Hgb 12.4 (12.0-15.0) g/dL Hct 34.9 L (37.0-47.0) % Plt Count 305 (150-375) k/mm3 BMP 04/19/25 12:30 Sodium 128 L Potassium 2.1 L* Chloride 92 L Carbon Dioxide 30 BUN 15 D Creatinine 0.71 Glucose 148 H Calcium 13.6 H* Cardiac Enzymes 04/19/25 Range/Units 12:30 Troponin I 0.072 H* (0.000-0.034) ng/mL Liver Function 04/19/25 Range/Units 12:30 Total Bilirubin 0.7 (0.2-1.3) mg/dL AST 30 (14-36) U/L ALT 17 (6-35) U/L Alkaline Phosphatase 49 (38-126) U/L Albumin 3.8 (3.5-5.1) g/dL Urine 04/19/25 Range/Units 12:30 Urine Color Yellow (Yellow) Urine Appearance Clear (Clear) Urine pH 6.0 (5.0-9.0) Ur Specific [place] 1.013 (1.001-1.035) Urine Protein 2+ H (Negative) mg/dL Urine Glucose (UA) Negative (Negative) mg/dL Assessment and Plan Assessment and plan (1) Acute hypokalemia: Code(s): E87.6 - Hypokalemia Status: Acute Assessment and Plan: Potassium on admission 2.1 20 mg given in ED Hold hydrochlorothiazide Repeat potassium 2.3 40 mEq of IV potassium Telemetry monitoring (2) Hypomagnesemia: Code(s): E83.42 - Hypomagnesemia Status: Acute Assessment and Plan: 2 g given in ED Repeat magnesium in the morning (3) Hypercalcemia: Code(s): E83.52 - Hypercalcemia Status: Acute Assessment and Plan: Medication review shows that patient is taking 2 different types of calcium medications +2 different types of vitamin-D, will hold these 1 L fluid bolus Repeat BMP calcium 13.8 Calcitonin subQ x4 doses Repeat calcium in the morning (4) Elevated troponin: Code(s): R79.89 - Other specified abnormal findings of blood chemistry Status: Acute Assessment and Plan: Admit to IMU Telemetry monitoring Trend troponins EKG p.r.n. (5) Pneumonitis: Code(s): J98.4 - Other disorders of lung Status: Acute Assessment and Plan: With leukocytosis On Rocephin and doxy Guaifenesin (6) Chronic pain syndrome: Code(s): G89.4 - Chronic pain syndrome Status: Acute Assessment and Plan: Due to scoliosis status post surgery Continue home pain medications Holding gabapentin due to weakness and confusion (7) Hypertension: Code(s): I10 - Essential (primary) hypertension Status: Acute Assessment and Plan: Continue amlodipine (8) Depression: Code(s): F32.9 - Major depressive disorder, single episode, unspecified Status: Acute Assessment and Plan: Continue Cymbalta (9) Glaucoma: Code(s): H40.9 - Unspecified glaucoma Status: Acute Assessment and Plan: Continue home eye drops (10) Hypothyroid: Code(s): E03.9 - Hypothyroidism, unspecified Status: Acute Assessment and Plan: Continue levothyroxine Quality VTE Prophylaxis VTE prophylaxis: mechanical ordered and pharmacologic ordered Hospitalist MIPS Advance Care Plan I have confirmed that the patient's Advanced Care Plan is present, code status is documented, or surrogate decision maker is listed in patient medical record.: Yes Medication Reconciliation I have utilized all available resources to obtain, update and review the patients current medications (includes all prescriptions, OTC, herbals, cannabis, and nutritional supplements).: Yes
[2025-04-19] MEDS: cefTRIAXone 1 GM in SODIUM CHLORIDE 0.9% IV 50 ML 100 ML IVPB (16:00)
[2025-04-19] MEDS: AZITHROMYCIN 250 MG/NS 250 ML 250 MG/250 ML BAG IVPB (16:26)
--- NOTE | 2025-04-19 17:28 | ADMGEN ---
This patient, Jackie Arreoal, was admitted to IMU Room 203-01 @ 1728. Patient/family oriented to hospital policies and general routines including ID bracelet, bed and alarms, visiting hours, pain management, procedures, bathroom and other care routines, personal items, smoking policy, room service/diet, and visiting hours. Information on how to activate the Rapid Response Team has been discussed. Patient/Family are encouraged to report perceived risks to care and to ask questions if they do not understand what they are told or what they should do.
[2025-04-19 18:54] LABS: Anion Gap 6 mmol/L (4-12); Blood Urea Nitrogen 13 mg/dL (7-17); Calcium 13.8 mg/dL (8.4-10.2); Carbon Dioxide 28 mmol/L (22-30); Chloride 94 mmol/L (98-107); Estimated CRCL calculation 53 ml/min; Estimated Glomerular Filt Rate > 60; Glucose 111 mg/dL (65-110); Potassium 2.3 mmol/L (3.4-5.0); Sodium 128 mmol/L (137-145); Troponin I 0.092 ng/mL (0.000-0.034)
[2025-04-19] MEDS: CELECOXIB 100 MG CAPSULE PO (21:17)
[2025-04-19] MEDS: DOXYCYCLINE HYCLATE 100 MG TABLET PO (21:18)
[2025-04-19] MEDS: HYDROcodone/acetaminophen (*CRX) 5-325 MG TABLET 1 TAB PO (21:18)
[2025-04-19] MEDS: DONEPEZIL HCL 10 MG TABLET PO (21:18)
[2025-04-19] MEDS: POTASSIUM CHLORIDE INJ 40 MEQ in SODIUM CHLORIDE 0.9% IV 500 ML 130 MEQ IVPB (21:19)
[2025-04-19] MEDS: CALCITONIN SALMON INJ 400 UNITS/2 ML VIAL 216 UNITS SUB-Q (21:20)
[2025-04-19 21:37] LABS: Troponin I 0.103 ng/mL (0.000-0.034)
[2025-04-19] MEDS: SODIUM CHLORIDE 0.9% IV 1,000 ML 125 ML IV CONT (22:23)
[2025-04-20] VITALS (15 sets, daily range): BP systolic 116–149; BP diastolic 59–73; PULSE 57–81; RESP 16–21; TEMP 36.6–36.7; O2SAT 96–98
[2025-04-20 01:39] LABS: Hematocrit 33.4 % (37.0-47.0); Hemoglobin 12.0 g/dL (12.0-15.0); Immature Granulocyte Percent A 0.4 % (0-0.5); Lymphocytes Absolute Auto 1.98 K/mm3 (0.9-3.2); Mean Corpuscular HGB Conc 35.9 g/dl (32-36); Mean Corpuscular Hemoglobin 30.7 pg (26-34); Mean Corpuscular Volume 85.4 fl (80-100); Nucleated Red Blood Cells Absolute Auto 0.000 K/mm3 (0.0-0.012); Nucleated Red Blood Cells Perc 0.0 % (0.0-0.2); Platelet Count Result 281 k/mm3 (150-375); Red Blood Count 3.91 M/mm3 (4.2-5.4); White Blood Count 10.0 K/mm3 (4.5-10.0)
[2025-04-20 02:11] LABS: Anion Gap 2 mmol/L (4-12); Blood Urea Nitrogen 9 mg/dL (7-17); Calcium 12.1 mg/dL (8.4-10.2); Carbon Dioxide 29 mmol/L (22-30); Chloride 100 mmol/L (98-107); Estimated CRCL calculation 64 ml/min; Estimated Glomerular Filt Rate > 60; Glucose 119 mg/dL (65-110); Magnesium 1.3 mg/dL (1.6-2.3); Potassium 2.4 mmol/L (3.4-5.0); Sodium 131 mmol/L (137-145); Troponin I 0.093 ng/mL (0.000-0.034)
[2025-04-20] MEDS: MAGNESIUM SULFATE 3GM/D5W100ML 3 GM/100 ML BAG IVPB (02:34)
[2025-04-20] MEDS: POTASSIUM CHLORIDE 20 MEQ ER TABLET 40 MEQ PO (02:35)
[2025-04-20] MEDS: POTASSIUM PHOS,M-BASIC-D-BASIC 15 MMOL in SODIUM CHLORIDE 0.9% IV 250 ML 63.75 MMOL IVPB (02:44)
[2025-04-20] MEDS: LEVOTHYROXINE SODIUM 50 MCG TABLET PO (06:26)
[2025-04-20 08:05] LABS: Anion Gap 5 mmol/L (4-12); Blood Urea Nitrogen 7 mg/dL (7-17); Calcium 11.7 mg/dL (8.4-10.2); Carbon Dioxide 28 mmol/L (22-30); Chloride 99 mmol/L (98-107); Estimated CRCL calculation 70 ml/min; Estimated Glomerular Filt Rate > 60; Glucose 110 mg/dL (65-110); Magnesium 1.9 mg/dL (1.6-2.3); Potassium 2.5 mmol/L (3.4-5.0); Sodium 132 mmol/L (137-145)
[2025-04-20] MEDS: ENOXAPARIN 40 MG/0.4 ML SYRINGE SUB-Q (08:54)
[2025-04-20] MEDS: PANTOPRAZOLE 40 MG TABLET PO (08:54)
[2025-04-20] MEDS: ACETAMINOPHEN 325 MG TABLET 650 MG PO (08:55)
[2025-04-20] MEDS: CALCITONIN SALMON INJ 400 UNITS/2 ML VIAL 216 UNITS SUB-Q ×2 (08:55→22:05)
[2025-04-20] MEDS: DOXYCYCLINE HYCLATE 100 MG TABLET PO ×2 (08:55→20:13)
[2025-04-20] MEDS: DULoxetine HCL 60 MG CAPSULE.DR PO (08:55)
[2025-04-20] MEDS: DOCUSATE SODIUM 100 MG CAPSULE PO ×2 (08:55→17:16)
[2025-04-20] MEDS: POTASSIUM CHLORIDE INJ 40 MEQ in SODIUM CHLORIDE 0.9% IV 500 ML 130 MEQ IVPB (08:56)
[2025-04-20] MEDS: POTASSIUM CHLORIDE 20 MEQ PACKET (FOR LIQUID) 40 MEQ PO (08:58)
[2025-04-20] MEDS: CELECOXIB 100 MG CAPSULE PO ×2 (09:14→20:13)
[2025-04-20] MEDS: SODIUM CHLORIDE 0.9% IV 1,000 ML 125 ML IV CONT ×2 (10:41→20:07)
--- NOTE | 2025-04-20 12:20 | P.PNIM_ITS ---
Progress Note: A&P Assessment and Plan (1) Acute hypokalemia: Code(s): E87.6 - Hypokalemia Status: Acute Assessment and Plan: K 2.5, replaced Hold hydrochlorothiazide replaced and monitor (2) Hypomagnesemia: Code(s): E83.42 - Hypomagnesemia Status: Acute Assessment and Plan: Mg 1.1 on admission Mg 1.9 monitor and replace accordingly (3) Hypercalcemia: Code(s): E83.52 - Hypercalcemia Status: Acute Assessment and Plan: Medication review shows that patient is taking 2 different types of calcium medications +2 different types of vitamin-D, will hold these Continue holding Vitamin D Repeat BMP calcium 13.8, 11.7 today Calcitonin subQ x4 doses however Vitamin D 25 and PTH (4) Elevated troponin: Code(s): R79.89 - Other specified abnormal findings of blood chemistry Status: Acute Assessment and Plan: no chest pain, likely from dehydration Trend troponins 0.103, 0.093 EKG p.r.n. ECHO pending (5) Pneumonitis: Code(s): J98.4 - Other disorders of lung Status: Acute Assessment and Plan: With leukocytosis, resolving CXR showed [id number]-bud opacities RML suspicious On Rocephin and doxy Guaifenesin monitor (6) Chronic pain syndrome: Code(s): G89.4 - Chronic pain syndrome Status: Acute Assessment and Plan: Due to scoliosis status post surgery Continue home pain medications Holding gabapentin due to weakness and confusion (7) Hypertension: Code(s): I10 - Essential (primary) hypertension Status: Acute Assessment and Plan: Continue amlodipine (8) Depression: Code(s): F32.9 - Major depressive disorder, single episode, unspecified Status: Acute Assessment and Plan: Continue Cymbalta (9) Glaucoma: Code(s): H40.9 - Unspecified glaucoma Status: Acute Assessment and Plan: Continue home eye drops (10) Hypothyroid: Code(s): E03.9 - Hypothyroidism, unspecified Status: Acute Assessment and Plan: Continue levothyroxine Plan DVT prophylaxis on Sq Lovenox Subjective Date/time seen: 04/20/25 12:20 Interval history: Comfortable at bedside Denies any chest pain, abd pain, diarrhea and vomiting Review of Systems Review of Systems: 12 systems were reviewed and are negativ e except for as per HPI. Exam Narrative: General: well appearing, appears stated age. Heart hearing HEENT: normocephalic, atraumatic. Mucous membranes moist. EOMI, PERRLA, bilateral sclera anicteric, no conjunctival injection. Neck supple without JVD, lymphadenopathy, or bruit. Respiratory: clear to ascultation bilaterally. No rales/rhonic/wheezes. Cardiovascular: Regular rate and rhythm, normal S1-S2 upon ascultation. No murmurs, rubs, or clicks. PMI is nondisplaced, capillary refill less than 3 second. Abdomen: Soft, round, no pulsatile masses, nondistended and nontender. No rebound, no guarding. No CVA tenderness, no hepatosplenomegaly. Bowel sounds present to all four quadrants. No high pitch or tinkling sounds, resonant to percussion. Extremities: No cyanosis, clubbing, or edema present. Pulses are palpable 2/2. Active ROM to all four extremities. Neuro: Alert and orientated x 4. PERRLA. Cranial nerves 2-12 intact without focal deficit. Skin: Warm, dry, and intact, without rash, erythema, or lesion. Psych: pleasant, cooperative, normal speech, normal affect, no hallucinations, no dysarthia Objective Data Vital Signs Vital Signs: Vital Signs - 24 hr 04/19/25 13:46 04/19/25 14:21 04/19/25 14:31 Temperature 97.9 F 97.7 F 97.9 F Pulse Rate 61 58 L 68 Respiratory Rate 16 16 24 H Blood Pressure 130/89 147/72 H 149/71 H Pulse Oximetry 98 100 97 Oxygen Delivery 04/19/25 15:15 04/19/25 15:30 04/19/25 15:31 Temperature 97.8 F Pulse Rate 61 62 62 Respiratory Rate 14 11 L 15 Blood Pressure 152/79 H 146/71 H Pulse Oximetry 99 98 98 Oxygen Delivery 04/19/25 15:45 04/19/25 15:46 04/19/25 16:00 Temperature Pulse Rate 59 L 67 60 Respiratory Rate 12 14 15 Blood Pressure 162/73 H 130/114 H Pulse Oximetry 100 99 87 L Oxygen Delivery 04/19/25 16:01 04/19/25 16:30 04/19/25 17:01 Temperature 97.8 F Pulse Rate 63 65 64 Respiratory Rate 13 14 18 Blood Pressure 160/88 H 167/74 H Pulse Oximetry 95 95 97 Oxygen Delivery 04/19/25 20:00 04/19/25 20:00 04/19/25 20:00 Temperature 97.6 F Pulse Rate 64 62 Respiratory Rate 18 Blood Pressure 144/63 H Pulse Oximetry 99 Oxygen Delivery Room Air 04/19/25 22:00 04/19/25 23:05 04/19/25 23:53 Temperature 97.6 F Pulse Rate 64 60 Respiratory Rate 15 Blood Pressure 120/52 L Pulse Oximetry 97 96 Oxygen Delivery Room Air 04/20/25 00:00 04/20/25 00:00 04/20/25 02:00 Temperature Pulse Rate 75 58 L Respiratory Rate Blood Pressure Pulse Oximetry Oxygen Delivery Room Air 04/20/25 04:00 04/20/25 04:00 04/20/25 04:00 Temperature 98.1 F Pulse Rate 63 72 Respiratory Rate 17 Blood Pressure 128/73 Pulse Oximetry 96 Oxygen Delivery Room Air 04/20/25 06:00 04/20/25 08:00 Temperature 97.9 F Pulse Rate 57 L 64 Respiratory Rate 16 Blood Pressure 143/69 H Pulse Oximetry 98 Oxygen Delivery Intake/Output Intake/Output: Intake & Output 04/17/25 04/18/25 04/19/25 04/20/25 23:59 23:59 23:59 23:59 Intake Total 1450 2375.0 Output Total 75 600 Balance 1375 1775.0 Meds/Results Medications: Active Medications Generic Name Dose Route Start Last Admin Trade Name Freq PRN Reason Stop Dose Admin Acetaminophen 650 mg 04/19/25 13:56 04/20/25 08:55 Acetaminophen 325 Mg Tablet PO 650 mg Q4H PRN Administration Mild Pain (1-3) or Fever Hydrocodone Bitart/Acetaminophen 1 tab 04/19/25 20:28 04/19/25 21:18 Hydrocodone/Acetaminophen (*Crx) 5-325 Mg Tablet PO 1 tab QID PRN Administration Pain 4-6 Amlodipine Besylate 5 mg 04/20/25 09:00 04/20/25 08:55 Amlodipine Besylate 5 Mg Tablet PO 5 mg DAILY JOSE Administration Aspirin 81 mg 04/20/25 21:00 Aspirin 81 Mg Enteric Tablet PO HS JOSE Buspirone HCl 10 mg 04/20/25 09:00 04/20/25 08:55 Buspirone Hcl 5 Mg Tablet PO 10 mg TID JOSE Administration Calcitonin Hooper 216 units 04/19/25 21:00 04/20/25 08:55 Calcitonin Hooper Inj 400 Units/2 Ml Vial SUB-Q 04/21/25 09:01 216 units Q12HR JOSE Administration Celecoxib 100 mg 04/19/25 21:00 04/20/25 09:14 Celecoxib 100 Mg Capsule PO 100 mg Q12HR JOSE Administration Docusate Sodium 100 mg 04/19/25 13:58 04/20/25 08:55 Docusate Sodium 100 Mg Capsule PO 100 mg BID PRN Administration Constipation Donepezil HCl 10 mg 04/19/25 21:00 04/19/25 21:18 Donepezil Hcl 10 Mg Tablet PO 10 mg QHS JOSE Administration Doxycycline Hyclate 100 mg 04/19/25 21:00 04/20/25 08:55 Doxycycline Hyclate 100 Mg Tablet PO 100 mg Q12HR JOSE Administration Duloxetine HCl 60 mg 04/20/25 09:00 04/20/25 08:55 Duloxetine Hcl 60 Mg Capsule.Dr PO 60 mg DAILY JOSE Administration Enoxaparin Sodium 40 mg 04/20/25 09:00 04/20/25 08:54 Enoxaparin 40 Mg/0.4 Ml Syringe SUB-Q 40 mg DAILY JOSE Administration Gemfibrozil 600 mg 04/20/25 09:00 04/20/25 09:14 Gemfibrozil 600 Mg Tablet PO 600 mg BID JOSE Administration Guaifenesin/Dextromethorphan 10 ml 04/20/25 10:10 Guaifenesin/Dextromethorphan 10 Ml Udc PO Q4H PRN Cough Sodium Chloride 1,000 mls @ 125 mls/hr 04/19/25 14:00 04/20/25 10:41 Normal Saline Iv IV CONT 125 mls/hr .Q8H JOSE Administration Ceftriaxone Sodium 1 gm/ 50 mls @ 100 mls/hr 04/19/25 15:00 04/19/25 17:02 Sodium Chloride IVPB Infused Q24H JOSE Infusion Latanoprost 1 drop 04/20/25 18:00 Latanoprost 0.005% Op Soln 2.5 Ml Btl EACH EYE QPM [facility] Levothyroxine Sodium 50 mcg 04/20/25 06:30 04/20/25 06:26 Levothyroxine Sodium 50 Mcg Tablet PO 50 mcg DAILY@0630 JOSE Administration Pantoprazole Sodium 40 mg 04/20/25 09:00 04/20/25 08:54 Pantoprazole 40 Mg Tablet PO 40 mg QAM JOSE Administration Radiology Results: ITS Impressions Head CT 04/19/25 13:32 IMPRESSION: 1. Old lacunar infarct at the left basal ganglia. No acute intracranial process. 2. Age-related changes including and mild to moderate diffuse volume loss and moderate scattered white matter hypoattenuation consistent with chronic small vessel ischemic disease. Chest/Abdomen/Pelvis CT 04/19/25 13:35 IMPRESSION: 1. Mild tree-in-bud opacities in the right middle lobe consistent with age indeterminate bronchiolitis with endobronchial spread of disease. 2. No acute intra-abdominal/pelvic process. 3. Moderate-sized hiatal hernia. 4. Extensive degenerative and postoperative changes in the spine as detailed above. Chest X-Ray 04/19/25 13:49 IMPRESSION: 1. No evident acute cardiopulmonary disease. Mild tree-in-bud opacities in the right middle lobe suspicious for some age-indeterminate bronchiolitis seen on immediately prior CT are indiscernible on the plain radiographs. Labs Labs: Laboratory Results - last 24 hr 04/19/25 04/19/25 04/19/25 12:30 12:33 18:10 WBC 12.7 H RBC 4.09 L Hgb 12.4 Hct 34.9 L MCV 85.3 MCH 30.3 MCHC 35.5 RDW 13.8 Plt Count 305 MPV 10.6 H Immature Gran % (Auto) 0.4 Neut % (Auto) 76.8 H Lymph % (Auto) 12.6 L [place] % (Auto) 9.5 H Eos % (Auto) 0.5 Baso % (Auto) 0.2 Lymph # (Auto) 1.60 [place] # (Auto) 1.2 H Eos # (Auto) 0.1 Baso # (Auto) 0.0 Abs Immat Gran (auto) 0.05 H Absolute Neuts (auto) 9.8 H Absolute Nucleated RBC 0.000 Nucleated RBC % 0.0 Sodium 128 L 128 L Potassium 2.1 L* 2.3 L* Chloride 92 L 94 L Carbon Dioxide 30 28 Anion Gap 6 6 BUN 15 D 13 Creatinine 0.71 0.57 L Estim Creat Clear Calc 43 53 Estimated GFR > 60 > 60 Glucose 148 H 111 H Lactic Acid 1.4 Calcium 13.6 H* 13.8 H* Phosphorus Magnesium 1.1 L Total Bilirubin 0.7 AST 30 ALT 17 Alkaline Phosphatase 49 Troponin I 0.072 H* 0.092 H* D Total Protein 6.2 L Albumin 3.8 Procalcitonin Urine Color Yellow Urine Appearance Clear Urine pH 6.0 Ur Specific [place] 1.013 Urine Protein 2+ H Urine Glucose (UA) Negative Urine Ketones Negative Ur Blood (Man) Negative Urine Nitrate Negative Urine Bilirubin Negative Urine Urobilinogen 0.2 Leukocyte Esterase Rfl Negative Urine RBC 0-2 Urine WBC 0-5 Ur Squamous Epith Cells None seen Urine Bacteria None seen Urine Casts 0-2 Influenza A (RT-PCR) Negative Influenza B (RT-PCR) Negative SARS-CoV-2 RNA (RT-PCR) Negative 04/19/25 04/19/25 04/20/25 21:06 Unknown 01:20 WBC 10.0 RBC 3.91 L Hgb 12.0 Hct 33.4 L MCV 85.4 MCH 30.7 MCHC 35.9 RDW 14.0 Plt Count 281 MPV 10.7 H Immature Gran % (Auto) 0.4 Neut % (Auto) 63.5 Lymph % (Auto) 19.9 [place] % (Auto) 14.5 H Eos % (Auto) 1.4 Baso % (Auto) 0.3 Lymph # (Auto) 1.98 [place] # (Auto) 1.4 H Eos # (Auto) 0.1 Baso # (Auto) 0.0 Abs Immat Gran (auto) 0.04 H Absolute Neuts (auto) 6.3 Absolute Nucleated RBC 0.000 Nucleated RBC % 0.0 Sodium 131 L Potassium 2.4 L* Chloride 100 Carbon Dioxide 29 Anion Gap 2 L BUN 9 Creatinine 0.46 L Estim Creat Clear Calc 64 Estimated GFR > 60 Glucose 119 H Lactic Acid Calcium 12.1 H* Phosphorus 1.5 L Magnesium 1.3 L Total Bilirubin AST ALT Alkaline Phosphatase Troponin I 0.103 H* 0.093 H* Total Protein Albumin Procalcitonin < 0.0 Urine Color Urine Appearance Urine pH Ur Specific [place] Urine Protein Urine Glucose (UA) Urine Ketones Ur Blood (Man) Urine Nitrate Urine Bilirubin Urine Urobilinogen Leukocyte Esterase Rfl Urine RBC Urine WBC Ur Squamous Epith Cells Urine Bacteria Urine Casts Influenza A (RT-PCR) Influenza B (RT-PCR) SARS-CoV-2 RNA (RT-PCR) 04/20/25 07:43 WBC RBC Hgb Hct MCV MCH MCHC RDW Plt Count MPV Immature Gran % (Auto) Neut % (Auto) Lymph % (Auto) [place] % (Auto) Eos % (Auto) Baso % (Auto) Lymph # (Auto) [place] # (Auto) Eos # (Auto) Baso # (Auto) Abs Immat Gran (auto) Absolute Neuts (auto) Absolute Nucleated RBC Nucleated RBC % Sodium 132 L Potassium 2.5 L* Chloride 99 Carbon Dioxide 28 Anion Gap 5 BUN 7 Creatinine 0.41 L Estim Creat Clear Calc 70 Estimated GFR > 60 Glucose 110 Lactic Acid Calcium 11.7 H Phosphorus 2.5 Magnesium 1.9 Total Bilirubin AST ALT Alkaline Phosphatase Troponin I Total Protein Albumin Procalcitonin Urine Color Urine Appearance Urine pH Ur Specific [place] Urine Protein Urine Glucose (UA) Urine Ketones Ur Blood (Man) Urine Nitrate Urine Bilirubin Urine Urobilinogen Leukocyte Esterase Rfl Urine RBC Urine WBC Ur Squamous Epith Cells Urine Bacteria Urine Casts Influenza A (RT-PCR) Influenza B (RT-PCR) SARS-CoV-2 RNA (RT-PCR) Quality VTE Prophylaxis VTE prophylaxis: mechanical ordered and pharmacologic ordered
[2025-04-20 12:56] LABS: CRP 1.1 mg/dL (<1.0)
[2025-04-20 13:08] LABS: Parathyroid Intact < 14.5 pg/mL (14.5-75.2)
[2025-04-20] MEDS: cefTRIAXone 1 GM in SODIUM CHLORIDE 0.9% IV 50 ML 100 ML IVPB (17:17)
[2025-04-20] MEDS: LATANOPROST 0.005% OP SOLN 2.5 ML BTL 1 DROP EACH EYE (17:17)
[2025-04-20] MEDS: HYDROcodone/acetaminophen (*CRX) 5-325 MG TABLET 1 TAB PO (17:19)
[2025-04-20] MEDS: ASPIRIN 81 MG ENTERIC TABLET PO (20:13)
[2025-04-20] MEDS: DONEPEZIL HCL 10 MG TABLET PO (20:13)
[2025-04-20 21:05] LABS: Anion Gap 5 mmol/L (4-12); Blood Urea Nitrogen 5 mg/dL (7-17); Calcium 10.0 mg/dL (8.4-10.2); Carbon Dioxide 24 mmol/L (22-30); Chloride 102 mmol/L (98-107); Estimated CRCL calculation 75 ml/min; Estimated Glomerular Filt Rate > 60; Glucose 108 mg/dL (65-110); Magnesium 1.1 mg/dL (1.6-2.3); Potassium 2.7 mmol/L (3.4-5.0); Sodium 131 mmol/L (137-145)
[2025-04-20] MEDS: MAGNESIUM SULF 4 GM/WATER100ML 4 GM/100 ML BAG IVPB (22:02)
[2025-04-20] MEDS: POTASSIUM CHLORIDE 20 MEQ ER TABLET PO (22:05)
[2025-04-20] MEDS: POTASSIUM PHOS,M-BASIC-D-BASIC 20 MMOL in SODIUM CHLORIDE 0.9% IV 250 ML 64.17 MMOL IVPB (22:05)
[2025-04-21] VITALS (15 sets, daily range): BP systolic 125–147; BP diastolic 69–92; PULSE 62–90; RESP 12–20; TEMP 36.3–36.8; O2SAT 97–100
--- NOTE | 2025-04-21 | ECHO_ITS ---
Patient Info Name: Jackie Arreola Age: 80 years : 1945 Gender: Female Ht: 62 in Wt: 126 lbs BSA: 1.59 m2 HR: 72 bpm BP: 131 / 75 mmHg Technical Quality: Good Exam Date: 04/21/2025 10:47 AM Patient Status: I Admit Date: 04/20/2025 Exam Type: CA echo doppler color flow Complete two-dimensional, color flow and Doppler transthoracic echocardiogram is performed. Staff Referring Physician: Maryam Garcia Supervisor Soldering: Milagros Harding Attending Provider: Jhoan Castillo Summary 1. Complete two-dimensional, color flow and Doppler transthoracic echocardiogram is performed. 2. The left ventricle is normal in size and systolic function. The left ventricular ejection fraction is visually estimated to be 55-60%. Grade 2 diastolic dysfunction. 3. The mitral valve leaflets are thickened. There is severe posterior annular calcification. There is no mitral stenosis. There is no mitral regurgitation. 4. The aortic valve is trileaflet and opens well. There is mild aortic regurgitation. 5. Pulmonary arterial systolic pressure is estimated at 36 mmHg correlating with mild pulmonary hypertension. 6. Color Doppler suggests a small PFO versus recent cardiac procedure with [id number] shunt. Left Ventricle The left ventricle is normal in size and systolic function. The left ventricular ejection fraction is visually estimated to be 55-60%. Grade 2 diastolic dysfunction. Right Ventricle The right ventricle is normal in size and systolic function. Left Atria The left atrium is mildly dilated. Right Atria The right atrium is mildly dilated. Atrial Septum Color Doppler suggests a small PFO versus recent cardiac procedure with [id number] shunt. Aortic Valve The aortic valve is trileaflet and opens well. There is mild aortic regurgitation. Pulmonic Valve The pulmonic valve is normal. There is trace pulmonic valve regurgitation. Mitral Valve The mitral valve leaflets are thickened. There is severe posterior annular calcification. There is no mitral stenosis. There is no mitral regurgitation. Tricuspid Valve The tricuspid valve is normal. There is mild tricuspid regurgitation. Pulmonary Arteries Pulmonary arterial systolic pressure is estimated at 36 mmHg correlating with mild pulmonary hypertension. Pericardium/Pleural Pericardium is normal in appearance with no evidence for significant pericardial effusion. Inferior Vena Cava Normal inferior vena cava with >50% collapse upon inspiration consistent with normal right atrial pressure, 3 mmHg. Aorta The aortic root at the level of the sinus of Valsalva measures 3.0 cm in diameter. Left Ventricular Outflow Tract Name Value Normal LVOT 2D LVOT Diameter 1.8 cm LVOT Doppler LVOT Peak Velocity 117 cm/s LVOT Peak Gradient 6 mmHg LVOT Mean Gradient 3 mmHg LVOT VTI 28 cm LVOT VTI/AV VTI Ratio 0.7 LVOT Stroke Volume 70 ml LVOT CO 12.5 l/min LVOT CI 7.9 l/min/m2 Pulmonic Valve Name Value Normal PV Doppler PV Peak Velocity 136 cm/s PV Peak Gradient 7 mmHg Mitral Valve Name Value Normal MV Diastolic Function MV E Peak Velocity 102 cm/s MV A Peak Velocity 107 cm/s MV E/A 1.0 MV Decel Time (PW) 182 ms MV Annular TDI MV E/e' (Septal) 20.7 MV E/e' (Lateral) 9.7 MV E/e' (Average) 15.2 Tricuspid Valve Name Value Normal TV Regurgitation Doppler TR Peak Velocity 289 cm/s TR Peak Gradient 33 mmHg Estimated PAP/RSVP RA Pressure 3 mmHg <=5 PA Systolic Pressure 36 mmHg <36 RV Systolic Pressure 36 mmHg <36 TV Annular TDI TV Lateral Moon s' Velocity 11.5 cm/s >=9.5 Aorta Name Value Normal Ascending Aorta Ao Root Diameter (MM) 3.2 cm Ao Root Diam Index (MM) 2.0 cm/m2 Aortic Valve Name Value Normal AV Doppler AV Peak Velocity 175 cm/s AV Peak Gradient 12 mmHg AV Mean Gradient 7 mmHg AV VTI 42 cm AV Area (Cont Eq VTI) 1.7 cm2 >=3.0 AV Area (Cont Eq Thomas) 1.7 cm2 AV DI (Thomas) 0.67 AV Regurgitation 2D LVOT Area 2.5 cm2 Ventricles Name Value Normal LV Dimensions 2D/MM IVS Diastolic Thickness (2D) 1.1 cm 0.6-1.0 LVID Diastole (2D) 3.8 cm 3.8-5.2 LVIW Diastolic Thickness (2D) 0.8 cm 0.6-0.9 LVID Systole (2D) 2.5 cm 2.2-3.5 LVOT Diameter 1.8 cm LV Mass (2D Cubed) 106.52 g 67.00-162.00 LV Mass Index (2D Cubed) 67 g/m2 43-95 Relative Wall Thickness (2D) 0.44 <=0.42 LV Fractional Shortening/Ejection Fraction 2D/MM LV Fractional Shortening (2D) 35 % 27-45 LV EF (2D Teichholz) 64 % LV Diastolic Volume (4C MOD) 61 ml LV EF (4C MOD) 72 % LV Diastolic Volume (2C MOD) 52 ml LV EF (2C MOD) 64 % LV Diastolic Volume (BP MOD) 59 ml 46-106 LV Diastolic Volume Index (BP MOD) 37 ml/m2 29-61 LV Systolic Volume (BP MOD) 18 ml 14-42 LV Systolic Volume Index (BP MOD) 11 ml/m2 8-24 LV EF (BP MOD) 70 % 54-74 LV Diastolic Length (4C) 6.3 cm LV Systolic Length (4C) 4.9 cm LV Stroke Volume (4C MOD) 44 ml RV Dimensions 2D/MM RVID Diastole (2D) 4.3 cm 2.1-3.5 Atria Name Value Normal LA Dimensions LA Dimension (MM) 3.4 cm 2.7-3.8 LA Volume (4C A-L) 65 ml LA Volume (BP A-L) 54 ml RA Dimensions RA Systolic Major Gobles Length (4C) 5.2 cm 2.2-2.8 RA Area (4C) 17.7 cm2 <=18.0 Report Signatures
[2025-04-21 02:05] LABS: Hematocrit 34.5 % (37.0-47.0); Hemoglobin 12.5 g/dL (12.0-15.0); Immature Granulocyte Percent A 0.5 % (0-0.5); Lymphocytes Absolute Auto 2.26 K/mm3 (0.9-3.2); Mean Corpuscular HGB Conc 36.2 g/dl (32-36); Mean Corpuscular Hemoglobin 30.9 pg (26-34); Mean Corpuscular Volume 85.4 fl (80-100); Nucleated Red Blood Cells Absolute Auto 0.000 K/mm3 (0.0-0.012); Nucleated Red Blood Cells Perc 0.0 % (0.0-0.2); Platelet Count Result 317 k/mm3 (150-375); Red Blood Count 4.04 M/mm3 (4.2-5.4); White Blood Count 11.1 K/mm3 (4.5-10.0)
[2025-04-21 02:21] LABS: Alanine Aminotransferase 14 U/L (6-35); Albumin Level 3.7 g/dL (3.5-5.1); Alkaline Phosphatase 55 U/L (38-126); Anion Gap 8 mmol/L (4-12); Aspartate Amino Transferase 36 U/L (14-36); Bilirubin,Total 0.3 mg/dL (0.2-1.3); Blood Urea Nitrogen 3 mg/dL (7-17); Calcium 9.2 mg/dL (8.4-10.2); Carbon Dioxide 24 mmol/L (22-30); Chloride 99 mmol/L (98-107); Estimated CRCL calculation 85 ml/min; Estimated Glomerular Filt Rate > 60; Glucose 131 mg/dL (65-110); Magnesium 2.2 mg/dL (1.6-2.3); Potassium 2.7 mmol/L (3.4-5.0); Sodium 131 mmol/L (137-145); Total Protein 6.1 g/dL (6.3-8.2)
[2025-04-21] MEDS: POTASSIUM CHLORIDE INJ 40 MEQ in SODIUM CHLORIDE 0.9% IV 500 ML 130 MEQ IVPB (03:06)
[2025-04-21] MEDS: POTASSIUM CHLORIDE 20 MEQ PACKET (FOR LIQUID) 40 MEQ PO (03:09)
[2025-04-21] MEDS: LEVOTHYROXINE SODIUM 50 MCG TABLET PO (06:24)
[2025-04-21] MEDS: DOXYCYCLINE HYCLATE 100 MG TABLET PO ×2 (08:41→20:23)
[2025-04-21] MEDS: PANTOPRAZOLE 40 MG TABLET PO (08:41)
[2025-04-21] MEDS: DULoxetine HCL 60 MG CAPSULE.DR PO (08:41)
[2025-04-21] MEDS: CELECOXIB 100 MG CAPSULE PO ×2 (08:41→20:23)
[2025-04-21] MEDS: ENOXAPARIN 40 MG/0.4 ML SYRINGE SUB-Q (09:00)
[2025-04-21] MEDS: CALCITONIN SALMON INJ 400 UNITS/2 ML VIAL 216 UNITS SUB-Q (09:01)
[2025-04-21 09:37] LABS: Anion Gap 8 mmol/L (4-12); Blood Urea Nitrogen 3 mg/dL (7-17); Calcium 8.5 mg/dL (8.4-10.2); Carbon Dioxide 22 mmol/L (22-30); Chloride 102 mmol/L (98-107); Estimated CRCL calculation 74 ml/min; Estimated Glomerular Filt Rate > 60; Glucose 140 mg/dL (65-110); Magnesium 1.1 mg/dL (1.6-2.3); Potassium 3.4 mmol/L (3.4-5.0); Sodium 132 mmol/L (137-145)
[2025-04-21] MEDS: MAGNESIUM SULF 4 GM/WATER100ML 4 GM/100 ML BAG IVPB (10:32)
[2025-04-21] MEDS: cefTRIAXone 1 GM in SODIUM CHLORIDE 0.9% IV 50 ML 100 ML IVPB (14:04)
[2025-04-21] MEDS: SODIUM CHLORIDE 0.9% IVPB (14:28)
[2025-04-21] MEDS: POTASSIUM PHOS M BASIC D BASIC IVPB (14:28)
--- NOTE | 2025-04-21 15:56 | P.PNIM_ITS ---
Progress Note: A&P Assessment and Plan (1) Acute hypokalemia: Code(s): E87.6 - Hypokalemia Status: Acute Assessment and Plan: K 3.4, replaced Hold hydrochlorothiazide replaced and monitor (2) Hypomagnesemia: Code(s): E83.42 - Hypomagnesemia Status: Acute Assessment and Plan: Mg 1.1 on admission Mg 1.1 today, replaced monitor and replace accordingly (3) Hypercalcemia: Code(s): E83.52 - Hypercalcemia Status: Acute Assessment and Plan: Medication review shows that patient is taking 2 different types of calcium medications +2 different types of vitamin-D, will hold these Continue holding Vitamin D Repeat BMP calcium 13.8, 8.5 today Calcitonin subQ x4 doses Vitamin D 25 33.2, and PTH <14.5 Monitor Calcium level (4) Elevated troponin: Code(s): R79.89 - Other specified abnormal findings of blood chemistry Status: Acute Assessment and Plan: no chest pain, likely from dehydration Trend troponins 0.103, 0.093 EKG p.r.n. ECHO Showed grade II diastolic dysfunction continue lasix 20mg daily (5) Pneumonitis: Code(s): J98.4 - Other disorders of lung Status: Acute Assessment and Plan: With leukocytosis, resolving CXR showed Hbkb-[id number]-bud opacities RML suspicious On Rocephin and doxy Guaifenesin monitor (6) Chronic pain syndrome: Code(s): G89.4 - Chronic pain syndrome Status: Acute Assessment and Plan: Due to scoliosis status post surgery Continue home pain medications Holding gabapentin due to weakness and confusion (7) Hypertension: Code(s): I10 - Essential (primary) hypertension Status: Acute Assessment and Plan: Continue amlodipine (8) Depression: Code(s): F32.9 - Major depressive disorder, single episode, unspecified Status: Acute Assessment and Plan: Continue Cymbalta (9) Glaucoma: Code(s): H40.9 - Unspecified glaucoma Status: Acute Assessment and Plan: Continue home eye drops (10) Hypothyroid: Code(s): E03.9 - Hypothyroidism, unspecified Status: Acute Assessment and Plan: Continue levothyroxine Plan DVT prophylaxis on Sq Lovenox Subjective Date/time seen: 04/21/25 15:56 Interval history: Comfortable at bedside, oral intake has improved from admission discontinued IVF Review of Systems Review of Systems: 12 systems were reviewed and are negativ e except for as per HPI. Exam Narrative: General: well appearing, appears stated age. Heart hearing HEENT: normocephalic, atraumatic. Mucous membranes moist. EOMI, PERRLA, bilateral sclera anicteric, no conjunctival injection. Neck supple without JVD, lymphadenopathy, or bruit. Respiratory: clear to ascultation bilaterally. No rales/rhonic/wheezes. Cardiovascular: Regular rate and rhythm, normal S1-S2 upon ascultation. No murmurs, rubs, or clicks. PMI is nondisplaced, capillary refill less than 3 second. Abdomen: Soft, round, no pulsatile masses, nondistended and nontender. No rebound, no guarding. No CVA tenderness, no hepatosplenomegaly. Bowel sounds present to all four quadrants. No high pitch or tinkling sounds, resonant to percussion. Extremities: No cyanosis, clubbing, or edema present. Pulses are palpable 2/2. Active ROM to all four extremities. Neuro: Alert and orientated x 4. PERRLA. Cranial nerves 2-12 intact without focal deficit. Skin: Warm, dry, and intact, without rash, erythema, or lesion. Psych: pleasant, cooperative, normal speech, normal affect, no hallucinations, no dysarthia Objective Data Vital Signs Vital Signs: Vital Signs - 24 hr 04/20/25 16:00 04/20/25 16:00 04/20/25 18:00 Temperature Pulse Rate 72 81 Respiratory Rate Blood Pressure Pulse Oximetry 97 Oxygen Delivery Room Air Fraction of Inspired Oxygen 04/20/25 20:00 04/20/25 20:00 04/20/25 20:00 Temperature 98.1 F Pulse Rate 69 71 Respiratory Rate 21 H Blood Pressure 146/67 H Pulse Oximetry 97 Oxygen Delivery Room Air Fraction of Inspired Oxygen 04/20/25 20:12 04/20/25 22:00 04/20/25 23:45 Temperature 97.9 F Pulse Rate 71 78 78 Respiratory Rate 20 16 Blood Pressure 149/71 H Pulse Oximetry 97 98 Oxygen Delivery Room Air Fraction of Inspired Oxygen 21 04/21/25 00:00 04/21/25 00:00 04/21/25 02:00 Temperature Pulse Rate 74 62 Respiratory Rate Blood Pressure Pulse Oximetry Oxygen Delivery Room Air Fraction of Inspired Oxygen 04/21/25 04:00 04/21/25 04:00 04/21/25 04:00 Temperature 98.1 F Pulse Rate 81 77 Respiratory Rate 19 Blood Pressure 131/75 Pulse Oximetry 97 Oxygen Delivery Room Air Fraction of Inspired Oxygen 04/21/25 06:00 04/21/25 07:53 04/21/25 08:00 Temperature 98.3 F Pulse Rate 90 90 81 Respiratory Rate 12 Blood Pressure 146/77 H Pulse Oximetry 98 Oxygen Delivery Fraction of Inspired Oxygen 04/21/25 10:00 04/21/25 11:49 04/21/25 12:00 Temperature 97.4 F L Pulse Rate 78 84 74 Respiratory Rate 20 Blood Pressure 135/92 H Pulse Oximetry 98 Oxygen Delivery Fraction of Inspired Oxygen 04/21/25 14:00 Temperature Pulse Rate 74 Respiratory Rate Blood Pressure Pulse Oximetry Oxygen Delivery Fraction of Inspired Oxygen Intake/Output Intake/Output: Intake & Output 04/18/25 04/19/25 04/20/25 04/21/25 23:59 23:59 23:59 23:59 Intake Total 1450 4530.8 1873.8 Output Total 75 2510 1140 Balance 1375 2020.8 733.8 Meds/Results Medications: Active Medications Generic Name Dose Route Start Last Admin Trade Name Freq PRN Reason Stop Dose Admin Acetaminophen 650 mg 04/19/25 13:56 04/20/25 08:55 Acetaminophen 325 Mg Tablet PO 650 mg Q4H PRN Administration Mild Pain (1-3) or Fever Hydrocodone Bitart/Acetaminophen 1 tab 04/19/25 20:28 04/20/25 17:19 Hydrocodone/Acetaminophen (*Crx) 5-325 Mg Tablet PO 1 tab QID PRN Administration Pain 4-6 Amlodipine Besylate 5 mg 04/20/25 09:00 04/21/25 08:41 Amlodipine Besylate 5 Mg Tablet PO 5 mg DAILY JOSE Administration Aspirin 81 mg 04/20/25 21:00 04/20/25 20:13 Aspirin 81 Mg Enteric Tablet PO 81 mg HS JOSE Administration Buspirone HCl 10 mg 04/20/25 09:00 04/21/25 13:23 Buspirone Hcl 5 Mg Tablet PO 10 mg TID JOSE Administration Celecoxib 100 mg 04/19/25 21:00 04/21/25 08:41 Celecoxib 100 Mg Capsule PO 100 mg Q12HR JOSE Administration Docusate Sodium 100 mg 04/19/25 13:58 04/20/25 17:16 Docusate Sodium 100 Mg Capsule PO 100 mg BID PRN Administration Constipation Donepezil HCl 10 mg 04/19/25 21:00 04/20/25 20:13 Donepezil Hcl 10 Mg Tablet PO 10 mg QHS JOSE Administration Doxycycline Hyclate 100 mg 04/19/25 21:00 04/21/25 08:41 Doxycycline Hyclate 100 Mg Tablet PO 100 mg Q12HR JOSE Administration Duloxetine HCl 60 mg 04/20/25 09:00 04/21/25 08:41 Duloxetine Hcl 60 Mg Capsule.Dr PO 60 mg DAILY JOSE Administration Enoxaparin Sodium 40 mg 04/20/25 09:00 04/21/25 09:00 Enoxaparin 40 Mg/0.4 Ml Syringe SUB-Q 40 mg DAILY JOSE Administration Gemfibrozil 600 mg 04/20/25 09:00 04/21/25 08:41 Gemfibrozil 600 Mg Tablet PO 600 mg BID JOSE Administration Guaifenesin/Dextromethorphan 10 ml 04/20/25 10:10 Guaifenesin/Dextromethorphan 10 Ml Udc PO Q4H PRN Cough Ceftriaxone Sodium 1 gm/ 50 mls @ 100 mls/hr 04/19/25 15:00 04/21/25 14:04 Sodium Chloride IVPB 100 mls/hr Q24H JOSE Administration Latanoprost 1 drop 04/20/25 18:00 04/20/25 17:17 Latanoprost 0.005% Op Soln 2.5 Ml Btl EACH EYE 1 drop QPM JOSE Administration Levothyroxine Sodium 50 mcg 04/20/25 06:30 04/21/25 06:24 Levothyroxine Sodium 50 Mcg Tablet PO 50 mcg DAILY@0630 JOSE Administration Pantoprazole Sodium 40 mg 04/20/25 09:00 04/21/25 08:41 Pantoprazole 40 Mg Tablet PO 40 mg QAM JOSE Administration Perflutren Lipid Microsphere 0 ml 04/20/25 12:28 Perflutren Lipid Microspheres 1.5 Ml Vial Diluted To 10 Ml Total Volume IV PUSH 04/23/25 12:28 ONCE PRN adequate visualization Protocol Radiology Results: ITS Impressions Head CT 04/19/25 13:32 IMPRESSION: 1. Old lacunar infarct at the left basal ganglia. No acute intracranial process. 2. Age-related changes including and mild to moderate diffuse volume loss and moderate scattered white matter hypoattenuation consistent with chronic small vessel ischemic disease. Chest/Abdomen/Pelvis CT 04/19/25 13:35 IMPRESSION: 1. Mild tree-in-bud opacities in the right middle lobe consistent with age indeterminate bronchiolitis with endobronchial spread of disease. 2. No acute intra-abdominal/pelvic process. 3. Moderate-sized hiatal hernia. 4. Extensive degenerative and postoperative changes in the spine as detailed above. Chest X-Ray 04/19/25 13:49 IMPRESSION: 1. No evident acute cardiopulmonary disease. Mild tree-in-bud opacities in the right middle lobe suspicious for some age-indeterminate bronchiolitis seen on immediately prior CT are indiscernible on the plain radiographs. Labs Labs: Laboratory Results - last 24 hr 04/20/25 04/21/25 04/21/25 20:32 01:52 09:01 WBC 11.1 H RBC 4.04 L Hgb 12.5 Hct 34.5 L MCV 85.4 MCH 30.9 MCHC 36.2 H RDW 14.3 Plt Count 317 MPV 11.0 H Immature Gran % (Auto) 0.5 Neut % (Auto) 65.4 Lymph % (Auto) 20.4 [place] % (Auto) 12.2 H Eos % (Auto) 1.2 Baso % (Auto) 0.3 Lymph # (Auto) 2.26 [place] # (Auto) 1.4 H Eos # (Auto) 0.1 Baso # (Auto) 0.0 Abs Immat Gran (auto) 0.05 H Absolute Neuts (auto) 7.3 H Absolute Nucleated RBC 0.000 Nucleated RBC % 0.0 Sodium 131 L 131 L 132 L Potassium 2.7 L* 2.7 L* 3.4 Chloride 102 99 102 Carbon Dioxide 24 24 22 Anion Gap 5 8 8 BUN 5 L 3 L 3 L Creatinine 0.38 L 0.33 L 0.39 L Estim Creat Clear Calc 75 85 74 Estimated GFR > 60 > 60 > 60 Glucose 108 131 H 140 H Calcium 10.0 9.2 8.5 Phosphorus 1.4 L 3.3 1.7 L Magnesium 1.1 L 2.2 1.1 L Total Bilirubin 0.3 AST 36 ALT 14 Alkaline Phosphatase 55 Total Protein 6.1 L Albumin 3.7 Quality VTE Prophylaxis VTE prophylaxis: mechanical ordered and pharmacologic ordered
[2025-04-21] MEDS: POTASSIUM/PHOSPHORUS/SODIUM 1.5 GM PACKET 1 PACKET PO (17:27)
[2025-04-21] MEDS: ASPIRIN 81 MG ENTERIC TABLET PO (20:23)
[2025-04-21] MEDS: LATANOPROST 0.005% OP SOLN 2.5 ML BTL 1 DROP EACH EYE (20:23)
[2025-04-21] MEDS: DONEPEZIL HCL 10 MG TABLET PO (20:23)
[2025-04-21 20:36] LABS: Anion Gap 10 mmol/L (4-12); Blood Urea Nitrogen 5 mg/dL (7-17); Calcium 7.9 mg/dL (8.4-10.2); Carbon Dioxide 19 mmol/L (22-30); Chloride 96 mmol/L (98-107); Estimated CRCL calculation 72 ml/min; Estimated Glomerular Filt Rate > 60; Glucose 112 mg/dL (65-110); Magnesium 1.6 mg/dL (1.6-2.3); Potassium 3.3 mmol/L (3.4-5.0); Sodium 125 mmol/L (137-145)
[2025-04-21] MEDS: MAGNESIUM SULF 1 GM/D5W 100 ML 1 GM/100 ML BAG IVPB (21:27)
[2025-04-21] MEDS: POTASSIUM CHLORIDE 20 MEQ ER TABLET 40 MEQ PO (21:27)
[2025-04-22] VITALS (13 sets, daily range): BP systolic 112–159; BP diastolic 62–96; PULSE 68–82; RESP 12–20; TEMP 35.6–36.5; O2SAT 97–100; BMI 21.9
[2025-04-22] MEDS: POTASSIUM CHLORIDE 20 MEQ ER TABLET 40 MEQ PO (03:55)
[2025-04-22 04:26] LABS: Hematocrit 36.8 % (37.0-47.0); Hemoglobin 13.4 g/dL (12.0-15.0); Immature Granulocyte Percent A 0.4 % (0-0.5); Lymphocytes Absolute Auto 2.24 K/mm3 (0.9-3.2); Mean Corpuscular HGB Conc 36.4 g/dl (32-36); Mean Corpuscular Hemoglobin 31.0 pg (26-34); Mean Corpuscular Volume 85.2 fl (80-100); Nucleated Red Blood Cells Absolute Auto 0.000 K/mm3 (0.0-0.012); Nucleated Red Blood Cells Perc 0.0 % (0.0-0.2); Platelet Count Result 355 k/mm3 (150-375); Red Blood Count 4.32 M/mm3 (4.2-5.4); White Blood Count 15.6 K/mm3 (4.5-10.0)
[2025-04-22 04:49] LABS: Alanine Aminotransferase 16 U/L (6-35); Albumin Level 3.9 g/dL (3.5-5.1); Alkaline Phosphatase 62 U/L (38-126); Anion Gap 9 mmol/L (4-12); Aspartate Amino Transferase 34 U/L (14-36); Bilirubin,Total 0.5 mg/dL (0.2-1.3); Blood Urea Nitrogen 5 mg/dL (7-17); Calcium 7.9 mg/dL (8.4-10.2); Carbon Dioxide 22 mmol/L (22-30); Chloride 97 mmol/L (98-107); Estimated CRCL calculation 60 ml/min; Estimated Glomerular Filt Rate > 60; Glucose 125 mg/dL (65-110); Magnesium 1.5 mg/dL (1.6-2.3); Potassium 3.2 mmol/L (3.4-5.0); Sodium 128 mmol/L (137-145); Total Protein 6.6 g/dL (6.3-8.2)
[2025-04-22] MEDS: LEVOTHYROXINE SODIUM 50 MCG TABLET PO (06:02)
[2025-04-22] MEDS: ENOXAPARIN 40 MG/0.4 ML SYRINGE SUB-Q (08:11)
[2025-04-22] MEDS: CELECOXIB 100 MG CAPSULE PO ×2 (08:12→20:36)
[2025-04-22] MEDS: PANTOPRAZOLE 40 MG TABLET PO (08:12)
[2025-04-22] MEDS: DULoxetine HCL 60 MG CAPSULE.DR PO (08:12)
[2025-04-22] MEDS: DOXYCYCLINE HYCLATE 100 MG TABLET PO ×2 (08:12→20:36)
--- NOTE | 2025-04-22 08:32 | ECG_ITS ---
Test Date: 2025-04-22 09:57:16 Measurements Intervals [place] Rate: 78 P: -7 MA: 152 QRS: -44 QRSD: 96 T: -16 QT: 423 QTc: 482 Interpretive Statements SINUS RHYTHM WITH FREQUENT SUPRAVENTRICULAR PREMATURE COMPLEXES LEFT AXIS DEVIATION [QRS AXIS < -30] POOR R-WAVE PROGRESSION ABNORMAL ECG Compared to ECG 04/19/2025 12:23:49 NO SIGNIFICANT CHANGE Electronically Signed On 04-23-2025 15:41:04 CDT by Liam Sheppard M.D.
[2025-04-22 09:04] LABS: Thyroid Stimulating Hormone Reflex 3.360 uIU/mL (0.465-4.68)
[2025-04-22] MEDS: MAGNESIUM SULF 1 GM/D5W 100 ML 1 GM/100 ML BAG IVPB (09:43)
[2025-04-22] MEDS: POTASSIUM CHLORIDE 20 MEQ ER TABLET PO (09:44)
[2025-04-22 13:30] LABS: Anion Gap 9 mmol/L (4-12); Blood Urea Nitrogen 10 mg/dL (7-17); Calcium 8.0 mg/dL (8.4-10.2); Carbon Dioxide 19 mmol/L (22-30); Chloride 97 mmol/L (98-107); Estimated CRCL calculation 50 ml/min; Estimated Glomerular Filt Rate > 60; Glucose 150 mg/dL (65-110); Magnesium 1.8 mg/dL (1.6-2.3); Potassium 3.8 mmol/L (3.4-5.0); Sodium 125 mmol/L (137-145)
[2025-04-22] MEDS: PIPERACILLIN/TAZOBACTAM SOD 4.5 GM in SODIUM CHLORIDE 0.9% IV 100 ML 200 ML IVPB ×3 (13:42→23:57)
--- NOTE | 2025-04-22 15:56 | PM.IMPN ---
Progress Note: A&P Assessment and Plan (1) Electrolyte abnormality: Code(s): E87.8 - Other disorders of electrolyte and fluid balance, not elsewhere classified Status: Acute (2) Malnutrition: Code(s): E46 - Unspecified protein-calorie malnutrition Status: Acute (3) Failure to thrive: Status: Acute Plan Failure to thrive. Patient very weak. PT/OT ordered on 04/22/2025. She is dehydrated with worsening hyponatremia. Start normal saline at 100 cc/hour. Consult dietitian, start dietary supplements. Recheck BMP at 8:00 p.m.. Her potassium is now normalized after aggressive replacement. Magnesium also normalized. Phosphorus improved. Calcium level improved status post discontinuation of [employer] medications. Leukocytosis worsening over the past 2 days. Unclear source of infection, she is a poor historian and is currently on room air and denies a cough. She is afebrile. No cellulitis identified. Influenza a, B, COVID negative on admission, urinalysis unremarkable. Ordering blood cultures. Escalate ceftriaxone to Zosyn. Patient wishes to be full code, Lovenox 40 mg subQ q.day. fall precautions, ambulate with assistance, PT/OT evaluations. Dietitian consultation. Subjective Date/time seen: 04/22/25 15:56 Interval history: No major acute overnight events. Patient is a poor historian. She reports she has a poor appetite, she has only intake 25% of her meals. She has no specific complaints to bring forward. Review of Systems Review of Systems: All systems reviewed & are unremarkable except as noted in HPI and below (Subjective) Exam Const: General: comfortable and no acute distress HENMT: Mouth: Yes dry mucous membranes Eyes: Pupils: Equal, round and reactive pupils present Neck: Neck: supple Resp: Effort & Inspection: normal respiratory effort Auscultation: clear to auscultation bilaterally Cardio: Rate: regular rate Rhythm: regular rhythm Other: With ectopy GI: Inspection: non-distended GI Palp: Yes Soft to palpation Extrem: General: no edema Objective Data Vital Signs Vital Signs: Vital Signs - 24 hr 04/21/25 16:00 04/21/25 16:00 04/21/25 18:00 Temperature 97.6 F Pulse Rate 70 74 78 Respiratory Rate 16 Blood Pressure 125/86 Pulse Oximetry 100 Oxygen Delivery 04/21/25 19:40 04/21/25 20:00 04/21/25 20:00 Temperature 97.6 F Pulse Rate 77 81 Respiratory Rate 16 Blood Pressure 147/69 H Pulse Oximetry 97 Oxygen Delivery Room Air 04/21/25 22:00 04/22/25 00:00 04/22/25 00:00 Temperature 97.6 F Pulse Rate 71 76 Respiratory Rate 16 Blood Pressure 151/94 H Pulse Oximetry 99 Oxygen Delivery Room Air 04/22/25 00:00 04/22/25 02:00 04/22/25 03:51 Temperature 97.5 F L Pulse Rate 68 79 73 Respiratory Rate 16 Blood Pressure 159/76 H Pulse Oximetry 97 Oxygen Delivery 04/22/25 04:00 04/22/25 04:00 04/22/25 06:00 Temperature Pulse Rate 69 82 Respiratory Rate Blood Pressure Pulse Oximetry Oxygen Delivery Room Air 04/22/25 07:45 04/22/25 08:00 04/22/25 10:00 Temperature 97.7 F Pulse Rate 79 81 79 Respiratory Rate 12 Blood Pressure 112/88 Pulse Oximetry 98 Oxygen Delivery 04/22/25 10:09 04/22/25 12:00 04/22/25 12:47 Temperature 96.1 F L 96.4 F L Pulse Rate 80 Respiratory Rate 16 Blood Pressure 127/96 H Pulse Oximetry 100 Oxygen Delivery Room Air Intake/Output Intake/Output: Intake & Output 04/19/25 04/20/25 04/21/25 04/22/25 23:59 23:59 23:59 23:59 Intake Total 1450 4530.8 3504.2333 580 Output Total 75 2510 1690 900 Balance 1375 2020.8 1814.2333 -320 Meds/Results Medications: Active Medications Generic Name Dose Route Start Last Admin Trade Name Freq PRN Reason Stop Dose Admin Acetaminophen 650 mg 04/19/25 13:56 04/20/25 08:55 Acetaminophen 325 Mg Tablet PO 650 mg Q4H PRN Administration Mild Pain (1-3) or Fever Hydrocodone Bitart/Acetaminophen 1 tab 04/19/25 20:28 04/20/25 17:19 Hydrocodone/Acetaminophen (*Crx) 5-325 Mg Tablet PO 1 tab QID PRN Administration Pain 4-6 Amlodipine Besylate 5 mg 04/20/25 09:00 04/22/25 08:12 Amlodipine Besylate 5 Mg Tablet PO 5 mg DAILY JOSE Administration Aspirin 81 mg 04/20/25 21:00 04/21/25 20:23 Aspirin 81 Mg Enteric Tablet PO 81 mg HS JOSE Administration Buspirone HCl 10 mg 04/20/25 09:00 04/22/25 12:51 Buspirone Hcl 5 Mg Tablet PO 10 mg TID JOSE Administration Celecoxib 100 mg 04/19/25 21:00 04/22/25 08:12 Celecoxib 100 Mg Capsule PO 100 mg Q12HR JOSE Administration Docusate Sodium 100 mg 04/19/25 13:58 04/20/25 17:16 Docusate Sodium 100 Mg Capsule PO 100 mg BID PRN Administration Constipation Donepezil HCl 10 mg 04/19/25 21:00 04/21/25 20:23 Donepezil Hcl 10 Mg Tablet PO 10 mg QHS JOSE Administration Doxycycline Hyclate 100 mg 04/19/25 21:00 04/22/25 08:12 Doxycycline Hyclate 100 Mg Tablet PO 04/24/25 09:01 100 mg Q12HR JOSE Administration Duloxetine HCl 90 mg 04/23/25 09:00 Duloxetine Hcl 30 Mg Capsule.Dr PO DAILY JOSE Enoxaparin Sodium 40 mg 04/20/25 09:00 04/22/25 08:11 Enoxaparin 40 Mg/0.4 Ml Syringe SUB-Q 40 mg DAILY JOSE Administration Gemfibrozil 600 mg 04/20/25 09:00 04/22/25 08:13 Gemfibrozil 600 Mg Tablet PO 600 mg BID JOSE Administration Guaifenesin/Dextromethorphan 10 ml 04/20/25 10:10 Guaifenesin/Dextromethorphan 10 Ml Udc PO Q4H PRN Cough Piperacillin Sod/Tazobactam 100 mls @ 200 mls/hr 04/22/25 13:00 04/22/25 14:53 Sod 4.5 gm/ Sodium Chloride IVPB Infused Q6HR JOSE Infusion Sodium Chloride 1,000 mls @ 100 mls/hr 04/22/25 15:55 Normal Saline Iv IV CONT .Q10H JOSE Latanoprost 1 drop 04/21/25 21:00 04/21/25 20:23 Latanoprost 0.005% Op Soln 2.5 Ml Btl EACH EYE 1 drop HS JOSE Administration Levothyroxine Sodium 50 mcg 04/20/25 06:30 04/22/25 06:02 Levothyroxine Sodium 50 Mcg Tablet PO 50 mcg DAILY@0630 JOSE Administration Pantoprazole Sodium 40 mg 04/20/25 09:00 04/22/25 08:12 Pantoprazole 40 Mg Tablet PO 40 mg QAM JOSE Administration Perflutren Lipid Microsphere 0 ml 04/20/25 12:28 Perflutren Lipid Microspheres 1.5 Ml Vial Diluted To 10 Ml Total Volume IV PUSH 04/23/25 12:28 ONCE PRN adequate visualization Protocol Radiology Results: ITS Impressions Head CT 04/19/25 13:32 IMPRESSION: 1. Old lacunar infarct at the left basal ganglia. No acute intracranial process. 2. Age-related changes including and mild to moderate diffuse volume loss and moderate scattered white matter hypoattenuation consistent with chronic small vessel ischemic disease. Chest/Abdomen/Pelvis CT 04/19/25 13:35 IMPRESSION: 1. Mild tree-in-bud opacities in the right middle lobe consistent with age indeterminate bronchiolitis with endobronchial spread of disease. 2. No acute intra-abdominal/pelvic process. 3. Moderate-sized hiatal hernia. 4. Extensive degenerative and postoperative changes in the spine as detailed above. Chest X-Ray 04/19/25 13:49 IMPRESSION: 1. No evident acute cardiopulmonary disease. Mild tree-in-bud opacities in the right middle lobe suspicious for some age-indeterminate bronchiolitis seen on immediately prior CT are indiscernible on the plain radiographs. Labs Labs: Laboratory Results - last 24 hr 04/21/25 04/22/25 04/22/25 19:56 04:06 04:07 WBC 15.6 H RBC 4.32 Hgb 13.4 Hct 36.8 L MCV 85.2 MCH 31.0 MCHC 36.4 H RDW 14.5 Plt Count 355 MPV 11.1 H Immature Gran % (Auto) 0.4 Neut % (Auto) 71.7 Lymph % (Auto) 14.4 L [place] % (Auto) 12.3 H Eos % (Auto) 0.9 Baso % (Auto) 0.3 Lymph # (Auto) 2.24 [place] # (Auto) 1.9 H Eos # (Auto) 0.1 Baso # (Auto) 0.0 Abs Immat Gran (auto) 0.06 H Absolute Neuts (auto) 11.2 H Absolute Nucleated RBC 0.000 Nucleated RBC % 0.0 Sodium 125 L 128 L Potassium 3.3 L 3.2 L Chloride 96 L 97 L Carbon Dioxide 19 L 22 Anion Gap 10 9 BUN 5 L 5 L Creatinine 0.40 L 0.49 L Estim Creat Clear Calc 72 60 Estimated GFR > 60 > 60 Glucose 112 H 125 H Lactic Acid 1.0 Calcium 7.9 L 7.9 L Phosphorus 3.2 2.3 L Magnesium 1.6 Total Bilirubin AST ALT Alkaline Phosphatase Total Protein Albumin TSH (Reflex) 3.360 04/22/25 04/22/25 04:07 12:56 WBC RBC Hgb Hct MCV MCH MCHC RDW Plt Count MPV Immature Gran % (Auto) Neut % (Auto) Lymph % (Auto) [place] % (Auto) Eos % (Auto) Baso % (Auto) Lymph # (Auto) [place] # (Auto) Eos # (Auto) Baso # (Auto) Abs Immat Gran (auto) Absolute Neuts (auto) Absolute Nucleated RBC Nucleated RBC % Sodium 125 L Potassium 3.8 Chloride 97 L Carbon Dioxide 19 L Anion Gap 9 BUN 10 D Creatinine 0.60 L Estim Creat Clear Calc 50 Estimated GFR > 60 Glucose 150 H Lactic Acid Calcium 8.0 L Phosphorus Cancelled 2.2 L Magnesium 1.5 L 1.8 Total Bilirubin 0.5 AST 34 ALT 16 Alkaline Phosphatase 62 Total Protein 6.6 Albumin 3.9 TSH (Reflex)
[2025-04-22] MEDS: SODIUM CHLORIDE 0.9% IV 1,000 ML 100 ML IV CONT (17:13)
[2025-04-22] MEDS: ASPIRIN 81 MG ENTERIC TABLET PO (20:36)
[2025-04-22] MEDS: DONEPEZIL HCL 10 MG TABLET PO (20:36)
[2025-04-22] MEDS: LATANOPROST 0.005% OP SOLN 2.5 ML BTL 1 DROP EACH EYE (20:37)
[2025-04-22 21:40] LABS: Anion Gap 8 mmol/L (4-12); Blood Urea Nitrogen 14 mg/dL (7-17); Calcium 7.8 mg/dL (8.4-10.2); Carbon Dioxide 19 mmol/L (22-30); Chloride 99 mmol/L (98-107); Estimated CRCL calculation 49 ml/min; Estimated Glomerular Filt Rate > 60; Glucose 134 mg/dL (65-110); Potassium 3.5 mmol/L (3.4-5.0); Sodium 126 mmol/L (137-145)
[2025-04-23] VITALS (9 sets, daily range): BP systolic 113–139; BP diastolic 59–81; PULSE 62–87; RESP 14–20; TEMP 36.1–37.2; O2SAT 97–100
[2025-04-23] MEDS: SODIUM CHLORIDE 0.9% IV 1,000 ML 100 ML IV CONT (02:02)
[2025-04-23 05:38] LABS: Hematocrit 36.8 % (37.0-47.0); Hemoglobin 13.1 g/dL (12.0-15.0); Immature Granulocyte Percent A 0.4 % (0-0.5); Lymphocytes Absolute Auto 2.06 K/mm3 (0.9-3.2); Mean Corpuscular HGB Conc 35.6 g/dl (32-36); Mean Corpuscular Hemoglobin 31.1 pg (26-34); Mean Corpuscular Volume 87.4 fl (80-100); Nucleated Red Blood Cells Absolute Auto 0.000 K/mm3 (0.0-0.012); Nucleated Red Blood Cells Perc 0.0 % (0.0-0.2); Platelet Count Result 334 k/mm3 (150-375); Red Blood Count 4.21 M/mm3 (4.2-5.4); White Blood Count 12.1 K/mm3 (4.5-10.0)
[2025-04-23] MEDS: LEVOTHYROXINE SODIUM 50 MCG TABLET PO (06:01)
[2025-04-23] MEDS: PIPERACILLIN/TAZOBACTAM SOD 4.5 GM in SODIUM CHLORIDE 0.9% IV 100 ML 200 ML IVPB ×4 (06:01→23:27)
[2025-04-23 06:11] LABS: Alanine Aminotransferase 15 U/L (6-35); Albumin Level 3.6 g/dL (3.5-5.1); Alkaline Phosphatase 55 U/L (38-126); Anion Gap 9 mmol/L (4-12); Aspartate Amino Transferase 28 U/L (14-36); Bilirubin,Total 0.4 mg/dL (0.2-1.3); Blood Urea Nitrogen 11 mg/dL (7-17); Calcium 7.8 mg/dL (8.4-10.2); Carbon Dioxide 19 mmol/L (22-30); Chloride 103 mmol/L (98-107); Estimated CRCL calculation 49 ml/min; Estimated Glomerular Filt Rate > 60; Glucose 115 mg/dL (65-110); Magnesium 1.2 mg/dL (1.6-2.3); Potassium 3.7 mmol/L (3.4-5.0); Sodium 131 mmol/L (137-145); Total Protein 6.1 g/dL (6.3-8.2)
[2025-04-23 06:28] LABS: Procalcitonin 0.0 ng/mL
--- NOTE | 2025-04-23 08:16 | PM.IMPN ---
Progress Note: A&P Assessment and Plan (1) Electrolyte abnormality: Code(s): E87.8 - Other disorders of electrolyte and fluid balance, not elsewhere classified Status: Acute (2) Malnutrition: Code(s): E46 - Unspecified protein-calorie malnutrition Status: Acute (3) Failure to thrive: Status: Acute (4) Pneumonitis: Code(s): J98.4 - Other disorders of lung Status: Acute (5) Physical deconditioning: Code(s): R53.81 - Other malaise Status: Acute Plan 80-year-old female with PMH dementia, [id number] diabetes mellitus, hypothyroidism, hypertension, chronic pain, peripheral neuropathy brought in by her family to [facility] on 04/19/2025. She was confused and weak. Family concerned she may have a UTI or pneumonia. Patient denied any complaints herself. Hypokalemia: Resolved status post replacement. Hydrochlorothiazide discontinued. Ensure adequate magnesium levels. Hypomagnesemia: Continue to replace. 4 g magnesium rider today. Hypercalcemia: Resolved. [employer] patient taking 2 different types of calcium medications and 2 different types of vitamin-D medications. Hold. Status post calcitonin subcu x4 doses. Hyponatremia: Likely due to dehydration/hypovolemia. Received fluids on 04/22/2025, sodium improved. Continue to trend. Hydrochlorothiazide discontinued. Failure to thrive, deconditioning, weakness: Patient has a poor appetite, she is eating only 10% of her meals. Seen by dietitian, she likes the chocolate Ensure supplements. Continue those. Dementia: Continue [employer] donepezil Depression: Continue [employer] Cymbalta. Elevated troponin: Peaked. No chest pain. Thought to be due to dehydration. TTE on 12/25/2023 with hyperdynamic left ventricular systolic function and grade 1 diastolic dysfunction. Discontinue Lasix due to dehydration. Chronic pain syndrome: Gabapentin discontinued due to weakness and confusion. Patient has not complained of pain. Hypertension: At goal, continue amlodipine. Pneumonitis: Negative for flu a, B, COVID. CT chest abdomen pelvis revealing mild tree-in-bud opacities in the right middle lobe consistent with age-indeterminate bronchiolitis. Patient has occasional dry cough. No fever. Leukocytosis improving after Zosyn started on 04/22/2025. Continue Zosyn, doxycycline. Blood cultures 04/22/2025, continue to follow. Hypothyroidism: Continue [employer] levothyroxine Patient wishes to be full code. Lovenox 40 mg subQ q.day Continue [employer] Protonix Patient lives at home with her prior to arrival. She is very weak, continue PT/OT/dietitian evaluations. Home versus SNF. Subjective Date/time seen: 04/23/25 08:16 Interval history: No major acute overnight events. Patient observed sitting up in bed with breakfast tray nearly untouched. She only took 1 bite of her sausage. Encouraged her to eat more she said she will. She did almost finished her chocolate Ensure shake. She reports occasional dry cough but no shortness of breath or chest pain. No abdominal pain, no fever, no vomiting, no diarrhea. Review of Systems Review of Systems: All systems reviewed & are unremarkable except as noted in HPI and below (Subjective) Exam Const: General: comfortable and no acute distress HENMT: Mouth: Yes moist mucous membranes Eyes: Pupils: Equal, round and reactive pupils present Neck: Neck: supple Resp: Effort & Inspection: normal respiratory effort Auscultation: clear to auscultation bilaterally Cardio: Rate: regular rate Rhythm: regular rhythm Heart sounds: Murmur heart sound present (Systolic) GI: Inspection: non-distended GI Palp: Yes Soft to palpation Neuro: Motor exam (neuro): 5/5 motor strength present throughout Extrem: Other: Trace pitting edema bilateral lower extremities below the knees Objective Data Vital Signs Vital Signs: Vital Signs - 24 hr 04/22/25 10:00 04/22/25 10:04/22/25 12:00 Temperature 96.1 F L Pulse Rate 79 80 Respiratory Rate 16 Blood Pressure 127/96 H Pulse Oximetry 100 Oxygen Delivery Room Air 04/22/25 12:47 04/22/25 16:00 04/22/25 16:00 Temperature 96.4 F L 97.4 F L Pulse Rate 78 81 Respiratory Rate 20 Blood Pressure 140/62 Pulse Oximetry 99 Oxygen Delivery 04/22/25 20:00 04/22/25 20:25 04/23/25 00:00 Temperature 97.5 F L 97.4 F L Pulse Rate 79 81 80 Respiratory Rate 20 20 Blood Pressure 152/88 H 131/81 Pulse Oximetry 98 98 Oxygen Delivery 04/23/25 00:00 04/23/25 04:00 04/23/25 04:00 Temperature 97.5 F L Pulse Rate 76 86 87 Respiratory Rate 20 Blood Pressure 113/69 Pulse Oximetry 99 Oxygen Delivery 04/23/25 07:32 Temperature 98.9 F Pulse Rate 80 Respiratory Rate 14 Blood Pressure 136/65 Pulse Oximetry 98 Oxygen Delivery Intake/Output Intake/Output: Intake & Output 04/20/25 04/21/25 04/22/25 04/23/25 23:59 23:59 23:59 23:59 Intake Total 4530.8 3504.2333 1280 1336.7 Output Total 2510 1690 1250 750 Balance 2020.8 1814.2333 30 586.7 Meds/Results Medications: Active Medications Generic Name Dose Route Start Last Admin Trade Name Freq PRN Reason Stop Dose Admin Acetaminophen 650 mg 04/19/25 13:56 04/20/25 08:55 Acetaminophen 325 Mg Tablet PO 650 mg Q4H PRN Administration Mild Pain (1-3) or Fever Hydrocodone Bitart/Acetaminophen 1 tab 04/19/25 20:28 04/20/25 17:19 Hydrocodone/Acetaminophen (*Crx) 5-325 Mg Tablet PO 1 tab QID PRN Administration Pain 4-6 Amlodipine Besylate 5 mg 04/20/25 09:00 04/22/25 08:12 Amlodipine Besylate 5 Mg Tablet PO 5 mg DAILY JOSE Administration Aspirin 81 mg 04/20/25 21:00 04/22/25 20:36 Aspirin 81 Mg Enteric Tablet PO 81 mg HS JOSE Administration Buspirone HCl 10 mg 04/20/25 09:00 04/22/25 17:14 Buspirone Hcl 5 Mg Tablet PO 10 mg TID JOSE Administration Celecoxib 100 mg 04/19/25 21:00 04/22/25 20:36 Celecoxib 100 Mg Capsule PO 100 mg Q12HR JOSE Administration Docusate Sodium 100 mg 04/19/25 13:58 04/20/25 17:16 Docusate Sodium 100 Mg Capsule PO 100 mg BID PRN Administration Constipation Donepezil HCl 10 mg 04/19/25 21:00 04/22/25 20:36 Donepezil Hcl 10 Mg Tablet PO 10 mg QHS JOSE Administration Doxycycline Hyclate 100 mg 04/19/25 21:00 04/22/25 20:36 Doxycycline Hyclate 100 Mg Tablet PO 04/24/25 09:01 100 mg Q12HR JOSE Administration Duloxetine HCl 90 mg 04/23/25 09:00 Duloxetine Hcl 30 Mg Capsule.Dr PO DAILY JOSE Enoxaparin Sodium 40 mg 04/20/25 09:00 04/22/25 08:11 Enoxaparin 40 Mg/0.4 Ml Syringe SUB-Q 40 mg DAILY JOSE Administration Gemfibrozil 600 mg 04/20/25 09:00 04/22/25 17:14 Gemfibrozil 600 Mg Tablet PO 600 mg BID JOSE Administration Guaifenesin/Dextromethorphan 10 ml 04/20/25 10:10 Guaifenesin/Dextromethorphan 10 Ml Udc PO Q4H PRN Cough Piperacillin Sod/Tazobactam 100 mls @ 200 mls/hr 04/22/25 13:00 04/23/25 06:01 Sod 4.5 gm/ Sodium Chloride IVPB 200 mls/hr Q6HR JOSE Administration Magnesium Sulfate 4 gm in 100 mls @ 25 mls/hr 04/23/25 08:14 Magnesium Sulf 4 Gm/[id number] IVPB 04/23/25 12:13 ONCE ONE Latanoprost 1 drop 04/21/25 21:00 04/22/25 20:37 Latanoprost 0.005% Op Soln 2.5 Ml Btl EACH EYE 1 drop HS JOSE Administration Levothyroxine Sodium 50 mcg 04/20/25 06:30 04/23/25 06:01 Levothyroxine Sodium 50 Mcg Tablet PO 50 mcg DAILY@0630 JOSE Administration Pantoprazole Sodium 40 mg 04/20/25 09:00 04/22/25 08:12 Pantoprazole 40 Mg Tablet PO 40 mg QAM JOSE Administration Perflutren Lipid Microsphere 0 ml 04/20/25 12:28 Perflutren Lipid Microspheres 1.5 Ml Vial Diluted To 10 Ml Total Volume IV PUSH 04/23/25 12:28 ONCE PRN adequate visualization Protocol Trazodone HCl 50 mg 04/22/25 20:56 04/22/25 21:11 Trazodone Hcl 50 Mg Tablet PO 50 mg HS PRN Administration Insomnia Radiology Results: ITS Impressions Head CT 04/19/25 13:32 IMPRESSION: 1. Old lacunar infarct at the left basal ganglia. No acute intracranial process. 2. Age-related changes including and mild to moderate diffuse volume loss and moderate scattered white matter hypoattenuation consistent with chronic small vessel ischemic disease. Chest/Abdomen/Pelvis CT 04/19/25 13:35 IMPRESSION: 1. Mild tree-in-bud opacities in the right middle lobe consistent with age indeterminate bronchiolitis with endobronchial spread of disease. 2. No acute intra-abdominal/pelvic process. 3. Moderate-sized hiatal hernia. 4. Extensive degenerative and postoperative changes in the spine as detailed above. Chest X-Ray 04/19/25 13:49 IMPRESSION: 1. No evident acute cardiopulmonary disease. Mild tree-in-bud opacities in the right middle lobe suspicious for some age-indeterminate bronchiolitis seen on immediately prior CT are indiscernible on the plain radiographs. Labs Labs: Laboratory Results - last 24 hr 04/22/25 04/22/25 04/22/25 04:06 12:56 20:42 WBC RBC Hgb Hct MCV MCH MCHC RDW Plt Count MPV Immature Gran % (Auto) Neut % (Auto) Lymph % (Auto) Collier % (Auto) Eos % (Auto) Baso % (Auto) Lymph # (Auto) Collier # (Auto) Eos # (Auto) Baso # (Auto) Abs Immat Gran (auto) Absolute Neuts (auto) Absolute Nucleated RBC Nucleated RBC % Sodium 125 L 126 L Potassium 3.8 3.5 Chloride 97 L 99 Carbon Dioxide 19 L 19 L Anion Gap 9 8 BUN 10 D 14 Creatinine 0.60 L 0.62 L Estim Creat Clear Calc 50 49 Estimated GFR > 60 > 60 Glucose 150 H 134 H Calcium 8.0 L 7.8 L Phosphorus 2.2 L Magnesium 1.8 Total Bilirubin AST ALT Alkaline Phosphatase Total Protein Albumin Procalcitonin TSH (Reflex) 3.360 04/23/25 05:32 WBC 12.1 H RBC 4.21 Hgb 13.1 Hct 36.8 L MCV 87.4 MCH 31.1 MCHC 35.6 RDW 14.9 H Plt Count 334 MPV 10.5 H Immature Gran % (Auto) 0.4 Neut % (Auto) 68.6 Lymph % (Auto) 17.0 L Collier % (Auto) 12.8 H Eos % (Auto) 1.0 Baso % (Auto) 0.2 Lymph # (Auto) 2.06 Collier # (Auto) 1.6 H Eos # (Auto) 0.1 Baso # (Auto) 0.0 Abs Immat Gran (auto) 0.05 H Absolute Neuts (auto) 8.3 H Absolute Nucleated RBC 0.000 Nucleated RBC % 0.0 Sodium 131 L Potassium 3.7 Chloride 103 Carbon Dioxide 19 L Anion Gap 9 BUN 11 Creatinine 0.62 L Estim Creat Clear Calc 49 Estimated GFR > 60 Glucose 115 H Calcium 7.8 L Phosphorus 2.3 L Magnesium 1.2 L Total Bilirubin 0.4 AST 28 ALT 15 Alkaline Phosphatase 55 Total Protein 6.1 L Albumin 3.6 Procalcitonin 0.0 TSH (Reflex)
[2025-04-23] MEDS: MAGNESIUM SULF 4 GM/WATER100ML 4 GM/100 ML BAG IVPB (09:12)
[2025-04-23] MEDS: ENOXAPARIN 40 MG/0.4 ML SYRINGE SUB-Q (09:27)
[2025-04-23] MEDS: DOXYCYCLINE HYCLATE 100 MG TABLET PO ×2 (09:28→20:34)
[2025-04-23] MEDS: CELECOXIB 100 MG CAPSULE PO ×2 (09:28→20:34)
[2025-04-23] MEDS: PANTOPRAZOLE 40 MG TABLET PO (09:28)
[2025-04-23 13:45] LABS: Anion Gap 9 mmol/L (4-12); Blood Urea Nitrogen 11 mg/dL (7-17); Calcium 7.8 mg/dL (8.4-10.2); Carbon Dioxide 18 mmol/L (22-30); Chloride 104 mmol/L (98-107); Estimated CRCL calculation 52 ml/min; Estimated Glomerular Filt Rate > 60; Glucose 123 mg/dL (65-110); Magnesium 2.8 mg/dL (1.6-2.3); Potassium 3.3 mmol/L (3.4-5.0); Sodium 131 mmol/L (137-145)
--- NOTE | 2025-04-23 14:03 | PCPTNOTE ---
Attempted to see patient for PT, however patient unable to stay awake enough to participate with PT. Per patient's family member in room, patient has been up all day and just laid down for nap.
--- NOTE | 2025-04-23 16:30 | PC.NURSE ---
On 04/23/25, the student, iXao, provided care and completed [facility] documentation on this patient. I have reviewed the student's documentation and agree with the findings.
[2025-04-23] MEDS: POTASSIUM CHLORIDE 20 MEQ ER TABLET PO (17:42)
[2025-04-23] MEDS: LATANOPROST 0.005% OP SOLN 2.5 ML BTL 1 DROP EACH EYE (20:34)
[2025-04-23] MEDS: ASPIRIN 81 MG ENTERIC TABLET PO (20:34)
[2025-04-23] MEDS: DONEPEZIL HCL 10 MG TABLET PO (20:34)
[2025-04-24] VITALS (9 sets, daily range): BP systolic 130–172; BP diastolic 64–80; PULSE 60–90; RESP 13–20; TEMP 36.2–37; O2SAT 98–100
[2025-04-24] MEDS: PIPERACILLIN/TAZOBACTAM SOD 4.5 GM in SODIUM CHLORIDE 0.9% IV 100 ML 200 ML IVPB ×4 (05:36→23:57)
[2025-04-24] MEDS: LEVOTHYROXINE SODIUM 50 MCG TABLET PO (05:36)
[2025-04-24 06:19] LABS: Hematocrit 38.2 % (37.0-47.0); Hemoglobin 13.1 g/dL (12.0-15.0); Immature Granulocyte Percent A 0.5 % (0-0.5); Lymphocytes Absolute Auto 1.92 K/mm3 (0.9-3.2); Mean Corpuscular HGB Conc 34.3 g/dl (32-36); Mean Corpuscular Hemoglobin 30.6 pg (26-34); Mean Corpuscular Volume 89.3 fl (80-100); Nucleated Red Blood Cells Absolute Auto 0.000 K/mm3 (0.0-0.012); Nucleated Red Blood Cells Perc 0.0 % (0.0-0.2); Platelet Count Result 353 k/mm3 (150-375); Red Blood Count 4.28 M/mm3 (4.2-5.4); White Blood Count 11.6 K/mm3 (4.5-10.0)
[2025-04-24 06:37] LABS: Alanine Aminotransferase 14 U/L (6-35); Albumin Level 3.7 g/dL (3.5-5.1); Alkaline Phosphatase 56 U/L (38-126); Anion Gap 8 mmol/L (4-12); Aspartate Amino Transferase 28 U/L (14-36); Bilirubin,Total 0.5 mg/dL (0.2-1.3); Blood Urea Nitrogen 12 mg/dL (7-17); Calcium 7.5 mg/dL (8.4-10.2); Carbon Dioxide 19 mmol/L (22-30); Chloride 104 mmol/L (98-107); Estimated CRCL calculation 52 ml/min; Estimated Glomerular Filt Rate > 60; Glucose 114 mg/dL (65-110); Magnesium 1.3 mg/dL (1.6-2.3); Potassium 3.3 mmol/L (3.4-5.0); Sodium 131 mmol/L (137-145); Total Protein 6.4 g/dL (6.3-8.2)
[2025-04-24] MEDS: PANTOPRAZOLE 40 MG TABLET PO (09:13)
[2025-04-24] MEDS: ENOXAPARIN 40 MG/0.4 ML SYRINGE SUB-Q (09:14)
[2025-04-24] MEDS: CELECOXIB 100 MG CAPSULE PO ×2 (09:14→20:41)
[2025-04-24] MEDS: DOXYCYCLINE HYCLATE 100 MG TABLET PO (09:14)
[2025-04-24] MEDS: HYDROcodone/acetaminophen (*CRX) 5-325 MG TABLET 1 TAB PO (09:21)
[2025-04-24] MEDS: POTASSIUM CHLORIDE 20 MEQ ER TABLET 40 MEQ PO (10:35)
[2025-04-24] MEDS: MAGNESIUM SULFATE 3GM/D5W100ML 3 GM/100 ML BAG IVPB (10:35)
[2025-04-24] MEDS: THERAPEUTIC MULTIVITAMINS/MINERALS TAB (*BKC) 1 TABLET PO (12:13)
[2025-04-24] MEDS: POTASSIUM CHLORIDE 20 MEQ PACKET (FOR LIQUID) PO (18:05)
[2025-04-24] MEDS: MAGNESIUM OXIDE 400 MG TABLET PO (18:05)
[2025-04-24] MEDS: ASPIRIN 81 MG ENTERIC TABLET PO (20:41)
[2025-04-24] MEDS: DONEPEZIL HCL 10 MG TABLET PO (20:41)
[2025-04-24] MEDS: LATANOPROST 0.005% OP SOLN 2.5 ML BTL 1 DROP EACH EYE (20:42)
[2025-04-24 21:13] LABS: Anion Gap 8 mmol/L (4-12); Blood Urea Nitrogen 18 mg/dL (7-17); Calcium 7.6 mg/dL (8.4-10.2); Carbon Dioxide 18 mmol/L (22-30); Chloride 104 mmol/L (98-107); Estimated CRCL calculation 45 ml/min; Estimated Glomerular Filt Rate > 60; Glucose 134 mg/dL (65-110); Potassium 3.9 mmol/L (3.4-5.0); Sodium 130 mmol/L (137-145)
[2025-04-24] MEDS: FAMOTIDINE 20 MG/2 ML VIAL IV PUSH (21:29)
--- NOTE | 2025-04-24 21:40 | PC.NURSE ---
Nurse was notified by family that pt was c/o of burning in the insides and nausea. this nurse went in to assess and pt vitals was 98.6 83 20 135/64 100ra stated this started around 20 minutes after completion of Zosyn. this nurse notified technical assistance consultant physician Rhianna and was given orders for Benadryl prn and Pepcid IV. when went to administer Meds pt and stated nausea has subsided. Pepcid given without difficulty no s/s of sob or distress noted. asked about in regards to continuing dose of next scheduled and Rhianna said she didn't believe it was an allergic reaction but if any complaints during mediation to d/c and update allergy information.
[2025-04-25] VITALS (9 sets, daily range): BP systolic 120–161; BP diastolic 65–93; PULSE 58–89; RESP 18–20; TEMP 36.1–36.8; O2SAT 97–100
[2025-04-25] MEDS: PIPERACILLIN/TAZOBACTAM SOD 4.5 GM in SODIUM CHLORIDE 0.9% IV 100 ML 200 ML IVPB ×3 (05:22→17:18)
[2025-04-25] MEDS: LEVOTHYROXINE SODIUM 50 MCG TABLET PO (05:35)
[2025-04-25 06:59] LABS: Hematocrit 36.4 % (37.0-47.0); Hemoglobin 12.4 g/dL (12.0-15.0); Immature Granulocyte Percent A 0.5 % (0-0.5); Lymphocytes Absolute Auto 1.95 K/mm3 (0.9-3.2); Mean Corpuscular HGB Conc 34.1 g/dl (32-36); Mean Corpuscular Hemoglobin 30.3 pg (26-34); Mean Corpuscular Volume 89.0 fl (80-100); Nucleated Red Blood Cells Absolute Auto 0.000 K/mm3 (0.0-0.012); Nucleated Red Blood Cells Perc 0.0 % (0.0-0.2); Platelet Count Result 350 k/mm3 (150-375); Red Blood Count 4.09 M/mm3 (4.2-5.4); White Blood Count 14.4 K/mm3 (4.5-10.0)
[2025-04-25 07:30] LABS: Anion Gap 11 mmol/L (4-12); Blood Urea Nitrogen 14 mg/dL (7-17); Calcium 8.0 mg/dL (8.4-10.2); Carbon Dioxide 17 mmol/L (22-30); Chloride 104 mmol/L (98-107); Estimated CRCL calculation 58 ml/min; Estimated Glomerular Filt Rate > 60; Glucose 120 mg/dL (65-110); Magnesium 1.1 mg/dL (1.6-2.3); Potassium 3.4 mmol/L (3.4-5.0); Sodium 132 mmol/L (137-145)
[2025-04-25] MEDS: THERAPEUTIC MULTIVITAMINS/MINERALS TAB (*BKC) 1 TABLET PO (08:47)
[2025-04-25] MEDS: POTASSIUM CHLORIDE 20 MEQ PACKET (FOR LIQUID) PO ×2 (08:47→17:18)
[2025-04-25] MEDS: ENOXAPARIN 40 MG/0.4 ML SYRINGE SUB-Q (08:47)
[2025-04-25] MEDS: FAMOTIDINE 20 MG/2 ML VIAL IV PUSH ×2 (08:48→21:17)
[2025-04-25] MEDS: CELECOXIB 100 MG CAPSULE PO ×2 (08:48→21:17)
[2025-04-25] MEDS: MAGNESIUM OXIDE 400 MG TABLET PO ×2 (08:48→17:18)
[2025-04-25] MEDS: MAGNESIUM SULF 4 GM/WATER100ML 4 GM/100 ML BAG IVPB (12:50)
[2025-04-25] MEDS: CALCIUM CARBONATE (TUMS) 500 MG (200 MG ELEMENTAL) PO (15:53)
--- NOTE | 2025-04-25 17:18 | PM.IMPN ---
Progress Note: A&P Assessment and Plan (1) Electrolyte abnormality: Code(s): E87.8 - Other disorders of electrolyte and fluid balance, not elsewhere classified Status: Acute (2) Malnutrition: Code(s): E46 - Unspecified protein-calorie malnutrition Status: Acute (3) Failure to thrive: Status: Acute (4) Pneumonitis: Code(s): J98.4 - Other disorders of lung Status: Acute (5) Physical deconditioning: Code(s): R53.81 - Other malaise Status: Acute Plan 80-year-old female with PMH dementia, kmr-[id number] diabetes mellitus, hypothyroidism, hypertension, chronic pain, peripheral neuropathy brought in by her family to [facility] on 04/19/2025. She was confused and weak. Family concerned she may have a UTI or pneumonia. Patient denied any complaints herself. Hypokalemia: Resolved status post replacement. Hydrochlorothiazide discontinued. Ensure adequate magnesium levels. Hypomagnesemia: Again low on 04/25/2025-place with magnesium rider. Increase her magnesium oxide p.o. from 400 q.day to 400 mg p.o. b.i.d.. Hypercalcemia: Resolved. 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 Hold. Status post calcitonin subcu x4 doses. Hyponatremia: Likely due to dehydration/hypovolemia. Received fluids on 04/22/2025, sodium improved. Continue to trend. Hydrochlorothiazide discontinued. Failure to thrive, deconditioning, weakness: Patient has a poor appetite, she is eating only 10% of her meals. Seen by dietitian, she likes the chocolate Ensure supplements. Continue those. She is doing much better after being fed for every meal by her . On 04/25/2025 she is looking very energetic. is happy with this. He is amenable to home health therapy on discharge but has declined discharge to SNF for rehab. Dementia: Continue [employer] donepezil Depression: Continue LE[employer] Cymbalta. Elevated troponin: Peaked. No chest pain. Thought to be due to dehydration. TTE on 12/25/2023 with hyperdynamic left ventricular systolic function and grade 1 diastolic dysfunction. Discontinue Lasix due to dehydration. Chronic pain syndrome: Gabapentin discontinued due to weakness and confusion. Patient has not complained of pain. Hypertension: At goal, continue amlodipine. Pneumonitis: Negative for flu a, B, COVID. CT chest abdomen pelvis revealing mild tree-in-bud opacities in the right middle lobe consistent with age-indeterminate bronchiolitis. Patient has occasional dry cough. No fever. Leukocytosis improving after Zosyn started on 04/22/2025. WBC again elevated on 04/25/2025. Check urinalysis, patient was complaining of burning in her bladder. No nausea no vomiting no diarrhea. Chest x-ray on 04/25/2025 without any change. Blood cultures 04/22/2025, no growth to date, follow. Hypothyroidism: Continue LE[employer] levothyroxine Patient wishes to be full code. Lovenox 40 mg subQ q.day Continue LE[employer] Protonix Patient lives at home with her prior to arrival. Very weak on admission, continues to improve. Continue PT/OT/dietitian evaluations. She is eating much more when fed by her , that has caused great improvement with the patient. Home with home health on discharge, they declined SNF for rehab. Subjective Date/time seen: 04/25/25 17:18 Interval history: No major acute overnight events. Spoke with patient with her present. They both provide history, driven by the . The patient nods in agreement and she looks much more energetic today. The is happy she looks energetic, last night she reported having chills and burning in her bladder which radiated into her abdomen. Otherwise no further complaints. Review of Systems Review of Systems: All systems reviewed & are unremarkable except as noted in HPI and below (Subjective) Exam Const: General: comfortable and no acute distress HENMT: Mouth: Yes moist mucous membranes Eyes: Pupils: Equal, round and reactive pupils present Neck: Neck: supple Resp: Effort & Inspection: normal respiratory effort Auscultation: clear to auscultation bilaterally Cardio: Rate: regular rate Rhythm: regular rhythm Heart sounds: no murmurs GI: GI Palp: Yes Soft to palpation and No Tenderness to palpation present (GI) Neuro: Motor exam (neuro): 5/5 motor strength present throughout Extrem: General: no edema Objective Data Vital Signs Vital Signs: Vital Signs - 24 hr 04/24/25 20:00 04/24/25 20:00 04/24/25 20:00 Temperature 98.6 F 98.6 F Pulse Rate 83 83 Respiratory Rate 20 20 Blood Pressure 135/64 Pulse Oximetry 100 100 Oxygen Delivery Room Air Fraction of Inspired Oxygen 21 04/24/25 20:00 04/24/25 20:50 04/25/25 00:00 Temperature 97.8 F Pulse Rate 74 90 76 Respiratory Rate 18 Blood Pressure 146/68 H Pulse Oximetry 100 Oxygen Delivery Fraction of Inspired Oxygen 04/25/25 00:30 04/25/25 04:00 04/25/25 05:30 Temperature 97.7 F 97.6 F Pulse Rate 84 69 89 Respiratory Rate 20 18 Blood Pressure 159/72 H 161/93 H Pulse Oximetry 98 99 Oxygen Delivery Fraction of Inspired Oxygen 04/25/25 08:00 04/25/25 12:00 04/25/25 12:00 Temperature 97 F L Pulse Rate 78 58 L 68 Respiratory Rate 18 Blood Pressure 129/75 Pulse Oximetry 100 Oxygen Delivery Fraction of Inspired Oxygen Intake/Output Intake/Output: Intake & Output 04/22/25 04/23/25 04/24/25 04/25/25 23:59 23:59 23:59 23:59 Intake Total 1280 2216.7 1540 1762 Output Total 1250 1025 1500 4 Balance 30 1191.7 40 1758 Meds/Results Medications: Active Medications Generic Name Dose Route Start Last Admin Trade Name Freq PRN Reason Stop Dose Admin Acetaminophen 650 mg 04/19/25 13:56 04/20/25 08:55 Acetaminophen 325 Mg Tablet PO 650 mg Q4H PRN Administration Mild Pain (1-3) or Fever Hydrocodone Bitart/Acetaminophen 1 tab 04/19/25 20:28 04/24/25 09:21 Hydrocodone/Acetaminophen (*Crx) 5-325 Mg Tablet PO 1 tab QID PRN Administration Pain 4-6 Amlodipine Besylate 5 mg 04/20/25 09:00 04/25/25 08:48 Amlodipine Besylate 5 Mg Tablet PO 5 mg DAILY JOSE Administration Aspirin 81 mg 04/20/25 21:00 04/24/25 20:41 Aspirin 81 Mg Enteric Tablet PO 81 mg HS JOSE Administration Buspirone HCl 10 mg 04/20/25 09:00 04/25/25 12:11 Buspirone Hcl 5 Mg Tablet PO 10 mg TID JOSE Administration Celecoxib 100 mg 04/19/25 21:00 04/25/25 08:48 Celecoxib 100 Mg Capsule PO 100 mg Q12HR JOSE Administration Diphenhydramine HCl 25 mg 04/24/25 21:14 Diphenhydramine Hcl Cap 25 Mg Capsule PO Q6H PRN Itching Docusate Sodium 100 mg 04/19/25 13:58 04/20/25 17:16 Docusate Sodium 100 Mg Capsule PO 100 mg BID PRN Administration Constipation Donepezil HCl 10 mg 04/19/25 21:00 04/24/25 20:41 Donepezil Hcl 10 Mg Tablet PO 10 mg QHS JOSE Administration Duloxetine HCl 90 mg 04/23/25 09:00 04/25/25 08:49 Duloxetine Hcl 30 Mg Capsule.Dr PO 90 mg DAILY [facility] Administration Enoxaparin Sodium 40 mg 04/20/25 09:00 04/25/25 08:47 Enoxaparin 40 Mg/0.4 Ml Syringe SUB-Q 40 mg DAILY [facility] Administration Famotidine 20 mg 04/24/25 21:15 04/25/25 08:48 Famotidine 20 Mg/2 Ml Vial IV PUSH 20 mg Q12HR JOSE Administration Gemfibrozil 600 mg 04/20/25 09:00 04/25/25 08:48 Gemfibrozil 600 Mg Tablet PO 600 mg BID JOSE Administration Guaifenesin/Dextromethorphan 10 ml 04/20/25 10:10 Guaifenesin/Dextromethorphan 10 Ml Udc PO Q4H PRN Cough Piperacillin Sod/Tazobactam 100 mls @ 200 mls/hr 04/22/25 13:00 04/25/25 12:41 Sod 4.5 gm/ Sodium Chloride IVPB Infused Q6HR [facility] Infusion Latanoprost 1 drop 04/21/25 21:00 04/24/25 20:42 Latanoprost 0.005% Op Soln 2.5 Ml Btl EACH EYE 1 drop HS [facility] Administration Levothyroxine Sodium 50 mcg 04/20/25 06:30 04/25/25 05:35 Levothyroxine Sodium 50 Mcg Tablet PO 50 mcg DAILY@0630 [facility] Administration Magnesium Oxide 400 mg 04/25/25 17:00 Magnesium Oxide 400 Mg Tablet PO BID [facility] Multivitamins/Calcium 1 tablet 04/24/25 12:00 04/25/25 08:47 Therapeutic Multivitamins/Minerals Tab (*Bkc) PO 1 tablet DAILY JOSE Administration Potassium Chloride 20 meq 04/24/25 17:00 04/25/25 08:47 Potassium Chloride 20 Meq Packet (For Liquid) PO 20 meq BID JOSE Administration Trazodone HCl 50 mg 04/22/25 20:56 04/22/25 21:11 Trazodone Hcl 50 Mg Tablet PO 50 mg HS PRN Administration Insomnia Trimethobenzamide HCl 200 mg 04/24/25 21:16 Trimethobenzamide Hcl 200 Mg/2 Ml Vial IM Q6H PRN Nausea And Vomiting Radiology Results: ITS Impressions Head CT 04/19/25 13:32 IMPRESSION: 1. Old lacunar infarct at the left basal ganglia. No acute intracranial process. 2. Age-related changes including and mild to moderate diffuse volume loss and moderate scattered white matter hypoattenuation consistent with chronic small vessel ischemic disease. Chest/Abdomen/Pelvis CT 04/19/25 13:35 IMPRESSION: 1. Mild tree-in-bud opacities in the right middle lobe consistent with age indeterminate bronchiolitis with endobronchial spread of disease. 2. No acute intra-abdominal/pelvic process. 3. Moderate-sized hiatal hernia. 4. Extensive degenerative and postoperative changes in the spine as detailed above. Chest X-Ray 04/25/25 13:01 IMPRESSION: 1. No definite change or acute cardiopulmonary findings given portable technique. Labs Labs: Laboratory Results - last 24 hr 04/20/25 04/24/25 04/25/25 12:38 20:11 06:49 WBC 14.4 H RBC 4.09 L Hgb 12.4 Hct 36.4 L MCV 89.0 MCH 30.3 MCHC 34.1 RDW 15.2 H Plt Count 350 MPV 10.3 Immature Gran % (Auto) 0.5 Neut % (Auto) 73.5 H Lymph % (Auto) 13.5 L Evans % (Auto) 11.5 H Eos % (Auto) 0.8 Baso % (Auto) 0.2 Lymph # (Auto) 1.95 Evans # (Auto) 1.7 H Eos # (Auto) 0.1 Baso # (Auto) 0.0 Abs Immat Gran (auto) 0.07 H Absolute Neuts (auto) 10.6 H Absolute Nucleated RBC 0.000 Nucleated RBC % 0.0 Sodium 130 L 132 L Potassium 3.9 3.4 Chloride 104 104 Carbon Dioxide 18 L 17 L Anion Gap 8 11 BUN 18 H 14 Creatinine 0.67 L 0.51 L Estim Creat Clear Calc 45 58 Estimated GFR > 60 > 60 Glucose 134 H 120 H Calcium 7.6 L 8.0 L Phosphorus 2.0 L Magnesium 1.1 L PTH Related Peptide <2.0
[2025-04-25] MEDS: ASPIRIN 81 MG ENTERIC TABLET PO (21:17)
[2025-04-25] MEDS: DONEPEZIL HCL 10 MG TABLET PO (21:17)
[2025-04-25] MEDS: LATANOPROST 0.005% OP SOLN 2.5 ML BTL 1 DROP EACH EYE (21:22)
[2025-04-25] MEDS: diphenhydrAMINE HCl CAP 25 MG CAPSULE PO (21:34)
[2025-04-26] VITALS (10 sets, daily range): BP systolic 122–159; BP diastolic 64–91; PULSE 66–89; RESP 16–18; TEMP 36.6–36.9; O2SAT 96–98
[2025-04-26 01:04] LABS: Add Urine Microscopic? YES; Appearance Urine Clear (Clear); Glucose Urine UA Negative (Negative); Leukocyte Esterase Ur Negative LEU/UL (Negative); Nitrate Urine Negative (Negative); Non Pathogenic Casts 0-2; Specific Grav Ur 1.006 (1.001-1.035)
[2025-04-26] MEDS: PIPERACILLIN/TAZOBACTAM SOD 4.5 GM in SODIUM CHLORIDE 0.9% IV 100 ML 200 ML IVPB ×5 (01:21→23:29)
[2025-04-26] MEDS: LEVOTHYROXINE SODIUM 50 MCG TABLET PO (05:54)
[2025-04-26 06:43] LABS: Hematocrit 31.4 % (37.0-47.0); Hemoglobin 10.8 g/dL (12.0-15.0); Immature Granulocyte Percent A 0.4 % (0-0.5); Lymphocytes Absolute Auto 2.27 K/mm3 (0.9-3.2); Mean Corpuscular HGB Conc 34.4 g/dl (32-36); Mean Corpuscular Hemoglobin 31.0 pg (26-34); Mean Corpuscular Volume 90.2 fl (80-100); Nucleated Red Blood Cells Absolute Auto 0.000 K/mm3 (0.0-0.012); Nucleated Red Blood Cells Perc 0.0 % (0.0-0.2); Platelet Count Result 352 k/mm3 (150-375); Red Blood Count 3.48 M/mm3 (4.2-5.4); White Blood Count 9.3 K/mm3 (4.5-10.0)
[2025-04-26 07:05] LABS: Anion Gap 9 mmol/L (4-12); Blood Urea Nitrogen 12 mg/dL (7-17); Calcium 7.4 mg/dL (8.4-10.2); Carbon Dioxide 17 mmol/L (22-30); Chloride 105 mmol/L (98-107); Estimated CRCL calculation 65 ml/min; Estimated Glomerular Filt Rate > 60; Glucose 104 mg/dL (65-110); Magnesium 1.4 mg/dL (1.6-2.3); Potassium 3.4 mmol/L (3.4-5.0); Sodium 131 mmol/L (137-145)
[2025-04-26 07:17] LABS: Procalcitonin < 0.0 ng/mL
[2025-04-26] MEDS: CELECOXIB 100 MG CAPSULE PO ×2 (10:04→20:38)
[2025-04-26] MEDS: POTASSIUM CHLORIDE 20 MEQ PACKET (FOR LIQUID) PO ×2 (10:05→17:34)
[2025-04-26] MEDS: THERAPEUTIC MULTIVITAMINS/MINERALS TAB (*BKC) 1 TABLET PO (10:05)
[2025-04-26] MEDS: MAGNESIUM OXIDE 400 MG TABLET PO (10:05)
[2025-04-26] MEDS: ENOXAPARIN 40 MG/0.4 ML SYRINGE SUB-Q (10:06)
[2025-04-26] MEDS: FAMOTIDINE 20 MG/2 ML VIAL IV PUSH (10:06)
--- NOTE | 2025-04-26 11:03 | PM.IMPN ---
Progress Note: A&P Assessment and Plan (1) Electrolyte abnormality: Code(s): E87.8 - Other disorders of electrolyte and fluid balance, not elsewhere classified Status: Acute (2) Malnutrition: Code(s): E46 - Unspecified protein-calorie malnutrition Status: Acute (3) Failure to thrive: Status: Acute (4) Pneumonitis: Code(s): J98.4 - Other disorders of lung Status: Acute (5) Physical deconditioning: Code(s): R53.81 - Other malaise Status: Acute Plan 80-year-old female with PMH dementia, [id number] diabetes mellitus, hypothyroidism, hypertension, chronic pain, peripheral neuropathy brought in by her family to [facility] on 04/19/2025. She was confused and weak. Family concerned she may have a UTI or pneumonia. Patient denied any complaints herself. Continue trending WBC. Counseled the patient with at bedside about the importance of nutrition in intake. The is enthusiastic unmotivated to feed the patient for most meals. Continue cycling abnormal electrolyte levels. Patient wishes to be full code. 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 Very weak on admission, continues to improve. Continue PT/OT/dietitian evaluations. She is eating much more when fed by her , that has caused great improvement with the patient. Home with home health on discharge, they declined SNF for rehab. Subjective Date/time seen: 04/26/25 11:03 Interval history: No major acute overnight events. Patient is sitting up in bed fed by her . She denies any complaints. Review of Systems Review of Systems: All systems reviewed & are unremarkable except as noted in HPI and below (Subjective) Exam Const: General: comfortable and no acute distress HENMT: Mouth: Yes moist mucous membranes Eyes: Pupils: Equal, round and reactive pupils present Neck: Neck: supple Resp: Effort & Inspection: normal respiratory effort Auscultation: clear to auscultation bilaterally Cardio: Rate: regular rate Rhythm: regular rhythm GI: Inspection: non-distended GI Palp: Yes Soft to palpation Neuro: Motor exam (neuro): 5/5 motor strength present throughout Extrem: General: no edema Objective Data Vital Signs Vital Signs: Vital Signs - 24 hr 04/25/25 12:00 04/25/25 12:00 04/25/25 16:00 Temperature 97 F L Pulse Rate 58 L 68 68 Respiratory Rate 18 Blood Pressure 129/75 Pulse Oximetry 100 Oxygen Delivery 04/25/25 16:00 04/25/25 20:00 04/25/25 20:00 Temperature 97 F L Pulse Rate 64 64 Respiratory Rate 18 Blood Pressure 148/65 H Pulse Oximetry 100 Oxygen Delivery Room Air 04/25/25 20:10 04/26/25 00:00 04/26/25 04:00 Temperature 98.3 F Pulse Rate 76 69 71 Respiratory Rate 18 Blood Pressure 120/70 Pulse Oximetry 97 Oxygen Delivery 04/26/25 05:10 Temperature 97.8 F Pulse Rate 89 Respiratory Rate 18 Blood Pressure 122/90 Pulse Oximetry 96 Oxygen Delivery Intake/Output Intake/Output: Intake & Output 04/23/25 04/24/25 04/25/25 04/26/25 23:59 23:59 23:59 23:59 Intake Total 2216.7 1540 3662 400 Output Total 1025 1500 4 300 Balance 1191.7 40 3658 100 Meds/Results Medications: Active Medications Generic Name Dose Route Start Last Admin Trade Name Freq PRN Reason Stop Dose Admin Acetaminophen 650 mg 04/19/25 13:56 04/20/25 08:55 Acetaminophen 325 Mg Tablet PO 650 mg Q4H PRN Administration Mild Pain (1-3) or Fever Hydrocodone Bitart/Acetaminophen 1 tab 04/19/25 20:28 04/24/25 09:21 Hydrocodone/Acetaminophen (*Crx) 5-325 Mg Tablet PO 1 tab QID PRN Administration Pain 4-6 Amlodipine Besylate 5 mg 04/20/25 09:00 04/26/25 10:04 Amlodipine Besylate 5 Mg Tablet PO 5 mg DAILY JOSE Administration Aspirin 81 mg 04/20/25 21:00 04/25/25 21:17 Aspirin 81 Mg Enteric Tablet PO 81 mg HS JOSE Administration Buspirone HCl 10 mg 04/20/25 09:00 04/26/25 10:04 Buspirone Hcl 5 Mg Tablet PO 10 mg TID JOSE Administration Celecoxib 100 mg 04/19/25 21:00 04/26/25 10:04 Celecoxib 100 Mg Capsule PO 100 mg Q12HR JOSE Administration Diphenhydramine HCl 25 mg 04/24/25 21:14 04/25/25 21:34 Diphenhydramine Hcl Cap 25 Mg Capsule PO 25 mg Q6H PRN Administration Itching Docusate Sodium 100 mg 04/19/25 13:58 04/20/25 17:16 Docusate Sodium 100 Mg Capsule PO 100 mg BID PRN Administration Constipation Donepezil HCl 10 mg 04/19/25 21:00 04/25/25 21:17 Donepezil Hcl 10 Mg Tablet PO 10 mg QHS JOSE Administration Duloxetine HCl 90 mg 04/23/25 09:00 04/26/25 10:03 Duloxetine Hcl 30 Mg Capsule.Dr PO 90 mg DAILY JOSE Administration Enoxaparin Sodium 40 mg 04/20/25 09:00 04/26/25 10:06 Enoxaparin 40 Mg/0.4 Ml Syringe SUB-Q 40 mg DAILY JOSE Administration Famotidine 20 mg 04/24/25 21:15 04/26/25 10:06 Famotidine 20 Mg/2 Ml Vial IV PUSH 20 mg Q12HR JOSE Administration Gemfibrozil 600 mg 04/20/25 09:00 04/26/25 10:05 Gemfibrozil 600 Mg Tablet PO 600 mg BID JOSE Administration Guaifenesin/Dextromethorphan 10 ml 04/20/25 10:10 Guaifenesin/Dextromethorphan 10 Ml Udc PO Q4H PRN Cough Piperacillin Sod/Tazobactam 100 mls @ 200 mls/hr 04/22/25 13:00 04/26/25 05:53 Sod 4.5 gm/ Sodium Chloride IVPB 200 mls/hr Q6HR JOSE Administration Latanoprost 1 drop 04/21/25 21:00 04/25/25 21:22 Latanoprost 0.005% Op Soln 2.5 Ml Btl EACH EYE 1 drop HS JOSE Administration Levothyroxine Sodium 50 mcg 04/20/25 06:30 04/26/25 05:54 Levothyroxine Sodium 50 Mcg Tablet PO 50 mcg DAILY@0630 JOSE Administration Magnesium Oxide 400 mg 04/25/25 17:00 04/26/25 10:05 Magnesium Oxide 400 Mg Tablet PO 400 mg BID JOSE Administration Multivitamins/Calcium 1 tablet 04/24/25 12:00 04/26/25 10:05 Therapeutic Multivitamins/Minerals Tab (*Bkc) PO 1 tablet DAILY JOSE Administration Potassium Chloride 20 meq 04/24/25 17:00 04/26/25 10:05 Potassium Chloride 20 Meq Packet (For Liquid) PO 20 meq BID JOSE Administration Trazodone HCl 50 mg 04/22/25 20:56 04/25/25 21:34 Trazodone Hcl 50 Mg Tablet PO 50 mg HS PRN Administration Insomnia Trimethobenzamide HCl 200 mg 04/24/25 21:16 Trimethobenzamide Hcl 200 Mg/2 Ml Vial IM Q6H PRN Nausea And Vomiting Radiology Results: ITS Impressions Head CT 04/19/25 13:32 IMPRESSION: 1. Old lacunar infarct at the left basal ganglia. No acute intracranial process. 2. Age-related changes including and mild to moderate diffuse volume loss and moderate scattered white matter hypoattenuation consistent with chronic small vessel ischemic disease. Chest/Abdomen/Pelvis CT 04/19/25 13:35 IMPRESSION: 1. Mild tree-in-bud opacities in the right middle lobe consistent with age indeterminate bronchiolitis with endobronchial spread of disease. 2. No acute intra-abdominal/pelvic process. 3. Moderate-sized hiatal hernia. 4. Extensive degenerative and postoperative changes in the spine as detailed above. Chest X-Ray 04/25/25 13:01 IMPRESSION: 1. No definite change or acute cardiopulmonary findings given portable technique. Labs Labs: Laboratory Results - last 24 hr 04/26/25 04/26/25 00:51 05:48 WBC 9.3 RBC 3.48 L Hgb 10.8 L Hct 31.4 L MCV 90.2 MCH 31.0 MCHC 34.4 RDW 15.2 H Plt Count 352 MPV 10.8 H Immature Gran % (Auto) 0.4 Neut % (Auto) 57.2 Lymph % (Auto) 24.3 [place] % (Auto) 14.1 H Eos % (Auto) 3.5 Baso % (Auto) 0.5 Lymph # (Auto) 2.27 [place] # (Auto) 1.3 H Eos # (Auto) 0.3 Baso # (Auto) 0.1 Abs Immat Gran (auto) 0.04 H Absolute Neuts (auto) 5.3 Absolute Nucleated RBC 0.000 Nucleated RBC % 0.0 Sodium 131 L Potassium 3.4 Chloride 105 Carbon Dioxide 17 L Anion Gap 9 BUN 12 Creatinine 0.45 L Estim Creat Clear Calc 65 Estimated GFR > 60 Glucose 104 Calcium 7.4 L Phosphorus 2.0 L Magnesium 1.4 L Procalcitonin < 0.0 Urine Color Yellow Urine Appearance Clear Urine pH 7.5 Ur Specific [place] 1.006 Urine Protein 2+ H Urine Glucose (UA) Negative Urine Ketones Negative Ur Blood (Man) Trace Urine Nitrate Negative Urine Bilirubin Negative Urine Urobilinogen 0.2 Ur Leukocyte Esterase Negative Urine RBC 0-2 Urine WBC 0-5 Ur Squamous Epith Cells None seen Urine Bacteria None seen Urine Casts 0-2
--- NOTE | 2025-04-26 11:35 | PM.IMPN ---
Progress Note: A&P Assessment and Plan (1) Electrolyte abnormality: Code(s): E87.8 - Other disorders of electrolyte and fluid balance, not elsewhere classified Status: Acute (2) Malnutrition: Code(s): E46 - Unspecified protein-calorie malnutrition Status: Acute (3) Failure to thrive: Status: Acute (4) Pneumonitis: Code(s): J98.4 - Other disorders of lung Status: Acute (5) Physical deconditioning: Code(s): R53.81 - Other malaise Status: Acute Plan 80-year-old female with PMH dementia, [id number] diabetes mellitus, hypothyroidism, hypertension, chronic pain, peripheral neuropathy brought in by her family to [facility] on 04/19/2025. She was confused and weak. Family concerned she may have a UTI or pneumonia. Patient denied any complaints herself. Hypokalemia: Resolved status post replacement. Hydrochlorothiazide discontinued. Ensure adequate magnesium levels. Hypomagnesemia: 1.4 on 04/26/2025. Give magnesium 2 g rider. Increase magnesium oxide supplement to 800 mg p.o. b.i.d.. Hypercalcemia: Resolved. 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 Hold. Status post calcitonin subcu x4 doses. Hyponatremia: Likely due to dehydration/hypovolemia. Received fluids on 04/22/2025, sodium improved. Continue to trend. Hydrochlorothiazide discontinued. Failure to thrive, deconditioning, weakness: Patient has a poor appetite, she is eating only 10% of her meals. Seen by dietitian, she likes the chocolate Ensure supplements. Added Magic cups. On 04/26/25 she only took 1 bite of her breakfast. She truly assist from 1 on 1 feeding. Family believes that can continue this. Dementia: Continue SAND CUTTING MACHINE OPERATOR donepezil Depression: Continue SAND CUTTING MACHINE OPERATOR Cymbalta. Insomnia: Discontinue trazodone, restart SAND CUTTING MACHINE OPERATOR Ambien. Family is aware of the risk, they would like her to restart this and she has had no unwanted side effects at home. She had a bad night of sleep, requested nursing staff to move the patient to a room by herself. Elevated troponin: Peaked. No chest pain. Thought to be due to dehydration. TTE on 12/25/2023 with hyperdynamic left ventricular systolic function and grade 1 diastolic dysfunction. Discontinue Lasix due to dehydration. Chronic pain syndrome: Gabapentin discontinued due to weakness and confusion. Continue to treat pain as needed and restart gabapentin at lower doses if necessary. Hypertension: At goal. Continue SAND CUTTING MACHINE OPERATOR amlodipine. Pneumonitis: Negative for flu a, B, COVID. CT chest abdomen pelvis revealing mild tree-in-bud opacities in the right middle lobe consistent with age-indeterminate bronchiolitis. Patient has occasional dry cough. No fever. Leukocytosis improving after Zosyn started on 04/22/2025. Elevated again on 04/25/2025, improved on 04/26/2025. Repeat chest x-ray, UTI not indicative of worsening infection. She has no fever, any other symptomatology to indicate infection. Continue Zosyn, doxycycline has finished. Blood cultures 04/22/2025, no growth to date, follow. Hypothyroidism: Continue SAND CUTTING MACHINE OPERATOR levothyroxine Patient wishes to be full code. Lovenox 40 mg subQ q.day Continue SAND CUTTING MACHINE OPERATOR Protonix, ambulate with assistance, 1 on 1 feeding. Patient lives at home with her prior to arrival. She is very weak, continue PT/OT/dietitian evaluations. Family declines SNF, discharge to home with home health. Subjective Date/time seen: 04/26/25 11:35 Interval history: Patient reports he slept only 1 hour overnight, there has been some commotion with the patient in the under bed. Patient becoming confused this morning did not know where she was. Family did not want to repeat CT and agreed it was due to her being so tired. Patient reports no complaints, she is resting comfortably and seems anxious. Review of Systems Review of Systems: All systems reviewed & are unremarkable except as noted in HPI and below (Subjective) Exam Const: General: comfortable Other: A&O x2, slightly anxious HENMT: Mouth: Yes moist mucous membranes Eyes: Pupils: Equal, round and reactive pupils present Neck: Neck: supple Resp: Effort & Inspection: normal respiratory effort Auscultation: clear to auscultation bilaterally Cardio: Rate: regular rate Rhythm: regular rhythm Heart sounds: no gallops, no murmurs and no rubs GI: Inspection: non-distended GI Palp: Yes Soft to palpation Auscultation: normal bowel sounds Neuro: Motor exam (neuro): 5/5 motor strength present throughout Extrem: General: no edema Objective Data Vital Signs Vital Signs: Vital Signs - 24 hr 04/25/25 12:00 04/25/25 12:00 04/25/25 16:00 Temperature 97 F L Pulse Rate 58 L 68 68 Respiratory Rate 18 Blood Pressure 129/75 Pulse Oximetry 100 Oxygen Delivery 04/25/25 16:00 04/25/25 20:00 04/25/25 20:00 Temperature 97 F L Pulse Rate 64 64 Respiratory Rate 18 Blood Pressure 148/65 H Pulse Oximetry 100 Oxygen Delivery Room Air 04/25/25 20:10 04/26/25 00:00 04/26/25 04:00 Temperature 98.3 F Pulse Rate 76 69 71 Respiratory Rate 18 Blood Pressure 120/70 Pulse Oximetry 97 Oxygen Delivery 04/26/25 05:10 Temperature 97.8 F Pulse Rate 89 Respiratory Rate 18 Blood Pressure 122/90 Pulse Oximetry 96 Oxygen Delivery Intake/Output Intake/Output: Intake & Output 04/23/25 04/24/25 04/25/25 04/26/25 23:59 23:59 23:59 23:59 Intake Total 2216.7 1540 3662 400 Output Total 1025 1500 4 300 Balance 1191.7 40 3658 100 Meds/Results Medications: Active Medications Generic Name Dose Route Start Last Admin Trade Name Freq PRN Reason Stop Dose Admin Acetaminophen 650 mg 04/19/25 13:56 04/20/25 08:55 Acetaminophen 325 Mg Tablet PO 650 mg Q4H PRN Administration Mild Pain (1-3) or Fever Hydrocodone Bitart/Acetaminophen 1 tab 04/19/25 20:28 04/24/25 09:21 Hydrocodone/Acetaminophen (*Crx) 5-325 Mg Tablet PO 1 tab QID PRN Administration Pain 4-6 Amlodipine Besylate 5 mg 04/20/25 09:00 04/26/25 10:04 Amlodipine Besylate 5 Mg Tablet PO 5 mg DAILY JOSE Administration Aspirin 81 mg 04/20/25 21:00 04/25/25 21:17 Aspirin 81 Mg Enteric Tablet PO 81 mg HS JOSE Administration Buspirone HCl 10 mg 04/20/25 09:00 04/26/25 10:04 Buspirone Hcl 5 Mg Tablet PO 10 mg TID JOSE Administration Celecoxib 100 mg 04/19/25 21:00 04/26/25 10:04 Celecoxib 100 Mg Capsule PO 100 mg Q12HR JOSE Administration Diphenhydramine HCl 25 mg 04/24/25 21:14 04/25/25 21:34 Diphenhydramine Hcl Cap 25 Mg Capsule PO 25 mg Q6H PRN Administration Itching Docusate Sodium 100 mg 04/19/25 13:58 04/20/25 17:16 Docusate Sodium 100 Mg Capsule PO 100 mg BID PRN Administration Constipation Donepezil HCl 10 mg 04/19/25 21:00 04/25/25 21:17 Donepezil Hcl 10 Mg Tablet PO 10 mg QHS JOSE Administration Duloxetine HCl 90 mg 04/23/25 09:00 04/26/25 10:03 Duloxetine Hcl 30 Mg Capsule.Dr PO 90 mg DAILY JOSE Administration Enoxaparin Sodium 40 mg 04/20/25 09:00 04/26/25 10:06 Enoxaparin 40 Mg/0.4 Ml Syringe SUB-Q 40 mg DAILY JOSE Administration Famotidine 20 mg 04/24/25 21:15 04/26/25 10:06 Famotidine 20 Mg/2 Ml Vial IV PUSH 20 mg Q12HR JOSE Administration Gemfibrozil 600 mg 04/20/25 09:00 04/26/25 10:05 Gemfibrozil 600 Mg Tablet PO 600 mg BID JOSE Administration Guaifenesin/Dextromethorphan 10 ml 04/20/25 10:10 Guaifenesin/Dextromethorphan 10 Ml Udc PO Q4H PRN Cough Piperacillin Sod/Tazobactam 100 mls @ 200 mls/hr 04/22/25 13:00 04/26/25 05:53 Sod 4.5 gm/ Sodium Chloride IVPB 200 mls/hr Q6HR JOSE Administration Latanoprost 1 drop 04/21/25 21:00 04/25/25 21:22 Latanoprost 0.005% Op Soln 2.5 Ml Btl EACH EYE 1 drop HS JOSE Administration Levothyroxine Sodium 50 mcg 04/20/25 06:30 04/26/25 05:54 Levothyroxine Sodium 50 Mcg Tablet PO 50 mcg DAILY@0630 JOSE Administration Magnesium Oxide 400 mg 04/25/25 17:00 04/26/25 10:05 Magnesium Oxide 400 Mg Tablet PO 400 mg BID JOSE Administration Multivitamins/Calcium 1 tablet 04/24/25 12:00 04/26/25 10:05 Therapeutic Multivitamins/Minerals Tab (*Bkc) PO 1 tablet DAILY JOSE Administration Potassium Chloride 20 meq 04/24/25 17:00 04/26/25 10:05 Potassium Chloride 20 Meq Packet (For Liquid) PO 20 meq BID JOSE Administration Trazodone HCl 50 mg 04/22/25 20:56 04/25/25 21:34 Trazodone Hcl 50 Mg Tablet PO 50 mg HS PRN Administration Insomnia Trimethobenzamide HCl 200 mg 04/24/25 21:16 Trimethobenzamide Hcl 200 Mg/2 Ml Vial IM Q6H PRN Nausea And Vomiting Radiology Results: ITS Impressions Head CT 04/19/25 13:32 IMPRESSION: 1. Old lacunar infarct at the left basal ganglia. No acute intracranial process. 2. Age-related changes including and mild to moderate diffuse volume loss and moderate scattered white matter hypoattenuation consistent with chronic small vessel ischemic disease. Chest/Abdomen/Pelvis CT 04/19/25 13:35 IMPRESSION: 1. Mild tree-in-bud opacities in the right middle lobe consistent with age indeterminate bronchiolitis with endobronchial spread of disease. 2. No acute intra-abdominal/pelvic process. 3. Moderate-sized hiatal hernia. 4. Extensive degenerative and postoperative changes in the spine as detailed above. Chest X-Ray 04/25/25 13:01 IMPRESSION: 1. No definite change or acute cardiopulmonary findings given portable technique. Labs Labs: Laboratory Results - last 24 hr 04/26/25 04/26/25 00:51 05:48 WBC 9.3 RBC 3.48 L Hgb 10.8 L Hct 31.4 L MCV 90.2 MCH 31.0 MCHC 34.4 RDW 15.2 H Plt Count 352 MPV 10.8 H Immature Gran % (Auto) 0.4 Neut % (Auto) 57.2 Lymph % (Auto) 24.3 [place] % (Auto) 14.1 H Eos % (Auto) 3.5 Baso % (Auto) 0.5 Lymph # (Auto) 2.27 [place] # (Auto) 1.3 H Eos # (Auto) 0.3 Baso # (Auto) 0.1 Abs Immat Gran (auto) 0.04 H Absolute Neuts (auto) 5.3 Absolute Nucleated RBC 0.000 Nucleated RBC % 0.0 Sodium 131 L Potassium 3.4 Chloride 105 Carbon Dioxide 17 L Anion Gap 9 BUN 12 Creatinine 0.45 L Estim Creat Clear Calc 65 Estimated GFR > 60 Glucose 104 Calcium 7.4 L Phosphorus 2.0 L Magnesium 1.4 L Procalcitonin < 0.0 Urine Color Yellow Urine Appearance Clear Urine pH 7.5 Ur Specific [place] 1.006 Urine Protein 2+ H Urine Glucose (UA) Negative Urine Ketones Negative Ur Blood (Man) Trace Urine Nitrate Negative Urine Bilirubin Negative Urine Urobilinogen 0.2 Ur Leukocyte Esterase Negative Urine RBC 0-2 Urine WBC 0-5 Ur Squamous Epith Cells None seen Urine Bacteria None seen Urine Casts 0-2
[2025-04-26] MEDS: MAGNESIUM SULF 2 GM/WATER 50ML 2 GM/50 ML BAG IVPB (13:27)
[2025-04-26] MEDS: MAGNESIUM OXIDE 400 MG TABLET 800 MG PO (17:34)
[2025-04-26] MEDS: ZOLPIDEM TARTRATE (*CRX) 5 MG TABLET PO (20:38)
[2025-04-26] MEDS: DONEPEZIL HCL 10 MG TABLET PO (20:39)
[2025-04-26] MEDS: ASPIRIN 81 MG ENTERIC TABLET PO (20:39)
[2025-04-26] MEDS: LATANOPROST 0.005% OP SOLN 2.5 ML BTL 1 DROP EACH EYE (20:41)
[2025-04-27] VITALS (9 sets, daily range): BP systolic 136–151; BP diastolic 76–85; PULSE 61–98; RESP 16; TEMP 36.1–36.8; O2SAT 97–99
[2025-04-27] MEDS: LEVOTHYROXINE SODIUM 50 MCG TABLET PO (05:57)
[2025-04-27] MEDS: PIPERACILLIN/TAZOBACTAM SOD 4.5 GM in SODIUM CHLORIDE 0.9% IV 100 ML 200 ML IVPB (06:01)
[2025-04-27] MEDS: PANTOPRAZOLE 40 MG TABLET PO (09:21)
[2025-04-27] MEDS: CELECOXIB 100 MG CAPSULE PO ×2 (09:21→20:23)
[2025-04-27] MEDS: TRIMETHOBENZAMIDE HCL 200 MG/2 ML VIAL IM (09:22)
[2025-04-27] MEDS: ENOXAPARIN 40 MG/0.4 ML SYRINGE SUB-Q (09:22)
[2025-04-27] MEDS: MAGNESIUM OXIDE 400 MG TABLET 800 MG PO ×2 (09:22→17:06)
[2025-04-27] MEDS: POTASSIUM CHLORIDE 20 MEQ PACKET (FOR LIQUID) PO ×2 (09:22→17:06)
[2025-04-27] MEDS: THERAPEUTIC MULTIVITAMINS/MINERALS TAB (*BKC) 1 TABLET PO (09:22)
[2025-04-27] MEDS: ACETAMINOPHEN 325 MG TABLET 650 MG PO (09:23)
[2025-04-27] MEDS: HYDROcodone/acetaminophen (*CRX) 5-325 MG TABLET 1 TAB PO (12:41)
[2025-04-27] MEDS: PIPERACILLIN/TAZOBACTAM SOD 4.5 GM in SODIUM CHLORIDE 0.9% IV 100 ML IVPB (12:41)
[2025-04-27] MEDS: CALCIUM CARBONATE (TUMS) 500 MG (200 MG ELEMENTAL) PO ×2 (13:24→20:22)
[2025-04-27 15:16] LABS: Alanine Aminotransferase 11 U/L (6-35); Albumin Level 3.3 g/dL (3.5-5.1); Alkaline Phosphatase 68 U/L (38-126); Anion Gap 7 mmol/L (4-12); Aspartate Amino Transferase 23 U/L (14-36); Bilirubin,Total 0.1 mg/dL (0.2-1.3); Blood Urea Nitrogen 15 mg/dL (7-17); Calcium 8.3 mg/dL (8.4-10.2); Carbon Dioxide 17 mmol/L (22-30); Chloride 107 mmol/L (98-107); Estimated CRCL calculation 50 ml/min; Estimated Glomerular Filt Rate > 60; Glucose 134 mg/dL (65-110); Magnesium 1.1 mg/dL (1.6-2.3); Potassium 4.1 mmol/L (3.4-5.0); Sodium 131 mmol/L (137-145); Total Protein 6.1 g/dL (6.3-8.2)
[2025-04-27] MEDS: MAGNESIUM SULF 4 GM/WATER100ML 4 GM/100 ML BAG IVPB (17:07)
--- NOTE | 2025-04-27 17:36 | PM.IMPN ---
Progress Note: A&P Assessment and Plan (1) Electrolyte abnormality: Code(s): E87.8 - Other disorders of electrolyte and fluid balance, not elsewhere classified Status: Acute (2) Malnutrition: Code(s): E46 - Unspecified protein-calorie malnutrition Status: Acute (3) Failure to thrive: Status: Acute (4) Pneumonitis: Code(s): J98.4 - Other disorders of lung Status: Acute (5) Physical deconditioning: Code(s): R53.81 - Other malaise Status: Acute Plan 80-year-old female with PMH dementia, glp-vqmsyfb-uvmdqhiir diabetes mellitus, hypothyroidism, hypertension, chronic pain, peripheral neuropathy brought in by her family to [facility] on 04/19/2025. She was confused and weak. Family concerned she may have a UTI or pneumonia. Patient denied any complaints herself. Hypokalemia: Resolved status post replacement. Hydrochlorothiazide discontinued. Ensure adequate magnesium levels. Hypomagnesemia: See below Hypercalcemia: Resolved. [employer]CRU[employer] patient taking 2 different types of calcium medications and 2 different types of vitamin-D medications. Hold. Status post calcitonin subcu x4 doses. Hyponatremia: Likely due to dehydration/hypovolemia. Received fluids on 04/22/2025, sodium improved. Continue to trend. Hydrochlorothiazide discontinued. Failure to thrive, deconditioning, weakness: Patient has a poor appetite, she is eating only 10% of her meals. Seen by dietitian, she likes the chocolate Ensure supplements. Added Magic cups. On 04/26/25 she only took 1 bite of her breakfast. She truly assist from 1 on 1 feeding. Family believes that can continue this. Dementia: Continue [employer]ON[employer] RECRU[employer] donepezil Depression: Continue SE[employer]ON[employer] RECRUITER Cymbalta. Insomnia: Discontinue trazodone, restart SE[employer] RECRUITER Ambien. Family is aware of the risk, they would like her to restart this and she has had no unwanted side effects at home. She had a bad night of sleep, requested nursing staff to move the patient to a room by herself. Elevated troponin: Peaked. No chest pain. Thought to be due to dehydration. TTE on 12/25/2023 with hyperdynamic left ventricular systolic function and grade 1 diastolic dysfunction. Discontinue Lasix due to dehydration. Chronic pain syndrome: Gabapentin discontinued due to weakness and confusion. Continue to treat pain as needed and restart gabapentin at lower doses if necessary. Hypertension: At goal. Continue SE[employer]ON[employer] RECRU[employer] amlodipine. Pneumonitis: Negative for flu a, B, COVID. CT chest abdomen pelvis revealing mild tree-in-bud opacities in the right middle lobe consistent with age-indeterminate bronchiolitis. Patient has occasional dry cough. No fever. Completed 5 days of Zosyn, leukocytosis resolved. Patient denies any respiratory complaints. Blood cultures 04/22/2025, no growth to date, follow. Hypothyroidism: Continue [employer] RECRU[employer] levothyroxine 04/27/2025 update: Patient had an episode of diarrhea, also started back on Protonix. Magnesium continues to be low. Also compounded by her age, decreased creatinine clearance and malnutrition. Continue to replace, give magnesium 4 g rider. Continue magnesium oxide 800 mg p.o. b.i.d.. Discontinue Protonix, replace with famotidine 20 mg p.o. q.a.m.. Continue to trend. Discussed with the family. Patient wishes to be full code. Lovenox 40 mg subQ q.day Continue famotidine, ambulate with assistance, 1 on 1 feeding. Patient lives at home with her prior to arrival. She is very weak, continue PT/OT/dietitian evaluations. Family declines SNF, discharge to home with home health. Subjective Date/time seen: 04/27/25 17:36 Interval history: No major acute overnight events. Patient was able to tolerate breakfast and lunch today as she was fed by her family. Patient denies any complaints. She had 1 episode of diarrhea although. Review of Systems Review of Systems: All systems reviewed & are unremarkable except as noted in HPI and below (Subjective) Exam Const: General: comfortable Other: A&O x2, slightly anxious HENMT: Mouth: Yes moist mucous membranes Eyes: Pupils: Equal, round and reactive pupils present Neck: Neck: supple Resp: Effort & Inspection: normal respiratory effort Auscultation: clear to auscultation bilaterally Cardio: Rate: regular rate Rhythm: regular rhythm Heart sounds: no gallops, no murmurs and no rubs GI: Inspection: non-distended GI Palp: Yes Soft to palpation Auscultation: normal bowel sounds Neuro: Motor exam (neuro): 5/5 motor strength present throughout Extrem: General: no edema Objective Data Vital Signs Vital Signs: Vital Signs - 24 hr 04/26/25 20:00 04/26/25 20:00 04/26/25 20:25 Temperature 98.4 F Pulse Rate 82 89 Respiratory Rate 16 Blood Pressure 159/91 H Pulse Oximetry 97 Oxygen Delivery Room Air 04/26/25 23:31 04/27/25 00:00 04/27/25 04:00 Temperature Pulse Rate 72 68 Respiratory Rate Blood Pressure Pulse Oximetry 98 Oxygen Delivery Room Air 04/27/25 05:05 04/27/25 08:00 04/27/25 12:00 Temperature 97 F L Pulse Rate 98 85 79 Respiratory Rate 16 Blood Pressure 151/82 H Pulse Oximetry 97 Oxygen Delivery 04/27/25 15:37 Temperature 97.9 F Pulse Rate 91 Respiratory Rate 16 Blood Pressure 136/85 Pulse Oximetry 99 Oxygen Delivery Intake/Output Intake/Output: Intake & Output 04/24/25 04/25/25 04/26/25 04/27/25 23:59 23:59 23:59 23:59 Intake Total 1540 3662 1550 1290 Output Total 1500 4 300 Balance 40 3658 1250 1290 Meds/Results Medications: Active Medications Generic Name Dose Route Start Last Admin Trade Name Freq PRN Reason Stop Dose Admin Acetaminophen 650 mg 04/19/25 13:56 04/27/25 09:23 Acetaminophen 325 Mg Tablet PO 650 mg Q4H PRN Administration Mild Pain (1-3) or Fever Hydrocodone Bitart/Acetaminophen 1 tab 04/19/25 20:28 04/27/25 12:41 Hydrocodone/Acetaminophen (*Crx) 5-325 Mg Tablet PO 1 tab QID PRN Administration Pain 4-6 Amlodipine Besylate 5 mg 04/20/25 09:00 04/27/25 09:21 Amlodipine Besylate 5 Mg Tablet PO 5 mg DAILY JOSE Administration Aspirin 81 mg 04/20/25 21:00 04/26/25 20:39 Aspirin 81 Mg Enteric Tablet PO 81 mg HS JOSE Administration Buspirone HCl 10 mg 04/20/25 09:00 04/27/25 17:06 Buspirone Hcl 5 Mg Tablet PO 10 mg TID JOSE Administration Celecoxib 100 mg 04/19/25 21:00 04/27/25 09:21 Celecoxib 100 Mg Capsule PO 100 mg Q12HR JOSE Administration Docusate Sodium 100 mg 04/19/25 13:58 04/20/25 17:16 Docusate Sodium 100 Mg Capsule PO 100 mg BID PRN Administration Constipation Donepezil HCl 10 mg 04/19/25 21:00 04/26/25 20:39 Donepezil Hcl 10 Mg Tablet PO 10 mg QHS JOSE Administration Duloxetine HCl 90 mg 04/23/25 09:00 04/27/25 09:22 Duloxetine Hcl 30 Mg Capsule.Dr PO 90 mg DAILY JOSE Administration Enoxaparin Sodium 40 mg 04/20/25 09:00 04/27/25 09:22 Enoxaparin 40 Mg/0.4 Ml Syringe SUB-Q 40 mg DAILY JOSE Administration Famotidine 20 mg 04/27/25 16:45 Famotidine 20 Mg Tablet PO QAM JOSE Gemfibrozil 600 mg 04/20/25 09:00 04/27/25 17:06 Gemfibrozil 600 Mg Tablet PO 600 mg BID JOSE Administration Guaifenesin/Dextromethorphan 10 ml 04/20/25 10:10 Guaifenesin/Dextromethorphan 10 Ml Udc PO Q4H PRN Cough Magnesium Sulfate 4 gm in 100 mls @ 25 mls/hr 04/27/25 16:20 04/27/25 17:07 Magnesium Sulf 4 Gm/[id number] IVPB 04/27/25 20:19 25 mls/hr ONCE ONE Administration Latanoprost 1 drop 04/21/25 21:00 04/26/25 20:41 Latanoprost 0.005% Op Soln 2.5 Ml Btl EACH EYE 1 drop HS JOSE Administration Levothyroxine Sodium 50 mcg 04/20/25 06:30 04/27/25 05:57 Levothyroxine Sodium 50 Mcg Tablet PO 50 mcg DAILY@0630 JOSE Administration Magnesium Oxide 800 mg 04/26/25 17:00 04/27/25 17:06 Magnesium Oxide 400 Mg Tablet PO 800 mg BID JOSE Administration Multivitamins/Calcium 1 tablet 04/24/25 12:00 04/27/25 09:22 Therapeutic Multivitamins/Minerals Tab (*Bkc) PO 1 tablet DAILY JOSE Administration Potassium Chloride 20 meq 04/24/25 17:00 04/27/25 17:06 Potassium Chloride 20 Meq Packet (For Liquid) PO 20 meq BID JOSE Administration Trimethobenzamide HCl 200 mg 04/24/25 21:16 04/27/25 09:22 Trimethobenzamide Hcl 200 Mg/2 Ml Vial IM 200 mg Q6H PRN Administration Nausea And Vomiting Zolpidem Tartrate 5 mg 04/26/25 21:00 04/26/25 20:38 Zolpidem Tartrate (*Crx) 5 Mg Tablet PO 5 mg HS JOSE Administration Radiology Results: ITS Impressions Head CT 04/19/25 13:32 IMPRESSION: 1. Old lacunar infarct at the left basal ganglia. No acute intracranial process. 2. Age-related changes including and mild to moderate diffuse volume loss and moderate scattered white matter hypoattenuation consistent with chronic small vessel ischemic disease. Chest/Abdomen/Pelvis CT 04/19/25 13:35 IMPRESSION: 1. Mild tree-in-bud opacities in the right middle lobe consistent with age indeterminate bronchiolitis with endobronchial spread of disease. 2. No acute intra-abdominal/pelvic process. 3. Moderate-sized hiatal hernia. 4. Extensive degenerative and postoperative changes in the spine as detailed above. Chest X-Ray 04/25/25 13:01 IMPRESSION: 1. No definite change or acute cardiopulmonary findings given portable technique. Labs Labs: Laboratory Results - last 24 hr 04/27/25 14:56 Sodium 131 L Potassium 4.1 Chloride 107 Carbon Dioxide 17 L Anion Gap 7 BUN 15 Creatinine 0.60 L Estim Creat Clear Calc 50 Estimated GFR > 60 Glucose 134 H Calcium 8.3 L Phosphorus 3.4 Magnesium 1.1 L Total Bilirubin 0.1 L AST 23 ALT 11 Alkaline Phosphatase 68 Total Protein 6.1 L Albumin 3.3 L
[2025-04-27] MEDS: ASPIRIN 81 MG ENTERIC TABLET PO (20:22)
[2025-04-27] MEDS: LATANOPROST 0.005% OP SOLN 2.5 ML BTL 1 DROP EACH EYE (20:23)
[2025-04-27] MEDS: ZOLPIDEM TARTRATE (*CRX) 5 MG TABLET PO (20:23)
[2025-04-27] MEDS: DONEPEZIL HCL 10 MG TABLET PO (20:23)
[2025-04-28] VITALS (7 sets, daily range): BP systolic 139–155; BP diastolic 72–81; PULSE 57–85; RESP 16–20; TEMP 36.6; O2SAT 97
[2025-04-28] MEDS: LEVOTHYROXINE SODIUM 50 MCG TABLET PO (06:24)
[2025-04-28 06:52] LABS: Alanine Aminotransferase 13 U/L (6-35); Albumin Level 3.5 g/dL (3.5-5.1); Alkaline Phosphatase 63 U/L (38-126); Anion Gap 7 mmol/L (4-12); Aspartate Amino Transferase 27 U/L (14-36); Bilirubin,Total 0.3 mg/dL (0.2-1.3); Blood Urea Nitrogen 13 mg/dL (7-17); Calcium 8.9 mg/dL (8.4-10.2); Carbon Dioxide 20 mmol/L (22-30); Chloride 104 mmol/L (98-107); Estimated CRCL calculation 68 ml/min; Estimated Glomerular Filt Rate > 60; Glucose 115 mg/dL (65-110); Magnesium 1.5 mg/dL (1.6-2.3); Potassium 3.6 mmol/L (3.4-5.0); Sodium 131 mmol/L (137-145); Total Protein 6.3 g/dL (6.3-8.2)
[2025-04-28] MEDS: MAGNESIUM OXIDE 400 MG TABLET 800 MG PO (09:02)
[2025-04-28] MEDS: POTASSIUM CHLORIDE 20 MEQ PACKET (FOR LIQUID) PO (09:03)
[2025-04-28] MEDS: CELECOXIB 100 MG CAPSULE PO (09:03)
[2025-04-28] MEDS: FAMOTIDINE 20 MG TABLET PO (09:03)
[2025-04-28] MEDS: THERAPEUTIC MULTIVITAMINS/MINERALS TAB (*BKC) 1 TABLET PO (09:03)
[2025-04-28] MEDS: ENOXAPARIN 40 MG/0.4 ML SYRINGE SUB-Q (09:04)
[2025-04-28] MEDS: HYDROcodone/acetaminophen (*CRX) 5-325 MG TABLET 1 TAB PO (09:04)
[2025-04-28] MEDS: CALCIUM CARBONATE (TUMS) 500 MG (200 MG ELEMENTAL) PO (09:13)
--- NOTE | 2025-04-28 10:11 | PCNFU ---
Nutrition Follow-Up Complete: Suboptimal po intake related to appetite as evidenced by nursing report and charted intake PO intake 50% or greater - Progressing with goal. Continue same goal Goal: Pt current nutrition is Regular diet. Ensure + HP TID (350 kcal, 20 g protein) and nutritional ice cream TID (270 kcal, 9 g protein). Nutrition recommendation: No new recommendations. Feeding assistance as needed. Continue current nutrition care plan and orders. Agree with orders Last recorded weight is 57.7 kg. Bowel Motility: +1 BM 04/28/25 Labs Reviewed: Na 131, Cre 0.43, Glu 115, Mag 1.5 Meds Noted: Pepcid, MVI, Kcl Skin: No skin issues Additional Notes: Appetite improved, 100%x2 yesterday. Eats better when fed by family. Discharge planning to SNF. Continue to follow Monitor intake, wt, labs. Follow up in 5 days.
[2025-04-28 11:50] LABS: Hematocrit 32.2 % (37.0-47.0); Hemoglobin 10.9 g/dL (12.0-15.0); Immature Granulocyte Percent A 0.4 % (0-0.5); Lymphocytes Absolute Auto 1.77 K/mm3 (0.9-3.2); Mean Corpuscular HGB Conc 33.9 g/dl (32-36); Mean Corpuscular Hemoglobin 30.8 pg (26-34); Mean Corpuscular Volume 91.0 fl (80-100); Nucleated Red Blood Cells Absolute Auto 0.000 K/mm3 (0.0-0.012); Nucleated Red Blood Cells Perc 0.0 % (0.0-0.2); Platelet Count Result 418 k/mm3 (150-375); Red Blood Count 3.54 M/mm3 (4.2-5.4); White Blood Count 8.4 K/mm3 (4.5-10.0)
[2025-04-28] MEDS: MAGNESIUM SULF 1 GM/D5W 100 ML 1 GM/100 ML BAG IVPB (12:50)
[2025-04-28] MEDS: MAG HYDROX/AL HYDROX/SIMETH 30 ML UDC PO (12:50)
--- NOTE | 2025-04-28 14:46 | PM.DS ---
DS: Admitting Diagnosis Discharge Date 04/28/2025 Admitting Diagnosis Altered mental status DS: Discharge Diagnosis Discharge Diagnosis (1) Physical deconditioning: Code(s): R53.81 - Other malaise Status: Acute (2) Pneumonitis: Code(s): J98.4 - Other disorders of lung Status: Acute (3) Hypercalcemia: Code(s): E83.52 - Hypercalcemia Status: Acute (4) Hypomagnesemia: Code(s): E83.42 - Hypomagnesemia Status: Acute (5) Acute hypokalemia: Code(s): E87.6 - Hypokalemia Status: Acute (6) Electrolyte abnormality: Code(s): E87.8 - Other disorders of electrolyte and fluid balance, not elsewhere classified Status: Acute (7) Malnutrition: Code(s): E46 - Unspecified protein-calorie malnutrition Status: Acute (8) Failure to thrive: Status: Acute DS: Summary Hospital Course Hospital Course: 80-year-old female with [facility] dementia, izt-pqtllhw-ropwurjln diabetes mellitus, hypothyroidism, hypertension, chronic pain, peripheral neuropathy brought in by her family to [facility] on 04/19/2025. She was confused and weak. Family concerned she may have a UTI or pneumonia. Patient denied any complaints herself. On 04/28/2025 she is back to her baseline. She is discharged in stable condition to home. Suspect hypercalcemia due to overuse of as needed indigestion medications at home and scheduled vitamin-D/calcium medications. Status post calcitonin subcutaneous x4 doses. Afterwards she had hypocalcemia which could have been due to hypo magnesemia. She has very poor oral intake, failure to thrive, malnutrition severe, deconditioning. She did have good improvement as the family was feeding her for every meal. She has been placed on p.o. magnesium oxide supplementation. She was given IV magnesium as well. She will have repeat magnesium and BMP levels in 1 day with follow-up with her PCP within 7 days or earlier as needed after shared decision making held with the patient's . Hydrochlorothiazide discontinued. Multiple and lengthy discussions held with the patient's and other family members in all their questions and concerns were answered to satisfaction. Advised to take caution in overusing the indigestion medications. Her Protonix was switched to famotidine 20 mg p.o. b.i.d.. Hyponatremia stable. She was seen by dietitian, continue Ensure supplements. Discussed the risks versus benefits of medications such as Ambien, gabapentin, oxybutynin, narcotic. They wanted to continue everything but the oxybutynin as the believe there is a higher perceived benefit with narcotic, Ambien, gabapentin and she was withdrawing from those when she did not get them. Pneumonitis and possible pneumonia treated with Zosyn. Leukocytosis resolved. Afebrile. Blood culture no growth to date. They declined for the patient to be discharged to SNF for rehab in reconditioning. She will go home with home health. The patient was full code. Time Spent with Patient Time attestation: Total time spent providing and/or coordinating discharge services: Time spent: Greater than 30 minutes Exam Const: General: comfortable HENMT: Mouth: Yes moist mucous membranes Eyes: Pupils: Equal, round and reactive pupils present Neck: Neck: supple Resp: Effort & Inspection: normal respiratory effort Auscultation: clear to auscultation bilaterally Cardio: Rate: regular rate Rhythm: regular rhythm Heart sounds: no gallops, no murmurs and no rubs GI: Inspection: non-distended GI Palp: Yes Soft to palpation Auscultation: normal bowel sounds Neuro: Motor exam (neuro): 5/5 motor strength present throughout Extrem: General: no edema DS: Data Data Completed and Pending Labs on day of discharge: Labs from last 24 hours 04/28/25 04/27/25 05:55 14:56 WBC 8.4 RBC 3.54 L Hgb 10.9 L Hct 32.2 L MCV 91.0 MCH 30.8 MCHC 33.9 RDW 15.5 H Plt Count 418 H MPV 10.3 Immature Gran % (Auto) 0.4 Neut % (Auto) 58.6 Lymph % (Auto) 21.1 [place] % (Auto) 16.6 H Eos % (Auto) 2.7 Baso % (Auto) 0.6 Lymph # (Auto) 1.77 [place] # (Auto) 1.4 H Eos # (Auto) 0.2 Baso # (Auto) 0.1 Abs Immat Gran (auto) 0.03 Absolute Neuts (auto) 4.9 Absolute Nucleated RBC 0.000 Nucleated RBC % 0.0 Sodium 131 L 131 L Potassium 3.6 4.1 Chloride 104 107 Carbon Dioxide 20 L 17 L Anion Gap 7 7 BUN 13 15 Creatinine 0.43 L 0.60 L Estim Creat Clear Calc 68 50 Estimated GFR > 60 > 60 Glucose 115 H 134 H Calcium 8.9 8.3 L Phosphorus 3.4 Magnesium 1.5 L 1.1 L Total Bilirubin 0.3 0.1 L AST 27 23 ALT 13 11 Alkaline Phosphatase 63 68 Total Protein 6.3 6.1 L Albumin 3.5 3.3 L Preliminary micro results at discharge 04/22/25 20:42 Blood Culture - Preliminary Blood 04/22/25 20:42 Blood Culture - Preliminary Blood Discharge Plan Discharge Attending physician on discharge: Tania Mcgee Discharging Clinician: Tania Mcgee Patient Disposition: Home with Home Health Service Activity: december shower Diet: as tolerated Discharge Instructions: Per Care Coordination Patient has been accepted to have [facility] for RN, PT, OT [phone]. [facility] staff will call to arrange a time to see you in your house early next week. Patient Instructions: Antibiotic Form, Aspirin (By mouth) Patient Language: Cymro Stand Alone Forms: General Discharge Information Follow-up/Referrals: Jarek Gallardo,[place] [Other] - 05/02/25 Discharge Medications: New famotidine 20 mg Tablet 20 mg PO BID Qty: 60 0RF magnesium oxide 400 mg (241.3 mg magnesium) Tablet 800 mg PO BID Qty: 120 0RF multivitamin Tablet 1 tablet PO DAILY Qty: 30 0RF potassium chloride 20 mEq Packet 20 meq PO BID Qty: 30 0RF Continued hydrocodone-acetaminophen 5-325 mg Tablet 1 tablet PO QID PRN (Reason: pain) gemfibrozil [Lopid] 600 mg Tablet 600 mg PO BID Rx Instructions: before breakfast and before dinner levothyroxine 50 mcg Tablet 50 mcg PO DAILY gabapentin [Neurontin] 600 mg tablet 900 mg PO Q8H Qty: 300 3RF aspirin 81 mg Tablet 81 mg PO HS amlodipine 5 mg Tablet 5 mg PO DAILY zolpidem [Ambien] 5 mg Tablet 5 mg PO HS buspirone 5 mg Tablet 10 mg PO TID celecoxib 100 mg capsule 100 mg PO Q12H donepezil 10 mg tablet 10 mg PO QHS duloxetine 30 mg capsule,delayed release(DR/EC) 30 mg PO DAILY duloxetine 60 mg capsule,delayed release(DR/EC) 60 mg PO DAILY fluticasone propionate 50 mcg/actuation spray,suspension 1 spray INTRANASAL DAILY latanoprost 0.005 % drops 1 drp EACH EYE QPM estradiol [Estrace] 0.01 % (0.1 mg/gram) cream 1 appful vaginal DIRECTED [id number] C-Mn [Glucosamine Chondroitin MaxStr] 500-400 mg capsule 1 cap PO TID ferrous sulfate 325 mg (65 mg iron) tablet 325 mg PO DAILY krill oil 500 mg capsule 500 mg PO DAILY nystatin [Klayesta] 100,000 unit/gram powder 1 applic topical BID Held oxybutynin chloride 10 mg tablet extended release 24hr 10 mg PO DAILY Hold Instructions: Review medications side effects with primary care Discontinued pantoprazole 40 mg Tablet,Delayed Release (Dr/Ec) 40 mg PO QAM hydrochlorothiazide 25 mg Tablet 25 mg PO DAILY potassium chloride 20 mEq tablet extended release 20 meq PO DAILY Qty: 10 0RF [id number]-cstcohkefpeqq-bjcf 50-325-40 mg capsule 1 cap PO Q4-6H PRN (Reason: pain) calcium carbonate [Calcium 500] 500 mg calcium (1,250 mg) tablet,chewable 500 mg PO DAILY cholecalciferol (vitamin D3) [Vitamin D3] 25 mcg (1,000 unit) capsule 25 mcg PO DAILY calcium carbonate-vitamin D3 500 mg-15 mcg (600 unit) tablet See Rx Instructions PO DIRECTED Rx Instructions: orally as directed; Other Ambulatory Orders: Basic Metabolic Panel (Routine) Timeframe: 1 Day Location: Determined by Patient Ordered By: Tania Mcgee Magnesium (Routine) Timeframe: 1 Day Location: Determined by Patient Ordered By: Tania Mcgee Date of admission: 04/20/25 09:16 Primary Care Provider: Jarek GallardoBryn Admitting Provider: Jhoan Castillo Attending physician on admission: Jhoan Castillo Condition: Stable
== END 2025-04-28 16:55 | disposition home health service (06) | DRG 640 ==
LOC: ANHED 14:03 → ANHIMU 15:40 → ANH3MEDSUR 04-25 16:02 → ANHIMU 04-29 09:18
PROVIDERS: Nurse Practitioner Gerontology; Student in an Organized Health Care Education/Training Program; Admitting Provider Internal Medicine; Emergency Provider Emergency Medicine; Visit Provider General Practice
DX: E87.6 Hypokalemia (principal); E43 Unspecified severe protein-calorie malnutrition; E87.1 Hypo-osmolality and hyponatremia; E83.42 Hypomagnesemia; E83.52 Hypercalcemia; E11.40 Type 2 diabetes mellitus with diabetic neuropathy, unspecified; J98.4 Other disorders of lung; E78.5 Hyperlipidemia, unspecified; E03.9 Hypothyroidism, unspecified; I10 Essential (primary) hypertension; R19.7 Diarrhea, unspecified; R79.89 Other specified abnormal findings of blood chemistry; R62.7 Adult failure to thrive; G31.84 Mild cognitive impairment of uncertain or unknown etiology; G89.4 Chronic pain syndrome; H40.9 Unspecified glaucoma; F03.90 Unspecified dementia, unspecified severity, without behavioral disturbance, psychotic disturbance, mood disturbance, and anxiety; F32.A Depression, unspecified; Z20.822 Contact with and (suspected) exposure to COVID-19; Z68.21 Body mass index [BMI] 21.0-21.9, adult
CPT/HCPCS: 36415; 70450; 71045; 71260; 74177; 80048; 80053; 81001; 82306; 82397; 83605; 83735; 83970; 84100; 84145; 84443; 84484; 85025; 86140; 87040; 87636; 93005; 93306; 96365; 96366; 96367; 96368; 97110; 97116; 97162; 97165; 97530; 97535; 99285; A9270; G0378; J0456; J0630; J0696; J1650; J2543; J3250; J3475; J3480; J7030; J7040; J7050; Q9967

== ENCOUNTER 2025-04-29 15:17 | Outpatient (CLI) | payer OTHER, SELFPAY ==
--- OUTSIDE RECORDS SUMMARY | 2025-04-29 04:55 | XMS_ITS | Continuity of Care Document ---
Author Organization [facility] Address [address] [place] [address] Phone Care Team Providers Care Night Order Selector Name Role Phone AkirabeataBryn Gallardo DO Unavailable [...] DOCD IN RCRD ROUTINE VENIPUNCTURE [place] OFFICE [id number] BODY MASS INDEX DOCD SYST BP LT 130 MM HG DIAST BP < 80 MM HG COMPREHEN METABOLIC PANEL [facility] HEMOGLOBIN A1C HGA1C, GLYCO PARATHYROID HORMONE (PTH) THYROID STIMULATION HORMONE(TSH) 2024 VITAMIN D, 25-HYDROXY CBC, INC PLATELETS AND DIFFERENTIAL COMPREHEN METABOLIC PANEL CMP HEMOGLOBIN A1C HGA1C, GLYCO LIPID PANEL THYROID STIMULATION HORMONE(TSH) 2024 VITAMIN B12 (SERUM) ROUTINE VENIPUNCTURE IL OFFICE APQBL-[id number] BODY MASS INDEX DOCD SYST BP LT 130 MM HG DIAST BP < 80 MM HG Removal Impacted Cerumen Irrigation/Lava ge, Unilateral CBC, INC PLATELETS AND DIFFERENTIAL COMPREHEN METABOLIC PANEL [facility] 4 THYROID STIMULATION HORMONE(TSH) 2023 Pt inelig neg scrn depres ROUTINE VENIPUNCTURE IL Admin influenza virus vac FLU VACC PRSV FREE INC ANTIG REMOVAL IMPACTED CERUMEN REQUIRING INSTR UMENTATION OFFICE ELWVI-SOS-SVULVPQM BODY MASS INDEX DOCD SYST BP LT 130 MM HG DIAST BP < 80 MM HG CBC, INC PLATELETS AND DIFFERENTIAL COMPREHEN METABOLIC PANEL [facility] HEMOGLOBIN A1C HGA1C, GLYCO LIPID PANEL MICROALBUMIN, QN (URINE) CREATININE, (U-R) THYROID STIMULATION HORMONE(TSH) 2023 FREE T4 (FT4) ROUTINE VENIPUNCTURE [place] OFFICE EIRUU-AGF-[id number] Visit Complexity Inherent To E/M 2023 BODY [...] INC PLATELETS AND DIFFERENTIAL COMPREHEN METABOLIC PANEL [facility] 3 PARATHYROID HORMONE (PTH) THYROID STIMULATION HORMONE(TSH) 2022 VITAMIN D, 25-HYDROXY PNEUMOVAX ADM MEDICARE Pneumococcal Conjugate Vaccine (PCV20) D ROUTINE VENIPUNCTURE [place] OFFICE KGDVR-[id number]-[id number] BODY MASS INDEX DOCD SYST BP LT 130 MM HG DIAST BP < 80 MM HG DEPO-MEDROL 80MG THERAPEUTIC, PROPHYLACTIC OR DIAG INJ IN TRA-MUSCLR/SQ COVID-19, Amplified Probe Technique OFFICE INNNQ-HDI-[id number] BODY MASS INDEX DOCD SYST BP LT 130 MM HG DIAST BP < 80 MM HG FLU VACC PRSV FREE INC ANTIG Admin influenza virus vac CBC, INC PLATELETS AND DIFFERENTIAL COMPREHEN METABOLIC PANEL CMP 3 HEMOGLOBIN A1C HGA1C, GLYCO THYROID STIMULATION HORMONE(TSH) 2022 VITAMIN B12 (SERUM) Pt inelig neg scrn depres ROUTINE VENIPUNCTURE IL OFFICE ZWLHG-UFU-MYWHENOX BODY MASS INDEX DOCD SYST BP LT 130 MM HG DIAST BP < 80 MM HG CBC, INC PLATELETS AND DIFFERENTIAL COMPREHEN METABOLIC PANEL CMP 3 HEMOGLOBIN A1C HGA1C, GLYCO LIPID PANEL MICROALBUMIN, QN (URINE) CREATININE, (U-R) THYROID STIMULATION HORMONE(TSH) 2022 FALL RISK ASSESSMENT DOC'D PRES/ABSN URINE INCON ASSESS ROUTINE VENIPUNCTURE IL OFFICE UAUGV-[id number]-[id number] BODY MASS INDEX DOCD SYST BP GE 130 - 139MM HG DIAST BP < 80 MM HG AMYLASE CBC, INC PLATELETS AND DIFFERENTIAL COMPREHEN METABOLIC PANEL CMP 2 HEMOGLOBIN A1C HGA1C, GLYCO LIPASE THYROID STIMULATION HORMONE(TSH) 2021 VITAMIN B12 (SERUM) ROUTINE VENIPUNCTURE OFFICE GHUYQ-KKH-KCMJZCWI BODY MASS INDEX DOCD SYST BP LT 130 MM HG DIAST BP < 80 MM HG CBC, INC PLATELETS AND DIFFERENTIAL COMPREHEN METABOLIC PANEL CMP 2 FERRITIN LEVEL IRON (FE), TOTAL TIBC, & % SATURATION THYROID STIMULATION HORMONE(TSH) 2021 ROUTINE VENIPUNCTURE OFFICE SCIMB-QCC-FCBOPBHT BODY MASS INDEX DOCD SYST BP LT 130 MM HG DIAST BP < 80 MM HG Pt inelig neg scrn depres COMPREHEN METABOLIC PANEL CMP HEMOGLOBIN A1C HGA1C, GLYCO LIPID PANEL MICROALBUMIN, QN (URINE) CREATININE, (U-R) THYROID STIMULATION HORMONE(TSH) 2021 ROUTINE VENIPUNCTURE OFFICE DILYW-IZQ-[id number] BODY MASS INDEX DOCD SYST BP LT 130 MM HG DIAST BP < 80 MM HG FALL RISK ASSESSMENT DOC'D PRES/ABSN URINE INCON ASSESS C-REACTIVE PROTEIN (CRP) CBC, INC PLATELETS AND DIFFERENTIAL COMPREHEN METABOLIC PANEL CMP 1 HEMOGLOBIN A1C HGA1C, GLYCO ROUTINE VENIPUNCTURE OFFICE SPCAS-WYX-DUODCRHB BODY MASS INDEX DOCD SYST BP GE [...] THYROID STIMULATION HORMONE(TSH) 2020 ROUTINE VENIPUNCTURE OFFICE UHDXO-YJG-[id number] BODY MASS INDEX DOCD SYST BP LT 130 MM HG DIAST BP < 80 MM HG OFFICE BZBEY-HNU-XOISWMFQ BODY MASS INDEX DOCD SYST BP LT 130 MM HG DIAST BP < 80 MM HG Pt inelig neg scrn depres COMPREHEN METABOLIC PANEL [facility] HEMOGLOBIN A1C HGA1C, GLYCO MICROALBUMIN, QN (URINE) CREATININE, (U-R) THYROID STIMULATION HORMONE(TSH) 2020 ROUTINE VENIPUNCTURE OFFICE IEIDI-QPC-QIYRKZJG BODY MASS INDEX DOCD SYST BP LT 130 MM HG DIAST BP < 80 MM HG BASIC METABOLIC PANEL(BMP) PARATHYROID HORMONE (PTH) VITAMIN D, 25-HYDROXY ROUTINE VENIPUNCTURE FALL RISK ASSESSMENT DOC'D PRES/ABSN URINE INCON ASSESS COMPREHEN METABOLIC PANEL [facility] 0 HEMOGLOBIN A1C HGA1C, GLYCO LIPID PANEL THYROID STIMULATION HORMONE(TSH) 2019 ROUTINE VENIPUNCTURE OFFICE WANLO-LPH-WWOROZKB BODY MASS INDEX DOCD SYST BP LT 130 MM HG DIAST BP < 80 MM HG CBC, INC PLATELETS AND DIFFERENTIAL ROUTINE VENIPUNCTURE CBC, INC PLATELETS AND DIFFERENTIAL COMPREHEN METABOLIC PANEL CMP 0 THYROID STIMULATION HORMONE(TSH) 2019 ROUTINE VENIPUNCTURE OFFICE VWXRO-MRN-OAFFHCSB Pt inelig neg scrn depres Brief Emotional/Behavioral A ssessment, With Scoring/Doct, Per Stndrd Instrument OFFICE NIOYX-EKG-JZBLPNLZ BODY MASS INDEX DOCD SYST BP LT 130 MM HG DIAST BP < 80 MM HG CBC, INC PLATELETS AND DIFFERENTIAL COMPREHEN METABOLIC PANEL [facility] 9 HEMOGLOBIN A1C HGA1C, GLYCO THYROID STIMULATION HORMONE(TSH) 2018 URINALYSIS, REFLEX (UA) ROUTINE VENIPUNCTURE OFFICE FDTGP-[id number]-ABDWXLYC BODY MASS INDEX DOCD SYST BP LT 130 MM HG DIAST BP < 80 MM HG Kept Appointment No Charge Encounter Apr URINALYSIS, REFLEX (UA) CBC, INC PLATELETS AND DIFFERENTIAL COMPREHEN METABOLIC PANEL [facility] 9 HEMOGLOBIN A1C HGA1C, GLYCO THYROID STIMULATION HORMONE(TSH) 2018 ROUTINE VENIPUNCTURE OFFICE OFCFP-KPG-[id number] BODY MASS INDEX DOCD SYST BP LT [...] Diagnoses Date Provider Providers Copied on Encounter [facility], [address], [place], [place], [address] , [place] tel:[phone] [facility] No Information 5 Ernie amy Clemente. [facility] [place], [place], [id number], [place]. tel: [phone] [facility], [address], [place], [place], [address] , [place] tel: [phone] [facility] No Information 5 Ernie reyes Bryn. [address] [place], [place], [id number], [place]. tel: [phone] [facility], [address], [place], [place], [address] , [place] tel: [phone] [facility] No Information 5 Ernie reyes Bryn. [facility] [place], [place], [address], [place]. tel: [phone] [facility], [address], [place], [address] , [place] tel: [phone] [facility] No Information 5 Ernie amy Clemente. [address] [place] [address], [id number], [place]. tel: [phone] [facility], [address], [place], [address] , [place] tel: [phone] [facility] No Information 5 Sujit Herndon. [address] [place], [place], [id number], [place]. tel: [phone] [facility], [address], [place], [address] , [place] tel: [phone] [facility] No Information 5 Ernie Clemente. [address] [place] [address], [id number], [place]. tel: [phone] [facility], [address], [place], [address] , [place] tel: [phone] [facility] No Information Jan-3 0- 5 Merline Pang. [address] [place] [address], [address], [place]. tel:[phone] OFFICE DSALL-ISA-EOB JOSE [facility], [address], [place], [address] , tel: [phone] [facility] 4 month F/U (chief complaint)Chr onic Conditions (chief complaint) Body mass index [BMI] 27.0-27.9, adultType 2 diabetes mellitus with diabetic polyneuropat hyHypothyroi dism, unspecifiedO ther intervertebr al disc displacement , lumbar regionEssent ial (primary) hypertension Pulmonary hypertension , unspecifiedA ge-related cognitive declineHyper calcemiaInso mnia, unspecified Gerard-0 9- 5 Ernie Clemente. [address] [place] [address], [id number], [place]. tel:[phone] Referring Provider: Bryn villafana, [address] [place] [address], [address] . tel:[phone] [facility], [address], [place], [address] , [place] tel: [phone] [facility] No Information Jan-0 - 5 Michael Ortiz. [address] [address], [place], [place], [address], . tel:[phone] Referring Provider: Bryn villafana, [address] [place] [address], [address] . tel:[phone] [facility], [address], [place], [address] , [place] tel: [phone] [facility] No Information Jan-0 2-202 5 Sujit Herndon. [address] [place] [address], [id number], [place]. tel:[phone] [facility], [address], [place], [address] , [place] tel: [phone] [facility] No Information 0 8- 5 Ernie Clemente. [address] [place] [address], [id number], [place]. tel:[phone] [facility], [address], [place], [address] , [place] tel: [phone] [facility] No Information Nov-0 8- 5 Sujit Herndon. [address] [place] [address], [id number], [place]. tel:[phone] [facility], [address], [place], [address] , [place] tel: [phone] [facility] No Information 0- 5 Ernie Clemente. [address] [place] [address], [id number], [place]. tel:[phone] [facility], [address], [place], [address] , [place] tel: [phone] [facility] No Information 0 - 5 Merline Pang. [address] [place] [address], [address], . tel: [phone] [facility], [address], [place], [address] , [place] tel: [phone] [facility] No Information 0- 5 Michael Ortiz. [address], [id number], [place]. tel:[phone] Referring Provider: Bryn villafana, [address] [place] [address], [address] . tel:[phone] OFFICE XIZLR-GLU-NCI JOSE [facility], [address], [place], [place], [address] , [place] tel: [phone] [facility] 4 month F/U (chief complaint)Chr onic Conditions (chief complaint) Body mass index [BMI] 24.0-24.9, adultType 2 diabetes mellitus with diabetic polyneuropat hyHypothyroi dism, unspecifiedO ther intervertebr al disc displacement , lumbar regionHyperl ipidemia, unspecifiedE ssential (primary) hypertension Pulmonary hypertension , unspecifiedC erebrovascul ar disease, unspecifiedM yalgia, unspecified siteOther symptoms and signs involving cognitive functions and awareness 5 Ernie Clemente. [address] [place] [address], [id number], [place]. tel:[phone] Referring Provider: Bryn villafana, [address] [place] [address], [address] . tel:[phone] [facility], [address], [place], [address] , tel: [phone] [facility] No Information 4 Ernie Clemente. [address] [place] [address], [id number], [place]. tel:[phone] [facility], [address], [place], [address] , [place] tel: [phone] [facility] ear wash (chief complaint) Impacted cerumen, right ear 4 Ernie Clemente. [address] [place] [address], [id number], [place]. tel:[phone] Referring Provider: Bryn villafana, [address] [place] [address], [address] . tel:[phone] [facility], [address], [place], [address] , [place] tel: [phone] [facility] No Information 4 Michael Ortiz. [address] [facility], [address], [id number], [place]. tel:[phone] Referring Provider: Bryn villafana, [address] [place] [address], [address] . tel:[phone] OFFICE INIXJ-QCN-WVT JOSE [facility], [address], [place], [address] , [place] tel: [phone] [facility] 3 month F/U (chief complaint)Chr onic Conditions (chief complaint) Body mass index [BMI] 23.0-23.9, adultType 2 diabetes mellitus with diabetic polyneuropat hyHypothyroi dism, unspecifiedO ther intervertebr al disc displacement , lumbar regionHyperl ipidemia, unspecifiedE ssential (primary) hypertension Gastro-esoph ageal reflux disease without esophagitisE ncounter for immunization Impacted cerumen of right ear 4 Ernie Clemente. [address] [place] [address], [id number], [place]. tel:[phone] Referring Provider: Bryn villafana, [address] [place] [address], [address] . tel:[phone] [facility], [address], [place], [place], [address] , [place] tel: [phone] [facility] Encounter for screening mammogram for malignant neoplasm of breast 4 Ernie Clemente. [address] [place] [address], [id number], [place]. [phone] [facility], [address], [place], [address] , [place] tel: [phone] [facility] Type 2 diabetes mellitus with diabetic polyneuropat hyHypothyroi dism, unspecifiedE ssential (primary) hypertension Hyperlipidem ia, unspecified 4 Michael Ortiz. [address] [facility], [address], [id number], . tel:[phone] Referring Provider: Bryn vilalfana, [address] [place] [address], [address] . tel:[phone] OFFICE IYNYN-JEU-NMO JOSE [facility], [address], [place], [place], [address] , tel: [phone] [facility] [place] 2 month F/U (chief complaint)Chr onic Conditions (chief complaint)chr onic conditions (chief complaint) Body mass index [BMI] 24.0-24.9, adultType 2 diabetes mellitus with diabetic polyneuropat hyOther intervertebr al disc degeneration , lumbar regionHypoth yroidism, unspecifiedO ther symptoms and signs involving cognitive functions and awarenessEss ential (primary) hypertension Hyperlipidem ia, unspecifiedP ulmonary hypertension , unspecifiedM yalgia, unspecified siteEncounte r for immunization 4 Ernie Clemente. [address] [place] [address], [id number], [place]. [phone] Referring Provider: Bryn villafana, [address] [place] [address], [address] . tel:[phone] [facility], [address], [place], [place], [address] , [place] tel: [phone] [facility] No Information 4 Michael Ortiz. [address] [place] [address], [id number], . tel:[phone] Referring Provider: Bryn villafana, [address] [place] [address], [address] . tel:[phone] [facility], [address], [place], [place], [address] , [facility]: [phone] [facility] Ess[facility] (primary) [facility] 4 Ernie Clemente. [address] [place] [address], [id number], [place]. tel:[phone] Referring Provider: Bryn villafana, [address] [place] [address], [address] . tel:[phone] [facility] [address], [place], [place], [address] , tel: [phone] [facility] No Information 4 Michael Gallegosn. [address] [address], [place], [place], [address], . tel:[phone] Referring Provider: Bird Rick, [address] [place] [address], [address]. tel:[phone] Transitional Care- First 7 Days Of Discharge [facility], [address], [place], [place], [address] , tel: [phone] [facility] Follow-Up (chief complaint)Chr onic Conditions (chief complaint)chr [...] [BMI] 25.0-25.9, adultHypokal emia 4 Merline Pang. [address] [place] [address], [address], [place]. tel:[phone] Referring Provider: Bryn villafana, [address] [place] [address], [address] . tel:[phone] [facility], [address], [place], [place], [address] , [place] tel: [phone] [facility] No Information 4 Ernie Clemente. [address] [place] [address], [id number], [place]. [phone] Referring Provider: Bryn villafana, [address] [place] [address], [place], [address] . tel:[phone] [facility], [address], [place], [address] , [place] tel: [phone] [facility] No Information 4 Michael Angel. [address] [place] [address], [id number], [place]. tel:[phone] Referring Provider: Bryn villafana, [address] [place] [address], [place], [address] . tel:[phone] [facility], [address], [place], [address] , [place] tel: [phone] [facility] Brandi Hypothyroidi sm, unspecifiedT ype 2 diabetes mellitus with diabetic polyneuropat hyRadiculopa thy, lumbar region 4 Ernie Clemente. [address] [place] [address], [id number], [place]. tel:[phone] Referring Provider: Bryn villafana, [address] [place] [address], [address] . tel:[phone] [facility], [address], [place], [place], [address] , [place] tel: [phone] [facility] No Information 3 Michael Angel. [address], [id number], [place]. tel:[phone] Referring Provider: Bryn villafana, [address] [place] [address], [address] . tel:[phone] OFFICE THBXL-UZC-HQE JOSE [facility], [address], [place], [place], [address] , [place] tel: [phone] [facility] 4 month F/U (chief complaint)Chr onic Conditions (chief complaint) Hypothyroidi sm, unspecifiedR adiculopathy , lumbar regionType 2 diabetes mellitus with diabetic polyneuropat hyPneumonia of right lower lobe due to infectious organismHype rcalcemiaBod y mass index [BMI] 26.0-26.9, adult 3 Ernie Clemente. [address] [place] [address], [id number], [place]. tel:[phone] Referring Provider: Bryn villafana, [address] [place] [address], [address] . tel:[phone] [facility], [address], [place], [place], [address] , tel: [phone] [facility] Cough, unspecified type 3 Ernie Clemente. [address] [place] [address], [id number], [place]. tel:[phone] OFFICE ROCPN-LVJ-WPE ANDED [facility], [address], [place], [place], [address] , tel:[phone] [facility] acute visit (chief complaint) Body mass index [BMI] 27.0-27.9, adultAcute bronchitis, unspecified organismAcut e URI 3 Ernie Clemente. [address] [place] [address], [id number], [place]. tel:[phone] Referring Provider: Bryn villafana, [address] [place] [address], [address] . tel:[phone] [facility], [address], [place], [place], [address] , tel:[phone] [facility] No Information 3 Ernie Clemente. [address] [place] [address], [id number], [place]. tel:[phone] [facility], [address], [place], [address] , [place] tel: [phone] [facility] No Information 3 Ernie Clemente. [address] [place] [address], [id number], [place]. tel: [phone] [facility], [address], [place], [address] , [place] tel: [phone] [facility] Encounter for immunization 3 Ernie Clemente. [address] [place] [address], [id number], [place]. tel: [phone] Referring Provider: Bryn villafana, [address] [place] [address], [address] . tel:[phone] [facility], [address], [place], [place], [address] , [place] tel: [phone] [facility] Onychomycosi s of toenail 3 Ernie Clemente. [address] [place] [address], [id number], [place]. tel: [phone] [facility], [address], [place], [address] , [place] tel: [phone] [facility] No Information 3 Ernie Clemente. [address] [place] [address], [id number], [place]. tel: [phone] [facility], [address], [place], [place], [address] , [place] tel: [phone] [facility] No Information 3 Michael Ortiz. [address], [id number], [place]. [phone] Referring Provider: Bryn villafana, [address] [place] [address], [address] . tel:[phone] [facility], [address], [place], [place], [address] , [place] tel: [phone] [facility] Patient encounter (chief complaint)Chr onic Conditions (chief complaint) Body mass index [BMI] 27.0-27.9, adultType 2 diabetes mellitus with diabetic polyneuropat hyHypothyroi dism, unspecifiedG eneralized anxiety disorderEsse ntial (primary) hypertension Radiculopath y, lumbar regionOnycho mycosis of toenail 3 Ernie Clemente. [address] [place] [address], [id number], [place]. tel:[phone] Referring Provider: Bryn villafana, [address] [place] [address], [address] . tel:[phone] [facility], [address], [place], [place], [address] , [place] tel: [phone] [facility] No Information 3 Ernie Clemente. [address] [place] [address], [id number], [place]. tel:[phone] [facility], [address], [place], [address] , [place] tel: [phone] [facility] No Information 3 Michael Angel. [address], [id number], [place]. tel:[phone] Referring Provider: Bryn villafana, [address] [place] [address], [address] . 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 [address] [place] [address], [id number], [place]. tel:[phone] Referring Provider: Bryn villafana, [address] [place] [address], [address] . tel:[phone] OFFICE LYIYE-VMC-VRK JOSE [facility], [address], [place], [place], [address] , tel: [phone] [facility] Patient encounter (chief complaint)oth er (chief complaint)Chr onic Conditions (chief complaint) Body mass index [BMI] 25.0-25.9, adultHypothy roidism, unspecifiedO ther intervertebr al disc degeneration , lumbar regionEssent ial (primary) hypertension Type 2 diabetes mellitus with diabetic polyneuropat hyArthrodesi s statusExcess aman gasPruritus 2 Ernie Clemente. [address] [place] [address], [id number], [place]. tel:[phone] Referring Provider: Bryn villafana, [address] [place] [address], [address] . tel:[phone] [facility], [address], [place], [address] , tel:[phone] [facility] No Information 2 Ernie Clemente. [address] [place] [address], [id number], [place]. tel:[phone] [facility], [address], [place], [place], [address] , tel:[phone] [facility] No Information 2 Ernie Clemente. [address] [place] [address], [id number], . tel:[phone] OFFICE VLFBJ-BXA-HPG [facility], [address], [place], [place], [address] , [place] tel:[phone] [facility] 4 month F/U (chief complaint)oth er (chief complaint)Chr onic Conditions (chief complaint) Body mass index [BMI] 26.0-26.9, adultEssenti al (primary) hypertension Hypothyroidi sm, unspecifiedM igraine, unspecified, not intractable, without status migrainosusG bahman-esopha geal reflux disease without esophagitisP ulmonary hypertension , unspecifiedH istory of anemiaOther intervertebr al disc degeneration , lumbar region 2 Ernie Clemente. [address] [place] [address], [place], [place], [address], [place]. tel:[phone] Referring Provider: Bryn villafana, [address] [place] [address], [place], [address] . tel:[phone] OFFICE MGEDC-EFH-UPR [facility], [address], [place], [address] , [place] tel:[phone] [facility] 4 month F/U (chief complaint)oth er (chief complaint)Chr onic Conditions (chief complaint) Body mass index [BMI] 26.0-26.9, adultOther intervertebr al disc degeneration , lumbar regionType 2 diabetes mellitus with diabetic polyneuropat hyHypothyroi dism, unspecifiedE ssential (primary) hypertension Scoliosis, unspecifiedP olyosteoarth ritis, unspecifiedH yperlipidemi a, unspecified Nov- 2 Ernie Clemente. [address] [place] [address], [id number], . tel:[phone] Referring Provider: Bryn villafana, [address] [place] [address], [address] . tel:[phone] OFFICE [id number]-[id number] JOSE [facility], [address], [place], [place], [address] , tel: [phone] [facility] Essential hypertension (chief complaint)Rad iculopathy, lumbar region (chief complaint)oth er (chief complaint)Chr onic Conditions (chief complaint) Body mass index [BMI] 25.0-25.9, adultType 2 diabetes mellitus with diabetic polyneuropat hyHypothyroi dism, unspecifiedE ssential (primary) hypertension Other intervertebr al disc degeneration , lumbar regionGenera lized anxiety disorderWeig ht loss, unintentiona lTremor Dec- 1 Ernie Clemente. [address] [place] [address], [id number], . tel:[phone] Referring Provider: Bryn villafana, [address] [place] [address], [place], [address] . tel:[phone] [facility], [address], [place], [place], [address] , [place] tel: [phone] [facility] Hypothyroidi sm, unspecifiedE ssential (primary) hypertension History of anemiaType 2 diabetes mellitus with diabetic polyneuropat hy Apr- 1 Ernie Clemente. [address] [place] [address], [id number], [place]. tel:[phone] Referring Provider: Bryn villafana, [address] [place] [address], [place], [address] . tel:[phone] OFFICE KERPF-OTO-JGU [facility], [address], [place], [place], [address] , [place] tel: [phone] [facility] Essential hypertension (chief complaint)Ang ioedema (chief complaint)Typ e 2 diabetes (chief complaint)oth er (chief complaint)Chr onic Conditions (chief complaint) Body mass index (BMI) 27.0-27.9, adultEssenti al (primary) hypertension Type 2 diabetes mellitus with diabetic polyneuropat hyHypothyroi dism, unspecifiedP olyosteoarth ritis, unspecifiedR adiculopathy , lumbar regionHistor y of anemia 1 Ernie Clemente. [address] [place] [address], [id number], [place]. tel:[phone] Referring Provider: Bryn villafana, [address] [place] [address], [address] . tel:[phone] OFFICE [id number]-[id number] JOSE [facility], [address], [place], [place], [address] , [place] tel: [phone] [facility] facial swelling (chief complaint)Chr onic Conditions (chief complaint) Type 2 diabetes mellitus with diabetic polyneuropat hyEssential (primary) hypertension Scoliosis, unspecifiedH istory of angioedemaBo dy mass index (BMI) 28.0-28.9, adultFacial swelling 1 Merline Pang. [address] [place] [address], [address], [place]. tel:[phone] Referring Provider: Bryn villafana, [address] [place] [address], [address] . tel:[phone] [facility], [address], [place], [place], [address] , [place] tel: [phone] [facility] No Information 1 Ernie Clemente. [address] [place] [address], [id number], [place]. tel:[phone] OFFICE [id number]-QWR-QVP [facility], [address], [place], [place], [address] , tel: [phone] [facility] Essential hypertension (chief complaint)Int ervertebral [...] disease without esophagitis Nov- 1 Ernie Clemente. [address] [place] [address], [id number], [place]. tel:[phone] Referring Provider: Bryn villafana, [address] [place] [address], [address] . tel:[phone] [facility], [address], [place], [place], [address] , tel: [phone] [facility] No Information 1 Ernie Clemente. [address] [place] [address], [id number], [place]. tel:[phone] [facility], [address], [place], [place], [address] , tel: [phone] [facility] Hypothyroidi sm, unspecifiedH yperlipidemi a, unspecifiedT ype 2 diabetes mellitus with diabetic polyneuropat hy Oct 0 Ernie Clemente. [address] [place] [address], [id number], [place]. tel:[phone] Referring Provider: Bryn villafana, [address] [place] [address], [address] . tel:[phone] OFFICE [id number]-DLC JOSE [facility], [address], [place], [place], [address] , [place] tel: [phone] [facility] DM/HTN (chief complaint)Chr onic Conditions (chief complaint) Body mass index (BMI) 27.0-27.9, adultEssenti al (primary) hypertension Other intervertebr al disc degeneration , lumbar regionArthro desis statusType 2 diabetes mellitus with diabetic polyneuropat hyHyperlipid emia, unspecifiedH ypothyroidis m, unspecifiedM yalgia, unspecified siteGastro-e sophageal reflux disease without esophagitis 0 Ernie Clemente. [address] [place] [address], [place], [place], [id number], [place]. tel:[phone] Referring Provider: Bryn villafana, [address] [place] [address], [place], [address] . tel:[phone] [facility], [address], [place], [place], [address] , tel: [phone] [facility] Arthrodesis status 0 Ernie Clemente. [address] [place] [address], [place], [place], [id number], [place]. tel:[phone] Referring Provider: Bryn villafana, [address] [place] [address], [place], [address] . tel:[phone] [facility], [address], [place], [place], [address] , tel: [phone] [facility] Essential (primary) hypertension Type 2 diabetes mellitus with diabetic polyneuropat hyHypothyroi dism, unspecified 0 Ernie Clemente. [address] [place] [address], [id number], [place]. tel:[phone] Referring Provider: Bryn villafana, [address] [place] [address], [place], [address] . tel:[phone] [facility], [address], [place], [place], [address] , tel: [phone] [facility] Arthrodesis status 0 Ernie Clemente. [address] [place] [address], [id number], [place]. tel:[phone] OFFICE [id number]-[id number]-NNU [facility], [address], [place], [place], [address] , tel: [phone] [facility] Telehealth (chief complaint)Chr onic Conditions (chief complaint) Scoliosis, unspecifiedO veractive bladderGener alized anxiety disorderEsse ntial (primary) hypertension Arthrodesis status 0 Ernie Clemente. [address] [place] [address], [id number], [place]. [phone] Referring Provider: Bryn villafana, [address] [place] [address], [address] . tel:[phone] [facility], [address], [place], [place], [address] , tel: [phone] [facility] Essential (primary) hypertension 0 Ernie Clemente. [address] [place] [address], [id number], [place]. tel:[phone] OFFICE FVQLT-YEH-TWM [facility], [address], [place], [place], [address] , tel: [phone] [facility] 5 week (chief complaint)Chr onic Conditions (chief complaint) Scoliosis, unspecifiedR adiculopathy , lumbar regionOther intervertebr al disc degeneration , lumbar regionOverac tive bladderGener alized anxiety disorderBody mass index (BMI) 22.0-22.9, adult Jp- 0 Ernie Clemente. [address] [place] [address], [id number], [place]. tel:[phone] Referring Provider: Bryn villafana, [address] [place] [address], [address] . tel:[phone] OFFICE GNAZD-BRD-TFB JOSE [facility], [address], [place], [place], [address] , tel: [phone] [facility] 4 month (chief complaint)Chr onic Conditions (chief complaint) Hyperlipidem ia, unspecifiedU nspecified abnormalitie s of gait and mobilityScol iosis, unspecifiedE ssential (primary) hypertension Hypothyroidi sm, unspecifiedT ype 2 diabetes mellitus with diabetic polyneuropat hyOther intervertebr al disc degeneration , lumbar regionGenera lized anxiety disorder Dec-0 4 9 Ernie Clemente. [address] [place] [address], [id number], . tel:[phone] Referring Provider: Bryn villafana, [address] [place] [address], [address] . tel:[phone] [facility], [address], [place], [place], [address] , tel: [phone] [facility] No Information Sep-3 0- 9 Ernie Clemente. [address] [place] [address], [id number], . [phone] Referring Provider: Bryn villafana, [address] [place] [address], [address] . tel:[phone] [facility], [address], [place], [place], [address] , tel: [phone] Administrati on Other intervertebr al disc degeneration , lumbar regionScolio sis, unspecified Sep-1 3- 9 Ernie Clemente. [address] [place] [address], [id number], [place]. tel:[phone] [facility], [address], [place], [place], [address] , tel: [phone] [facility] Overactive bladder Sep-0 4-201 9 Ernie Clemente. [address] [place] [address], [id number], [place]. tel:[phone] Referring Provider: Bryn villafana, [address] [place] [address], [address] . tel:[phone] OFFICE [id number] JOSE [facility], [address], [place], [place], [address] , tel: [phone] [facility] 6 month (chief complaint)Chr onic Conditions (chief complaint) Body mass index (BMI) 21.0-21.9, adultEssenti al (primary) hypertension Gastro-esoph ageal reflux disease without esophagitisA rthrodesis statusOther intervertebr al disc degeneration , lumbar regionUnspec ified abnormalitie s of gait and mobilityScol iosis, unspecifiedH yperlipidemi a, unspecifiedH ypothyroidis m, unspecifiedO veractive bladder 9 Ernie Clemente. [address] [place] [address], [id number], [place]. tel:[phone] Referring Provider: Bryn villafana, [address] [place] [address], [address] . tel:[phone] [facility], [address], [place], [place], [address] , tel: [phone] [facility] Levoscoliosi s 9 Ernie Clemente. [address] [place] [address], [id number], [place]. tel:[phone] [facility], [address], [place], [place], [address] , [place] tel: [phone] [facility] Female climacteric state 9 Ernie Clemente. [address] [place] [address], [id number], [place]. tel:[phone] [facility], [address], [place], [place], [address] , tel: [phone] [facility] Injection (chief complaint) No Information 9 Priscila Cho. [address] [facility] [address], [place], [place], [address], [place]. tel:[phone] Referring Provider: Marquis Francois, [address] [facility] [address], [place], [address] . tel:[phone] [facility], [address], [place], [place], [address] , [place] tel: [phone] [facility] Type 2 diabetes mellitus with diabetic polyneuropat hy 9 Ernie Clemente. [address] [place] [address], [id number], [place]. tel:[phone] [facility], [address], [place], [place], [address] , [place] tel: [phone] [facility] Measles, mumps, rubella (MMR) vaccination status unknown 9 Ernie Clemente. [address] [place] [address], [id number], [place]. tel:[phone] Referring Provider: Bryn villafana, [address] [place] [address], [address] . tel:[phone] [facility], [address], [place], [address] , [place] tel: [phone] [facility] Levoscoliosi s 9 Ernie Clemente. [address] [place] [address], [id number], [place]. tel:[phone] [facility], [address], [place], [place], [address] , [place] tel: [phone] [facility] No Information 9 Ernie Clemente. [address] [place] [address], [id number], [place]. tel:[phone] Referring Provider: Bryn villafana, [address] [place] [address], [place], [address] . tel:[phone] [facility], [address], [place], [place], [address] , tel: [phone] [facility] Follow up (chief complaint) Levoscoliosi sArthrodesis statusMeasle s, mumps, rubella (MMR) vaccination status unknown 9 Ernie Clemente. [address] [place] [address], [id number], [place]. tel:[phone] Referring Provider: Bryn villafana, [address] [place] [address], [address] . tel:[phone] [facility], [address], [place], [place], [address] , tel: [phone] [facility] Levoscoliosi s Mar-0 9 Ernie Clemente. [address] [place] [address], [id number], [place]. tel: [phone] [facility], [address], [place], [place], [address] , tel: [phone] [facility] Hypothyroidi sm, unspecifiedP olyosteoarth ritis, unspecifiedG bahman-esopha geal reflux disease without esophagitisA rthrodesis statusEssent ial (primary) hypertension Type 2 diabetes mellitus with diabetic polyneuropat hyLevoscolio sisPelvis tilted 9 Ernie Clemente. [address] [place] [address], [id number], [place]. tel:[phone] Referring Provider: Bryn villafana, [address] [place] [address], [address] . tel:[phone] [facility], [address], [place], [address] , [place] tel: [phone] [facility] Essential (primary) hypertension 9 Ernie Clemente. [address], [place], [id number], [place]. tel:[phone] [facility], [address], [place], [place], [address] , tel: [phone] [facility] Type 2 diabetes mellitus with diabetic neuropathy, unspecifiedH yperlipidemi a, unspecifiedE ssential (primary) hypertension History of migraineMyal giaChronic bilateral low back pain without sciaticaPrim cheli hypothyroidi smGastroesop hageal reflux disease without esophagitisC ognitive changesSecun dum ASDDizziness 8 oJnah Palacios. [address] , [address], [place], [place], [address]. tel:[phone] Referring Provider: Philip Mckenzie, [address], [place], [address] . tel:[phone] [facility] [address], [place], [place], [address] , tel: [phone] [facility] Dizziness 8 Jonah Palacios. [address] , [address], [place], [place], [address]. tel:[phone] Referring Provider: Philip Mckenzie, [address], [place], [address] . tel:[phone] [facility], [address], [place], [place], [address] , tel: [phone] [facility] Hyperlipidem ia, unspecifiedE ssential (primary) hypertension Type 2 diabetes mellitus with diabetic neuropathy, unspecifiedH istory of migraineChro ishaan bilateral low back pain without sciaticaPrim cheli hypothyroidi smSecundum ASDGastroeso phageal reflux disease without esophagitisC ognitive changesDizzi nessMyalgia 8 Jonah Palacios. [address] [employer], [address], [place], [place], [address]. tel:[phone] Referring Provider: Philip Mckenzie, [address], [place], [address] . tel:[phone] [facility], [address], [place], [place], [address] , tel: [phone] [facility] No Information Jonah Palacios. [address], [place], [place], [address]. tel:[phone] [facility], [address], [place], [place], [address] , tel: [phone] [facility] Diabetic polyneuropat hy associated with type 2 diabetes mellitusChro ishaan bilateral low back pain without sciaticaPrim cheli hypothyroidi smSecundum ASDSecondary pulmonary hypertension Gastroesopha geal reflux disease without esophagitisH yperlipidemi a, unspecifiedC ognitive changesEssen tial (primary) hypertension Jonah Palacios. [address], [place], [place], [address]. tel:[phone] Referring Provider: Philip Mckenzie, [address] [facility] [facility] [address], [place], [address] . tel:[phone] [facility] [address], [place], [place], [address] , tel: [phone] [facility] Hyperlipidem ia, unspecifiedT ype 2 diabetes mellitus with diabetic neuropathy, unspecifiedE ssential (primary) hypertension Primary hypothyroidi smSecundum ASDSecondary pulmonary hypertension Gastroesopha geal reflux disease without esophagitisC ognitive changesHisto ry of migraineChro ishaan right-sided low back pain with right-sided sciaticaOthe r chronic pain Jonah Palacios. [address], [place], [place], [address]. tel:[phone] Referring Provider: Philip Mckenzie, [address], [place], [address] . tel:[phone] [facility], [address], [place], [place], [address] , [place] tel: [phone] [facility] Cataracts, bilateralPul monary hypertension 6 Jonah Palacios. [address] [facility], [address], [place], [place], [address]. tel:[phone] [facility], [address], [place], [place], [address] , [place] tel: [phone] [facility] No Information 6 Jonah Palacios. [address] [facility], [address], [place], [place], [address]. tel:[phone] Referring Provider: Philip Mckenzie, [address] [facility] [address], [place], [address] . tel:[phone] [facility], [address], [place], [place], [address] , [place] tel: [phone] [facility] Hyperlipidem ia, unspecifiedP rimary hypothyroidi smMigraine, [...] pain 6 Jonah Palacios. [address] [facility], [address], [place], [place], [address]. tel:[phone] Referring Provider: Philip Mckenzie, [address] [facility] [address], [place], [address] . 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 [address] , [address], [place], [place], [address]. 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 [address] [facility], [address], [place], [place], [address]. tel:[phone] [facility] [address], [place], [place], [address] , [place] tel: [phone] [facility] Hyperlipidem ia, unspecifiedT ype 2 diabetes mellitus with diabetic neuropathy, unspecifiedD iabetes mellitus due to underlying condition with diabetic neuropathy, unspecifiedO ther specified mental disorders due to known physiologica l conditionGas tro-esophage al reflux disease without esophagitisM igraine, unspecified, not intractable, without status migrainosusS ecundum ASDPulmonary hypertension 6 Mckenzie Philip. [address] , [address], [place], [place], [address]. tel:[phone] Referring Provider: Philip Mckenzie, [address] [facility] [address], [place], [address] . tel:[phone] [facility] [address], [place], [place], [address] , [place] tel: [phone] [facility] Encounter for immunization 5 Jonah Palacios. [address] [facility], [address], [place], [place], [address]. tel:[phone] Referring Provider: Philip Mckenzie, [address] [facility] [address], [place], [address] . tel:[phone] [facility] [address], [place], [address] , tel: [phone] [facility] No Information 5 Jonah Palacios. [address] [facility], [address], [place], [place], [address]. tel:[phone] Referring Provider: Philip Mckenzie, [address] [facility] [address], [place], [address] . tel:[phone] [facility], [address], [place], [place], [address] , tel: [phone] [facility] No Information May-0 4 Jonah Palacios. [address] [facility], [address], [place], [address]. tel:[phone] Referring Provider: Philip Mckenzie, [address] [facility] [address], [place], [address] . tel:[phone] [facility] [address], [place], [place], [address] , tel: [phone] [facility] History of electrolyte imbalance Nov-0 3 4 Jonah Palacios. [address] [facility], [address], [place], [address]. tel:[phone] Referring Provider: Philip Mckenzie, [address] [facility] [address], [place], [address] . tel:[phone] [facility] [address], [place], [place], [address] , tel: [phone] [facility] History of fall/At Risk For Falling 4 Jonah Palacios. [address] [facility], [address], [place], [address]. tel:[phone] Referring Provider: Philip Mckenzie, [address] [facility] [address], [place], [address] . tel:[phone] [facility] [address], [place], [place], [address] , tel: [phone] [facility] No Information 3 Jonah Palacios. [address] [facility], [address], [place], [place], [address]. tel:[phone] Referring Provider: Philip Mckenzie, [address] [facility] [address], [place], [address] . tel:[phone] [facility], [address], [place], [place], [address] , tel: [phone] [facility] Need for prophylactic vaccination and inoculation against streptococcu s pneumoniae [pneumococcu s] 3 Jonah Palacios. [address] [facility], [address], [place], [place], [address]. tel:[phone] Referring Provider: Philip Mckenzie, [address] [facility] [address] [place] [address], [address] . tel:[phone] [facility] [address], [place], [place], [address] , tel: [phone] [facility] Special screening for malignant neoplasm of colon 2 Jonah Palacios. [address] [facility], [address], [place], [address]. tel:[phone] Referring Provider: Philip Mckenzie, [address] [facility] [address], [place], [address] . tel:[phone] [facility] [address], [place], [place], [address] , tel: [phone] [facility] NEED FOR PROPHYLACTIC VACCINATION AND INOCULATION, INFLUENZA 1 Jonah Palacios. [address] [facility], [address], [place], [address]. tel:[phone] Referring Provider: Philip Mckenzie, [address] [facility] [address], [place], [address] . tel:[phone] [facility], [address], [place], [place], [address] , tel: [phone] Conversion Department No Information 1 Conversion Doctor. [address] [facility], [place], [address], [place]. [facility], [address], [place], [place], [address] , tel: [phone] [facility] VACCINATION FOR DTP-DTAP 201 1 Mckenzie Philip. [address], [place], [place], [address]. tel:[phone] [facility], [address], [place], [place], [address] , tel: [phone] [facility] LONG-TERM USE MEDS NEC 0 Mckenzie Philip. [address], [address], [place], [id number]. tel:[phone] [facility], [address], [place], [place], [id number] , tel: [phone] [place] [facility] No Information 5 Mckenzie Philip. [address], [place], [place], [id number]. tel:[phone] Family History Family Member Type Diagnosis Age At Onset Father Problem (finding) Myocardial infarction ( Cause Of ) Sister Problem (finding) Mother Problem (finding) Father Problem (finding) Mother Problem (finding) TRUCK ACCIDENT (Cause O f ) Sister Problem (finding) Over dose on Diltiazem (Cause Of ) Immunizations Vaccine Date Status Comments [...] ; Source: Other Provider J&J COVID/Adenovirus Vaccine [id number] viral particles/0.5mL administered Note: [facility] ; Source: Other Registry Fluzone High-Dose, high dose , preservative free administered Source: New Immuniza tion Record J&J COVID/Adenovirus Vaccine [id number] viral particles/0.5mL administered Note: [facility] ; Source: Other Registry Fluzone High-Dose, high dose , preservative free administered Note: [facility] ; Source: Other Provider MMR administered Source: New Imm unization Record MMR administered Source: New Imm unization Record SHINGRIX (Zoster vaccine recombinant, adjuvanted) administered Note: [facility] [place] ; Source: Other Provider SHINGRIX (Zoster [...] or older) administered Source: New Immunization Record 91726 - Tetanus_Diptheria_Pertussis_Td ap administered Source: Source Unspe cified 89983 - Influenza administered Source: So urce Unspecified INFLUENZA A (H1N1) VACCINE, ANY ROUTE OF ADMIN administered Source: Source Catarino torres 49664 - Influenza administered Source: So urce Unspecified Zoster administered Source: Other Martha cain 67500 - Influenza administered Source: So urce Unspecified 70731 - TD administered Source: Source Unspecified Payers Payer name Insurance type Covered constitution party ID Authoriza tion(s) [employer] MB [id number] [employer] MB [id number] [employer] MB [id number] [employer] MB [id number] [employer] MB [id number] [employer] MB [id number] [employer] MB [id number] [employer] MB [id number] MEDICARE [place] [id number] [place] [id number] MEDICARE [place]RO[place] [id number] [place] [id number] AETNA MDCR [facility] [id number] Social History Type Description Quantity Date Captured [...] Referred To: [address] [place], [address] [phone] Ordered: SCREENING MAMMOGRAM (CAD) Appointment date/timeframe: 07/05/2024 ordered Referral Referred To: Dr. Ashu Rosales Ordered: Referrals: Neurology. Dr. Ashu Rosales. Evaluation/diagnostic/treatment - Level 3 Appointment date/timeframe: 12/11/2024 ordered Referral Referred To: Physical Therapy Ordered: Referrals: Physical Therapy. Location: [facility]. Evaluation/diagnostic/treatment - Level 3 ordered Referral Referred To: [address] [place], [place], [id number] [phone] Ordered: Chest Xray, 2 Views ordered Referral Ordered: Chest x-ray, PA and lateral Bilateral chest ordered Referral Referred To: Santy Sepulveda DPM [address] [facility] [address] [place], [address] [phone] Ordered: Referrals: Podiatry. Santy Sepulveda DPM Evaluation/diagnostic/treatment - Level 3 ordered Referral Referred To: Qasim Low [address] [place], [place], [phone] Ordered: Referrals: Pain Medicine. Hugh. Devante Evaluation/diagnostic/treatment - Level 3 ordered Referral Referred To: Qasim Low [address] [place], [place], [id number] [phone] Ordered: Referrals: Pain Management. Qasim Low. Evaluation/diagnostic/treatment - Level 3 ordered Referral Referred To: Jose Dunn MD Ordered: Referrals: Obstetrics/Gynecology. Jose Dunn MD. Evaluation/diagnostic/treatment - Level 3 ordered Referral Referred To: Kali Boyle [address] [place], [place], [phone] Ordered: Referrals: Neurosurgery. Kali Boyle. Evaluation/diagnostic/treatment - Level 3 ordered Referral Referred To: [address] [place] [address]
[address] [place], [address] [phone] Ordered: MRI of lumbar spine without contrast [...] pulled a muscleSwelling Referral request:Ophthalmology, Dr. Veto Btaeman - [place] office 01/28/25Metrics:DEXA - Pt concerned she may not be able to have scan performed due to metal in backIf able to, prefers [facility] Past appt:Podiatry - 12/16/24Ophthalmology - Every [...] weeks ago. Nerve conduction test ordered at [facility].[id number] administered 08/09/23. chronic conditions *See Chronic Conditions HPI Hospital Follow-Up The patient w as seen today for a hospital follow-up visit, after being discharged on 12/26/2023. Details regarding this most recent admission include: Patient is here with José Miguel. She was admitted to [facility] on December 23 presenting with confusion and falls. She was noted to have an elevated troponin however her EKG showed no normal sinus rhythm. [place] that hypotension at home resulting in the [...] Dr. Shields - every 6 monthsAgreeable to Venlylt48. Chronic Conditions *See Chronic Conditions HPI acute [...] complain t: 4 month F/U.-Essential hypertensionOV with summer intern Dr. Shields 11/16/22Echo scheduled02/02/23Home BP well controlledDenies [...] will make an appt. with Dr. Alatorre [facility]. Chronic Conditions *See Chronic Conditions HPI [...] disorderWell controlled with medication Back surgeon in [place] Dr. Lewisurgery 1-2 years ago other Would like to kn ow if she is due for a colorectal screening. J&J 08/2021 [facility] Chronic Conditions *See Chronic Conditions [facility] Essential hypertension Home BP 1 30-140/70sDenies chest pain, shortness of breathPositive for dizziness, lightheadedness with standing Chronic Conditions *See Chronic Conditions [facility] other Cold intolerance , shakiness, increased anxiety x1 monthhaving some occasional mood swings, crying easilyTaking buspirone three times a day and does feel that this helps and can feel when it is wearing offOccasional decreased appetite and has lost weightdiscussed that this could be related to electrolytes2 falls in the past 12 monthsBruising Dizziness, light headedness with standing J&J booster 07/18/21 [facility] Dec-27-2021 Radiculopathy, lumbar region Wel l controlled with hydrocodone Chronic Conditions *See Chronic Conditions HPI Angioedema Swelling in lowe r extremitiesDenies shortness of breath Type 2 diabetes Walks on a regul ar basis for exerciseHas been eating more salads other Had blood drive at [facility] 2[facility]3 weeks ago and was notified her iron was lowOccasional increase in fatigueWill receive seasonal flu shot. Essential hypertension Home BP w jerman controlledDenies dizziness, light headedness Chronic Conditions *See Chronic Conditions HPI facial swelling patient is here with her José Miguel for emergency room follow-up. She woke up at 5:30 yesterday morning with lips and facial swelling. She went to [facility]. Her tongue did not swell. She [...] dizziness or light headedness other J&J 3/8 [facility] [place] and vomiting after vaccine lasted for 20minShingrix x2, Schdestinis [place] 2 yrs agoFasting for labs. Intervertebral disc degeneration, lumbar region Improved, controlled with hydrocodoneNarcotic contract signed today Chronic Conditions *See Chronic Conditions HPI Chronic Conditions *See Chronic Conditions HPI DM/HTN Associated sympt oms include weight gain. Pertinent negatives include fatigue. Additional information: Last A1C: 5.3 (07/17/19). Monitors salt intake. Does not check BP.. Telehealth This visit was c ompleted via [facility] Telehealth visit due [...] Conditions HPI Chronic Conditions *See Chronic Conditions [facility] 5 week Here for a follo w [...] levels. Related to Hypothyroidism, unspecified Continue current ussan n medications as prescribed Related to Other intervertebral disc degeneration, lumbar region Will continue curren t medications and we will continue to work on slowly decreasing gabapentin. Follow-up with neurology as scheduled. Follow-up with podiatry as scheduled.Follow-up with me in approximately 2 months, sooner if needed Related to Type 2 diabetes mellitus with diabetic polyneuropathy today Related to Encou nter for immunization [...] for you to see a neurologist at [facility].Continue on the donepezil. we will lower [...] issues, we will repeat x ray at [facility]. No additional antibiotics at this time.Follow up [...] 26.0-26.9, adult Continue follow-up w ith your summer intern as scheduled. You tell me that you are due for an echocardiogram coming up soon Related to Pulmonary hypertension, unspecified Please take all medi cations as prescribed. We will check liver function & lipid panel today. Please call if you develop myalgias. Related to Hyperlipidemia, unspecified At this time we will continue the same medications. I will refer you to a art conservator, hopefully closer to home for evaluation of [...] continue current medications. Please follow-up with your summer intern as scheduled. Related to Pulmonary hypertension, unspecified [...] todayI will work on getting records from [facility].return as scheduled in March Related to Facial swelling continue with the me drol dose pack and benadrylwe sent in refill of the epi pens.we will hold off on summer intern for now. Related to History of angioedema [...] looking into CBDThere is a place in [place] called Mr. Celeste [id number] [place], [place], [place] [address]Aqdnhy: Meeting treatment plan goals. Goals: Your goal [...] Related to Scoliosis, unspecified Continue working on [employer] y diet Related to Body mass index [...] recommend you make an appointment with your summer intern about getting a cardiac clearance for surgery [...] this time we will obtain MRI at [facility] and will then refer you to Dr. Sharp. We will image the lumbar spine as this had the worsening scoliosis and the history of fusion. e will continue hydrocodone and gabapentin. Related to Levoscoliosis Assessments Type Assessment Date No Information Patient Care Teams Name Effective Dates (start - stop) Status Members No Information
[2025-04-29 15:48] LABS: Anion Gap 8 mmol/L (4-12); Blood Urea Nitrogen 20 mg/dL (7-17); Calcium 9.4 mg/dL (8.4-10.2); Carbon Dioxide 20 mmol/L (22-30); Chloride 103 mmol/L (98-107); Estimated Glomerular Filt Rate > 60; Glucose 124 mg/dL (65-110); Magnesium 1.2 mg/dL (1.6-2.3); Potassium 4.3 mmol/L (3.4-5.0); Sodium 131 mmol/L (137-145)
--- OUTSIDE RECORDS SUMMARY | 2025-04-29 16:34 | XMS_ITS | Encounter Summary ---
Author Organization [facility] Address [address] [place] [address] Care Team Providers Care Utility Hand Name Role Phone Philip Mckenzie MD Primary Care Provider [phone] Bryn Andrade DO Primary Care Prov ider Encounter Details Date Type Department Care Team (Late st Contact Info) Description 11/24/2016 Orders Only [facility] ProviderZach MD [address] [place] [address] Social History Tobacco Use Types Packs/Day Years Used Date Smoking Tobacco: Never Assessed Alcohol Use Standard Drinks/Week Comments No 0 (1 standard drink = 0.6 oz pur e alcohol) Comments Unknown Sex and Gender Information Value Date Recorded Sex Assigned at Not on file Legal Sex Female 6: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
--- OUTSIDE RECORDS SUMMARY | 2025-04-29 16:34 | XMS_ITS | Clinical Summary ---
Author Organization [facility] Address [address] [place] [address] Care Team Providers Care Bank Clerk Name Role Phone KatjaGallardo Bryn Primary Care [...] complete this topic Insurance [employer] Care Teams Bank Clerk Relationship Specialty Start Date End Date Byrn Andrade DO PCP - General FAMILY PRACTICE 11/22/18
--- OUTSIDE RECORDS SUMMARY | 2025-04-29 16:34 | XMS_ITS | Encounter Summary ---
Author Organization [facility] Address [address] [place] [address] Care Team Providers Care Inbound Sales Manager Name Role Phone Camron Richard DO Primary Care Provider [phone] Bryn Andrade DO Primary Care Provide r Encounter Details Date Type Department Care Team (Late st Contact Info) Description 03/11/2019 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
--- OUTSIDE RECORDS SUMMARY | 2025-04-29 16:34 | XMS_ITS | Clinical Summary ---
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
--- OUTSIDE RECORDS SUMMARY | 2025-04-29 16:34 | XMS_ITS | Encounter Summary ---
Author Organization [facility] Address [address] [place] [address] Care Team Providers Care Seam Checker Name Role Phone Philip Mckenzie MD Primary Care Provider [phone] Bryn Andrade DO Primary Care Prov ider Encounter Details Date Type Department Care Team (Late st Contact Info) Description 10/04/2017 Orders Only [facility] Health Information Management [address] [place] [address] Scanning, Provider Social History Tobacco Use Types Packs/Day Years Used Date Smoking Tobacco: Never Smokeless Tobacco: Never Alcohol Use Standard Drinks/Week Comments No 0 (1 standard drink = 0.6 oz pur e alcohol) Comments Unknown Sex and Gender Information Value Date Recorded Sex Assigned at Not on file Legal 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
--- OUTSIDE RECORDS SUMMARY | 2025-04-29 16:34 | XMS_ITS | Clinical Summary ---
Author Organization [facility] [employer] Address [address] [place] [address] Care Team Providers Care Personal Lines Sales Executive Name Role Phone Bryn Andrade Primary Care Provide r Source Comments [facility],non-owned Affiliates and Associated Physician Practices is amultiple site organization consisting of ambulatory clinics and hospital sitesin [place], [place], [place] and [place]. This disclosure is being madepursuant to the Care Everywhere program and may not contain all information available regarding this patient. 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 N/A: Spine Medtronic Sofamor Danek Spine 07/14/2026 [id number] / / [id number] Screw 5.5mm 40mm Ma Spne Solera Cd Hzn Implanted:Qty: 2 on 10/11/2019 by Kali Boyle MD at [facility] N/A: Spine Medtronic Sofamor Danek Inc [id number] / / Screw 5.5mm 45mm Ma Spne Solera Cd Hzn Implanted:Qty: 1 on 10/11/2019 by Kali Boyle MD at [facility] N/A: Spine Medtronic Sofamor Danek Inc [id number] / / Screw 6.5mm 45mm Ma Spne Solera Cd Hzn Implanted:Qty: 3 on 10/11/2019 by Kali Boyle MD at [facility] N/A: Spine Medtronic Sofamor Danek Inc [id number] / / Screw 6.5mm 35mm Ma Spne Solera Cd Hzn Implanted:Qty: 2 on 10/11/2019 by Kali Boyle MD at [facility] N/A: Spine Medtronic Sofamor Danek Inc [id number] / / Screw 9.5mm 90mm Ma Spne Solera Cd Hzn Implanted:Qty: 2 on 10/11/2019 by Kali Boyle MD at [facility] N/A: Spine Medtronic Sofamor Danek Inc [id number] / / Screw Set Ti Spnl Brk Off Cd Hzn Nonster Implanted:Qty: 16 on 10/11/2019 by Kali Boyle MD at [facility] N/A: Spine Medtronic Sofamor Danek Inc [id number] / / Screw Set Ti Rvrs Ang Spne Pdcl Brkof Implanted:Qty: 4 on 10/11/2019 by Kali Boyle MD at [facility] N/A: Spine Medtronic Sofamor Danek Inc [id number] / / [id number] Implanted:Qty: 2 on 10/11/2019 by Kali Boyle MD at [facility] N/A: Spine [id number] / / [id number] Implanted:Qty: 2 on 10/11/2019 by Kali Boyle MD at [facility] N/A: Spine [id number] / / [id number] Implanted:Qty: 4 on 10/11/2019 by Kali Boyle MD at [facility] N/A: Spine [id number] / / Cmnt Bone Kyphon Xpede Spnl Mxr Implanted:Qty: 2 on 10/11/2019 by Kali Boyle MD at [facility] N/A: Spine Kyphon Inc 06/13/2022 [id number] / / [id number] Graft Tissue Drgn + Bvn Clgn Mtrx 3x3in Implanted:Qty: 1 on 10/11/2019 by Kali Boyle MD at [facility] N/A: Spine Integra Neurosciences 07/13/2022 [id number] / / [id number] Slnt Dura Duraseal Pg Trilysine Amine 5 Implanted:Qty: 1 on 10/11/2019 by Kali Boyle MD at [facility] N/A: Spine Integra Lifesciences Adryan [id number] / / Graft Bone Grftn Dbm Plif 10x2.5cm - [id number] Implanted:Qty: 1 on 10/11/2019 by Kali Boyle MD at [facility] N/A: Spine Osteotech Inc 07/22/2022 [id number] / [id number] / Spcr Spnl [id number] Elev Xlordotic Peek Implanted:Qty: 1 on 10/11/2019 by Kali Boyle MD at [facility] N/A: Spine Medtronic Sofamor [employer]anek Spine [id number] / / [id number] Spcr Spnl [id number] Elev Xlordotic Peek Implanted:Qty: 1 on 10/11/2019 by Kali Boyle MD at [facility] N/A: Spine Medtronic Sofamor [employer]anek Spine 04/26/2027 [id number] / / [id number] Spcr Spnl [id number] Elev Xlordotic Peek Implanted:Qty: 1 on 10/11/2019 by Kali Boyle MD at [facility] N/A: Spine Medtronic Sofamor Danek Spine 07/31/2027 [id number] / / [id number] Explanted Type Area Fnps Device Identifier Shelf Expiration Date Model / Serial / Lot Cmnt Bone Kyphon Xpede Spnl Mxr Explanted:Qty: 1 on 10/11/2019 at [facility] N/A: Spine Kyphon Inc [id number] / / [id number] Description:Supply [id number] Explanted:Qty: 1 on 10/11/2019 by Kali Boyle MD at [facility] N/A: Spine [id number] / / Kit Xpndr Kphpk Kphx Srg 15 3 11ga Spne Explanted:Qty: 1 on 10/11/2019 at [facility] N/A: Spine Kyphon Inc [id number] / / [id number] Description:Supply Insurance [employer] MEDICARE [facility] MEDICARE [facility] Care Address: [address] [place] [address] Advance Directives * Full Code (Latest Code Status on File) Date Activated Date Inactivated Comments 10/11/2019 6:38 PM 10/22/2019 12:01 PM Care Teams Personal Lines Sales Executive Relationship Specialty Start Date End Date Bryn Andrade DO [address] [facility] [address] [place] [address] PCP - General Family Medicine 05/17/19
== END 2025-04-29 15:18 | disposition home or self-care (01) ==
PROVIDERS: Visit Provider General Practice
DX: E83.42 Hypomagnesemia (principal); E87.6 Hypokalemia
CPT/HCPCS: 36415; 80048; 83735

== ENCOUNTER 2025-05-02 13:09 | Outpatient (CLI) | payer OTHER, SELFPAY ==
--- NOTE | ~2025-05-02 | XR_ITS ---
XR thoracic spine 3V 05/02/2025 13:29 Indication: Scoliosis Procedure: 3 views thoracic spine Comparison: No prior studies for comparison. Findings: There is mild dextrocurvature of the thoracic spine. There are changes of spinal fusion posteriorly from T10-L2. There are wedge compression fractures of T9 and T10 treated with vertebroplasty. There are also vertebroplasty changes at T11 and T12. No acute fracture is identified. There is accentuated thoracic kyphosis of the lower thoracic spine. There is moderate spondylosis of the visualized cervical spine. 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 2: Mild dextrocurvature of the thoracic spine with levocurvature of the upper lumbar spine. 3: Posterior spinal fusion at T10-L2. Reviewed, dictated and finalized at location O. 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 2: Mild dextrocurvature of the thoracic spine with levocurvature of the upper l umbar spine. 3: Posterior spinal fusion at T10-L2.
--- OUTSIDE RECORDS SUMMARY | 2025-05-02 13:15 | XMS_ITS | Clinical Summary ---
Author Organization [facility] [employer] Address [address] [place] [address] Care Team Providers Care Transit Mix Operator Name Role Phone Bryn Andrade Primary Care Provide r Source Comments [facility],non-owned Affiliates and Associated Physician Practices is amultiple site organization consisting of ambulatory clinics and hospital sitesin [place], [place], [place] and [place]. This disclosure is being madepursuant to the Care Everywhere program and may not contain all information available regarding this patient. 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 Gender Identity Not on file Sexual Orientation [...] this topic Medical Devices Implanted Type Area Mixer Operator Raw Salt Device Identifier Shelf Expiration Date Model / Serial / Lot Spcr Spnl [id number] Elev Xlordotic Peek Implanted:Qty: 1 on 10/11/2019 by Kali Boyle MD at [facility] N/A: Spine Medtronic Sofamor Danek Spine 07/14/2026 [id number] / / [id number] Screw 5.5mm 40mm Ma Spne Solera Cd Hzn Implanted:Qty: 2 on 10/11/2019 by Kali Boyle MD at [facility] N/A: Spine Medtronic Sofamor Danek Inc [id number] / / Screw 5.5mm 45mm Ma Spne Solera Cd Hzn Implanted:Qty: 1 on 10/11/2019 by Kali Boyle MD at [facility] N/A: Spine Medtronic Sofamor Danek Inc [id number] / / Screw 6.5mm 45mm Ma Spne Solera Cd Hzn Implanted:Qty: 3 on 10/11/2019 by Kali Boyle MD at [facility] N/A: Spine Medtronic Sofamor Danek Inc [id number] / / Screw 6.5mm 35mm Ma Spne Solera Cd Hzn Implanted:Qty: 2 on 10/11/2019 by Kali Boyle MD at [facility] N/A: Spine Medtronic Sofamor [employer]anek Inc [id number] / / Screw 9.5mm 90mm Ma Spne Solera Cd Hzn Implanted:Qty: 2 on 10/11/2019 by Kali Boyle MD at [facility] N/A: Spine Medtronic Sofamor [employer]ane[employer] Inc [id number] / / Screw Set Ti Spnl Brk Off Cd Hzn Nonster Implanted:Qty: 16 on 10/11/2019 by Kali Boyle MD at [facility] N/A: Spine Medtronic Sofamor [employer]ane[employer] Inc [id number] / / Screw Set Ti Rvrs Ang Spne Pdcl Brkof Implanted:Qty: 4 on 10/11/2019 by Kali Boyle MD at [facility] N/A: Spine Medtronic Sofamor [employer]ane[employer] Inc [id number] / / [id number] Implanted:Qty: 2 on 10/11/2019 by Kali Boyle MD at [facility] N/A: Spine [id number] / / [id number] Implanted:Qty: 2 on 10/11/2019 by Kali Boyle MD at [facility] N/A: Spine [id number] / / [id number] Implanted:Qty: 4 on 10/11/2019 by Kali Boyle MD at [facility] N/A: Spine [id number] / / Cmnt Bone Kyphon Xpede Spnl Mxr Implanted:Qty: 2 on 10/11/2019 by Kali Boyle MD at [facility] N/A: Spine Kyphon Inc 06/13/2022 [id number] / / [id number] Graft Tissue Drgn + Bvn Clgn Mtrx 3x3in Implanted:Qty: 1 on 10/11/2019 by Kali Boyle MD at [facility] N/A: Spine Integra Neurosciences 07/13/2022 [id number] / / [id number] Slnt Dura Duraseal Pg Trilysine Amine 5 Implanted:Qty: 1 on 10/11/2019 by Kali Boyle MD at [facility] N/A: Spine Integra Lifesciences Adryan [id number] / / Graft Bone Grftn Dbm Plif 10x2.5cm - [id number] Implanted:Qty: 1 on 10/11/2019 by Kali Boyle MD at [facility] N/A: Spine Osteotech Inc 07/22/2022 [id number] / [id number] / Spcr Spnl [id number] Elev Xlordotic Peek Implanted:Qty: 1 on 10/11/2019 by Kali Boyle MD at [facility] N/A: Spine Medtronic Sofamor Danek Spine [id number] / / [id number] Spcr Spnl [id number] Elev Xlordotic Peek Implanted:Qty: 1 on 10/11/2019 by Kali Boyle MD at [facility] N/A: Spine Medtronic Sofamor Danek Spine 04/26/2027 [id number] / / [id number] Spcr Spnl [id number] Elev Xlordotic Peek Implanted:Qty: 1 on 10/11/2019 by Kali Boyle MD at [facility] N/A: Spine Medtronic Sofamor Danek Spine 07/31/2027 [id number] / / [id number] Explanted Type Area Mixer Operator Raw Salt Device Identifier Shelf Expiration Date Model / Serial / Lot Cmnt Bone Kyphon Xpede Spnl Mxr Explanted:Qty: 1 on 10/11/2019 at [facility] N/A: Spine Kyphon Inc [id number] / / [id number] Description:Supply [id number] Explanted:Qty: 1 on 10/11/2019 by Kali Boyle MD at [facility] N/A: Spine [id number] / / Kit Xpndr Kphpk Kphx Srg 15 3 11ga Spne Explanted:Qty: 1 on 10/11/2019 at [facility] N/A: Spine Kyphon Inc [id number] / / [id number] Description:Supply Insurance [employer] MED[employer] [facility] MEDICARE [facility] Care Address: [address] [place] [address] Advance Directives * Full Code (Latest Code Status on File) Date Activated Date Inactivated Comments 10/11/2019 6:38 PM 10/22/2019 12:01 PM Care Teams Transit Mix Operator Relationship Specialty Start Date End Date Bryn Andrade DO [address] [facility] [address] [place] [address] PCP - General Family Medicine 05/17/19
--- OUTSIDE RECORDS SUMMARY | 2025-05-02 13:15 | XMS_ITS | Encounter Summary ---
Author Organization [facility] Address [address] [place] [address] Care Team Providers Care Sugar Drier Name Role Phone Philip Mckenzie MD Primary Care Provider [phone] Bryn Andrade DO Primary Care Prov ider Encounter Details Date Type Department Care Team (Late st Contact Info) Description 10/04/2017 Orders Only [facility] Information Management [address] [place] [address] Scanning, Provider Social History Tobacco Use Types Packs/Day Years Used Date Smoking Tobacco: Never Smokeless Tobacco: Never Alcohol Use Standard Drinks/Week Comments No 0 (1 standard drink = 0.6 oz pur e alcohol) Comments Unknown Sex and Gender Information Value Date Recorded Sex Assigned at Not on file 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
--- OUTSIDE RECORDS SUMMARY | 2025-05-02 13:15 | XMS_ITS | Clinical Summary ---
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
--- OUTSIDE RECORDS SUMMARY | 2025-05-02 13:15 | XMS_ITS | Encounter Summary ---
Author Organization [facility] Health Address [address] [place] [address] Care Team Providers Care Improvement Auditor Name Role Phone Camron Richard DO Primary Care Provider Bryn Andrade DO Primary Care Provide r Encounter Details Date Type Department Care Team (Late st Contact Info) Description 03/11/2019 [facility] Outpatient Visit [facility] [address] [place] [address] Qasim Low MD [address] [facility] [place] [address] Social History Tobacco Use Types Packs/Day Years Used Date Smoking Tobacco: Never Smokeless Tobacco: Never Alcohol Use Standard Drinks/Week Comments No 0 (1 standard drink = 0.6 oz pur e alcohol) Comments Unknown Sex and Gender Information Value Date Recorded Sex Assigned at Not on file 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
--- OUTSIDE RECORDS SUMMARY | 2025-05-02 13:15 | XMS_ITS | Encounter Summary ---
Author Organization [facility] Address [address] [place] [address] Care Team Providers Care Sizer Machine Name Role Phone Philip Mckenzie MD Primary Care Provider [phone] Bryn Andrade DO Primary Care Prov ider Encounter Details Date Type Department Care Team (Late st Contact Info) Description 11/24/2016 Orders Only [facility] ProviderZach MD [address] [place] [id number] Social History Tobacco Use Types Packs/Day Years Used Date Smoking Tobacco: Never Assessed Alcohol Use Standard Drinks/Week Comments No 0 (1 standard drink = 0.6 oz pur e alcohol) Comments Unknown Sex and Gender Information Value Date Recorded Sex Assigned at Not on file 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
--- OUTSIDE RECORDS SUMMARY | 2025-05-02 13:15 | XMS_ITS | Clinical Summary ---
Author Organization [facility] Address [address] [place] [address] Care Team Providers Care Electronic Heat Seal Operator Name Role Phone KatjaGallardo Bryn Primary Care [...] complete this topic Insurance [employer] Care Teams Electronic Heat Seal Operator Relationship Specialty Start Date End Date Bryn Andrade DO PCP - General FAMILY PRACTICE 11/22/18
== END 2025-05-02 13:10 | disposition home or self-care (01) ==
DX: M41.9 Scoliosis, unspecified (principal); S22.070A Wedge compression fracture of T9-T10 vertebra, initial encounter for closed fracture; S22.080A Wedge compression fracture of T11-T12 vertebra, initial encounter for closed fracture; X58.XXXA Exposure to other specified factors, initial encounter; Z98.1 Arthrodesis status
CPT/HCPCS: 72072

== ENCOUNTER 2025-06-24 12:34 | Outpatient (CLI) | payer OTHER, SELFPAY ==
--- NOTE | ~2025-06-24 | MM_ITS ---
EXAMINATION: MM screening pilo BI w sergei HISTORY: Screening TECHNIQUE: Craniocaudal and mediolateral oblique 3-D tomosynthesis images were obtained and synthetic 2-D images were generated. CAD analysis was submitted and interpreted. COMPARISON: Comparison to multiple prior studies sequentially, with oldest reviewed study dated 06/09/2017. BREAST PARENCHYMAL COMPOSITION: Dense: The breasts are heterogeneously dense, which may obscure small masses FINDINGS: There is no evidence of suspicious mass, calcification, or architectural distortion to suggest malignancy in either breast. There has been no suspicious interval change. IMPRESSION: 1. No mammographic evidence of malignancy. 2. Recommend routine screening mammography in one year. BI-RADS Category 1: Negative Reviewed, dictated and finalized at location B. GATION SPECIALIST
== END 2025-06-24 12:35 | disposition home or self-care (01) ==
DX: Z12.31 Encounter for screening mammogram for malignant neoplasm of breast (principal)
CPT/HCPCS: 77063; 77067